=== PATIENT | male | born 1975 | race African-American/Black ===

== ENCOUNTER 2019-08-16 22:01 | Emergency (ER) | payer OTHER ==
[2019-08-16] MEDS ORDERED: LORazepam 2 MG/ML INJ IV STA (22:13)
[2019-08-16] MEDS ORDERED: MORPHINE SULFATE 4 MG/ML SYRINGE IV STA (22:13)
[2019-08-16] MEDS ORDERED: SODIUM CHLORIDE 0.9% 1,000 ML IV STA (22:13)
--- NOTE | 2019-08-16 22:17 | ED ---
Chest Pain HPI - General Chief Complaint: Chest Pain Stated Complaint: Chest pain/SOB Time Seen by Provider: 08/16/19 22:13 Source: patient, EMS, RN notes reviewed, old records reviewed Mode of arrival: EMS Limitations: no limitations - History of Present Illness Initial Comments: This is a 43-year-old male here for evaluation patient is today for evaluation regards to not feeling well chest pain cough shortness of breath. History of smoking. History of drug abuse cocaine. Patient states he feels like he had a prior history of pneumonia with the chest pain is just worse. Coughing makes it worse. Drug history secondary to alcohol abuse. No trauma. No fevers. MD Complaint: chest pain, other (Cough shortness of breath) -: days(s) Onset: during rest, during exertion (Worse with exertion severe shortness of breath) Pain Location: substernal, left chest Pain Radiation: LUE Severity: moderate Severity scale (1-10): 6 Quality: tightness, aching Consistency: constant Improves With: nothing Anginal Symptoms: nausea, diaphoresis, dyspnea Other Symptoms: cough, palpitations Treatments Prior to Arrival: none - Related Data Home Medications Medication Instructions Recorded Confirmed Albuterol Nebulized [Ventolin 2.5 mg INHALATION RT-Q6H PRN 08/16/19 08/16/19 Nebulized] Budesonide/Formoterol Fumarate 2 puff INHALATION RT-BID 08/16/19 08/16/19 [Symbicort 160-4.5 Mcg Inhaler] Cetirizine HCl 10 mg PO DAILY 08/16/19 08/16/19 Lipase/Protease/Amylase [William Armendariz 08/16/19 08/16/19 36,000 Units Capsule] Montelukast [Singulair] 10 mg PO DAILY 08/16/19 08/16/19 Nephro-Avn 0.8mg 0.8 mg PO DAILY 08/16/19 08/16/19 Omeprazole 40 mg PO DAILY 08/16/19 08/16/19 Promethazine HCl [Phenergan Syrup] 12.5 mg PO TID PRN 08/16/19 08/16/19 Umeclidinium [place] [Incruse 1 puff INHALATION RT-DAILY 08/16/19 08/16/19 Ellipta] amLODIPine [Norvasc] 10 mg PO DAILY 08/16/19 08/16/19 Allergies Allergy/AdvReac Type Severity Reaction Status Date / Time acetaminophen [From Tylenol] Allergy Swelling Verified 08/16/19 22:47 meperidine [From Demerol] Allergy Itching Verified 08/16/19 22:47 NSAIDS (Non-Steroidal Allergy Unknown Verified 08/16/19 22:47 Anti-Inflamma Review of Systems ROS Statement: Those systems with pertinent positive or pertinent negative responses have been documented in the HPI. ROS Other: All systems not noted in ROS Statement are negative. EKG Findings - EKG Comments: EKG Findings:: EKG shows sinus rhythm at 75, LA 1:30, QRS 86, QTc 413 Past Medical History Past Medical History: Asthma, COPD, Renal Disease Additional Past Medical History / Comment(s): stage 2 kidney disease, pancreatitis, hital hernia History of Any Multi-Drug Resistant Organisms: None Reported Additional Past Surgical History / Comment(s): kidney stone removal Past Psychological History: No Psychological Hx Reported Smoking Status: Never smoker Past Alcohol Use History: None Reported Past Drug Use History: Cocaine General Exam Limitations: no limitations General appearance: alert, in no apparent distress Head exam: Present: atraumatic, normocephalic, normal inspection Eye exam: Present: normal appearance, PERRL, EOMI. Absent: scleral icterus, conjunctival injection, periorbital swelling ENT exam: Present: normal exam, mucous membranes moist Neck exam: Present: normal inspection. Absent: tenderness, meningismus, lymphadenopathy Respiratory exam: Present: normal lung sounds bilaterally. Absent: respiratory distress, wheezes, rales, rhonchi, stridor Cardiovascular Exam: Present: regular rate, normal rhythm, normal heart sounds. Absent: systolic murmur, diastolic murmur, rubs, gallop, clicks GI/Abdominal exam: Present: soft, normal bowel sounds. Absent: distended, tenderness, guarding, rebound, rigid Extremities exam: Present: normal inspection, full ROM, normal capillary refill. Absent: tenderness, pedal edema, joint swelling, calf tenderness Back exam: Present: normal inspection Neurological exam: Present: alert, oriented X3, CN II-XII intact Psychiatric exam: Present: normal affect, normal mood Skin exam: Present: warm, dry, intact, normal color. Absent: rash Course Vital Signs 08/16/19 08/16/19 08/16/19 22:03 22:13 22:57 Temperature 98.6 F Pulse Rate 76 83 Respiratory 16 18 16 Rate Blood Pressure 128/79 117/76 O2 Sat by Pulse 96 97 Oximetry - Reevaluation(s) Reevaluation #1: 08/16/19 23:26 Medical record is reviewed Reevaluation #2: 08/16/19 23:56 Patient's symptoms improved here in the ER Chest Pain MDM - MDM 43-year-old male with nonspecific chest pain cough and congestion. At this point patient can be discharged home no significant distress chest pain is improving control. Disposition Clinical Impression: Atypical chest pain, Chest pain Disposition: HOME SELF-CARE Condition: Good Instructions (If sedation given, give patient instructions): Chest Pain (ED) Is patient prescribed a controlled substance at d/c from ED?: No Referrals: Nonstaff,Physician [Primary Care Provider] - 1-2 days
[2019-08-16 22:57] LABS: Albumin 3.3 g/dL (3.5-5.0); Magnesium 1.9 mg/dL (1.6-2.3); Potassium 4.2 mmol/L (3.5-5.1); Total Bilirubin 0.2 mg/dL (0.2-1.3); Total Protein 5.7 g/dL (6.3-8.2)
[2019-08-16 23:11] LABS: D-Dimer 0.26 mg/L FEU (<0.60); INR 0.9 (<1.2); Partial Thromboplastin Time 24.3 sec (22.0-30.0); Prothrombin Time 9.5 sec (9.0-12.0)
[2019-08-16 23:21] LABS: Basophils # (A) 0.1 k/uL (0-0.2); Basophils % (A) 2 %; Eosinophils % (A) 1 %; HCT 38.6 % (39.0-53.0); HGB 12.4 gm/dL (13.0-17.5); Lymphocytes # (A) 0.6 k/uL (1.0-4.8); Lymphocytes % (A) 10 %; MCH 27.5 pg (25.0-35.0); MCHC 32.1 g/dL (31.0-37.0); MCV 85.8 fL (80.0-100.0); Mean Platelet Volume 8.1; Monocytes % (A) 16 %; Neutrophils # (A) 4.1 k/uL (1.3-7.7); Neutrophils % (A) 70 %; Platelet Count 325 k/uL (150-450); RDW 14.3 % (11.5-15.5); WBC 5.9 k/uL (3.8-10.6)
--- NOTE | 2019-08-16 23:32 | CT ---
EXAMINATION TYPE: CT angio chest DATE OF EXAM: 08/16/2019 COMPARISON: None HISTORY: Patient presents with chest pain. CT DLP: 411.7 mGycm Automated exposure control for dose reduction was used. CONTRAST: Performed with IV Contrast, patient injected with 70mL mL of Isovue 370. There are 3-D post processed images. There is no mediastinal adenopathy. Thoracic aorta appears intact without evidence of aneurysm or dis section. Heart size is normal. There is no pericardial effusion. There are no hilar masses. There is patchy pulmonary infiltrates and atelectasis in the posterior lung perez bilaterally. I see no suspicious pulmonary mass. There is normal contrast opacification of the pulmonary arteries. There are no filling defects. The b casandra thorax is intact. Thoracic vertebra have normal spacing and alignment. I see no bony destructive process. IMPRESSION: No evidence of pulmonary embolism. Posterior bilateral pulmonary linear infiltrates and atelectasis probably related to inflammatory dis ease. Normal heart.
[2019-08-16] MEDS ORDERED: IPRATROPIUM-ALBUTEROL 3 ML NEB INHALATION STA (23:42)
[2019-08-16] MEDS ORDERED: KETOROLAC 30 MG/ML 1 ML VIAL IVP STA (23:42)
[2019-08-16] MEDS ORDERED: DEXAMETHASONE SOD PHOSPHATE 10 MG/ML 1 ML VIAL IV STA (23:42)
[2019-08-17 00:11] VITALS: RESP 18
[2019-08-17 01:07] VITALS: BP 134/91; PULSE 83; TEMP 97.3
== END 2019-08-17 01:05 | disposition home or self-care (01) ==
LOC: EC 22:01
DX: R07.89 Other chest pain (principal); R06.02 Shortness of breath; R05 Cough; R09.89 Other specified symptoms and signs involving the circulatory and respiratory systems; J44.9 Chronic obstructive pulmonary disease, unspecified; Z79.51 Long term (current) use of inhaled steroids; Z79.899 Other long term (current) drug therapy; Z88.5 Allergy status to narcotic agent; Z88.6 Allergy status to analgesic agent; Z87.891 Personal history of nicotine dependence
CPT/HCPCS: 36415; 94640; 93005; 85379; 83880; 80053; 83690; 83735; 84484; 85025; 85610; 85730; 71275; 99285; 96374; 96375 ×3; 96361 ×2; J2060; J2270; J1100; J1885; Q9967

== ENCOUNTER 2021-01-31 21:33 | Emergency (ER) | payer OTHER ==
[2021-01-31 21:53] VITALS: TEMP 98.2
[2021-01-31] MEDS ORDERED: IPRATROPIUM-ALBUTEROL 3 ML NEB INHALATION STA (23:41)
[2021-01-31] MEDS ORDERED: methylPREDNISolone SOD SUCCI 125 MG/2 ML VIAL IM ONE (23:42)
[2021-01-31] MEDS ORDERED: ALBUTEROL NEB (CONC) 2.5 MG/0.5 ML INHALATION STA (23:42)
[2021-01-31] MEDS ORDERED: MORPHINE SULFATE 4 MG/ML SYRINGE IM STA (23:43)
--- NOTE | 2021-02-01 00:03 | XR ---
EXAMINATION TYPE: XR chest 2V DATE OF EXAM: 01/31/2021 COMPARISON: NONE HISTORY: Cough TECHNIQUE: 2 views FINDINGS: There is some reticular patchy infiltrate in the mid lung perez bilaterally. Heart size is normal. There is no heart failure. There are no hilar masses. There is no pleural effusion. IMPRESSION: Bilateral perihilar pulmonary interstitial infiltrates and atelectasis. Normal heart.
[2021-02-01] MEDS ORDERED: AZITHROMYCIN 500 MG TAB PO STA (00:36)
[2021-02-01 01:00] VITALS: RESP 18
--- NOTE | 2021-02-01 01:08 | ED ---
URI HPI - General Chief Complaint: Upper Respiratory Infection Stated Complaint: Cough Time Seen by Provider: 01/31/21 22:26 Source: patient Mode of arrival: ambulatory Limitations: no limitations - History of Present Illness Initial Comments: 45 year-old male patient presents to the emergency department for evaluation of cough, congestion, and chest tightness. States symptoms have been present for the last week. States his sputum is now green. He feels a little more short of breath. Does have history of asthma. Does do symbicort and incruse inhalers. He does admit to smoking cigarettes. Denies any fever or chills. Denies any sore throat or nasal congestion. Patient denies any recent rash, abdominal pain, nausea, vomiting, diarrhea, constipation, back pain, numbness, tingling, dizziness, weakness, hematuria, dysuria, urinary urgency, urinary frequency, headache, visual changes, or any other complaints. - Related Data Home Medications Medication Instructions Recorded Confirmed Albuterol Nebulized [Ventolin 2.5 mg INHALATION RT-Q6H PRN 08/16/19 08/16/19 Nebulized] Budesonide/Formoterol Fumarate 2 puff INHALATION RT-BID 08/16/19 08/16/19 [Symbicort 160-4.5 Mcg Inhaler] Cetirizine HCl 10 mg PO DAILY 08/16/19 08/16/19 Lipase/Protease/Amylase [William Armendariz 08/16/19 08/16/19 36,000 Units Capsule] Montelukast [Singulair] 10 mg PO DAILY 08/16/19 08/16/19 Nephro-Van 0.8mg 0.8 mg PO DAILY 08/16/19 08/16/19 Omeprazole 40 mg PO DAILY 08/16/19 08/16/19 Promethazine HCl [Phenergan Syrup] 12.5 mg PO TID PRN 08/16/19 08/16/19 Umeclidinium [place] [Incruse 1 puff INHALATION RT-DAILY 08/16/19 08/16/19 Ellipta] amLODIPine [Norvasc] 10 mg PO DAILY 08/16/19 08/16/19 Previous Rx's Medication Instructions Recorded Albuterol Sulfate [Proair Hfa] 1 - 2 puff INHALATION Q6HR PRN #1 02/01/21 inhaler Azithromycin [Zithromax Z-pack (6 0 mg PO DIRECTED #6 tab 02/01/21 tabs)] predniSONE 50 mg PO DAILY #5 tablet 02/01/21 Allergies Allergy/AdvReac Type Severity Reaction Status Date / Time acetaminophen [From Tylenol] Allergy Swelling Verified 01/31/21 21:50 meperidine [From Demerol] Allergy Itching Verified 01/31/21 21:50 NSAIDS (Non-Steroidal Allergy Unknown Verified 01/31/21 21:50 Anti-Inflamma propoxyphene Allergy Unknown Verified 01/31/21 21:50 [From Darvocet-N] Review of Systems ROS Statement: Those systems with pertinent positive or pertinent negative responses have been documented in the HPI. ROS Other: All systems not noted in ROS Statement are negative. Past Medical History Past Medical History: Asthma, COPD, Renal Disease Additional Past Medical History / Comment(s): stage 2 kidney disease, pancreatitis, hital hernia History of Any Multi-Drug Resistant Organisms: None Reported Past Surgical History: No Surgical Hx Reported Additional Past Surgical History / Comment(s): kidney stone removal Past Psychological History: Anxiety, Depression Smoking Status: Never smoker Past Alcohol Use History: None Reported Past Drug Use History: None Reported, Cocaine General Exam Limitations: no limitations General appearance: alert, in no apparent distress, other (Physical well- developed, well-nourished adult male patient in no acute distress. Vital signs upon presentation temperature 98.2F, pulse 75, respirations 20, blood pressure 134/87, pulse ox 97% on room air.) Eye exam: Present: normal appearance, PERRL, EOMI. Absent: scleral icterus, conjunctival injection, periorbital swelling ENT exam: Present: normal exam, normal oropharynx, mucous membranes moist Respiratory exam: Present: wheezes (Expiratory wheezing noted in the posterior lung perez). Absent: normal lung sounds bilaterally, respiratory distress, rales, rhonchi, stridor Cardiovascular Exam: Present: regular rate, normal rhythm, normal heart sounds. Absent: systolic murmur, diastolic murmur, rubs, gallop, clicks GI/Abdominal exam: Present: soft, normal bowel sounds. Absent: distended, tenderness, guarding, rebound, rigid Neurological exam: Present: alert, oriented X3, CN II-XII intact Psychiatric exam: Present: normal affect, normal mood Skin exam: Present: warm, dry, intact, normal color. Absent: rash Course Vital Signs 01/31/21 01/31/21 02/01/21 21:50 23:37 00:39 Temperature 98.2 F Pulse Rate 75 65 79 Respiratory 20 22 Rate Blood Pressure 134/87 133/92 O2 Sat by Pulse 97 95 Oximetry 02/01/21 02/01/21 02/01/21 00:45 00:59 01:38 Temperature Pulse Rate 84 86 88 Respiratory 18 18 Rate Blood Pressure 137/78 132/75 O2 Sat by Pulse 97 98 Oximetry Medical Decision Making - Medical Decision Making 45-year-old male patient with past medical history significant for asthma presents to the emergency department today for evaluation of shortness of breath cough with green sputum production. Did have expiratory wheezing on exam. Oxygen saturation between 96 and 97% on room air. He is afebrile. Chest x-ray did show bilateral perihilar infiltrates. Tested negative for cough.. He'll be started on azithromycin given steroids and a Pro Air inhaler. He is instructed to follow-up with his primary care physician for recheck in 1-2 days. Return parameters were discussed in detail. He verbalizes understanding and agrees with this plan. My attending is Dr. Porras. - Lab Data Lab Results 02/01/21 Range/Units 00:02 Coronavirus (PCR) Not Detected (Not Detectd) - Radiology Data Radiology results: report reviewed, image reviewed Chest x-ray shows bilateral perihilar pulmonary interstitial infiltrates and atelectasis. Normal heart. Disposition Clinical Impression: Bronchopneumonia Disposition: HOME SELF-CARE Condition: Good Instructions (If sedation given, give patient instructions): Acute Bronchitis (ED), Pneumonia (ED) Additional Instructions: Take medications as directed. Follow-up with the primary care physician for recheck in 1-2 days. Return to the emergency department for any new, worsening, or concerning symptoms. You were given injections of Morphine and solu-medrol in the emergency department. Prescriptions: predniSONE 50 mg PO DAILY #5 tablet Albuterol Sulfate [Proair Hfa] 1 - 2 puff INHALATION Q6HR PRN #1 inhaler PRN Reason: Shortness Of Breath Azithromycin [Zithromax Z-pack (6 tabs)] 0 mg PO DIRECTED #6 tab Is patient prescribed a controlled substance at d/c from ED?: No Referrals: Nonstaff,Physician [Primary Care Provider] - 1-2 days Time of Disposition: 01:07
[2021-02-01 01:39] VITALS: BP 132/75; PULSE 88
== END 2021-02-01 01:39 | disposition home or self-care (01) ==
LOC: EC 21:33
DX: J18.0 Bronchopneumonia, unspecified organism (principal); F32.9 Major depressive disorder, single episode, unspecified; J44.9 Chronic obstructive pulmonary disease, unspecified; N18.2 Chronic kidney disease, stage 2 (mild)
CPT/HCPCS: 94640; 87635; 71046; 99285; 96372 ×2; J2270; J2930

== ENCOUNTER 2021-04-10 11:11 | Emergency (ER) | payer OTHER ==
[2021-04-10 11:17] VITALS: TEMP 98.3
[2021-04-10] MEDS ORDERED: SODIUM CHLORIDE 0.9% 1,000 ML IV STA (11:29)
[2021-04-10] MEDS ORDERED: MORPHINE SULFATE 4 MG/ML SYRINGE IV STA (11:29)
[2021-04-10] MEDS ORDERED: ONDANSETRON 4 MG/2 ML VIAL IVP STA (11:29)
--- NOTE | 2021-04-10 11:39 | ED ---
Abdominal Pain HPI - General Chief Complaint: Abdominal Pain Stated Complaint: lt sided abd pain Time Seen by Provider: 04/10/21 11:19 Source: patient Mode of arrival: EMS Limitations: no limitations - History of Present Illness Initial Comments: Patient is a 45-year-old male with history of asthma, kidney disease, presenting to emergency Department with complaints of left lower abdominal pain that started yesterday. He had a single episode of diarrhea yesterday as well. He denies any radiation of the pain, states the pain is 10/10 today. Does have some mild nausea but no vomiting. He denies a history of any abdominal surgeries except for surgery on his left kidney secondary to cancer. He has had kidney stones in the past over this feels different. He's had a colonoscopy in his past as well with no abnormal findings. He denies any fevers or chills, no cough, no chest pain or shortness of breath. He has no further complaints at this time. His vitals are stable upon arrival. - Related Data Home Medications Medication Instructions Recorded Confirmed Albuterol Nebulized [Ventolin 2.5 mg INHALATION RT-Q6H PRN 08/16/19 08/16/19 Nebulized] Budesonide/Formoterol Fumarate 2 puff INHALATION RT-BID 08/16/19 08/16/19 [Symbicort 160-4.5 Mcg Inhaler] Cetirizine HCl 10 mg PO DAILY 08/16/19 08/16/19 Lipase/Protease/Amylase [William Armendariz 08/16/19 08/16/19 36,000 Units Capsule] Montelukast [Singulair] 10 mg PO DAILY 08/16/19 08/16/19 Nephro-Van 0.8mg 0.8 mg PO DAILY 08/16/19 08/16/19 Omeprazole 40 mg PO DAILY 08/16/19 08/16/19 Promethazine HCl [Phenergan Syrup] 12.5 mg PO TID PRN 08/16/19 08/16/19 Umeclidinium [place] [Incruse 1 puff INHALATION RT-DAILY 08/16/19 08/16/19 Ellipta] amLODIPine [Norvasc] 10 mg PO DAILY 08/16/19 08/16/19 Previous Rx's Medication Instructions Recorded Albuterol Sulfate [Proair Hfa] 1 - 2 puff INHALATION Q6HR PRN #1 02/01/21 inhaler Azithromycin [Zithromax Z-pack (6 0 mg PO DIRECTED #6 tab 02/01/21 tabs)] predniSONE 50 mg PO DAILY #5 tablet 02/01/21 Tamsulosin [Flomax] 0.4 mg PO DAILY #7 cap 04/10/21 Allergies Allergy/AdvReac Type Severity Reaction Status Date / Time acetaminophen [From Tylenol] Allergy Swelling Verified 04/10/21 11:17 meperidine [From Demerol] Allergy Itching Verified 04/10/21 11:17 NSAIDS (Non-Steroidal Allergy Unknown Verified 04/10/21 11:17 Anti-Inflamma propoxyphene Allergy Unknown Verified 04/10/21 11:17 [From Darvocet-N] Review of Systems ROS Statement: Those systems with pertinent positive or pertinent negative responses have been documented in the HPI. ROS Other: All systems not noted in ROS Statement are negative. Past Medical History Past Medical History: Asthma, COPD, Renal Disease Additional Past Medical History / Comment(s): stage 2 kidney disease, pancreatitis, hital hernia History of Any Multi-Drug Resistant Organisms: None Reported Past Surgical History: No Surgical Hx Reported Additional Past Surgical History / Comment(s): kidney stone removal Past Psychological History: Anxiety, Depression Smoking Status: Never smoker Past Alcohol Use History: None Reported Past Drug Use History: None Reported, Cocaine General Exam - General Exam Comments Initial Comments: GENERAL: Patient is well-developed and well-nourished. Patient is nontoxic and in mild distress. HEAD: Atraumatic, normocephalic. EYES: Pupils equal round and reactive to light, extraocular movements intact, sclera anicteric, conjunctiva are normal. Eyelids were unremarkable. ENT: Nares patent, oropharynx clear without exudates. Moist mucous membranes. NECK: Normal range of motion, supple without lymphadenopathy or JVD. LUNGS: Unlabored respirations. Breath sounds clear to auscultation bilaterally and equal. No wheezes rales or rhonchi. HEART: Regular rate and rhythm without murmurs, rubs or gallops. ABDOMEN: Soft, tender to palpation left lower quadrant, normoactive bowel sounds. No guarding, no rebound. No masses appreciated. : Deferred MUSCULOSKELETAL: Normal extremities with adequate strength and normal range of motion, no pitting or edema. No clubbing or cyanosis. NEUROLOGICAL: Patient is alert and oriented x 3. Normal speech, normal gait. PSYCH: Normal mood, normal affect. SKIN: Warm, Dry, normal turgor, no rashes or lesions noted. Limitations: no limitations Course Vital Signs 04/10/21 04/10/21 04/10/21 11:13 12:17 13:19 Temperature 98.3 F Pulse Rate 87 72 Respiratory 18 18 18 Rate Blood Pressure 140/94 124/87 124/84 O2 Sat by Pulse 97 96 100 Oximetry Medical Decision Making - Medical Decision Making Patient is a 45-year-old male here with left lower quadrant pain yesterday yesterday. He has history of asthma, kidney disease, left kidney cancer removal. No fevers, vitals are stable upon arrival. Labs show a normal white count, potassium is slightly elevated at 2.2, symptoms most likely due to severe pain. Lipase is normal, urine shows no evidence of infection, no hematuria. CT shows no evidence for acute diverticulitis, no evidence of kidney stones in the read however upon evaluation of the CT itself, I do believe there is a left ureteral stone distally. Discussed these findings with the patient. I recommended following up with his urologist. I will give him tramadol to go home with for pain as well as Flomax. He is agreeable to this plan of care. He is stable for discharge. Return parameters were discussed with him and he verbalized understanding. Case discussed with Dr. Lomax. - Lab Data Result diagrams: 04/10/21 11:53 04/10/21 11:53 Lab Results 04/10/21 04/10/21 04/10/21 Range/Units 11:53 11:53 11:53 WBC 5.6 (3.8-10.6) k/uL RBC 5.36 (4.30-5.90) m/uL Hgb 15.3 (13.0-17.5) gm/dL Hct 46.8 (39.0-53.0) % MCV 87.2 (80.0-100.0) fL MCH 28.6 (25.0-35.0) pg MCHC 32.8 (31.0-37.0) g/dL RDW 15.0 (11.5-15.5) % Plt Count 226 (150-450) k/uL MPV 9.2 Neutrophils % 63 % Lymphocytes % 16 % Monocytes % 9 % Eosinophils % 10 % Basophils % 0 % Neutrophils # 3.5 (1.3-7.7) k/uL Lymphocytes # 0.9 L (1.0-4.8) k/uL Monocytes # 0.5 (0-1.0) k/uL Eosinophils # 0.5 (0-0.7) k/uL Basophils # 0.0 (0-0.2) k/uL Sodium 139 (137-145) mmol/L Potassium 3.9 (3.5-5.1) mmol/L Chloride 105 (98-107) mmol/L Carbon Dioxide 22 (22-30) mmol/L Anion Gap 12 mmol/L BUN 19 (9-20) mg/dL Creatinine 1.58 H (0.66-1.25) mg/dL Est GFR (CKD-EPI)AfAm 61 (>60 ml/min/1.73 sqM) Est GFR (CKD-EPI)NonAf 53 (>60 ml/min/1.73 sqM) Glucose 138 H (74-99) mg/dL Plasma Lactic Acid Matheus (0.7-2.0) mmol/L Calcium 9.8 (8.4-10.2) mg/dL Total Bilirubin 0.4 (0.2-1.3) mg/dL AST 36 (17-59) U/L ALT 27 (4-49) U/L Alkaline Phosphatase 95 (38-126) U/L Total Protein 7.7 (6.3-8.2) g/dL Albumin 4.7 (3.5-5.0) g/dL Amylase 103 (30-110) U/L Lipase 59 (23-300) U/L Urine Color Yellow Urine Appearance Clear (Clear) Urine pH 6.0 (5.0-8.0) Ur Specific [place] 1.015 (1.001-1.035) Urine Protein Trace H (Negative) Urine Glucose (UA) Negative (Negative) Urine Ketones Negative (Negative) Urine Blood Negative (Negative) Urine Nitrite Negative (Negative) Urine Bilirubin Negative (Negative) Urine Urobilinogen <2.0 (<2.0) mg/dL Ur Leukocyte Esterase Negative (Negative) 04/10/21 Range/Units 11:53 WBC (3.8-10.6) k/uL RBC (4.30-5.90) m/uL Hgb (13.0-17.5) gm/dL Hct (39.0-53.0) % MCV (80.0-100.0) fL MCH (25.0-35.0) pg MCHC (31.0-37.0) g/dL RDW (11.5-15.5) % Plt Count (150-450) k/uL MPV Neutrophils % % Lymphocytes % % Monocytes % % Eosinophils % % Basophils % % Neutrophils # (1.3-7.7) k/uL Lymphocytes # (1.0-4.8) k/uL Monocytes # (0-1.0) k/uL Eosinophils # (0-0.7) k/uL Basophils # (0-0.2) k/uL Sodium (137-145) mmol/L Potassium (3.5-5.1) mmol/L Chloride (98-107) mmol/L Carbon Dioxide (22-30) mmol/L Anion Gap mmol/L BUN (9-20) mg/dL Creatinine (0.66-1.25) mg/dL Est GFR (CKD-EPI)AfAm (>60 ml/min/1.73 sqM) Est GFR (CKD-EPI)NonAf (>60 ml/min/1.73 sqM) Glucose (74-99) mg/dL Plasma Lactic Acid Matheus 2.2 H* (0.7-2.0) mmol/L Calcium (8.4-10.2) mg/dL Total Bilirubin (0.2-1.3) mg/dL AST (17-59) U/L ALT (4-49) U/L Alkaline Phosphatase (38-126) U/L Total Protein (6.3-8.2) g/dL Albumin (3.5-5.0) g/dL Amylase (30-110) U/L Lipase (23-300) U/L Urine Color Urine Appearance (Clear) Urine pH (5.0-8.0) Ur Specific [place] (1.001-1.035) Urine Protein (Negative) Urine Glucose (UA) (Negative) Urine Ketones (Negative) Urine Blood (Negative) Urine Nitrite (Negative) Urine Bilirubin (Negative) Urine Urobilinogen (<2.0) mg/dL Ur Leukocyte Esterase (Negative) Disposition Clinical Impression: LLQ abdominal pain, Left ureteral calculus Disposition: HOME SELF-CARE Condition: Stable Instructions (If sedation given, give patient instructions): Kidney Stones (ED) Additional Instructions: Please return to the Emergency Department if symptoms worsen or any other concerns. Recommend Flomax daily, tramadol for discomfort. Please follow-up with your primary care physician. Prescriptions: Tamsulosin [Flomax] 0.4 mg PO DAILY #7 cap Is patient prescribed a controlled substance at d/c from ED?: No Referrals: Yany Mayroga [facility] [REFERRING] - 1-2 days Time of Disposition: 13:56
[2021-04-10 12:03] LABS: Basophils % (A) 0 %; Eosinophils # (A) 0.5 k/uL (0-0.7); Eosinophils % (A) 10 %; HCT 46.8 % (39.0-53.0); HGB 15.3 gm/dL (13.0-17.5); Lymphocytes # (A) 0.9 k/uL (1.0-4.8); Lymphocytes % (A) 16 %; MCH 28.6 pg (25.0-35.0); MCHC 32.8 g/dL (31.0-37.0); MCV 87.2 fL (80.0-100.0); Mean Platelet Volume 9.2; Monocytes # (A) 0.5 k/uL (0-1.0); Monocytes % (A) 9 %; Neutrophils # (A) 3.5 k/uL (1.3-7.7); Neutrophils % (A) 63 %; Platelet Count 226 k/uL (150-450); RBC 5.36 m/uL (4.30-5.90); WBC 5.6 k/uL (3.8-10.6)
[2021-04-10 12:18] LABS: Albumin 4.7 g/dL (3.5-5.0); Calcium 9.8 mg/dL (8.4-10.2); Potassium 3.9 mmol/L (3.5-5.1); Total Bilirubin 0.4 mg/dL (0.2-1.3); Total Protein 7.7 g/dL (6.3-8.2)
[2021-04-10 12:37] LABS: Appearance,Urine Clear (Clear); Bilirubin,Urine Negative (Negative); Blood,Urine Negative (Negative); Color,Urine Yellow; Glucose,Urine (UA) Negative (Negative); Ketones,Urine Negative (Negative); Leukocyte Esterase,Urine Negative (Negative); Nitrite,Urine Negative (Negative); Protein,Urine Trace (Negative); Specific Gravity,Urine 1.015 (1.001-1.035); Urobilinogen,Urine <2.0 mg/dL (<2.0)
[2021-04-10] MEDS ORDERED: MORPHINE SULFATE 4 MG/ML SYRINGE IVP STA (12:54)
--- NOTE | 2021-04-10 13:07 | CT ---
EXAMINATION TYPE: CT abdomen pelvis w con DATE OF EXAM: 04/10/2021 COMPARISON: None. HISTORY: LLQ abdominal pain CT DLP: 1537.8 mGycm, Automated Exposure Control for Dose Reduction was Utilized. CONTRAST: CT scan of the abdomen and pelvis is performed without oral and with IV Contrast, patient injected wi th 100 ml mL of Isovue 300. FINDINGS: LUNG BASES: Mild to moderate bibasilar posterior linear is slightly thickened scarring and/or atelect asis. LIVER/GB: No significant abnormality is appreciated. PANCREAS: No significant abnormality is seen. SPLEEN: No significant abnormality is seen. ADRENALS: No significant abnormality is seen. KIDNEYS: Focal low dense slightly irregular lesion periphery upper pole left kidney measures 2.5 x 1. 5 cm is nonspecific coronal image 77. Symmetrical uptake and excretion without hydronephrosis seen bi laterally. Mild wall thickening may be prior to poor distention. BOWEL: Slightly suboptimal evaluation of bowel without enteric contrast. No suspicious small or large bowel dilatation. Slightly redundant sigmoid colon without significant diverticulosis or CT evidence for acute diverticulitis. Normal-appearing appendix in the right lower quadrant noted. PROSTATE/SEMINAL VESICLES: Upper limits of normal in size bulging on bladder base LYMPH NODES: No greater than 1cm abdominal or pelvic lymph nodes are appreciated. OSSEOUS STRUCTURES: No significant abnormality is seen. OTHER: No significant additional abnormality is seen. IMPRESSION: No significant colonic diverticulosis or CT evidence for acute diverticulitis. Irregular near 2.0 cm infiltrative low density area upper pole left kidney could reflect acute infectious etio logy or focal pyelonephritis in appropriate clinical setting, correlate clinically. Short-term follow -up advised as infiltrative lesions such as lymphoma would be in differential if infection is thought not clinically likely. Possible mild acute cystitis versus poorly distended bladder or outlet obstru ction. Correlate clinically.
[2021-04-10] MEDS ORDERED: traMADol 50 MG STARTER PACK 3 TAB BTL PO STA (13:53)
[2021-04-10 14:10] VITALS: BP 120/80; PULSE 80; RESP 16
== END 2021-04-10 14:10 | disposition home or self-care (01) ==
LOC: EC 11:11
DX: N20.1 Calculus of ureter (principal); J45.909 Unspecified asthma, uncomplicated; N18.2 Chronic kidney disease, stage 2 (mild); F41.9 Anxiety disorder, unspecified; F32.9 Major depressive disorder, single episode, unspecified; Z88.6 Allergy status to analgesic agent; Z88.5 Allergy status to narcotic agent
CPT/HCPCS: 99284; 96374; 96375; 96376; 96361 ×2; 36415; 80053; 82150; 83605; 83690; 85025; 81003; 74177; J2270; J2405; Q9967

== ENCOUNTER 2021-04-18 15:07 | Emergency (ER) | payer OTHER ==
[2021-04-18 15:10] VITALS: TEMP 98.1
[2021-04-18] MEDS ORDERED: SODIUM CHLORIDE 0.9% 1,000 ML IV STA (15:32)
--- NOTE | 2021-04-18 15:37 | ED ---
General Adult HPI - General Chief complaint: Urogenital Stated complaint: Revisit Kidney Stone Time Seen by Provider: 04/18/21 15:18 Source: patient, RN notes reviewed, old records reviewed Mode of arrival: wheelchair Limitations: no limitations - History of Present Illness Initial comments: This is a well-appearing 45-year-old black male, presents to the emergency room with 1 week of abdominal fullness and bloating. Patient states that he was seen here last week and told he has a kidney stone on the left. He did have an appointment with his urologist today but he could not get transportation. States that the pain is worse. He denies any nausea or vomiting or fevers. He denies chest pain or shortness of breath. He states that he is having regular bowel movements and denies any hematuria or hematochezia. Patient does have a history of a cancerous lesion on the left kidney that was removed. He states that his urologist follows him and he is out of [place] because that's where he lived. He has recently moved down here. -: week(s) (1) Location: abdomen (Right and left lower quadrants) Radiation: non-radiation Severity scale (1-10): 10 Quality: other (Full and bloated) Consistency: constant Improves with: none Worsens with: movement Associated Symptoms: denies other symptoms Treatments Prior to Arrival: other (Flomax) - Related Data Home Medications Medication Instructions Recorded Confirmed Budesonide/Formoterol Fumarate 2 puff INHALATION RT-BID 08/16/19 04/10/21 [Symbicort 160-4.5 Mcg Inhaler] Cetirizine HCl 10 mg PO DAILY 08/16/19 04/10/21 Montelukast [Singulair] 10 mg PO DAILY 08/16/19 04/10/21 Nephro-Van 0.8mg 0.8 mg PO DAILY 08/16/19 04/10/21 Umeclidinium [place] [Incruse 1 puff INHALATION RT-DAILY 08/16/19 04/10/21 Ellipta] amLODIPine [Norvasc] 10 mg PO DAILY 08/16/19 04/10/21 Escitalopram [Lexapro] 20 mg PO DAILY 04/10/21 04/10/21 Famotidine 40 mg PO HS 04/10/21 04/10/21 Promethaz-Cod 6.25-10 mg/5 ml 5 ml PO BID PRN 04/10/21 04/10/21 [Phenergan with Codeine] busPIRone HCL [Buspar] 30 mg PO BID 04/10/21 04/10/21 hydrOXYzine pamoate [Vistaril] 50 mg PO BID 04/10/21 04/10/21 Previous Rx's Medication Instructions Recorded Tamsulosin [Flomax] 0.4 mg PO DAILY #7 cap 04/10/21 Allergies Allergy/AdvReac Type Severity Reaction Status Date / Time hydromorphone [From Dilaudid] Allergy Itching Verified 04/18/21 15:08 meperidine [From Demerol] Allergy Itching Verified 04/18/21 15:08 propoxyphene Allergy Unknown Verified 04/18/21 15:08 [From Darvocet-N] NSAIDS (Non-Steroidal AdvReac Kidneys Verified 04/18/21 15:08 Anti-Inflamma Review of Systems ROS Statement: Those systems with pertinent positive or pertinent negative responses have been documented in the HPI. ROS Other: All systems not noted in ROS Statement are negative. Past Medical History Past Medical History: Asthma, COPD, Renal Disease Additional Past Medical History / Comment(s): stage 2 kidney disease, pancreatitis, hital hernia History of Any Multi-Drug Resistant Organisms: None Reported Past Surgical History: No Surgical Hx Reported Additional Past Surgical History / Comment(s): kidney stone removal Past Psychological History: Anxiety, Depression Smoking Status: Never smoker Past Alcohol Use History: None Reported Past Drug Use History: None Reported, Marijuana General Exam Limitations: no limitations General appearance: alert, in no apparent distress Head exam: Present: atraumatic, normocephalic, normal inspection Eye exam: Present: normal appearance, PERRL, EOMI. Absent: scleral icterus, conjunctival injection, periorbital swelling ENT exam: Present: normal exam, normal oropharynx, mucous membranes moist Neck exam: Present: normal inspection, full ROM. Absent: tenderness, meningismus, lymphadenopathy Respiratory exam: Present: normal lung sounds bilaterally. Absent: respiratory distress, wheezes, rales, rhonchi, stridor, chest wall tenderness, accessory muscle use, decreased breath sounds Cardiovascular Exam: Present: regular rate, normal rhythm, normal heart sounds. Absent: systolic murmur, diastolic murmur, rubs, gallop, clicks, JVD GI/Abdominal exam: Present: distended, tenderness (Right and left lower quadrant). Absent: rigid, mass Back exam: Present: full ROM. Absent: tenderness, CVA tenderness (R), CVA tenderness (L), muscle spasm, paraspinal tenderness, vertebral tenderness Neurological exam: Present: alert, oriented X3, CN II-XII intact Psychiatric exam: Present: normal affect, normal mood Skin exam: Present: warm, dry, intact, normal color. Absent: rash, cyanosis, diaphoretic, erythema, pallor Course Vital Signs 04/18/21 04/18/21 15:08 16:21 Temperature 98.1 F Pulse Rate 89 84 Respiratory 20 16 Rate Blood Pressure 131/77 145/97 O2 Sat by Pulse 96 96 Oximetry Medical Decision Making - Medical Decision Making X-ray KUB shows gas seen in nondistended stomach bubble. There is nondistended small bowel and large bowel loops. There is no visceromegaly pneumoperitoneum or abnormal calcifications appreciated. CT of the abdomen and pelvis done on April 10 shows a focal low density slightly irregular lesion in the periphery of the upper pole of the left kidney. There was no hydronephrosis seen. There was no evidence of diverticulosis or acute diverticulitis and normal-appearing appendix. Liver, gallbladder, pancreas and spleen were without abnormality. UA is negative for blood or signs of infection. Hemoglobin and hematocrit are stable at 13.5 and 41.1. Patient states that the pain has improved after the morphine. He was directed to follow up with his urologist and given a CD of the CAT scan that was performed on 04/10/2021. He was directed to discuss the 2 cm dense area of the left kidney with his urologist. Case discussed with Dr. Pinzon. Patient is agreeable to this plan of care. - Lab Data Result diagrams: 04/18/21 15:53 04/18/21 15:53 Lab Results 04/18/21 04/18/21 04/18/21 Range/Units 15:53 15:53 15:53 WBC 5.3 (3.8-10.6) k/uL RBC 4.67 (4.30-5.90) m/uL Hgb 13.5 (13.0-17.5) gm/dL Hct 41.1 (39.0-53.0) % MCV 88.0 (80.0-100.0) fL MCH 28.8 (25.0-35.0) pg MCHC 32.7 (31.0-37.0) g/dL RDW 15.0 (11.5-15.5) % Plt Count 236 (150-450) k/uL MPV 8.6 Neutrophils % 57 % Lymphocytes % 19 % Monocytes % 12 % Eosinophils % 9 % Basophils % 0 % Neutrophils # 3.0 (1.3-7.7) k/uL Lymphocytes # 1.0 (1.0-4.8) k/uL Monocytes # 0.6 (0-1.0) k/uL Eosinophils # 0.5 (0-0.7) k/uL Basophils # 0.0 (0-0.2) k/uL Sodium 141 (137-145) mmol/L Potassium 4.0 (3.5-5.1) mmol/L Chloride 108 H (98-107) mmol/L Carbon Dioxide 24 (22-30) mmol/L Anion Gap 9 mmol/L BUN 15 (9-20) mg/dL Creatinine 1.53 H (0.66-1.25) mg/dL Est GFR (CKD-EPI)AfAm 63 (>60 ml/min/1.73 sqM) Est GFR (CKD-EPI)NonAf 55 (>60 ml/min/1.73 sqM) Glucose 125 H (74-99) mg/dL Plasma Lactic Acid [place] (0.7-2.0) mmol/L Calcium 9.6 (8.4-10.2) mg/dL Total Bilirubin 0.3 (0.2-1.3) mg/dL AST 23 (17-59) U/L ALT 19 (4-49) U/L Alkaline Phosphatase 121 (38-126) U/L Total Protein 6.9 (6.3-8.2) g/dL Albumin 4.1 (3.5-5.0) g/dL Amylase 124 H (30-110) U/L Lipase 93 (23-300) U/L Urine Color Yellow Urine Appearance Clear (Clear) Urine pH 6.5 (5.0-8.0) Ur Specific [place] 1.016 (1.001-1.035) Urine Protein Negative (Negative) Urine Glucose (UA) Negative (Negative) Urine Ketones Negative (Negative) Urine Blood Negative (Negative) Urine Nitrite Negative (Negative) Urine Bilirubin Negative (Negative) Urine Urobilinogen <2.0 (<2.0) mg/dL Ur Leukocyte Esterase Negative (Negative) 04/18/21 Range/Units 15:53 WBC (3.8-10.6) k/uL RBC (4.30-5.90) m/uL Hgb (13.0-17.5) gm/dL Hct (39.0-53.0) % MCV (80.0-100.0) fL MCH (25.0-35.0) pg MCHC (31.0-37.0) g/dL RDW (11.5-15.5) % Plt Count (150-450) k/uL MPV Neutrophils % % Lymphocytes % % Monocytes % % Eosinophils % % Basophils % % Neutrophils # (1.3-7.7) k/uL Lymphocytes # (1.0-4.8) k/uL Monocytes # (0-1.0) k/uL Eosinophils # (0-0.7) k/uL Basophils # (0-0.2) k/uL Sodium (137-145) mmol/L Potassium (3.5-5.1) mmol/L Chloride (98-107) mmol/L Carbon Dioxide (22-30) mmol/L Anion Gap mmol/L BUN (9-20) mg/dL Creatinine (0.66-1.25) mg/dL Est GFR (CKD-EPI)AfAm (>60 ml/min/1.73 sqM) Est GFR (CKD-EPI)NonAf (>60 ml/min/1.73 sqM) Glucose (74-99) mg/dL Plasma Lactic Acid [place] 1.3 (0.7-2.0) mmol/L Calcium (8.4-10.2) mg/dL Total Bilirubin (0.2-1.3) mg/dL AST (17-59) U/L ALT (4-49) U/L Alkaline Phosphatase (38-126) U/L Total Protein (6.3-8.2) g/dL Albumin (3.5-5.0) g/dL Amylase (30-110) U/L Lipase (23-300) U/L Urine Color Urine Appearance (Clear) Urine pH (5.0-8.0) Ur Specific [place] (1.001-1.035) Urine Protein (Negative) Urine Glucose (UA) (Negative) Urine Ketones (Negative) Urine Blood (Negative) Urine Nitrite (Negative) Urine Bilirubin (Negative) Urine Urobilinogen (<2.0) mg/dL Ur Leukocyte Esterase (Negative) Disposition Clinical Impression: Abdominal pain Disposition: HOME SELF-CARE Condition: Good Instructions (If sedation given, give patient instructions): Abdominal Pain (ED) Additional Instructions: Follow-up with your primary care doctor and urologist. Have them review your CAT scan report from April 10 of your left kidney. Return to the emergency room with any new or worsening symptoms. Is patient prescribed a controlled substance at d/c from ED?: No Referrals: Nonstaff,Physician [Primary Care Provider] - 1-2 days Atul Amin MD [STAFF PHYSICIAN] - 1-2 days Time of Disposition: 16:39
[2021-04-18 16:05] LABS: Basophils % (A) 0 %; Eosinophils # (A) 0.5 k/uL (0-0.7); Eosinophils % (A) 9 %; HCT 41.1 % (39.0-53.0); HGB 13.5 gm/dL (13.0-17.5); Lymphocytes % (A) 19 %; MCH 28.8 pg (25.0-35.0); MCHC 32.7 g/dL (31.0-37.0); Mean Platelet Volume 8.6; Monocytes # (A) 0.6 k/uL (0-1.0); Monocytes % (A) 12 %; Neutrophils % (A) 57 %; Platelet Count 236 k/uL (150-450); RBC 4.67 m/uL (4.30-5.90); WBC 5.3 k/uL (3.8-10.6)
[2021-04-18 16:08] LABS: Appearance,Urine Clear (Clear); Bilirubin,Urine Negative (Negative); Blood,Urine Negative (Negative); Color,Urine Yellow; Glucose,Urine (UA) Negative (Negative); Ketones,Urine Negative (Negative); Leukocyte Esterase,Urine Negative (Negative); Nitrite,Urine Negative (Negative); PH, Urine 6.5 (5.0-8.0); Protein,Urine Negative (Negative); Specific Gravity,Urine 1.016 (1.001-1.035); Urobilinogen,Urine <2.0 mg/dL (<2.0)
[2021-04-18] MEDS ORDERED: MORPHINE SULFATE 4 MG/ML SYRINGE IVP STA (16:16)
[2021-04-18 16:18] LABS: Albumin 4.1 g/dL (3.5-5.0); Calcium 9.6 mg/dL (8.4-10.2); Total Bilirubin 0.3 mg/dL (0.2-1.3); Total Protein 6.9 g/dL (6.3-8.2)
[2021-04-18 16:23] VITALS: BP 145/97; PULSE 84; RESP 16
--- NOTE | 2021-04-18 16:27 | XR ---
EXAMINATION TYPE: XR KUB DATE OF EXAM: 04/18/2021 4:06 PM CLINICAL HISTORY: Pain for a couple weeks. TECHNIQUE: Two Upright KUB images of the abdomen are obtained. COMPARISON: CT abdomen and pelvis 8 days ago. FINDINGS: Gas seen in nondistended stomach bubble. Scattered gas is seen in non-distended small and l arge bowel loops. There is no visceromegaly, pneumoperitoneum, or abnormal calcification appreciated. The lung bases are clear and the osseous structures are intact. IMPRESSION: Overall nonobstructive bowel gas pattern redemonstrated.
== END 2021-04-18 17:01 | disposition home or self-care (01) ==
LOC: EC 15:07
DX: R10.31 Right lower quadrant pain (principal); R10.32 Left lower quadrant pain; J44.9 Chronic obstructive pulmonary disease, unspecified; N18.2 Chronic kidney disease, stage 2 (mild); F41.9 Anxiety disorder, unspecified; F32.9 Major depressive disorder, single episode, unspecified; F12.90 Cannabis use, unspecified, uncomplicated; Z88.6 Allergy status to analgesic agent; Z87.442 Personal history of urinary calculi
CPT/HCPCS: 99284; 96374; 96361; 36415; 80053; 82150; 83605; 83690; 85025; 81003; 74018; J2270

== ENCOUNTER 2021-05-15 09:42 | Emergency (ER) | payer OTHER ==
[2021-05-15 09:52] VITALS: RESP 18
[2021-05-15] MEDS ORDERED: SODIUM CHLORIDE 0.9% 1,000 ML IV STA (10:33)
[2021-05-15] MEDS ORDERED: ONDANSETRON 4 MG/2 ML VIAL IVP STA (10:33)
[2021-05-15] MEDS ORDERED: MORPHINE SULFATE 4 MG/ML SYRINGE IV STA (10:33)
[2021-05-15 11:20] LABS: Basophils % (A) 1 %; Eosinophils # (A) 0.5 k/uL (0-0.7); Eosinophils % (A) 13 %; HCT 42.4 % (39.0-53.0); HGB 14.4 gm/dL (13.0-17.5); Lymphocytes # (A) 0.8 k/uL (1.0-4.8); Lymphocytes % (A) 20 %; MCH 29.2 pg (25.0-35.0); MCHC 33.9 g/dL (31.0-37.0); MCV 86.1 fL (80.0-100.0); Mean Platelet Volume 8.6; Monocytes # (A) 0.4 k/uL (0-1.0); Monocytes % (A) 10 %; Neutrophils # (A) 2.3 k/uL (1.3-7.7); Neutrophils % (A) 53 %; Platelet Count 221 k/uL (150-450); RBC 4.93 m/uL (4.30-5.90); RDW 14.8 % (11.5-15.5); WBC 4.3 k/uL (3.8-10.6)
[2021-05-15 11:26] LABS: Albumin 4.1 g/dL (3.5-5.0); Calcium 9.6 mg/dL (8.4-10.2); Potassium 4.3 mmol/L (3.5-5.1); Total Bilirubin 0.3 mg/dL (0.2-1.3); Total Protein 7.2 g/dL (6.3-8.2)
--- NOTE | 2021-05-15 11:29 | XR ---
EXAMINATION TYPE: XR chest 2V DATE OF EXAM: 05/15/2021 COMPARISON: Chest x-ray February 01, 2021 HISTORY: Left-sided rib pain and chronic cough. TECHNIQUE: Frontal and lateral views of the chest are obtained. FINDINGS: There are chronic parenchymal changes bilaterally without suspicious new focal air space o pacity, pleural effusion, or pneumothorax seen. The cardiac silhouette size is stable and within nor mal limits. Old fracture of the posterior lateral left 6th rib is redemonstrated. IMPRESSION: Chronic changes without acute pulmonary process.
[2021-05-15 12:18] LABS: Appearance,Urine Clear (Clear); Bilirubin,Urine Negative (Negative); Blood,Urine Negative (Negative); Color,Urine Light Yellow; Glucose,Urine (UA) Negative (Negative); Ketones,Urine Negative (Negative); Leukocyte Esterase,Urine Negative (Negative); Nitrite,Urine Negative (Negative); PH, Urine 5.5 (5.0-8.0); Protein,Urine Negative (Negative); Specific Gravity,Urine 1.013 (1.001-1.035); Urobilinogen,Urine <2.0 mg/dL (<2.0)
--- NOTE | 2021-05-15 13:00 | ED ---
General Adult HPI - General Chief complaint: Chest Pain Stated complaint: lt sided abd pain Time Seen by Provider: 05/15/21 10:25 Source: patient, RN notes reviewed Mode of arrival: wheelchair - History of Present Illness Initial comments: Patient's a 45-year-old male presented to the emergency room today with a chief complaint of some left-sided abdominal his comfort. Patient does admit that it started a few days ago. He does admit that it's worse with movements. Patient states that there is no injury or trauma. Does admit that he was seen recently. Was diagnosed with a kidney cancer has been following up with a urologist in [place] to do a procedure on this. Patient states is not able to take ibuprofen or Motrin. Patient states been trying Tylenol with little relief. Patient denies any recent fever, chills, shortness of breath, chest pain, back pain, numbness or tingling, headaches or visual changes, or any other complaints. - Related Data Home Medications Medication Instructions Recorded Confirmed Budesonide/Formoterol Fumarate 2 puff INHALATION RT-BID 08/16/19 05/15/21 [Symbicort 160-4.5 Mcg Inhaler] Cetirizine HCl 10 mg PO DAILY 08/16/19 05/15/21 Montelukast [Singulair] 10 mg PO DAILY 08/16/19 05/15/21 Nephro-Van 0.8mg 0.8 mg PO DAILY 08/16/19 05/15/21 Umeclidinium [place] [Incruse 1 puff INHALATION RT-DAILY 08/16/19 05/15/21 Ellipta] amLODIPine [Norvasc] 10 mg PO DAILY 08/16/19 05/15/21 Escitalopram [Lexapro] 20 mg PO DAILY 04/10/21 05/15/21 Famotidine 40 mg PO HS 04/10/21 05/15/21 Promethaz-Cod 6.25-10 mg/5 ml 5 ml PO BID PRN 04/10/21 05/15/21 [Phenergan with Codeine] busPIRone HCL [Buspar] 30 mg PO BID 04/10/21 05/15/21 hydrOXYzine pamoate [Vistaril] 50 mg PO DAILY PRN 04/10/21 05/15/21 QUEtiapine [SEROquel] 50 mg PO HS 05/15/21 05/15/21 Triamcinolone 0.1% Ointment 1 applic TOPICAL BID PRN 05/15/21 05/15/21 [Kenalog 0.1% Ointment] Previous Rx's Medication Instructions Recorded Tamsulosin [Flomax] 0.4 mg PO DAILY #7 cap 04/10/21 HYDROcodone/APAP 5-325MG [[place] 1 tab PO Q6HR PRN 3 Days #12 tab 05/15/21 5-325] methocarbamoL [Robaxin] 1,000 mg PO TID PRN 5 Days #30 tab 05/15/21 Allergies Allergy/AdvReac Type Severity Reaction Status Date / Time hydromorphone [From Dilaudid] Allergy Itching Verified 05/15/21 12:18 meperidine [From Demerol] Allergy Itching Verified 05/15/21 12:18 propoxyphene Allergy Unknown Verified 05/15/21 12:18 [From Darvocet-N] NSAIDS (Non-Steroidal AdvReac Kidneys Verified 05/15/21 12:18 Anti-Inflamma Review of Systems ROS Statement: Those systems with pertinent positive or pertinent negative responses have been documented in the HPI. ROS Other: All systems not noted in ROS Statement are negative. Past Medical History Past Medical History: Asthma, COPD, Renal Disease Additional Past Medical History / Comment(s): stage 2 kidney disease, pancreatitis, hital hernia History of Any Multi-Drug Resistant Organisms: None Reported Past Surgical History: No Surgical Hx Reported Additional Past Surgical History / Comment(s): kidney stone removal Past Psychological History: Anxiety, Depression Smoking Status: Former smoker Past Alcohol Use History: None Reported Past Drug Use History: Marijuana General Exam - General Exam Comments Initial Comments: General: The patient is awake and alert, in no distress, and does not appear acutely ill. Eye: Pupils are equal, round and reactive to light, extra-ocular movements are intact. There is normal conjunctiva bilaterally. No signs of icterus. Ears, nose, mouth and throat: There are moist mucous membranes and no oral les ions. Neck: The neck is supple, there is no tenderness or JVD. Cardiovascular: There is a regular rate and rhythm. No murmur, rub or gallop is appreciated. Respiratory: Lungs are clear to auscultation, respirations are non-labored, breath sounds are equal. No wheezes, stridor, rales, or rhonchi. Gastrointestinal: Admits soft on palpation. Does have tenderness in the left upper quadrant. No rebound, guarding or CVA tenderness. Patient's pain is reproduced with movement. Musculoskeletal: Normal ROM, no tenderness. Strength 5/5. Sensation intact. Pulses equal bilaterally 2+. Neurological: A&O x 3. CN II-XII intact, There are no obvious motor or sensory deficits. Coordination appears grossly intact. Speech is normal. Skin: Skin is warm and dry and no rashes or lesions are noted. Psychiatric: Cooperative, appropriate mood & affect, normal judgment. Course Vital Signs 05/15/21 09:46 Temperature 97.9 F Pulse Rate 87 Respiratory 18 Rate Blood Pressure 138/86 O2 Sat by Pulse 96 Oximetry Medical Decision Making - Medical Decision Making Patient's chest x-rays reviewed is unremarkable. His labs been reviewed and are similar to findings of previous. Patient does have tenderness in left upper quadrant. Have a CT approximate 5 weeks ago revealing of spots in the kidney. He states she's follow-up within there was a procedure that was done. Was discussed with patient about repeating CAT scan today. At this time he has declined. Patient's pain is worse with movements. Was discussed musculoskeletal. Patient will be given a short prescription of pain medication along with muscle relaxer. He is advised follow-up his urologist/family physician. Advised return if any symptoms increase or worsen or for any other concerns. Patient states understanding and is agreement. - Lab Data Result diagrams: 05/15/21 10:55 05/15/21 10:55 Lab Results 05/15/21 05/15/21 05/15/21 Range/Units 10:55 10:55 10:55 WBC 4.3 (3.8-10.6) k/uL RBC 4.93 (4.30-5.90) m/uL Hgb 14.4 (13.0-17.5) gm/dL Hct 42.4 (39.0-53.0) % MCV 86.1 (80.0-100.0) fL MCH 29.2 (25.0-35.0) pg MCHC 33.9 (31.0-37.0) g/dL RDW 14.8 (11.5-15.5) % Plt Count 221 (150-450) k/uL MPV 8.6 Neutrophils % 53 % Lymphocytes % 20 % Monocytes % 10 % Eosinophils % 13 % Basophils % 1 % Neutrophils # 2.3 (1.3-7.7) k/uL Lymphocytes # 0.8 L (1.0-4.8) k/uL Monocytes # 0.4 (0-1.0) k/uL Eosinophils # 0.5 (0-0.7) k/uL Basophils # 0.0 (0-0.2) k/uL Sodium 141 (137-145) mmol/L Potassium 4.3 (3.5-5.1) mmol/L Chloride 110 H (98-107) mmol/L Carbon Dioxide 24 (22-30) mmol/L Anion Gap 7 mmol/L BUN 18 (9-20) mg/dL Creatinine 1.47 H (0.66-1.25) mg/dL Est GFR (CKD-EPI)AfAm 67 (>60 ml/min/1.73 sqM) Est GFR (CKD-EPI)NonAf 58 (>60 ml/min/1.73 sqM) Glucose 109 H (74-99) mg/dL Calcium 9.6 (8.4-10.2) mg/dL Total Bilirubin 0.3 (0.2-1.3) mg/dL AST 22 (17-59) U/L ALT 20 (4-49) U/L Alkaline Phosphatase 104 (38-126) U/L Troponin I <0.012 (0.000-0.034) ng/mL Total Protein 7.2 (6.3-8.2) g/dL Albumin 4.1 (3.5-5.0) g/dL Amylase 138 H (30-110) U/L Lipase 92 (23-300) U/L Urine Color Urine Appearance (Clear) Urine pH (5.0-8.0) Ur Specific [place] (1.001-1.035) Urine Protein (Negative) Urine Glucose (UA) (Negative) Urine Ketones (Negative) Urine Blood (Negative) Urine Nitrite (Negative) Urine Bilirubin (Negative) Urine Urobilinogen (<2.0) mg/dL Ur Leukocyte Esterase (Negative) 05/15/21 Range/Units 12:00 WBC (3.8-10.6) k/uL RBC (4.30-5.90) m/uL Hgb (13.0-17.5) gm/dL Hct (39.0-53.0) % MCV (80.0-100.0) fL MCH (25.0-35.0) pg MCHC (31.0-37.0) g/dL RDW (11.5-15.5) % Plt Count (150-450) k/uL MPV Neutrophils % % Lymphocytes % % Monocytes % % Eosinophils % % Basophils % % Neutrophils # (1.3-7.7) k/uL Lymphocytes # (1.0-4.8) k/uL Monocytes # (0-1.0) k/uL Eosinophils # (0-0.7) k/uL Basophils # (0-0.2) k/uL Sodium (137-145) mmol/L Potassium (3.5-5.1) mmol/L Chloride (98-107) mmol/L Carbon Dioxide (22-30) mmol/L Anion Gap mmol/L BUN (9-20) mg/dL Creatinine (0.66-1.25) mg/dL Est GFR (CKD-EPI)AfAm (>60 ml/min/1.73 sqM) Est GFR (CKD-EPI)NonAf (>60 ml/min/1.73 sqM) Glucose (74-99) mg/dL Calcium (8.4-10.2) mg/dL Total Bilirubin (0.2-1.3) mg/dL AST (17-59) U/L ALT (4-49) U/L Alkaline Phosphatase (38-126) U/L Troponin I (0.000-0.034) ng/mL Total Protein (6.3-8.2) g/dL Albumin (3.5-5.0) g/dL Amylase (30-110) U/L Lipase (23-300) U/L Urine Color Light Yellow Urine Appearance Clear (Clear) Urine pH 5.5 (5.0-8.0) Ur Specific [place] 1.013 (1.001-1.035) Urine Protein Negative (Negative) Urine Glucose (UA) Negative (Negative) Urine Ketones Negative (Negative) Urine Blood Negative (Negative) Urine Nitrite Negative (Negative) Urine Bilirubin Negative (Negative) Urine Urobilinogen <2.0 (<2.0) mg/dL Ur Leukocyte Esterase Negative (Negative) Disposition Clinical Impression: Abdominal pain Disposition: HOME SELF-CARE Condition: Stable Instructions (If sedation given, give patient instructions): Abdominal Pain (ED) Additional Instructions: Please use medication as discussed. Please follow-up with family doctor/urology in the next 2 days of symptoms have not improved. Please return to emergency room if the symptoms increase or worsen or for any other concerns. Prescriptions: HYDROcodone/APAP 5-325MG [[place] 5-325] 1 tab PO Q6HR PRN 3 Days #12 tab PRN Reason: Pain methocarbamoL [Robaxin] 1,000 mg PO TID PRN 5 Days #30 tab PRN Reason: pain Is patient prescribed a controlled substance at d/c from ED?: Yes If prescribed controlled substance>3 days was MAPS reviewed?: Prescribed <3 Days Referrals: Yany Mayorga NPC [Primary Care Provider] - 1-2 days Time of Disposition: 12:59
[2021-05-15 13:06] VITALS: BP 140/87; PULSE 68; TEMP 97.6
== END 2021-05-15 13:05 | disposition home or self-care (01) ==
LOC: EC 09:42
DX: R10.12 Left upper quadrant pain (principal); N18.2 Chronic kidney disease, stage 2 (mild); J44.9 Chronic obstructive pulmonary disease, unspecified; F32.9 Major depressive disorder, single episode, unspecified; F41.9 Anxiety disorder, unspecified; F12.90 Cannabis use, unspecified, uncomplicated; Z87.891 Personal history of nicotine dependence; Z79.899 Other long term (current) drug therapy
CPT/HCPCS: 36415; 80053; 82150; 83690; 84484; 85025; 81003; 71046; 96374; 96375; 96361; 99284; J2270; J2405; 93005

== ENCOUNTER 2021-05-27 01:25 | Emergency (ER) | payer OTHER ==
[2021-05-27] MEDS ORDERED: ACETAMINOPHEN TAB 500 MG TAB PO STA (01:50)
--- NOTE | 2021-05-27 02:15 | XR ---
EXAMINATION TYPE: XR chest 2V DATE OF EXAM: 05/27/2021 COMPARISON: 05/15/2021 and 02/01/2021 HISTORY: Left upper quadrant pain. Chest pain. TECHNIQUE: 2 views FINDINGS: There is coarse reticular tracer in both lungs in the upper and lower lobes. Heart and medi astinum are normal. There are no hilar masses. There is no pleural effusion. IMPRESSION: Coarse pulmonary infiltrates consistent with scarring and not significantly different paula n 02/01/2021 exam. No heart failure.
--- NOTE | 2021-05-27 02:16 | XR ---
EXAMINATION TYPE: XR KUB DATE OF EXAM: 05/27/2021 COMPARISON: 04/18/2021 HISTORY: Left upper quadrant pain TECHNIQUE: 2 views upright FINDINGS: There is no sign of intestinal obstruction or pneumoperitoneum. Fecal pattern is normal. Th ere are no pathologic calcifications over the kidneys. I see no evidence of abdominal mass. Bony stru ctures are intact. IMPRESSION: Nonacute abdomen. No adverse change.
[2021-05-27] MEDS ORDERED: traMADol 50 MG STARTER PACK 3 TAB BTL PO STA (02:26)
--- NOTE | 2021-05-27 02:27 | ED ---
Abdominal Pain HPI - General Chief Complaint: Abdominal Pain Stated Complaint: LT flank pain Time Seen by Provider: 05/27/21 01:37 Source: patient, RN notes reviewed Mode of arrival: ambulatory Limitations: no limitations - History of Present Illness Initial Comments: Patient is a 45-year-old male that presents to the emergency department complaining of left rib and upper abdominal pain. Patient notes that he's been having this issue ongoing for the past several months. He notes that he has not followed up with his primary care or GI specialist. Patient notes that he does have point tenderness over his ribs and left upper quadrant. He notes that bending over causes the pain increased. He notes that that is the only aggravating factor. He denied any injury or trauma. He denied any pain anywhere else in his abdomen. He is otherwise well-appearing in no apparent distress. He denied chest pain shortness breath headache nausea vomiting d iarrhea constipation fever fatigue chills. - Related Data Home Medications Medication Instructions Recorded Confirmed Budesonide/Formoterol Fumarate 2 puff INHALATION RT-BID 08/16/19 05/15/21 [Symbicort 160-4.5 Mcg Inhaler] Cetirizine HCl 10 mg PO DAILY 08/16/19 05/15/21 Montelukast [Singulair] 10 mg PO DAILY 08/16/19 05/15/21 Nephro-Van 0.8mg 0.8 mg PO DAILY 08/16/19 05/15/21 Umeclidinium [place] [Incruse 1 puff INHALATION RT-DAILY 08/16/19 05/15/21 Ellipta] amLODIPine [Norvasc] 10 mg PO DAILY 08/16/19 05/15/21 Escitalopram [Lexapro] 20 mg PO DAILY 04/10/21 05/15/21 Famotidine 40 mg PO HS 04/10/21 05/15/21 Promethaz-Cod 6.25-10 mg/5 ml 5 ml PO BID PRN 04/10/21 05/15/21 [Phenergan with Codeine] busPIRone HCL [Buspar] 30 mg PO BID 04/10/21 05/15/21 hydrOXYzine pamoate [Vistaril] 50 mg PO DAILY PRN 04/10/21 05/15/21 QUEtiapine [SEROquel] 50 mg PO HS 05/15/21 05/15/21 Triamcinolone 0.1% Ointment 1 applic TOPICAL BID PRN 05/15/21 05/15/21 [Kenalog 0.1% Ointment] Previous Rx's Medication Instructions Recorded Tamsulosin [Flomax] 0.4 mg PO DAILY #7 cap 04/10/21 HYDROcodone/APAP 5-325MG [[place] 1 tab PO Q6HR PRN 3 Days #12 tab 05/15/21 5-325] methocarbamoL [Robaxin] 1,000 mg PO TID PRN 5 Days #30 tab 05/15/21 Allergies Allergy/AdvReac Type Severity Reaction Status Date / Time hydromorphone [From Dilaudid] Allergy Itching Verified 05/27/21 01:34 meperidine [From Demerol] Allergy Itching Verified 05/27/21 01:34 propoxyphene Allergy Unknown Verified 05/27/21 01:34 [From Darvocet-N] NSAIDS (Non-Steroidal AdvReac Kidneys Verified 05/27/21 01:34 Anti-Inflamma Review of Systems ROS Statement: Those systems with pertinent positive or pertinent negative responses have been documented in the HPI. ROS Other: All systems not noted in ROS Statement are negative. Past Medical History Past Medical History: Asthma, COPD, Renal Disease Additional Past Medical History / Comment(s): stage 2 kidney disease, pancreatitis, hital hernia History of Any Multi-Drug Resistant Organisms: None Reported Past Surgical History: No Surgical Hx Reported Additional Past Surgical History / Comment(s): kidney stone removal Past Psychological History: Anxiety, Depression Smoking Status: Current every day smoker Past Alcohol Use History: None Reported Past Drug Use History: Marijuana General Exam Limitations: no limitations General appearance: alert, in no apparent distress, obese, other (Tenderness in the left lower ribs.) Head exam: Present: atraumatic, normocephalic, normal inspection Eye exam: Present: normal appearance, PERRL, EOMI. Absent: scleral icterus, conjunctival injection, periorbital swelling ENT exam: Present: normal exam, mucous membranes moist Neck exam: Present: normal inspection Respiratory exam: Present: normal lung sounds bilaterally. Absent: respiratory distress, wheezes, rales, rhonchi, stridor Cardiovascular Exam: Present: regular rate, normal rhythm, normal heart sounds. Absent: systolic murmur, diastolic murmur, rubs, gallop, clicks GI/Abdominal exam: Present: soft, tenderness (Minimal lateral aspect of left upper quadrant), normal bowel sounds. Absent: distended, guarding, rebound, rigid Extremities exam: Present: normal inspection, full ROM, normal capillary refill. Absent: tenderness, pedal edema, joint swelling, calf tenderness Neurological exam: Present: alert, oriented X3 Psychiatric exam: Present: normal affect, normal mood Skin exam: Present: warm, dry, intact, normal color. Absent: rash Course Vital Signs 05/27/21 01:32 Temperature 98.1 F Pulse Rate 94 Respiratory 18 Rate Blood Pressure 164/73 O2 Sat by Pulse 96 Oximetry Medical Decision Making - Medical Decision Making 45-year-old male complaining of left rib and lateral left upper quadrant pain. X-ray of the chest, KUB, 15 mg of Toradol ordered. X-ray of the chest shows no change from previous studies. KUB nonacute abdomen. Patient most likely has musculoskeletal pain, costochondritis that is exaggerated with bending over Patient requesting tramadol at this time. Will be given starter pack. He was informed he does follow-up with his primary care in the next 1-2 days. Case discussed with Dr. Barnes, patient can discharge home with follow-up to primary care. - Radiology Data Radiology results: report reviewed, image reviewed Chest x-ray: Coarse pulmonary infiltrates consistent with scarring and not significantly different than 02/01/2021. No heart failure. KUB: Nonacute abdomen. No adverse change. Disposition Clinical Impression: Costochondritis, Left upper quadrant pain Disposition: HOME SELF-CARE Condition: Stable Instructions (If sedation given, give patient instructions): Costochondritis (ED) Additional Instructions: Please return to the Emergency Department if symptoms worsen or any other concerns. Follow-up with primary care 1-2 days. Follow-up with pain medicine doctor as needed for possible management of chronic pain. Take Tylenol as needed for pain. Avoid any strenuous activity or exercise. Is patient prescribed a controlled substance at d/c from ED?: No Referrals: Yany Mayorga, SANJAY [Primary Care Provider] - 1-2 days Time of Disposition: 02:30
[2021-05-27 02:35] VITALS: BP 128/88; PULSE 84; RESP 20; TEMP 97.7
== END 2021-05-27 02:36 | disposition home or self-care (01) ==
LOC: EC 01:25
DX: M94.0 Chondrocostal junction syndrome [Tietze] (principal); R10.12 Left upper quadrant pain; J44.9 Chronic obstructive pulmonary disease, unspecified; N18.2 Chronic kidney disease, stage 2 (mild); F41.9 Anxiety disorder, unspecified; F32.9 Major depressive disorder, single episode, unspecified; E66.9 Obesity, unspecified; F17.200 Nicotine dependence, unspecified, uncomplicated; Z79.51 Long term (current) use of inhaled steroids; Z79.899 Other long term (current) drug therapy; Z88.5 Allergy status to narcotic agent; Z88.6 Allergy status to analgesic agent; Z68.34 Body mass index [BMI] 34.0-34.9, adult
CPT/HCPCS: 71046; 74018; 99284

== ENCOUNTER 2021-06-16 22:30 | Emergency (ER) | payer OTHER ==
[2021-06-16] MEDS ORDERED: ASPIRIN 81 MG PO STA (22:59)
[2021-06-16] MEDS ORDERED: NITROGLYCERIN SL TABS 0.4 MG TAB SUBLINGUAL STA (22:59)
[2021-06-16 23:21] VITALS: TEMP 98.5
--- NOTE | 2021-06-16 23:34 | XR ---
EXAMINATION TYPE: XR chest 2V DATE OF EXAM: 06/16/2021 COMPARISON: 02/01/2021 HISTORY: Chest pain TECHNIQUE: 2 views FINDINGS: Heart and mediastinum are normal. There is coarse reticular density in the lungs. There is no pleural effusion. There are no hilar masses. The bony thorax is intact. IMPRESSION: Patchy bilateral pulmonary reticular nodular density consistent with scarring that is not significantly different than old exam. Normal heart.
[2021-06-16 23:57] LABS: INR 0.9 (<1.2); Partial Thromboplastin Time 24.9 sec (22.0-30.0); Prothrombin Time 10.1 sec (9.0-12.0)
[2021-06-17 00:01] LABS: Albumin 3.5 g/dL (3.5-5.0); Calcium 8.8 mg/dL (8.4-10.2); Magnesium 1.7 mg/dL (1.6-2.3); Potassium 4.5 mmol/L (3.5-5.1); Total Bilirubin 0.3 mg/dL (0.2-1.3); Total Protein 5.9 g/dL (6.3-8.2)
[2021-06-17] MEDS ORDERED: MORPHINE SULFATE 2 MG/ML SYRINGE IVP ONE (00:02)
[2021-06-17 00:08] LABS: Basophils % (A) 0 %; Eosinophils # (A) 0.3 k/uL (0-0.7); Eosinophils % (A) 6 %; HCT 45.2 % (39.0-53.0); HGB 14.3 gm/dL (13.0-17.5); Lymphocytes # (A) 1.1 k/uL (1.0-4.8); Lymphocytes % (A) 19 %; MCH 27.9 pg (25.0-35.0); MCHC 31.6 g/dL (31.0-37.0); MCV 88.3 fL (80.0-100.0); Mean Platelet Volume 8.6; Monocytes # (A) 0.8 k/uL (0-1.0); Monocytes % (A) 13 %; Neutrophils # (A) 3.4 k/uL (1.3-7.7); Neutrophils % (A) 59 %; Platelet Count 210 k/uL (150-450); RBC 5.12 m/uL (4.30-5.90); RDW 14.3 % (11.5-15.5); WBC 5.7 k/uL (3.8-10.6)
--- NOTE | 2021-06-17 00:15 | ED ---
General Adult HPI - General Chief complaint: Chest Pain Stated complaint: FORREST Time Seen by Provider: 06/16/21 22:54 Source: patient, EMS, RN notes reviewed, old records reviewed Mode of arrival: EMS Limitations: no limitations - History of Present Illness Initial comments: Patient is a 45-year-old male, with history of asthma, kidney disease, presenting to the emergency department via EMS with complaints of shortness of breath and chest pain that has been going on for about 4 days. Patient states his chest is hurting him when he moves around, when he pushes on it. He has been coughing a lot as well. He does admit to some mild shortness of breath. He denies abdominal pain, no nausea or vomiting, no diarrhea. Denies any fevers. He has been having chills. He denies history of heart disease. He is a nonsmoker. Patient has no further complaints at this time. Upon arrival to the ER, his vitals are stable. - Related Data Home Medications Medication Instructions Recorded Confirmed Budesonide/Formoterol Fumarate 2 puff INHALATION RT-BID 08/16/19 06/16/21 [Symbicort 160-4.5 Mcg Inhaler] Cetirizine HCl 10 mg PO DAILY 08/16/19 06/16/21 Montelukast [Singulair] 10 mg PO DAILY 08/16/19 06/16/21 Nephro-Van 0.8mg 0.8 mg PO DAILY 08/16/19 06/16/21 Umeclidinium [place] [Incruse 1 puff INHALATION RT-DAILY 08/16/19 06/16/21 Ellipta] amLODIPine [Norvasc] 10 mg PO DAILY 08/16/19 06/16/21 Escitalopram [Lexapro] 20 mg PO DAILY 04/10/21 06/16/21 Famotidine 40 mg PO HS 04/10/21 06/16/21 Promethaz-Cod 6.25-10 mg/5 ml 5 ml PO TID PRN 04/10/21 06/16/21 [Phenergan with Codeine] busPIRone HCL [Buspar] 30 mg PO BID 04/10/21 06/16/21 hydrOXYzine pamoate [Vistaril] 50 mg PO DAILY PRN 04/10/21 06/16/21 QUEtiapine [SEROquel] 50 mg PO HS 05/15/21 06/16/21 Triamcinolone 0.1% Ointment 1 applic TOPICAL BID PRN 05/15/21 06/16/21 [Kenalog 0.1% Ointment] Albuterol Inhaler [Ventolin Hfa 2 puff INHALATION RT-QID PRN 06/16/21 06/16/21 Inhaler] Albuterol Nebulized [Ventolin 2.5 mg INHALATION RT-TID PRN 06/16/21 06/16/21 Nebulized] Previous Rx's Medication Instructions Recorded Tamsulosin [Flomax] 0.4 mg PO DAILY #7 cap 04/10/21 HYDROcodone/APAP 5-325MG [[place] 1 tab PO Q6HR PRN 3 Days #12 tab 05/15/21 5-325] methocarbamoL [Robaxin] 1,000 mg PO TID PRN 5 Days #30 tab 05/15/21 Azithromycin [Zithromax Z-pack (6 0 mg PO DIRECTED #6 tab 06/17/21 tabs)] predniSONE [Deltasone] 20 mg PO BID 5 Days #10 tab 06/17/21 Allergies Allergy/AdvReac Type Severity Reaction Status Date / Time hydromorphone [From Dilaudid] Allergy Itching Verified 06/16/21 23:43 meperidine [From Demerol] Allergy Itching Verified 06/16/21 23:43 propoxyphene Allergy Unknown Verified 06/16/21 23:43 [From Darvocet-N] NSAIDS (Non-Steroidal AdvReac Kidneys Verified 06/16/21 23:43 Anti-Inflamma Review of Systems ROS Statement: Those systems with pertinent positive or pertinent negative responses have been documented in the HPI. ROS Other: All systems not noted in ROS Statement are negative. Past Medical History Past Medical History: Asthma, COPD, Renal Disease Additional Past Medical History / Comment(s): stage 2 kidney disease, pancreatitis, hital hernia History of Any Multi-Drug Resistant Organisms: None Reported Past Surgical History: No Surgical Hx Reported Additional Past Surgical History / Comment(s): kidney stone removal Past Psychological History: Anxiety, Depression Smoking Status: Current every day smoker Past Alcohol Use History: None Reported Past Drug Use History: Marijuana General Exam - General Exam Comments Initial Comments: GENERAL: Patient is well-developed and well-nourished. Patient is nontoxic and in mild distress. HEAD: Atraumatic, normocephalic. EYES: Pupils equal round and reactive to light, extraocular movements intact, sclera anicteric, conjunctiva are normal. Eyelids were unremarkable. ENT: Oropharynx clear without exudates. Moist mucous membranes. NECK: Normal range of motion, supple without lymphadenopathy or JVD. LUNGS: Unlabored respirations. Breath sounds clear to auscultation bilaterally and equal. No wheezes rales or rhonchi. HEART: Regular rate and rhythm without murmurs, rubs or gallops. ABDOMEN: Soft, nontender, normoactive bowel sounds. No guarding, no rebound. No masses appreciated. MUSCULOSKELETAL: Normal extremities with adequate strength and normal range of motion, no pitting or edema. No clubbing or cyanosis. Patient has pain with palpation of the anterior chest, costal cartilages, pain with movement of torso. NEUROLOGICAL: Patient is alert and oriented x 3. Motor and sensory are also intact. Cranial nerves II through XII grossly intact. Symmetrical smile. Normal speech, normal gait. PSYCH: Normal mood, normal affect. SKIN: Warm, Dry, normal turgor, no rashes or lesions noted. Course Vital Signs 06/16/21 06/17/21 06/17/21 23:00 00:30 01:26 Temperature 98.5 F Pulse Rate 82 77 80 Pulse Rate [ 70 Integration Engineer ] Respiratory 20 22 Rate Blood Pressure 144/95 115/59 O2 Sat by Pulse 99 97 Oximetry 06/17/21 06/17/21 01:34 02:07 Temperature Pulse Rate 82 84 Pulse Rate [ Integration Engineer ] Respiratory 22 Rate Blood Pressure 142/84 O2 Sat by Pulse 96 Oximetry EKG Findings - EKG Comments: EKG Findings:: Normal sinus rhythm, increased RS ratio in V1, consider early transition or posterior infarct, no signs of acute ST segment elevation. This is comparable to his previous EKG on 05/15/2021. Ventricular rate 84, [place] interval 146, QT 356. Medical Decision Making - Medical Decision Making Patient is a 45-year-old male with history of kidney disease, asthma presenting shortness of breath, chest pain over the past 4 days. Hes had cough as well, states he gets pneumonia a lot. His vitals are stable, EKG shows normal sinus rhythm. Labs are unremarkable including a normal troponin, rapid Covid is negative. Chest x-ray showing patchy bilateral pulmonary nodular density consistent with scarring that is not really different from his old exam. No other acute abnormalities. Patient was given pain medication, breathing treatment and dose of Toradol. He does report mild improvement of symptoms. I discussed with him this is most likely costochondritis related as he has pain with palpation, pain with movement, he is concerned for pneumonia. I will prescribe him azithromycin as well. He is agreeable as planned care and he is stable for discharge. Recommend following up with his primary care. Return parameters were discussed with him and he verbalized understanding. Case discussed with Dr. Barnes. - Lab Data Result diagrams: 06/16/21 23:00 06/16/21 23:00 Lab Results 06/16/21 06/16/21 06/16/21 Range/Units 23:00 23:00 23:00 WBC 5.7 (3.8-10.6) k/uL RBC 5.12 (4.30-5.90) m/uL Hgb 14.3 (13.0-17.5) gm/dL Hct 45.2 (39.0-53.0) % MCV 88.3 (80.0-100.0) fL MCH 27.9 (25.0-35.0) pg MCHC 31.6 (31.0-37.0) g/dL RDW 14.3 (11.5-15.5) % Plt Count 210 (150-450) k/uL MPV 8.6 Neutrophils % 59 % Lymphocytes % 19 % Monocytes % 13 % Eosinophils % 6 % Basophils % 0 % Neutrophils # 3.4 (1.3-7.7) k/uL Lymphocytes # 1.1 (1.0-4.8) k/uL Monocytes # 0.8 (0-1.0) k/uL Eosinophils # 0.3 (0-0.7) k/uL Basophils # 0.0 (0-0.2) k/uL PT 10.1 (9.0-12.0) sec INR 0.9 (<1.2) APTT 24.9 (22.0-30.0) sec Sodium 139 (137-145) mmol/L Potassium 4.5 (3.5-5.1) mmol/L Chloride 110 H (98-107) mmol/L Carbon Dioxide 23 (22-30) mmol/L Anion Gap 6 mmol/L BUN 18 (9-20) mg/dL Creatinine 1.52 H (0.66-1.25) mg/dL Est GFR (CKD-EPI)AfAm 64 (>60 ml/min/1.73 sqM) Est GFR (CKD-EPI)NonAf 56 (>60 ml/min/1.73 sqM) Glucose 106 H (74-99) mg/dL Calcium 8.8 (8.4-10.2) mg/dL Magnesium 1.7 (1.6-2.3) mg/dL Total Bilirubin 0.3 (0.2-1.3) mg/dL AST 28 (17-59) U/L ALT 22 (4-49) U/L Alkaline Phosphatase 66 (38-126) U/L Troponin I (0.000-0.034) ng/mL NT-Pro-B Natriuret Pep pg/mL Total Protein 5.9 L (6.3-8.2) g/dL Albumin 3.5 (3.5-5.0) g/dL Coronavirus (PCR) (Not Detectd) 06/16/21 06/16/21 06/16/21 Range/Units 23:00 23:00 23:35 WBC (3.8-10.6) k/uL RBC (4.30-5.90) m/uL Hgb (13.0-17.5) gm/dL Hct (39.0-53.0) % MCV (80.0-100.0) fL MCH (25.0-35.0) pg MCHC (31.0-37.0) g/dL RDW (11.5-15.5) % Plt Count (150-450) k/uL MPV Neutrophils % % Lymphocytes % % Monocytes % % Eosinophils % % Basophils % % Neutrophils # (1.3-7.7) k/uL Lymphocytes # (1.0-4.8) k/uL Monocytes # (0-1.0) k/uL Eosinophils # (0-0.7) k/uL Basophils # (0-0.2) k/uL PT (9.0-12.0) sec INR (<1.2) APTT (22.0-30.0) sec Sodium (137-145) mmol/L Potassium (3.5-5.1) mmol/L Chloride (98-107) mmol/L Carbon Dioxide (22-30) mmol/L Anion Gap mmol/L BUN (9-20) mg/dL Creatinine (0.66-1.25) mg/dL Est GFR (CKD-EPI)AfAm (>60 ml/min/1.73 sqM) Est GFR (CKD-EPI)NonAf (>60 ml/min/1.73 sqM) Glucose (74-99) mg/dL Calcium (8.4-10.2) mg/dL Magnesium (1.6-2.3) mg/dL Total Bilirubin (0.2-1.3) mg/dL AST (17-59) U/L ALT (4-49) U/L Alkaline Phosphatase (38-126) U/L Troponin I <0.012 (0.000-0.034) ng/mL NT-Pro-B Natriuret Pep 26 pg/mL Total Protein (6.3-8.2) g/dL Albumin (3.5-5.0) g/dL Coronavirus (PCR) Not Detected (Not Detectd) Disposition Clinical Impression: Costochondritis, Viral respiratory illness, Atypical chest pain Disposition: HOME SELF-CARE Condition: Stable Instructions (If sedation given, give patient instructions): Costochondritis (ED) Additional Instructions: Please return to the Emergency Department if symptoms worsen or any other concerns. Take antibiotic and steriod as prescribed. Recommended Tylenol for any discomfort. Follow-up with your primary care. Prescriptions: predniSONE [Deltasone] 20 mg PO BID 5 Days #10 tab Azithromycin [Zithromax Z-pack (6 tabs)] 0 mg PO DIRECTED #6 tab Is patient prescribed a controlled substance at d/c from ED?: No Referrals: Yany Mayorga NPC [Primary Care Provider] - 1-2 days Time of Disposition: 01:38
[2021-06-17 00:36] VITALS: RESP 22
[2021-06-17] MEDS ORDERED: IPRATROPIUM-ALBUTEROL 3 ML NEB INHALATION STA (01:00)
[2021-06-17] MEDS ORDERED: KETOROLAC 15 MG/ML 1 ML VIAL IVP STA (01:00)
[2021-06-17] MEDS ORDERED: KETOROLAC 30 MG/ML 1 ML VIAL IVP STA (01:03)
[2021-06-17 02:08] VITALS: BP 142/84; PULSE 84
== END 2021-06-17 02:09 | disposition home or self-care (01) ==
LOC: EC 22:30
DX: M94.0 Chondrocostal junction syndrome [Tietze] (principal); J98.9 Respiratory disorder, unspecified; Z20.822 Contact with and (suspected) exposure to COVID-19; J44.9 Chronic obstructive pulmonary disease, unspecified; F41.9 Anxiety disorder, unspecified; F32.9 Major depressive disorder, single episode, unspecified; F17.200 Nicotine dependence, unspecified, uncomplicated; F12.90 Cannabis use, unspecified, uncomplicated; Z79.51 Long term (current) use of inhaled steroids; Z79.52 Long term (current) use of systemic steroids; Z79.899 Other long term (current) drug therapy; Z88.5 Allergy status to narcotic agent; Z88.6 Allergy status to analgesic agent
CPT/HCPCS: 36415; 94640; 93005; 83880; 80053; 83735; 84484; 85025; 85610; 85730; 87635; 71046; 99285; 96374; 96375; J2270; J1885

== ENCOUNTER 2021-07-30 23:39 | Emergency (ER) | payer OTHER ==
[2021-07-30 23:56] VITALS: RESP 18
[2021-07-31] MEDS ORDERED: methylPREDNISolone SOD SUCCI 125 MG/2 ML VIAL IM ONE (01:27)
[2021-07-31] MEDS ORDERED: MORPHINE SULFATE 4 MG/ML SYRINGE IM STA (01:27)
[2021-07-31] MEDS ORDERED: diphenhydrAMINE 50 MG/ML 1 ML VIAL IM STA (01:28)
[2021-07-31] MEDS ORDERED: ORPHENADRINE 30 MG/ML 2 ML VIAL IM STA (02:16)
--- NOTE | 2021-07-31 02:19 | XR ---
EXAMINATION TYPE: XR lumbar spine 2 or 3V DATE OF EXAM: 07/31/2021 COMPARISON: NONE HISTORY: Fall. Back pain TECHNIQUE: 3 views FINDINGS: Lumbar vertebral abnormal alignment. Posterior elements are intact. There is no compression fracture. Sacroiliac joints are intact. IMPRESSION: Negative lumbar spine exam. No fracture.
--- NOTE | 2021-07-31 02:32 | ED ---
Back Pain HPI - General Chief Complaint: Back Pain/Injury Stated Complaint: Fall, Back Pain Time Seen by Provider: 07/31/21 01:22 Source: patient, family, RN notes reviewed Limitations: no limitations - History of Present Illness Initial Comments: Patient is a 45-year-old male is complaining of bilateral lower back pain after falling down 2-3 steps. Patient is ambulatory with no bladder or bowel incontinence/retention. Patient denied any saddle anesthesia. She notes that he is tender over both SI joints. Patient was otherwise well-appearing he did appear to be moderately uncomfortable secondary to pain. He notes his pain was puffy a 7-8 out of 10 with no relief. He denied any chest pain shortness of breath headache nausea vomiting diarrhea constipation fever fatigue chills. - Related Data Home Medications Medication Instructions Recorded Confirmed Budesonide/Formoterol Fumarate 2 puff INHALATION RT-BID 08/16/19 06/16/21 [Symbicort 160-4.5 Mcg Inhaler] Cetirizine HCl 10 mg PO DAILY 08/16/19 06/16/21 Montelukast [Singulair] 10 mg PO DAILY 08/16/19 06/16/21 Nephro-Van 0.8mg 0.8 mg PO DAILY 08/16/19 06/16/21 Umeclidinium [place] [Incruse 1 puff INHALATION RT-DAILY 08/16/19 06/16/21 Ellipta] amLODIPine [Norvasc] 10 mg PO DAILY 08/16/19 06/16/21 Escitalopram [Lexapro] 20 mg PO DAILY 04/10/21 06/16/21 Famotidine 40 mg PO HS 04/10/21 06/16/21 Promethaz-Cod 6.25-10 mg/5 ml 5 ml PO TID PRN 04/10/21 06/16/21 [Phenergan with Codeine] busPIRone HCL [Buspar] 30 mg PO BID 04/10/21 06/16/21 hydrOXYzine pamoate [Vistaril] 50 mg PO DAILY PRN 04/10/21 06/16/21 QUEtiapine [SEROquel] 50 mg PO HS 05/15/21 06/16/21 Triamcinolone 0.1% Ointment 1 applic TOPICAL BID PRN 05/15/21 06/16/21 [Kenalog 0.1% Ointment] Albuterol Inhaler [Ventolin Hfa 2 puff INHALATION RT-QID PRN 06/16/21 06/16/21 Inhaler] Albuterol Nebulized [Ventolin 2.5 mg INHALATION RT-TID PRN 06/16/21 06/16/21 Nebulized] Previous Rx's Medication Instructions Recorded Tamsulosin [Flomax] 0.4 mg PO DAILY #7 cap 04/10/21 HYDROcodone/APAP 5-325MG [[place] 1 tab PO Q6HR PRN 3 Days #12 tab 05/15/21 5-325] methocarbamoL [Robaxin] 1,000 mg PO TID PRN 5 Days #30 tab 05/15/21 Azithromycin [Zithromax Z-pack (6 0 mg PO DIRECTED #6 tab 06/17/21 tabs)] predniSONE [Deltasone] 20 mg PO BID 5 Days #10 tab 06/17/21 Cyclobenzaprine HCl 10 mg PO TID 7 Days #21 tab 07/31/21 Allergies Allergy/AdvReac Type Severity Reaction Status Date / Time hydromorphone [From Dilaudid] Allergy Itching Verified 07/30/21 23:55 meperidine [From Demerol] Allergy Itching Verified 07/30/21 23:55 propoxyphene Allergy Unknown Verified 07/30/21 23:55 [From Darvocet-N] NSAIDS (Non-Steroidal AdvReac Kidneys Verified 07/30/21 23:55 Anti-Inflamma Review of Systems ROS Statement: Those systems with pertinent positive or pertinent negative responses have been documented in the HPI. ROS Other: All systems not noted in ROS Statement are negative. Past Medical History Past Medical History: Asthma, COPD, Renal Disease Additional Past Medical History / Comment(s): stage 2 kidney disease, pancreatitis, hital hernia History of Any Multi-Drug Resistant Organisms: None Reported Past Surgical History: No Surgical Hx Reported Additional Past Surgical History / Comment(s): kidney stone removal Past Psychological History: Anxiety, Depression Smoking Status: Current every day smoker Past Alcohol Use History: None Reported Past Drug Use History: Marijuana General Exam Limitations: no limitations General appearance: alert, in no apparent distress, obese Head exam: Present: atraumatic, normocephalic, normal inspection Eye exam: Present: normal appearance, PERRL, EOMI. Absent: scleral icterus, conjunctival injection, periorbital swelling ENT exam: Present: normal exam, mucous membranes moist Neck exam: Present: normal inspection Respiratory exam: Present: normal lung sounds bilaterally. Absent: respiratory distress, wheezes, rales, rhonchi, stridor Cardiovascular Exam: Present: regular rate, normal rhythm, normal heart sounds. Absent: systolic murmur, diastolic murmur, rubs, gallop, clicks GI/Abdominal exam: Present: soft, normal bowel sounds. Absent: distended, tenderness, guarding, rebound, rigid Extremities exam: Present: normal inspection, full ROM, normal capillary refill. Absent: tenderness, pedal edema, joint swelling, calf tenderness Back exam: Present: normal inspection, tenderness (Bilaterally over the SI is), muscle spasm Neurological exam: Present: alert, oriented X3 Psychiatric exam: Present: normal affect, normal mood Skin exam: Present: warm, dry, intact, normal color. Absent: rash Course Vital Signs 07/30/21 23:54 Temperature 98.2 F Pulse Rate 86 Respiratory 18 Rate Blood Pressure 147/81 O2 Sat by Pulse 98 Oximetry Medical Decision Making - Medical Decision Making 45-year-old male complaining of low back pain after falling down several steps. Lumbar spine x-ray, 4 g of morphine, 50 mg of Benadryl, 125 mg of Solu-Medrol ordered. Lumbar x-ray data for any acute fractures dislocations. Patient still having pain upon reevaluation 60 mg of Norflex ordered. Patient will be sent muscle relaxers to pharmacy. Case discussed with Dr. Porras. Disposition Clinical Impression: Mechanical back pain, Strain of lumbar region Disposition: HOME SELF-CARE Condition: Stable Instructions (If sedation given, give patient instructions): Acute Low Back Pain (ED) Additional Instructions: Please return to the Emergency Department if symptoms worsen or any other concerns. Follow-up with primary care 1-2 days. Take Tylenol Motrin alternating every 3 hours as needed for pain control. Can use ice packs or heat packs. Take muscle relaxers as prescribed. Is patient prescribed a controlled substance at d/c from ED?: No Referrals: Francy Almeida MD [Primary Care Provider] - 1-2 days Time of Disposition: 02:32
[2021-07-31 02:57] VITALS: BP 137/86; PULSE 77; TEMP 98.6
== END 2021-07-31 02:56 | disposition home or self-care (01) ==
LOC: EC 23:39
DX: S39.012A Strain of muscle, fascia and tendon of lower back, initial encounter (principal); E66.9 Obesity, unspecified; J44.9 Chronic obstructive pulmonary disease, unspecified; N18.2 Chronic kidney disease, stage 2 (mild); F17.200 Nicotine dependence, unspecified, uncomplicated; F12.90 Cannabis use, unspecified, uncomplicated; F32.A Depression, unspecified; F41.9 Anxiety disorder, unspecified; Z79.52 Long term (current) use of systemic steroids; Z79.51 Long term (current) use of inhaled steroids; Z79.899 Other long term (current) drug therapy; Z68.33 Body mass index [BMI] 33.0-33.9, adult; W10.9XXA Fall (on) (from) unspecified stairs and steps, initial encounter
CPT/HCPCS: 72100; 99284; 96372 ×4; J2270; J1200; J2360; J2930

== ENCOUNTER 2021-08-04 20:47 | Emergency (ER) | payer OTHER ==
[2021-08-04 20:58] VITALS: BP 130/87; PULSE 102; RESP 18; TEMP 98
[2021-08-04] MEDS ORDERED: HYDROcodone/APAP 5-325MG 1 EACH TAB PO STA (21:21)
--- NOTE | 2021-08-04 21:25 | ED ---
Back Pain HPI - General Chief Complaint: Back Pain/Injury Stated Complaint: Low back pain, Revisit for fall Time Seen by Provider: 08/04/21 21:04 Source: patient Limitations: no limitations - History of Present Illness MD Complaint: back pain, fall Onset/Timin -: days(s) Similar Symptoms Previously: No Place: home Radiation: flank Severity: moderate Quality: aching Consistency: constant Improves With: immobilization Worsens With: movement Context: fall Associated Symptoms: denies other symptoms - Related Data Home Medications Medication Instructions Recorded Confirmed Budesonide/Formoterol Fumarate 2 puff INHALATION RT-BID 08/16/19 06/16/21 [Symbicort 160-4.5 Mcg Inhaler] Cetirizine HCl 10 mg PO DAILY 08/16/19 06/16/21 Montelukast [Singulair] 10 mg PO DAILY 08/16/19 06/16/21 Nephro-Van 0.8mg 0.8 mg PO DAILY 08/16/19 06/16/21 Umeclidinium [place] [Incruse 1 puff INHALATION RT-DAILY 08/16/19 06/16/21 Ellipta] amLODIPine [Norvasc] 10 mg PO DAILY 08/16/19 06/16/21 Escitalopram [Lexapro] 20 mg PO DAILY 04/10/21 06/16/21 Famotidine 40 mg PO HS 04/10/21 06/16/21 Promethaz-Cod 6.25-10 mg/5 ml 5 ml PO TID PRN 04/10/21 06/16/21 [Phenergan with Codeine] busPIRone HCL [Buspar] 30 mg PO BID 04/10/21 06/16/21 hydrOXYzine pamoate [Vistaril] 50 mg PO DAILY PRN 04/10/21 06/16/21 QUEtiapine [SEROquel] 50 mg PO HS 05/15/21 06/16/21 Triamcinolone 0.1% Ointment 1 applic TOPICAL BID PRN 05/15/21 06/16/21 [Kenalog 0.1% Ointment] Albuterol Inhaler [Ventolin Hfa 2 puff INHALATION RT-QID PRN 06/16/21 06/16/21 Inhaler] Albuterol Nebulized [Ventolin 2.5 mg INHALATION RT-TID PRN 06/16/21 06/16/21 Nebulized] Previous Rx's Medication Instructions Recorded Tamsulosin [Flomax] 0.4 mg PO DAILY #7 cap 04/10/21 HYDROcodone/APAP 5-325MG [[place] 1 tab PO Q6HR PRN 3 Days #12 tab 05/15/21 5-325] methocarbamoL [Robaxin] 1,000 mg PO TID PRN 5 Days #30 tab 05/15/21 Azithromycin [Zithromax Z-pack (6 0 mg PO DIRECTED #6 tab 06/17/21 tabs)] predniSONE [Deltasone] 20 mg PO BID 5 Days #10 tab 06/17/21 Cyclobenzaprine HCl 10 mg PO TID 7 Days #21 tab 07/31/21 HYDROcodone/APAP 5-325MG [[place] 1 tab PO Q4HR PRN 3 Days #18 tab 08/04/21 5-325] predniSONE [Deltasone] 20 mg PO BID #8 tab 08/04/21 Allergies Allergy/AdvReac Type Severity Reaction Status Date / Time hydromorphone [From Dilaudid] Allergy Itching Verified 08/04/21 22:25 meperidine [From Demerol] Allergy Itching Verified 08/04/21 22:25 propoxyphene Allergy Unknown Verified 08/04/21 22:25 [From Darvocet-N] NSAIDS (Non-Steroidal AdvReac Kidneys Verified 08/04/21 22:25 Anti-Inflamma Review of Systems ROS Statement: Those systems with pertinent positive or pertinent negative responses have been documented in the HPI. ROS Other: All systems not noted in ROS Statement are negative. Constitutional: Denies: fever, chills, weakness Respiratory: Denies: dyspnea Cardiovascular: Denies: chest pain, edema Gastrointestinal: Denies: abdominal pain, vomiting, diarrhea, constipation Genitourinary: Denies: dysuria, frequency, testicular pain Musculoskeletal: Reports: as per HPI, back pain Skin: Denies: rash Neurological: Denies: weakness, numbness, paresthesias Past Medical History Past Medical History: Asthma, COPD, Renal Disease Additional Past Medical History / Comment(s): stage 2 kidney disease, pancreatitis, hital hernia History of Any Multi-Drug Resistant Organisms: None Reported Past Surgical History: No Surgical Hx Reported Additional Past Surgical History / Comment(s): kidney stone removal Past Psychological History: Anxiety, Depression Smoking Status: Current every day smoker Past Alcohol Use History: None Reported Past Drug Use History: Marijuana General Exam Limitations: no limitations General appearance: alert, in no apparent distress Head exam: Present: atraumatic, normocephalic Eye exam: Present: normal appearance Respiratory exam: Present: normal lung sounds bilaterally. Absent: respiratory distress, wheezes, rales, rhonchi, stridor, chest wall tenderness Cardiovascular Exam: Present: regular rate, normal rhythm, normal heart sounds. Absent: systolic murmur, diastolic murmur, rubs, gallop GI/Abdominal exam: Present: soft. Absent: distended, tenderness, guarding, rebound, rigid, mass Back exam: Present: normal inspection, CVA tenderness (L), muscle spasm, paraspinal tenderness. Absent: tenderness, CVA tenderness (R), vertebral tenderness Neurological exam: Present: alert, reflexes normal. Absent: motor sensory deficit Skin exam: Present: warm, dry, intact, normal color. Absent: rash Course Vital Signs 08/04/21 20:53 Temperature 98.0 F Pulse Rate 102 H Respiratory 18 Rate Blood Pressure 130/87 O2 Sat by Pulse 98 Oximetry Medical Decision Making - Lab Data Lab Results 08/04/21 Range/Units 21:55 Urine Color Light Yellow Urine Appearance Clear (Clear) Urine pH 6.5 (5.0-8.0) Ur Specific [place] 1.014 (1.001-1.035) Urine Protein Negative (Negative) Urine Glucose (UA) Negative (Negative) Urine Ketones Negative (Negative) Urine Blood Negative (Negative) Urine Nitrite Negative (Negative) Urine Bilirubin Negative (Negative) Urine Urobilinogen <2.0 (<2.0) mg/dL Ur Leukocyte Esterase Negative (Negative) Disposition Clinical Impression: Mechanical back pain Disposition: HOME SELF-CARE Condition: Good Instructions (If sedation given, give patient instructions): Acute Low Back Pain (ED) Prescriptions: predniSONE [Deltasone] 20 mg PO BID #8 tab HYDROcodone/APAP 5-325MG [[place] 5-325] 1 tab PO Q4HR PRN 3 Days #18 tab PRN Reason: Pain Is patient prescribed a controlled substance at d/c from ED?: Yes When asked, does pt state using other controlled substances?: No If prescribed controlled substance>3 days was MAPS reviewed?: Prescribed <3 Days If opioid is for acute pain is fill amount 7 days or less?: Yes If Rx opioid, was Start Talking consent form obtained?: Yes Referrals: Francy Almeida MD [Primary Care Provider] - 1-2 days
--- NOTE | 2021-08-04 21:53 | CT ---
EXAMINATION TYPE: CT lumbar spine wo con DATE OF EXAM: 08/04/2021 COMPARISON: CT abdomen pelvis 04/10/2021 HISTORY: Low back pain after fall x12 days ago. CT DLP: 1619.6 mGycm Automated exposure control for dose reduction was used. Images obtained from the level of T12-S3 vertebra without contrast. Lumbar vertebrae are normal alignment. There is no compression fracture. Disc spaces are normal. Post erior elements are intact. There is no lumbar paraspinal mass. I see no focal bone destruction. The s acroiliac joints are intact. There is no evidence of spinal stenosis. No evidence of any significant posterior lumbar disc herniation. No adverse change compared to old exam. IMPRESSION: Lumbar spine appears fairly normal for age. No disc herniation or spinal stenosis. No fracture.
[2021-08-04 22:02] LABS: Appearance,Urine Clear (Clear); Bilirubin,Urine Negative (Negative); Blood,Urine Negative (Negative); Color,Urine Light Yellow; Glucose,Urine (UA) Negative (Negative); Ketones,Urine Negative (Negative); Leukocyte Esterase,Urine Negative (Negative); Nitrite,Urine Negative (Negative); PH, Urine 6.5 (5.0-8.0); Protein,Urine Negative (Negative); Specific Gravity,Urine 1.014 (1.001-1.035); Urobilinogen,Urine <2.0 mg/dL (<2.0)
[2021-08-04] MEDS ORDERED: predniSONE 20 MG TAB PO STA (22:28)
== END 2021-08-04 22:32 | disposition home or self-care (01) ==
LOC: EC 20:47
DX: M54.50 Low back pain, unspecified (principal); J44.9 Chronic obstructive pulmonary disease, unspecified; F17.200 Nicotine dependence, unspecified, uncomplicated; F12.90 Cannabis use, unspecified, uncomplicated; Z79.52 Long term (current) use of systemic steroids; Z79.51 Long term (current) use of inhaled steroids; Z79.899 Other long term (current) drug therapy
CPT/HCPCS: 72131; 81003; 99284

== ENCOUNTER → 2021-12-26 | Outpatient (CLI) | payer OTHER ==
[2021-12-26 18:34] LABS: African American GFR (CKD) 66.8 (60.0-200.0); Albumin 5.1 g/dL (3.8-4.9); Albumin/Globulin Ratio 1.94 (1.60-3.17); Anion Gap 11.3 mmol/L (10.00-18.00); BUN/Creat Ratio 8.9 Ratio (12.00-20.00); Calcium 10.1 mg/dL (8.7-10.3); Carbon Dioxide 24.7 mmol/L (20.0-27.5); Globulin 2.6 g/dL (1.6-3.3); Non-African American GFR(CKD) 57.7 (60.0-200.0); Potassium 4.3 mmol/L (3.5-5.5); Total Bilirubin 0.3 mg/dL (0.30-1.20); Total Protein 7.7 g/dL (6.2-8.2)
== END | disposition home or self-care (01) ==
LOC: LABWHC1 13:02
PROVIDERS: ATTEND Internal Medicine Pulmonary Disease
DX: D86.9 Sarcoidosis, unspecified (principal)
CPT/HCPCS: 36415; 80053

== ENCOUNTER 2022-01-07 17:56 | Emergency (ER) | payer OTHER ==
[2022-01-07] MEDS ORDERED: ALBUTEROL HFA INHALER INHALATION STA (20:41)
[2022-01-07] MEDS ORDERED: DEXAMETHASONE SOD PHOSPHATE 10 MG/ML 1 ML VIAL IM STA (20:42)
[2022-01-07] MEDS ORDERED: ACETAMINOPHEN TAB 500 MG TAB PO STA (20:42)
--- NOTE | 2022-01-07 20:45 | ED ---
General Adult HPI - General Chief complaint: Headache Stated complaint: Left side face burning Time Seen by Provider: 01/07/22 20:35 Source: patient, RN notes reviewed, old records reviewed Mode of arrival: ambulatory Limitations: no limitations - History of Present Illness Initial comments: 46-year-old male, alert and oriented 4, presents to the emergency room with complaints of left-sided headache behind his eye with left eye tearing. Patient states that his ALLERGIES have been bothering him for 5 days and his eyes have been itching. His nose has also been running and itching. He did take Zyrtec, Benadryl and singulair daily but it has not been helping. He denies any fevers, no nausea or vomiting or diarrhea. Denies any sick contacts. Does have a history of asthma, chronic kidney disease and hypertension. -: days(s) (5) Location: head (Left-sided head behind left eye with tearing) Radiation: non-radiation Quality: constant Consistency: constant - Related Data Home Medications Medication Instructions Recorded Confirmed Cetirizine HCl 10 mg PO DAILY 08/16/19 01/07/22 Montelukast [Singulair] 10 mg PO DAILY 08/16/19 01/07/22 Nephro-Van 0.8mg 0.8 mg PO DAILY 08/16/19 01/07/22 amLODIPine [Norvasc] 10 mg PO DAILY 08/16/19 01/07/22 Escitalopram [Lexapro] 20 mg PO DAILY 04/10/21 01/07/22 Famotidine 40 mg PO HS 04/10/21 01/07/22 Promethaz-Cod 6.25-10 mg/5 ml 5 ml PO TID PRN 04/10/21 01/07/22 [Phenergan with Codeine] QUEtiapine [SEROquel] 50 mg PO HS 05/15/21 01/07/22 Triamcinolone 0.1% Ointment 1 applic TOPICAL BID PRN 05/15/21 01/07/22 [Kenalog 0.1% Ointment] Albuterol Inhaler [Ventolin Hfa 2 puff INHALATION RT-QID PRN 06/16/21 01/07/22 Inhaler] Albuterol Nebulized [Ventolin 2.5 mg INHALATION RT-QID PRN 06/16/21 01/07/22 Nebulized] Benzonatate [Benzonatate Perle] 200 mg PO TID PRN 08/04/21 01/07/22 Fluticasone/Umeclidin/Vilanter 1 puff INHALATION RT-DAILY 08/04/21 01/07/22 [Trelegy Ellipta 100-62.5-25] Promethazine HCl [Phenergan Syrup] 12.5 mg PO Q6H PRN 08/04/21 01/07/22 traMADol HCL 50 mg PO TID PRN 08/12/21 01/07/22 Previous Rx's Medication Instructions Recorded Fluticasone Nasal [place] [Flonase 2 spr EA NOSTRIL DAILY #16 gm 01/07/22 Nasal Backus] Allergies Allergy/AdvReac Type Severity Reaction Status Date / Time hydromorphone [From Dilaudid] Allergy Itching Verified 01/07/22 22:27 meperidine [From Demerol] Allergy Itching Verified 01/07/22 22:27 propoxyphene Allergy Unknown Verified 01/07/22 22:27 [From Darvocet-N] NSAIDS (Non-Steroidal AdvReac Kidneys Verified 01/07/22 22:27 Anti-Inflamma Review of Systems ROS Statement: Those systems with pertinent positive or pertinent negative responses have been documented in the HPI. ROS Other: All systems not noted in ROS Statement are negative. Past Medical History Past Medical History: Asthma, COPD, Renal Disease Additional Past Medical History / Comment(s): stage 2 kidney disease, pancreatitis, hital hernia History of Any Multi-Drug Resistant Organisms: None Reported Past Surgical History: No Surgical Hx Reported Additional Past Surgical History / Comment(s): kidney stone removal Past Psychological History: Anxiety, Depression Smoking Status: Current every day smoker Past Alcohol Use History: None Reported Past Drug Use History: Marijuana General Exam Limitations: no limitations General appearance: alert, in no apparent distress Head exam: Present: atraumatic, normocephalic Eye exam: Present: PERRL, EOMI, conjunctival injection, other (Left eye tearing) ENT exam: Present: normal exam, normal oropharynx, mucous membranes moist Neck exam: Present: normal inspection, full ROM. Absent: tenderness, meningismus, lymphadenopathy Respiratory exam: Present: normal lung sounds bilaterally, wheezes (End expiratory wheeze). Absent: respiratory distress, accessory muscle use Cardiovascular Exam: Present: regular rate, normal rhythm Extremities exam: Present: normal capillary refill. Absent: pedal edema Neurological exam: Present: alert, oriented X3, CN II-XII intact Psychiatric exam: Present: normal affect, normal mood Skin exam: Present: warm, dry, normal color. Absent: cyanosis, diaphoretic Course Vital Signs 01/07/22 01/07/22 17:57 21:04 Temperature 98.2 F 98.1 F Pulse Rate 96 75 Respiratory 18 14 Rate Blood Pressure 136/90 138/99 O2 Sat by Pulse 95 97 Oximetry Medical Decision Making - Medical Decision Making Influenza A and coronavirus swabs are negative. Patient has no focal neurological deficits. Patient's symptoms are consistent with a cluster headache. He was given a shot of Decadron and high-dose oxygen therapy for 15 minutes with relief of headache. He was also given a breathing treatment for his wheezing. This is likely seasonal ALLERGIES as he has bilateral conjunctival irritation, itchy nose and sinus congestion. Patient was directed to continue his ALLERGY medication and try Flonase and saline nasal spray. Follow-up with his primary care doctor next week. Patient is agreeable to this plan of care. Case discussed with - Lab Data Lab Results 01/07/22 01/07/22 Range/Units 21:04 21:04 Coronavirus (PCR) Not Detected (Not Detectd) Influenza Type A RNA Not Detected (Not Detectd) Influenza Type B (PCR) Not Detected (Not Detectd) Disposition Clinical Impression: Cluster headaches, Seasonal allergic conjunctivitis Disposition: HOME SELF-CARE Condition: Good Instructions (If sedation given, give patient instructions): Acute Headache (ED), Allergies (ED) Additional Instructions: Continue taking your Zyrtec in addition to using Flonase nasal spray for seasonal ALLERGIES. Tylenol as needed for any headaches. Use nasal saline spray to help prevent nosebleeds. Continue your albuterol as needed for any wheezing. Your symptoms are likely related to your seasonal ALLERGIES. Your headache symptoms are consistent with cluster headaches. You can discuss treatment with the primary care doctor if you have frequent attacks. Follow-up with the primary care doctor this week. Prescriptions: Fluticasone Nasal Backus [Flonase Nasal Backus] 2 spr EA NOSTRIL DAILY #16 gm Is patient prescribed a controlled substance at d/c from ED?: No Referrals: Francy Almeida MD [Primary Care Provider] - 1-2 days Time of Disposition: 22:42
[2022-01-07] MEDS ORDERED: IPRATROPIUM-ALBUTEROL 3 ML NEB INHALATION STA (22:05)
[2022-01-07 23:32] VITALS: BP 146/98; PULSE 70; RESP 18; TEMP 97.6
== END 2022-01-07 23:27 | disposition home or self-care (01) ==
LOC: EC 17:56
DX: G44.009 Cluster headache syndrome, unspecified, not intractable (principal); H10.12 Acute atopic conjunctivitis, left eye; J44.9 Chronic obstructive pulmonary disease, unspecified; F17.200 Nicotine dependence, unspecified, uncomplicated; Z20.822 Contact with and (suspected) exposure to COVID-19; Z88.5 Allergy status to narcotic agent; Z88.8 Allergy status to other drugs, medicaments and biological substances; Z88.6 Allergy status to analgesic agent; Z79.51 Long term (current) use of inhaled steroids; Z79.899 Other long term (current) drug therapy
CPT/HCPCS: 87502; 87635; 99284; 96372; J1100

== ENCOUNTER 2022-01-12 18:11 | Emergency (ER) | payer OTHER ==
[2022-01-12 18:16] VITALS: PULSE 114; TEMP 97.9
[2022-01-12] MEDS ORDERED: SODIUM CHLORIDE 0.9% 1,000 ML IV STA (18:38)
--- NOTE | 2022-01-12 19:04 | ED ---
SOB HPI - General Chief Complaint: Shortness of Breath Stated Complaint: FORREST Time Seen by Provider: 01/12/22 18:38 Source: patient Mode of arrival: ambulatory Limitations: no limitations - History of Present Illness Initial Comments: Rico is a 46-year-old male with a history of sarcoidosis who presents to the emergency department today with complaint of 3 days of cough and body aches. Patient reports when he coughs his entire body gets sore. No chest pain. He feels short of breath when he is coughing. Patient states tonight at work had a coughing fit and was told to go home. Due to persistence of symptoms he came to the ER. - Related Data Home Medications Medication Instructions Recorded Confirmed Cetirizine HCl 10 mg PO DAILY 08/16/19 01/07/22 Montelukast [Singulair] 10 mg PO DAILY 08/16/19 01/07/22 Nephro-Van 0.8mg 0.8 mg PO DAILY 08/16/19 01/07/22 amLODIPine [Norvasc] 10 mg PO DAILY 08/16/19 01/07/22 Escitalopram [Lexapro] 20 mg PO DAILY 04/10/21 01/07/22 Famotidine 40 mg PO HS 04/10/21 01/07/22 Promethaz-Cod 6.25-10 mg/5 ml 5 ml PO TID PRN 04/10/21 01/07/22 [Phenergan with Codeine] QUEtiapine [SEROquel] 50 mg PO HS 05/15/21 01/07/22 Triamcinolone 0.1% Ointment 1 applic TOPICAL BID PRN 05/15/21 01/07/22 [Kenalog 0.1% Ointment] Albuterol Inhaler [Ventolin Hfa 2 puff INHALATION RT-QID PRN 06/16/21 01/07/22 Inhaler] Albuterol Nebulized [Ventolin 2.5 mg INHALATION RT-QID PRN 06/16/21 01/07/22 Nebulized] Benzonatate [Benzonatate Perle] 200 mg PO TID PRN 08/04/21 01/07/22 Fluticasone/Umeclidin/Vilanter 1 puff INHALATION RT-DAILY 08/04/21 01/07/22 [Trelegy Ellipta 100-62.5-25] Promethazine HCl [Phenergan Syrup] 12.5 mg PO Q6H PRN 08/04/21 01/07/22 traMADol HCL 50 mg PO TID PRN 08/12/21 01/07/22 Previous Rx's Medication Instructions Recorded Fluticasone Nasal [place] [Flonase 2 spr EA NOSTRIL DAILY #16 gm 01/07/22 Nasal [place]] predniSONE [Deltasone] 40 mg PO DAILY 5 Days #10 tab 01/12/22 predniSONE [Deltasone] 40 mg PO DAILY 5 Days #10 tab 01/12/22 Allergies Allergy/AdvReac Type Severity Reaction Status Date / Time hydromorphone [From Dilaudid] Allergy Itching Verified 01/12/22 18:16 meperidine [From Demerol] Allergy Itching Verified 01/12/22 18:16 propoxyphene Allergy Unknown Verified 01/12/22 18:16 [From Darvocet-N] NSAIDS (Non-Steroidal AdvReac Kidneys Verified 01/12/22 18:16 Anti-Inflamma Review of Systems ROS Statement: Those systems with pertinent positive or pertinent negative responses have been documented in the HPI. ROS Other: All systems not noted in ROS Statement are negative. Past Medical History Past Medical History: Asthma, COPD, Renal Disease Additional Past Medical History / Comment(s): stage 2 kidney disease, pancreatitis, hital hernia History of Any Multi-Drug Resistant Organisms: None Reported Past Surgical History: No Surgical Hx Reported Additional Past Surgical History / Comment(s): kidney stone removal Past Psychological History: Anxiety, Depression Smoking Status: Current every day smoker Past Alcohol Use History: None Reported Past Drug Use History: Marijuana General Exam - General Exam Comments Initial Comments: Physical Exam GENERAL: Patient is well-developed and well-nourished. Patient is nontoxic and well-hydrated and is in no distress. HENT: Normocephalic, Atraumatic. EYES: PERRL, EOMI PULMONARY: Unlabored respirations. Mild expiratory wheezes CARDIOVASCULAR: Tachycardic, regular rhythm without any murmurs gallops or rubs. ABDOMEN: Soft and nontender with normal bowel sounds. SKIN: Skin is clear with no lesions or rashes and otherwise unremarkable. : Deferred NEUROLOGIC: Patient is alert and oriented x3. Moving all extremities spontaneously MUSCULOSKELETAL: Normal extremities with adequate strength and full range of motion. No lower extremity swelling or edema. No calf tenderness. PSYCHIATRIC: Normal psychiatric evaluation. Limitations: no limitations Course Vital Signs 01/12/22 18:13 Temperature 97.9 F Pulse Rate 114 H Respiratory 20 Rate Blood Pressure 116/72 O2 Sat by Pulse 96 Oximetry Medical Decision Making - Medical Decision Making The patient was seen and evaluated History was obtained from the patient Patient was swabbed for COVID and influenza, labs were obtained, patient was treated with morphine for pain which she reports she is tolerated in the past despite his ALLERGY to Dilaudid. Patient received IV fluids Labs are relatively unremarkable his chronic kidney disease, patient is negative for influenza and COVID Throughout his stay in the ER patient could be heard speaking loudly on his cell phone, he was in no acute distress no dyspnea, his heart rate improved after Tylenol and IV fluids Discussed with the patient that I suspect he is suffering from a viral upper respiratory infection, recommended hydration, Tylenol for discomfort and follow- up with primary care or pharmacist helper, close return parameters were discussed patient was discharged home in stable condition - Lab Data Result diagrams: 01/12/22 18:50 01/12/22 18:50 Lab Results 01/12/22 01/12/22 01/12/22 Range/Units 18:18 18:18 18:50 WBC 6.2 (3.8-10.6) k/uL RBC 5.36 (4.30-5.90) m/uL Hgb 15.1 (13.0-17.5) gm/dL Hct 47.1 (39.0-53.0) % MCV 87.9 (80.0-100.0) fL MCH 28.1 (25.0-35.0) pg MCHC 32.0 (31.0-37.0) g/dL RDW 14.0 (11.5-15.5) % Plt Count 260 (150-450) k/uL MPV 8.5 Neutrophils % 72 % Lymphocytes % 16 % Monocytes % 8 % Eosinophils % 2 % Basophils % 0 % Neutrophils # 4.5 (1.3-7.7) k/uL Lymphocytes # 1.0 (1.0-4.8) k/uL Monocytes # 0.5 (0-1.0) k/uL Eosinophils # 0.1 (0-0.7) k/uL Basophils # 0.0 (0-0.2) k/uL PT (9.0-12.0) sec INR (<1.2) APTT (22.0-30.0) sec Sodium (137-145) mmol/L Potassium (3.5-5.1) mmol/L Chloride (98-107) mmol/L Carbon Dioxide (22-30) mmol/L Anion Gap mmol/L BUN (9-20) mg/dL Creatinine (0.66-1.25) mg/dL Est GFR (CKD-EPI)AfAm (>60 ml/min/1.73 sqM) Est GFR (CKD-EPI)NonAf (>60 ml/min/1.73 sqM) Glucose (74-99) mg/dL Plasma Lactic Acid Mathe[place] (0.7-2.0) mmol/L Calcium (8.4-10.2) mg/dL Total Bilirubin (0.2-1.3) mg/dL AST (17-59) U/L ALT (4-49) U/L Alkaline Phosphatase (38-126) U/L Troponin I (0.000-0.034) ng/mL NT-Pro-B Natriuret Pep pg/mL Total Protein (6.3-8.2) g/dL Albumin (3.5-5.0) g/dL Coronavirus (PCR) Not Detected (Not Detectd) Influenza Type A RNA Not Detected (Not Detectd) Influenza Type B (PCR) Not Detected (Not Detectd) 01/12/22 01/12/22 01/12/22 Range/Units 18:50 18:50 18:50 WBC (3.8-10.6) k/uL RBC (4.30-5.90) m/uL Hgb (13.0-17.5) gm/dL Hct (39.0-53.0) % MCV (80.0-100.0) fL MCH (25.0-35.0) pg MCHC (31.0-37.0) g/dL RDW (11.5-15.5) % Plt Count (150-450) k/uL MPV Neutrophils % % Lymphocytes % % Monocytes % % Eosinophils % % Basophils % % Neutrophils # (1.3-7.7) k/uL Lymphocytes # (1.0-4.8) k/uL Monocytes # (0-1.0) k/uL Eosinophils # (0-0.7) k/uL Basophils # (0-0.2) k/uL PT 10.1 (9.0-12.0) sec INR 0.9 (<1.2) APTT 25.8 (22.0-30.0) sec Sodium 143 (137-145) mmol/L Potassium 4.2 (3.5-5.1) mmol/L Chloride 110 H (98-107) mmol/L Carbon Dioxide 20 L (22-30) mmol/L Anion Gap 13 mmol/L BUN 18 (9-20) mg/dL Creatinine 1.60 H (0.66-1.25) mg/dL Est GFR (CKD-EPI)AfAm 60 (>60 ml/min/1.73 sqM) Est GFR (CKD-EPI)NonAf 52 (>60 ml/min/1.73 sqM) Glucose 101 H (74-99) mg/dL Plasma Lactic Acid Matheus 1.6 (0.7-2.0) mmol/L Calcium 9.6 (8.4-10.2) mg/dL Total Bilirubin 0.2 (0.2-1.3) mg/dL AST 24 (17-59) U/L ALT 29 (4-49) U/L Alkaline Phosphatase 74 (38-126) U/L Troponin I (0.000-0.034) ng/mL NT-Pro-B Natriuret Pep pg/mL Total Protein 7.5 (6.3-8.2) g/dL Albumin 4.8 (3.5-5.0) g/dL Coronavirus (PCR) (Not Detectd) Influenza Type A RNA (Not Detectd) Influenza Type B (PCR) (Not Detectd) 01/12/22 01/12/22 Range/Units 18:50 18:50 WBC (3.8-10.6) k/uL RBC (4.30-5.90) m/uL Hgb (13.0-17.5) gm/dL Hct (39.0-53.0) % MCV (80.0-100.0) fL MCH (25.0-35.0) pg MCHC (31.0-37.0) g/dL RDW (11.5-15.5) % Plt Count (150-450) k/uL MPV Neutrophils % % Lymphocytes % % Monocytes % % Eosinophils % % Basophils % % Neutrophils # (1.3-7.7) k/uL Lymphocytes # (1.0-4.8) k/uL Monocytes # (0-1.0) k/uL Eosinophils # (0-0.7) k/uL Basophils # (0-0.2) k/uL PT (9.0-12.0) sec INR (<1.2) APTT (22.0-30.0) sec Sodium (137-145) mmol/L Potassium (3.5-5.1) mmol/L Chloride (98-107) mmol/L Carbon Dioxide (22-30) mmol/L Anion Gap mmol/L BUN (9-20) mg/dL Creatinine (0.66-1.25) mg/dL Est GFR (CKD-EPI)AfAm (>60 ml/min/1.73 sqM) Est GFR (CKD-EPI)NonAf (>60 ml/min/1.73 sqM) Glucose (74-99) mg/dL Plasma Lactic Acid Mathe[place] (0.7-2.0) mmol/L Calcium (8.4-10.2) mg/dL Total Bilirubin (0.2-1.3) mg/dL AST (17-59) U/L ALT (4-49) U/L Alkaline Phosphatase (38-126) U/L Troponin I <0.012 (0.000-0.034) ng/mL NT-Pro-B Natriuret Pep <11 pg/mL Total Protein (6.3-8.2) g/dL Albumin (3.5-5.0) g/dL Coronavirus (PCR) (Not Detectd) Influenza Type A RNA (Not Detectd) Influenza Type B (PCR) (Not Detectd) Disposition Clinical Impression: Viral syndrome Disposition: HOME SELF-CARE Condition: Stable Additional Instructions: Follow up with your primary care doctor and pharmacist helper Prescriptions: predniSONE [Deltasone] 40 mg PO DAILY 5 Days #10 tab predniSONE [Deltasone] 40 mg PO DAILY 5 Days #10 tab Is patient prescribed a controlled substance at d/c from ED?: No Referrals: Francy Almeida MD [Primary Care Provider] - 1-2 days
--- NOTE | 2022-01-12 19:06 | XR ---
EXAMINATION TYPE: XR chest 2V DATE OF EXAM: 01/12/2022 COMPARISON: 08/12/2021 HISTORY: Difficulty breathing TECHNIQUE: 2 views FINDINGS: There is coarse interstitial linear density in both lungs. There are some emphysematous zenia nges right upper lobe. Heart size is normal. No pleural effusion. There are no hilar masses. Bony tho rax is intact. There are chest leads. IMPRESSION: Coarse pulmonary density consistent with fibrosis and not significantly different than ol d exam. Normal heart.
[2022-01-12] MEDS ORDERED: ACETAMINOPHEN TAB 325 MG TAB PO STA (19:13)
[2022-01-12] MEDS ORDERED: MORPHINE SULFATE 4 MG/ML SYRINGE IVP STA (19:13)
[2022-01-12 19:21] LABS: Basophils % (A) 0 %; Eosinophils # (A) 0.1 k/uL (0-0.7); Eosinophils % (A) 2 %; HCT 47.1 % (39.0-53.0); HGB 15.1 gm/dL (13.0-17.5); Lymphocytes % (A) 16 %; MCH 28.1 pg (25.0-35.0); MCV 87.9 fL (80.0-100.0); Mean Platelet Volume 8.5; Monocytes # (A) 0.5 k/uL (0-1.0); Monocytes % (A) 8 %; Neutrophils # (A) 4.5 k/uL (1.3-7.7); Neutrophils % (A) 72 %; Platelet Count 260 k/uL (150-450); RBC 5.36 m/uL (4.30-5.90); WBC 6.2 k/uL (3.8-10.6)
[2022-01-12 19:30] LABS: INR 0.9 (<1.2); Partial Thromboplastin Time 25.8 sec (22.0-30.0); Prothrombin Time 10.1 sec (9.0-12.0)
[2022-01-12 19:33] LABS: Albumin 4.8 g/dL (3.5-5.0); Calcium 9.6 mg/dL (8.4-10.2); Potassium 4.2 mmol/L (3.5-5.1); Total Bilirubin 0.2 mg/dL (0.2-1.3); Total Protein 7.5 g/dL (6.3-8.2)
[2022-01-12 20:20] VITALS: BP 129/80; RESP 16
== END 2022-01-12 20:21 | disposition home or self-care (01) ==
LOC: EC 18:11
DX: B34.9 Viral infection, unspecified (principal); J44.9 Chronic obstructive pulmonary disease, unspecified; N18.2 Chronic kidney disease, stage 2 (mild); F32.A Depression, unspecified; F41.9 Anxiety disorder, unspecified; F17.200 Nicotine dependence, unspecified, uncomplicated; Z79.51 Long term (current) use of inhaled steroids; Z79.899 Other long term (current) drug therapy; Z20.822 Contact with and (suspected) exposure to COVID-19; Z88.5 Allergy status to narcotic agent; Z88.6 Allergy status to analgesic agent
CPT/HCPCS: 36415; 83880; 80053; 83605; 84484; 85025; 85610; 85730; 87502; 87635; 71046; 99285; 96374; 96361; J2270; 93005

== ENCOUNTER 2022-01-17 13:13 | Observation (INO) | payer OTHER ==
[2022-01-17] MEDS ORDERED: MORPHINE SULFATE 2 MG/ML SYRINGE IVP STA (16:07)
[2022-01-17 16:34] LABS: Basophils % (A) 1 %; Eosinophils # (A) 0.1 k/uL (0-0.7); Eosinophils % (A) 1 %; HCT 44.4 % (39.0-53.0); Lymphocytes # (A) 0.7 k/uL (1.0-4.8); Lymphocytes % (A) 8 %; MCH 27.7 pg (25.0-35.0); MCHC 31.5 g/dL (31.0-37.0); Mean Platelet Volume 8.7; Monocytes # (A) 0.7 k/uL (0-1.0); Monocytes % (A) 8 %; Neutrophils # (A) 7.2 k/uL (1.3-7.7); Neutrophils % (A) 81 %; Platelet Count 239 k/uL (150-450); RBC 5.05 m/uL (4.30-5.90); RDW 13.6 % (11.5-15.5); WBC 8.8 k/uL (3.8-10.6)
--- NOTE | 2022-01-17 16:37 | ED ---
URI HPI - General Chief Complaint: Upper Respiratory Infection Stated Complaint: Here 01/12/Chest Congestion/SOB Time Seen by Provider: 01/17/22 15:54 Source: patient Mode of arrival: ambulatory Limitations: no limitations - History of Present Illness Initial Comments: Patient is a 46-year-old -[place] male who presents to the emergency room at the junction of his primary care provider after being seen in the office earlier in the week and in the emergency room a few weeks ago for an upper respiratory infection. He reports that he has had progressive increased shortness of breath especially with activity, increase cough along with pleuritic pain with his cough at times. He reports that most of his pleuritic pain is to his left lower lung region. He has a history significant for sarcoidosis, recurrent pneumonia and COPD. He also has a past medical history significant for chronic kidney Srinivas stage II and hypertension. He is complaining of generalized pain in addition to his pleuritic pain. He reports that he was placed on antibiotics previously and completed them but is not currently on any antibiotics. - Related Data Home Medications Medication Instructions Recorded Confirmed Cetirizine HCl 10 mg PO DAILY 08/16/19 01/17/22 Montelukast [Singulair] 10 mg PO DAILY 08/16/19 01/17/22 Nephro-Van 0.8mg 0.8 mg PO DAILY 08/16/19 01/17/22 amLODIPine [Norvasc] 10 mg PO DAILY 08/16/19 01/17/22 Escitalopram [Lexapro] 20 mg PO DAILY 04/10/21 01/17/22 Famotidine 40 mg PO HS 04/10/21 01/17/22 Promethaz-Cod 6.25-10 mg/5 ml 5 ml PO TID PRN 04/10/21 01/17/22 [Phenergan with Codeine] QUEtiapine [SEROquel] 50 mg PO HS 05/15/21 01/17/22 Triamcinolone 0.1% Ointment 1 applic TOPICAL BID PRN 05/15/21 01/17/22 [Kenalog 0.1% Ointment] Albuterol Inhaler [Ventolin Hfa 2 puff INHALATION RT-QID PRN 06/16/21 01/17/22 Inhaler] Albuterol Nebulized [Ventolin 2.5 mg INHALATION RT-QID PRN 06/16/21 01/17/22 Nebulized] Benzonatate [Benzonatate Perle] 200 mg PO TID PRN 08/04/21 01/17/22 Fluticasone/Umeclidin/Vilanter 1 puff INHALATION RT-DAILY 08/04/21 01/17/22 [Trelegy Ellipta 100-62.5-25] Promethazine HCl [Phenergan Syrup] 12.5 mg PO Q6H PRN 08/04/21 01/17/22 traMADol HCL 50 mg PO TID PRN 08/12/21 01/17/22 Previous Rx's Medication Instructions Recorded Fluticasone Nasal [place] [Flonase 2 spr EA NOSTRIL DAILY #16 gm 01/07/22 Nasal [place]] predniSONE [Deltasone] 40 mg PO DAILY 5 Days #10 tab 01/12/22 Allergies Allergy/AdvReac Type Severity Reaction Status Date / Time hydromorphone [From Dilaudid] Allergy Itching Verified 01/17/22 18:42 meperidine [From Demerol] Allergy Itching Verified 01/17/22 18:42 propoxyphene Allergy Unknown Verified 01/17/22 18:42 [From Darvocet-N] NSAIDS (Non-Steroidal AdvReac Kidneys Verified 01/17/22 18:42 Anti-Inflamma Review of Systems ROS Statement: Those systems with pertinent positive or pertinent negative responses have been documented in the HPI. ROS Other: All systems not noted in ROS Statement are negative. Past Medical History Past Medical History: Asthma, COPD, Renal Disease Additional Past Medical History / Comment(s): stage 2 kidney disease, pancreatitis, hital hernia History of Any Multi-Drug Resistant Organisms: None Reported Past Surgical History: No Surgical Hx Reported Additional Past Surgical History / Comment(s): kidney stone removal Past Psychological History: Anxiety, Depression Smoking Status: Current some day smoker Past Alcohol Use History: None Reported Past Drug Use History: Marijuana General Exam Limitations: no limitations General appearance: alert, in no apparent distress Head exam: Present: atraumatic, normocephalic, normal inspection Eye exam: Present: normal appearance, PERRL, EOMI. Absent: scleral icterus, conjunctival injection, periorbital swelling ENT exam: Present: normal exam, mucous membranes moist Neck exam: Present: normal inspection. Absent: tenderness, meningismus, lymphadenopathy Respiratory exam: Present: wheezes (expiratory throughout ), chest wall tenderness (left lower flank), decreased breath sounds (bibasilar). Absent: respiratory distress, rales, rhonchi, stridor Cardiovascular Exam: Present: regular rate, normal rhythm, normal heart sounds. Absent: systolic murmur, diastolic murmur, rubs, gallop, clicks GI/Abdominal exam: Present: soft, normal bowel sounds. Absent: distended, tenderness, guarding, rebound, rigid Extremities exam: Present: normal inspection, full ROM, normal capillary refill. Absent: tenderness, pedal edema, joint swelling, calf tenderness Back exam: Present: normal inspection Neurological exam: Present: alert, oriented X3, CN II-XII intact Psychiatric exam: Present: normal affect, normal mood Skin exam: Present: warm, dry, intact, normal color. Absent: rash Course Vital Signs 01/17/22 01/17/22 13:41 16:24 Temperature 98.0 F Pulse Rate 101 H Respiratory 20 22 Rate Blood Pressure 132/84 O2 Sat by Pulse 93 L Oximetry - Reevaluation(s) Reevaluation #1: CT chest without contrast shows chronic patchy interstitial obesity similar to p rior radiograph given differences in modality. Superimposed acute component cannot be entirely excluded correlate for pneumonia versus pneumonitis. Pain persists with stable vital signs with dose of morphine. In the setting of sarcoidosis history, worsening of symptoms shortness of breath with activity and hypoxia [facility] hospitalist called regarding patient for admission to treat pneumonia/pneumonitis with underlying sarcoidosis. Spoke with Eunice Britt who agrees for inpatient admission. Patient continues to have pain and shortness of breath. Will place on antibiotics along with IV steroids and nebulized treatments. 01/17/22 18:05 01/17/22 18:07 Time: 18:05 Medical Decision Making - Medical Decision Making Due to recent treatment for upper respiratory infection along with sarcoidosis pulmonary history will defer chest x-ray and order computed tomography scan. Wheeze and lower oxygen saturation levels noted. Will start on IV steroids after computed tomography scan. Due to renal impairment will treat pain with morphine and avoid NSAIDs. - Lab Data Result diagrams: 01/17/22 16:20 01/17/22 16:20 Lab Results 01/17/22 01/17/22 01/17/22 Range/Units 16:20 16:20 16:20 WBC 8.8 (3.8-10.6) k/uL RBC 5.05 (4.30-5.90) m/uL Hgb 14.0 (13.0-17.5) gm/dL Hct 44.4 (39.0-53.0) % MCV 88.0 (80.0-100.0) fL MCH 27.7 (25.0-35.0) pg MCHC 31.5 (31.0-37.0) g/dL RDW 13.6 (11.5-15.5) % Plt Count 239 (150-450) k/uL MPV 8.7 Neutrophils % 81 % Lymphocytes % 8 % Monocytes % 8 % Eosinophils % 1 % Basophils % 1 % Neutrophils # 7.2 (1.3-7.7) k/uL Lymphocytes # 0.7 L (1.0-4.8) k/uL Monocytes # 0.7 (0-1.0) k/uL Eosinophils # 0.1 (0-0.7) k/uL Basophils # 0.0 (0-0.2) k/uL Sodium 140 (137-145) mmol/L Potassium 4.1 (3.5-5.1) mmol/L Chloride 107 (98-107) mmol/L Carbon Dioxide 25 (22-30) mmol/L Anion Gap 8 mmol/L BUN 14 (9-20) mg/dL Creatinine 1.51 H (0.66-1.25) mg/dL Est GFR (CKD-EPI)AfAm 64 (>60 ml/min/1.73 sqM) Est GFR (CKD-EPI)NonAf 56 (>60 ml/min/1.73 sqM) Glucose 107 H (74-99) mg/dL Calcium 9.5 (8.4-10.2) mg/dL Coronavirus (PCR) (Not Detectd) Influenza Type A RNA Not Detected (Not Detectd) Influenza Type B (PCR) Not Detected (Not Detectd) 01/17/22 Range/Units 16:20 WBC (3.8-10.6) k/uL RBC (4.30-5.90) m/uL Hgb (13.0-17.5) gm/dL Hct (39.0-53.0) % MCV (80.0-100.0) fL MCH (25.0-35.0) pg MCHC (31.0-37.0) g/dL RDW (11.5-15.5) % Plt Count (150-450) k/uL MPV Neutrophils % % Lymphocytes % % Monocytes % % Eosinophils % % Basophils % % Neutrophils # (1.3-7.7) k/uL Lymphocytes # (1.0-4.8) k/uL Monocytes # (0-1.0) k/uL Eosinophils # (0-0.7) k/uL Basophils # (0-0.2) k/uL Sodium (137-145) mmol/L Potassium (3.5-5.1) mmol/L Chloride (98-107) mmol/L Carbon Dioxide (22-30) mmol/L Anion Gap mmol/L BUN (9-20) mg/dL Creatinine (0.66-1.25) mg/dL Est GFR (CKD-EPI)AfAm (>60 ml/min/1.73 sqM) Est GFR (CKD-EPI)NonAf (>60 ml/min/1.73 sqM) Glucose (74-99) mg/dL Calcium (8.4-10.2) mg/dL Coronavirus (PCR) Not Detected (Not Detectd) Influenza Type A RNA (Not Detectd) Influenza Type B (PCR) (Not Detectd) Disposition Clinical Impression: Sarcoidosis of lung Disposition: ADMITTED IP TO THIS HOSP Is patient prescribed a controlled substance at d/c from ED?: No Time of Disposition: 18:06
[2022-01-17 16:44] LABS: Calcium 9.5 mg/dL (8.4-10.2); Potassium 4.1 mmol/L (3.5-5.1)
--- NOTE | 2022-01-17 17:26 | CT ---
EXAMINATION TYPE: CT chest wo con DATE OF EXAM: 01/17/2022 COMPARISON: Radiographs 08/12/2021 HISTORY: Dyspnea with sarcoidosis CT DLP: 483.6 mGycm. Automated Exposure Control for Dose Reduction was Utilized. TECHNIQUE: CT scan of the thorax is performed without IV contrast. FINDINGS: LUNGS: There are chronic bilateral diffuse patchy interstitial opacities. There is no pleural effusio n or pneumothorax seen. The tracheobronchial tree is patent. MEDIASTINUM: Lack of IV contrast is noted to limit evaluation for mediastinal and especially hilar ad enopathy. There are no definitive greater than 1 cm hilar or mediastinal lymph nodes. No cardiomega ly or pericardial effusion is seen. OTHER: Chronic left sixth and seventh rib fractures seen. IMPRESSION: Chronic patchy interstitial opacities, similar to prior radiographs given differences in modality. Superimposed acute component cannot be entirely excluded. Correlate for pneumonia versus pn eumonitis.
[2022-01-17] MEDS ORDERED: NALOXONE 0.4 MG/ML 1 ML VIAL IV PRN (18:07)
[2022-01-17] MEDS ORDERED: cefTRIAXone IN SWFI 1,000 MG/10 ML SYRINGE IVP STA (18:18)
[2022-01-17] MEDS ORDERED: methylPREDNISolone SOD SUCCI 125 MG/2 ML VIAL IV STA (18:18)
[2022-01-17] MEDS: MORPHINE SULFATE 4 MG/ML SYRINGE IV PRN ×2 (18:43→22:22)
[2022-01-17] MEDS ORDERED: ONDANSETRON 4 MG/2 ML VIAL IVP PRN (22:13)
[2022-01-17] MEDS: BENZOCAINE/MENTHOL LOZENG 1 EACH LOZENGE MUCOUS MEM PRN (22:22)
[2022-01-17] MEDS: guaiFENesin SYRUP 100MG/5ML 200 MG/10 ML CUP PO PRN (22:22)
[2022-01-18] MEDS: MORPHINE SULFATE 4 MG/ML SYRINGE IV PRN ×3 (02:35→10:59)
[2022-01-18 04:51] VITALS: BP 129/72; PULSE 82; RESP 18; TEMP 98.2
[2022-01-18] MEDS: BENZOCAINE/MENTHOL LOZENG 1 EACH LOZENGE MUCOUS MEM PRN (06:31)
[2022-01-18] MEDS: guaiFENesin SYRUP 100MG/5ML 200 MG/10 ML CUP PO PRN (06:31)
[2022-01-18] MEDS ORDERED: ALBUTEROL HFA INHALER INHALATION PRN (09:47)
[2022-01-18] MEDS ORDERED: PROMETHAZINE HCL 6.25 MG/5 ML CUP PO PRN (09:47)
[2022-01-18] MEDS ORDERED: NON FORMULARY DRUG (Promethaz-Cod 6.25-10 Mg/5 Ml 5 ML Ml) PO PRN (09:47)
[2022-01-18] MEDS ORDERED: BENZONATATE 100 MG CAP PO PRN (09:47)
[2022-01-18] MEDS ORDERED: TRIAMCINOLONE ACET 0.1% OINTMENT 15 GM TUBE TOPICAL PRN (09:47)
[2022-01-18] MEDS ORDERED: ALBUTEROL NEBULIZED 2.5 MG/3 ML INHALATION PRN (09:47)
[2022-01-18] MEDS ORDERED: predniSONE 20 MG TAB PO SCH (10:30)
--- NOTE | 2022-01-18 12:01 | P.HPIM ---
History of Present Illness 46-year-old male came in with compensative shortness of breath. Patient is presently not requiring any oxygen patient does have a history of sarcoidosis. CT of the chest was done which showed pneumonitis. Patient is Fever patient doesn't have any leukocytosis patient does have a history of sarcoidosis patient has intractable cough. Patient is requesting something with codeine at nighttime so that he can sleep. The patient apparently was unable to feel the cough syrup prescription provided by his lung doctor. Patient follows with pulmonology in [place]. Neurologic gait evaluated the patient patient is comparing of cough with green sputum production patient doesn't have any wheezing on exam. Patient can use to smoke does have history of COPD. Doesn't wear oxygen at home. REVIEW OF SYSTEMS: CONSTITUTIONAL: No fever, no malaise, no fatigue. HEENT: No recent visual problems or hearing problems. Denied any sore throat. CARDIOVASCULAR: No chest pain, orthopnea, PND, no palpitations, no syncope. PULMONARY:no hemoptysis. GASTROINTESTINAL: No diarrhea, no nausea, no vomiting, no abdominal pain. NEUROLOGICAL: No headaches, no weakness, no numbness. HEMATOLOGICAL: Denies any bleeding or petechiae. GENITOURINARY: Denies any burning micturition, frequency, or urgency. MUSCULOSKELETAL/RHEUMATOLOGICAL: Denies any joint pain, swelling, or any muscle pain. ENDOCRINE: Denies any polyuria or polydipsia. The rest of the 14-point review of systems is negative. PHYSICAL EXAMINATION: GENERAL: The patient is alert and oriented x3, not in any acute distress. Obese HEENT: Pupils are round and equally reacting to light. EOMI. No scleral icterus. No conjunctival pallor. Normocephalic, atraumatic. No pharyngeal erythema. No thyromegaly. CARDIOVASCULAR: S1 and S2 present. No murmurs, rubs, or gallops. PULMONARY: Chest is clear to auscultation, no wheezing or crackles. ABDOMEN: Soft, nontender, nondistended, normoactive bowel sounds. No palpable organomegaly. MUSCULOSKELETAL: No joint swelling or deformity. EXTREMITIES: No cyanosis, clubbing, or pedal edema. NEUROLOGICAL: Gross neurological examination did not reveal any focal deficits. SKIN: No rashes. Assessment and plan -Shortness of breath: Probably secondary to sarcoidosis with a competent of COPD patient is not requiring any oxygen not wheezing at this time coronary valid the patient is recommending 30 mg of prednisone and cleared for discharge patient will taper this prednisone by 10 mg every 5 days. Interstitial infiltrate or pneumonitis secondary to probably sarcoidosis patient may have bronchitis bacterial considering his current sputum production because of which patient will be discharged on 100 mg twice a day of doxycycline for 3 days. -COPD without any acute exacerbation nicotine cessation counseling was provided hypertension continue with Norvasc -Chronic kidney disease stage II probably hepatocellular nephrosclerosis Patient will be discharged today Past Medical History Past Medical History: Asthma, COPD, Renal Disease Additional Past Medical History / Comment(s): stage 2 kidney disease, pancreatitis, hital hernia History of Any Multi-Drug Resistant Organisms: None Reported Past Surgical History: No Surgical Hx Reported Additional Past Surgical History / Comment(s): kidney stone removal Past Psychological History: Anxiety, Depression Smoking Status: Current some day smoker Past Alcohol Use History: None Reported Past Drug Use History: Marijuana Medications and Allergies Home Medications Medication Instructions Recorded Confirmed Type Cetirizine HCl 10 mg PO DAILY 08/16/19 01/17/22 History Montelukast [Singulair] 10 mg PO DAILY 08/16/19 01/17/22 History Nephro-Van 0.8mg 0.8 mg PO DAILY 08/16/19 01/17/22 History amLODIPine [Norvasc] 10 mg PO DAILY 08/16/19 01/17/22 History Promethaz-Cod 6.25-10 mg/5 ml 5 ml PO TID PRN 04/10/21 01/17/22 History [Phenergan with Codeine] Triamcinolone 0.1% Ointment 1 applic TOPICAL BID PRN 05/15/21 01/17/22 History [Kenalog 0.1% Ointment] Albuterol Inhaler [Ventolin Hfa 2 puff INHALATION RT-QID PRN 06/16/21 01/17/22 History Inhaler] Albuterol Nebulized [Ventolin 2.5 mg INHALATION RT-QID PRN 06/16/21 01/17/22 History Nebulized] Benzonatate [Benzonatate Perle] 200 mg PO TID PRN 08/04/21 01/17/22 History Fluticasone/Umeclidin/Vilanter 1 puff INHALATION RT-DAILY 08/04/21 01/17/22 History [Trelegy Ellipta 100-62.5-25] Fluticasone Nasal [place] [Flonase 2 spr EA NOSTRIL DAILY #16 gm 01/07/22 01/17/22 Rx Nasal [place]] Doxycycline [Vibramycin] 100 mg PO BID 1 Days #6 capsule 01/18/22 Rx Famotidine [Pepcid] 20 mg PO BID #30 tablet 01/18/22 Rx Promethaz-Cod 6.25-10 mg/5 ml 5 ml PO Q4HR PRN 3 Days #90 ml 01/18/22 Rx [Phenergan with Codeine] predniSONE 10 mg PO DAILY #30 tab 01/18/22 Rx Allergies Allergy/AdvReac Type Severity Reaction Status Date / Time hydromorphone [From Dilaudid] Allergy Itching Verified 01/17/22 18:42 meperidine [From Demerol] Allergy Itching Verified 01/17/22 18:42 propoxyphene Allergy Unknown Verified 01/17/22 18:42 [From Darvocet-N] NSAIDS (Non-Steroidal AdvReac Kidneys Verified 01/17/22 18:42 Anti-Inflamma Physical Exam Vitals: Vital Signs Temp Pulse Pulse Resp BP BP Pulse Ox 01/18/22 04:35 98.2 F 82 18 129/72 96 01/17/22 21:00 98.4 F 92 20 141/94 96 01/17/22 20:16 98.4 F 78 22 133/87 96 01/17/22 16:24 22 01/17/22 13:41 98.0 F 101 H 20 132/84 93 L Intake and Output 01/17/22 01/18/22 01/18/22 22:59 06:59 14:59 Intake Total 480 920 Balance 480 920 Intake: Oral 480 920 Other: # Voids 2 1 Weight 99.79 kg Results CBC & Chem 7: 01/17/22 16:20 01/17/22 16:20 Labs: Abnormal Lab Results - Last 24 Hours (Table) 01/17/22 01/17/22 Range/Units 16:20 16:20 Lymphocytes # 0.7 L (1.0-4.8) k/uL Creatinine 1.51 H (0.66-1.25) mg/dL Glucose 107 H (74-99) mg/dL Thrombosis Risk Factor Assmnt - Choose All That Apply Any of the Below Risk Factors Present?: Yes Each Factor Represents 1 point: Age 41-60 years, Obesity (BMI >25) Thrombosis Risk Factor Assessment Total Risk Factor Score: 2 Thrombosis Risk Factor Assessment Level: Low Risk
--- NOTE | 2022-01-18 12:02 | P.DS ---
Providers Date of admission: 01/17/22 18:00 Attending physician: Tessa Dennison Consults: 01/17/22 18:07 Consult Physician Routine Consulting Provider: Seble Jane Consult Reason/Comments: Sarcoidosis pneumonia versus pneumonitis Do you want consulting provider notified?: Yes Primary care physician: [facility] Course: Refer to my history of present illness for further details Plan - Discharge Summary New Discharge Prescriptions: New Doxycycline [Vibramycin] 100 mg PO BID 1 Days #6 capsule Famotidine [Pepcid] 20 mg PO BID #30 tablet Promethaz-Cod 6.25-10 mg/5 ml [Phenergan with Codeine] 5 ml PO Q4HR PRN 3 Days #90 ml PRN Reason: Cough predniSONE 10 mg PO DAILY #30 tab Discontinued Famotidine 40 mg PO HS Promethazine HCl [Phenergan Syrup] 12.5 mg PO Q6H PRN PRN Reason: Cough predniSONE [Deltasone] 40 mg PO DAILY 5 Days #10 tab No Action Nephro-Van 0.8mg 0.8 mg PO DAILY Montelukast [Singulair] 10 mg PO DAILY Cetirizine HCl 10 mg PO DAILY amLODIPine [Norvasc] 10 mg PO DAILY Promethaz-Cod 6.25-10 mg/5 ml [Phenergan with Codeine] 5 ml PO TID PRN PRN Reason: Cough Albuterol Nebulized [Ventolin Nebulized] 2.5 mg INHALATION RT-QID PRN PRN Reason: Shortness Of Breath Albuterol Inhaler [Ventolin Hfa Inhaler] 2 puff INHALATION RT-QID PRN PRN Reason: Shortness Of Breath Fluticasone/Umeclidin/Vilanter [Trelegy Ellipta 100-62.5-25] 1 puff INHALATION RT-DAILY Benzonatate [Benzonatate Perle] 200 mg PO TID PRN PRN Reason: Cough Triamcinolone 0.1% Ointment [Kenalog 0.1% Ointment] 1 applic TOPICAL BID PRN PRN Reason: Rash Fluticasone Nasal [place] [Flonase Nasal [place]] 2 spr EA NOSTRIL DAILY #16 gm Discharge Medication List Cetirizine HCl 10 mg PO DAILY 08/16/19 [History] Montelukast [Singulair] 10 mg PO DAILY 08/16/19 [History] Nephro-Van 0.8mg 0.8 mg PO DAILY 08/16/19 [History] amLODIPine [Norvasc] 10 mg PO DAILY 08/16/19 [History] Promethaz-Cod 6.25-10 mg/5 ml [Phenergan with Codeine] 5 ml PO TID PRN 04/10/21 [History] Triamcinolone 0.1% Ointment [Kenalog 0.1% Ointment] 1 applic TOPICAL BID PRN 05/15/21 [History] Albuterol Inhaler [Ventolin Hfa Inhaler] 2 puff INHALATION RT-QID PRN 06/16/21 [History] Albuterol Nebulized [Ventolin Nebulized] 2.5 mg INHALATION RT-QID PRN 06/16/21 [History] Benzonatate [Benzonatate Perle] 200 mg PO TID PRN 08/04/21 [History] Fluticasone/Umeclidin/Vilanter [Trelegy Ellipta 100-62.5-25] 1 puff INHALATION RT-DAILY 08/04/21 [History] Fluticasone Nasal [place] [Flonase Nasal [place]] 2 spr EA NOSTRIL DAILY #16 gm 01/07/22 [Rx] Doxycycline [Vibramycin] 100 mg PO BID 1 Days #6 capsule 01/18/22 [Rx] Famotidine [Pepcid] 20 mg PO BID #30 tablet 01/18/22 [Rx] Promethaz-Cod 6.25-10 mg/5 ml [Phenergan with Codeine] 5 ml PO Q4HR PRN 3 Days #90 ml 01/18/22 [Rx] predniSONE 10 mg PO DAILY #30 tab 01/18/22 [Rx] Follow up Appointment(s)/Referral(s): Francy Almeida MD [Primary Care Provider] - 01/29/22 10:45 am Discharge Disposition: HOME SELF-CARE
--- NOTE | 2022-01-18 13:01 | P.CNPUL ---
History of Present Illness Consult date: 01/18/22 Requesting physician: Nelida Rodrigues Reason for consult: dyspnea, abnormal CXR/CT Chief complaint: Shortness of breath, cough, pleuritic chest pain History of present illness: This is a very pleasant 46-year-old male patient with a known history of chronic kidney disease, hypertension, chronic and ongoing tobacco dependence, chronic obstructive pulmonary disease, marijuana use, anxiety/depression and sarcoidosis. The patient had previously resided in [place] and follows with a financial services representative there. He moved here about 1 year ago. He presented to the emergency room with complaints of increasing shortness of breath, cough or pleuritic-type chest pain. He had been previously treated for an upper respiratory infection with antibiotics a few weeks ago. CT of the chest revealed chronic patchy interstitial opacities similar compared to previous of August 2021. White count 8.8. He will 14.0. Platelets 239. BUN 14. Creatinine 1.51. Sodium 140. Potassium 4.1. Bicarb 25. Garcia virus by PCR not detected. Influenza screen negative. He was initiated on IV Solu-Medrol and Symbicort and albuterol, Tessalon Per[place]. He is seen today in consultation on the regular medical floor. He is up ambulating in his room and healing better today. Less cough and congestion. Maintaining O2 saturations in the 90s on room air. He's been afebrile. Hemodynamically stable. Review of Systems REVIEW OF SYSTEMS: CONSTITUTIONAL: Denies any recent significant weight loss or weight gain. EYES: Denies change in vision. EARS, NOSE, MOUTH, THROAT: Denies headaches, denies sore throat. CARDIOVASCULAR: Denies chest pain, palpitations or syncopal episodes. RESPIRATORY: Positive for shortness of breath, cough, congestion no hemoptysis. GASTROINTESTINAL: Denies change in appetite, denies abdominal pain GENITOURINARY: Denies hematuria, denies infections. MUSKULOSKELETAL: Denies pain, denies swelling. INTEGUMENTARY: Denies rash, denies eczema. NEUROLOGICAL: Denies recent memory loss, no recent seizure activity. PSYCHIATRIC: Denies anxiety, denies depression. HEMATOLOGIC/LYMPHATIC: Denies anemia, denies enlarged lymph nodes. Past Medical History Past Medical History: Asthma, COPD, Renal Disease Additional Past Medical History / Comment(s): stage 2 kidney disease, pancreatitis, hital hernia History of Any Multi-Drug Resistant Organisms: None Reported Past Surgical History: No Surgical Hx Reported Additional Past Surgical History / Comment(s): kidney stone removal Past Psychological History: Anxiety, Depression Smoking Status: Current some day smoker Past Alcohol Use History: None Reported Past Drug Use History: Marijuana Medications and Allergies Home Medications Medication Instructions Recorded Confirmed Type Cetirizine HCl 10 mg PO DAILY 08/16/19 01/17/22 History Montelukast [Singulair] 10 mg PO DAILY 08/16/19 01/17/22 History Nephro-Van 0.8mg 0.8 mg PO DAILY 08/16/19 01/17/22 History amLODIPine [Norvasc] 10 mg PO DAILY 08/16/19 01/17/22 History Promethaz-Cod 6.25-10 mg/5 ml 5 ml PO TID PRN 04/10/21 01/17/22 History [Phenergan with Codeine] Triamcinolone 0.1% Ointment 1 applic TOPICAL BID PRN 05/15/21 01/17/22 History [Kenalog 0.1% Ointment] Albuterol Inhaler [Ventolin Hfa 2 puff INHALATION RT-QID PRN 06/16/21 01/17/22 H istory Inhaler] Albuterol Nebulized [Ventolin 2.5 mg INHALATION RT-QID PRN 06/16/21 01/17/22 History Nebulized] Benzonatate [Benzonatate Perle] 200 mg PO TID PRN 08/04/21 01/17/22 History Fluticasone/Umeclidin/Vilanter 1 puff INHALATION RT-DAILY 08/04/21 01/17/22 History [Trelegy Ellipta 100-62.5-25] Fluticasone Nasal [place] [Flonase 2 spr EA NOSTRIL DAILY #16 gm 01/07/22 01/17/22 Rx Nasal [place]] Doxycycline [Vibramycin] 100 mg PO BID 1 Days #6 capsule 01/18/22 Rx Famotidine [Pepcid] 20 mg PO BID #30 tablet 01/18/22 Rx Promethaz-Cod 6.25-10 mg/5 ml 5 ml PO Q4HR PRN 3 Days #90 ml 01/18/22 Rx [Phenergan with Codeine] predniSONE 10 mg PO DAILY #30 tab 01/18/22 Rx Allergies Allergy/AdvReac Type Severity Reaction Status Date / Time hydromorphone [From Dilaudid] Allergy Itching Verified 01/17/22 18:42 meperidine [From Demerol] Allergy Itching Verified 01/17/22 18:42 propoxyphene Allergy Unknown Verified 01/17/22 18:42 [From Darvocet-N] NSAIDS (Non-Steroidal AdvReac Kidneys Verified 01/17/22 18:42 Anti-Inflamma Physical Exam Vitals: Vital Signs Temp Pulse Pulse Resp BP BP Pulse Ox 01/18/22 04:35 98.2 F 82 18 129/72 96 01/17/22 21:00 98.4 F 92 20 141/94 96 01/17/22 20:16 98.4 F 78 22 133/87 96 01/17/22 16:24 22 01/17/22 13:41 98.0 F 101 H 20 132/84 93 L Intake and Output 01/17/22 01/18/22 01/18/22 22:59 06:59 14:59 Intake Total 480 920 Balance 480 920 Intake: Oral 480 920 Other: # Voids 2 1 Weight 99.79 kg GENERAL EXAM: Alert, active, very pleasant 46-year-old male patient, on room air, comfortable in no apparent distress. HEAD: Normocephalic. EYES: Normal reaction of pupils, equal size. NOSE: Clear with pink turbinates. THROAT: No erythema or exudates. NECK: No masses, no JVD. CHEST: No chest wall deformity. LUNGS: Equal air entry with few scattered rhonchi CVS: S1 and S2 normal with no audible murmur, regular rhythm. ABDOMEN: No hepatosplenomegaly, normal bowel sounds, no guarding or rigidity. SPINE: No scoliosis or deformity SKIN: No rashes CENTRAL NERVOUS SYSTEM: No focal deficits, tone is normal in all 4 extremities. EXTREMITIES: There is no peripheral edema. No clubbing, no cyanosis. Peripheral pulses are intact. Results - Laboratory Findings CBC and BMP: 01/17/22 16:20 01/17/22 16:20 Abnormal lab findings: Abnormal Labs 01/17/22 01/17/22 16:20 16:20 Lymphocytes # 0.7 L Creatinine 1.51 H Glucose 107 H - Diagnostic Findings Chest x-ray: image reviewed Assessment and Plan Assessment: 1 Acute exacerbation of chronic obstructive pulmonary disease 2 Chronic and ongoing tobacco dependence 3 History of sarcoidosis 4 History of anxiety/depression 5 Marijuana use 6 Stage II kidney disease 7 History of pancreatitis Plan: The patient was seen and evaluated CAT scan, medications and labs reviewed He is cleared for discharge from the pulmonary standpoint Complete a prednisone taper Complete a course of empiric antibiotics Continue his home pulmonary medications Follow-up with his financial services representative in 1-2 weeks' I have personally seen and examined the patient, performed the documentation and the assessment and plan as written. Number of minutes spent on the visit: 20.
[2022-01-18] MEDS ORDERED: FAMOTIDINE 20 MG TAB PO SCH (21:00)
[2022-01-19] MEDS ORDERED: IPRATROPIUM 0.5 MG/2.5 ML NEBU INHALATION SCH (08:00)
[2022-01-19] MEDS ORDERED: SYMBICORT 80-4.5 MCG INHALER INHALATION SCH (08:00)
[2022-01-19] MEDS ORDERED: amLODIPine 10 MG TAB PO SCH (09:00)
[2022-01-19] MEDS ORDERED: FLUTICASONE 50MCG/SPRAY NASAL 16GM EA NOSTRIL SCH (09:00)
== END 2022-01-18 12:10 | disposition home or self-care (01) ==
LOC: EC 13:13 → 5NMEDONC 18:00 → INTOOBSV 18:00 → 5NMEDONC 20:05 → UNDODISIN 01-18 12:10
PROVIDERS: ADMIT Hospitalist; ATTEND Hospitalist
DX: D86.0 Sarcoidosis of lung (principal); J44.9 Chronic obstructive pulmonary disease, unspecified; R91.8 Other nonspecific abnormal finding of lung field; I12.9 Hypertensive chronic kidney disease with stage 1 through stage 4 chronic kidney disease, or unspecified chronic kidney disease; N18.2 Chronic kidney disease, stage 2 (mild); K44.9 Diaphragmatic hernia without obstruction or gangrene; F17.200 Nicotine dependence, unspecified, uncomplicated; F32.A Depression, unspecified; F41.9 Anxiety disorder, unspecified; E66.9 Obesity, unspecified; Z68.33 Body mass index [BMI] 33.0-33.9, adult; Z20.822 Contact with and (suspected) exposure to COVID-19; Z79.51 Long term (current) use of inhaled steroids; Z79.899 Other long term (current) drug therapy; Z88.5 Allergy status to narcotic agent; Z88.6 Allergy status to analgesic agent; Z87.442 Personal history of urinary calculi; Z87.01 Personal history of pneumonia (recurrent); Z87.19 Personal history of other diseases of the digestive system; Z98.890 Other specified postprocedural states; Z71.6 Tobacco abuse counseling
CPT/HCPCS: 96376 ×3; 96374; 96375; 99284; 36415; 80048; 85025; 87040; 87502; 87635; 71250; G0378 ×2; J2270 ×3; J2930; J0696; J7512; 99285

== ENCOUNTER 2022-02-15 21:24 | Observation (INO) | payer OTHER ==
[2022-02-15] MEDS ORDERED: methylPREDNISolone SOD SUCCI 125 MG/2 ML VIAL IV STA (23:23)
[2022-02-15] MEDS ORDERED: ACETAMINOPHEN TAB 500 MG TAB PO STA (23:23)
[2022-02-15] MEDS ORDERED: IPRATROPIUM-ALBUTEROL 3 ML NEB INHALATION STA ×2 (23:25→23:50)
[2022-02-15] MEDS ORDERED: BENZONATATE 100 MG CAP PO STA (23:25)
[2022-02-15] MEDS ORDERED: SODIUM CHLORIDE 0.9% 1,000 ML IV ONE (23:25)
--- NOTE | 2022-02-15 23:35 | ED ---
URI HPI - General Source: patient, RN notes reviewed Mode of arrival: ambulatory Limitations: no limitations - History of Present Illness MD Complaint: fever, cough <Loyd Fierro - Last Filed: 02/15/22 23:28> <Isra Barnes - Last Filed: 02/16/22 01:29> - General Chief Complaint: Upper Respiratory Infection Stated Complaint: SOB/Coughing up blood Time Seen by Provider: 02/15/22 23:23 - History of Present Illness Initial Comments: Patient presents with symptoms consistent with upper respiratory infection, stuffy nose, sore throat, headache, body aches, cough, wheezing. He [facility] this morning and diagnosed with influenza. Patient tested posi tive after having a nasal swab. Patient states he was sent home with no further testing. Patient did start on Tamiflu. Patient has been using acetaminophen at home. Patient has a history of sarcoidosis as well as previous kidney problems. Patient states he isn't not supposed to take NSAIDs. Patient has a history of COPD, denies any current cigarette smoking. Stage II kidney disease. Previous history of hiatal hernia, pancreatitis, renal disease. Patient is on methotrexate for sarcoidosis. SUBJECTIVE fever, no changes in vision or hearing, no difficulty with speech, no neck pain, no chest pain or shortness of breath, no abdominal pain, no nausea or vomiting, no changes in urination or bowel movements, no numbness or tingling, no extremity pain, no skin rashes or lesions. Past medical, surgical, family, and social history reviewed. (Loyd Fierro) - Related Data Home Medications Medication Instructions Recorded Confirmed Cetirizine HCl 10 mg PO DAILY 08/16/19 01/17/22 Montelukast [Singulair] 10 mg PO DAILY 08/16/19 01/17/22 Nephro-Van 0.8mg 0.8 mg PO DAILY 08/16/19 01/17/22 amLODIPine [Norvasc] 10 mg PO DAILY 08/16/19 01/17/22 Promethaz-Cod 6.25-10 mg/5 ml 5 ml PO TID PRN 04/10/21 01/17/22 [Phenergan with Codeine] Triamcinolone 0.1% Ointment 1 applic TOPICAL BID PRN 05/15/21 01/17/22 [Kenalog 0.1% Ointment] Albuterol Inhaler [Ventolin Hfa 2 puff INHALATION RT-QID PRN 06/16/21 01/17/22 Inhaler] Albuterol Nebulized [Ventolin 2.5 mg INHALATION RT-QID PRN 06/16/21 01/17/22 Nebulized] Benzonatate [Benzonatate Perle] 200 mg PO TID PRN 08/04/21 01/17/22 Fluticasone/Umeclidin/Vilanter 1 puff INHALATION RT-DAILY 08/04/21 01/17/22 [Trelegy Ellipta 100-62.5-25] Previous Rx's Medication Instructions Recorded Fluticasone Nasal [place] [Flonase 2 spr EA NOSTRIL DAILY #16 gm 01/07/22 Nasal [place]] Doxycycline [Vibramycin] 100 mg PO BID 1 Days #6 capsule 01/18/22 Famotidine [Pepcid] 20 mg PO BID #30 tablet 01/18/22 Promethaz-Cod 6.25-10 mg/5 ml 5 ml PO Q4HR PRN 3 Days #90 ml 01/18/22 [Phenergan with Codeine] predniSONE 10 mg PO DAILY #30 tab 01/18/22 Allergies Allergy/AdvReac Type Severity Reaction Status Date / Time hydromorphone [From Dilaudid] Allergy Itching Verified 02/15/22 21:30 meperidine [From Demerol] Allergy Itching Verified 02/15/22 21:30 propoxyphene Allergy Unknown Verified 02/15/22 21:30 [From Darvocet-N] NSAIDS (Non-Steroidal AdvReac Kidneys Verified 02/15/22 21:30 Anti-Inflamma Review of Systems ROS Other: All systems not noted in ROS Statement are negative. <Loyd Fierro - Last Filed: 02/15/22 23:28> ROS Other: All systems not noted in ROS Statement are negative. <Isra Banres - Last Filed: 02/16/22 01:29> ROS Statement: Those systems with pertinent positive or pertinent negative responses have been documented in the HPI. Past Medical History Past Medical History: Asthma, COPD, Renal Disease Additional Past Medical History / Comment(s): stage 2 kidney disease, pancreatitis, hital hernia History of Any Multi-Drug Resistant Organisms: None Reported Past Surgical History: No Surgical Hx Reported Additional Past Surgical History / Comment(s): kidney stone removal Past Psychological History: Anxiety, Depression Smoking Status: Former smoker Past Alcohol Use History: None Reported Past Drug Use History: Marijuana <Loyd Fierro - Last Filed: 02/15/22 23:28> General Exam Limitations: no limitations General appearance: alert, in no apparent distress, in distress Head exam: Present: atraumatic, normocephalic, normal inspection Eye exam: Present: normal appearance, PERRL, EOMI. Absent: scleral icterus, conjunctival injection, periorbital swelling ENT exam: Present: normal exam, normal oropharynx, mucous membranes moist, TM's normal bilaterally, normal external ear exam. Absent: mucous membranes dry Neck exam: Present: normal inspection, full ROM. Absent: tenderness, meningismus, lymphadenopathy Respiratory exam: Present: respiratory distress, wheezes (Bilateral expiratory wheezes noted), accessory muscle use, prolonged expiratory. Absent: normal lung sounds bilaterally, rales, rhonchi, stridor, chest wall tenderness Cardiovascular Exam: Present: normal rhythm, tachycardia, normal heart sounds. Absent: systolic murmur, diastolic murmur, rubs, gallop, clicks GI/Abdominal exam: Present: soft, normal bowel sounds. Absent: distended, tenderness, guarding, rebound, rigid Extremities exam: Present: normal inspection, full ROM, normal capillary refill. Absent: tenderness, pedal edema, joint swelling, calf tenderness Back exam: Present: normal inspection Neurological exam: Present: alert, oriented X3, CN II-XII intact Psychiatric exam: Present: normal affect, normal mood Skin exam: Present: warm, dry, intact, normal color. Absent: rash <Loyd Fierro - Last Filed: 02/15/22 23:28> - General Exam Comments Initial Comments: Vital signs reviewed. Patient noted to be tachycardic. Patient in moderate distress secondary to symptomology related to influenza. Appears to be adequately hydrated. Capillary refill less than 2 seconds. (Loyd Fierro) Course Vital Signs 02/15/22 02/15/22 02/15/22 21:28 23:42 23:46 Temperature 98 F Pulse Rate 120 H 104 H 105 H Respiratory 24 Rate Blood Pressure 174/90 O2 Sat by Pulse 96 Oximetry 02/16/22 02/16/22 02/16/22 00:14 00:28 00:34 Temperature Pulse Rate 94 99 Respiratory 20 Rate Blood Pressure O2 Sat by Pulse Oximetry 02/16/22 00:57 Temperature Pulse Rate 102 H Respiratory 22 Rate Blood Pressure O2 Sat by Pulse 97 Oximetry Medical Decision Making <Loyd Fierro - Last Filed: 02/15/22 23:28> - Lab Data Result diagrams: 02/16/22 23:59 02/16/22 23:59 <Isra Barnes - Last Filed: 02/16/22 01:29> - Medical Decision Making Patient in mild respiratory distress with expiratory wheezing. We'll order a DuoNeb treatment, Solu-Medrol, acetaminophen, and Tessalon. Patient diagnosed with influenza at [facility]. Patient has symptomology consistent with that. Noted to be tachycardic. Noted the patient does have a history of COPD as well as sarcoidosis. Patient has a history of stage II renal disease. We will order fluids as the patient is tachycardic. Patient did not have a chest x-ray earlier today at the previous facility. We'll order a 2 view chest you assess for possible secondary pneumonia. Patient has been ill for 2 days. Note that the patient does take methotrexate. Patient will be endorsed to Dr. Barnes, for further evaluation and disposition (Loyd Fierro) - Lab Data Lab Results 02/16/22 02/16/22 Range/Units 23:59 23:59 WBC 11.5 H (3.8-10.6) k/uL RBC 4.91 (4.30-5.90) m/uL Hgb 14.2 (13.0-17.5) gm/dL Hct 43.6 (39.0-53.0) % MCV 88.7 (80.0-100.0) fL MCH 28.9 (25.0-35.0) pg MCHC 32.6 (31.0-37.0) g/dL RDW 15.1 (11.5-15.5) % Plt Count 180 (150-450) k/uL MPV 7.7 Neutrophils % 93 % Lymphocytes % 3 % Monocytes % 2 % Eosinophils % 1 % Basophils % 0 % Neutrophils # 10.7 H (1.3-7.7) k/uL Lymphocytes # 0.4 L (1.0-4.8) k/uL Monocytes # 0.2 (0-1.0) k/uL Eosinophils # 0.1 (0-0.7) k/uL Basophils # 0.1 (0-0.2) k/uL Sodium 137 (137-145) mmol/L Potassium 4.5 (3.5-5.1) mmol/L Chloride 105 (98-107) mmol/L Carbon Dioxide 25 (22-30) mmol/L Anion Gap 7 mmol/L BUN 20 (9-20) mg/dL Creatinine 1.26 H (0.66-1.25) mg/dL Est GFR (CKD-EPI)AfAm 80 (>60 ml/min/1.73 sqM) Est GFR (CKD-EPI)NonAf 69 (>60 ml/min/1.73 sqM) Glucose 215 H (74-99) mg/dL Calcium 10.0 (8.4-10.2) mg/dL Phosphorus 3.4 (2.5-4.5) mg/dL Magnesium 2.1 (1.6-2.3) mg/dL Total Bilirubin 0.3 (0.2-1.3) mg/dL Conjugated Bilirubin 0.0 (0.0-0.3) mg/dL Unconjugated Bilirubin 0.1 (0.0-1.1) mg/dL Delta Bilirubin 0.2 (0.0-0.2) mg/dL AST 25 (17-59) U/L ALT 63 H (4-49) U/L Alkaline Phosphatase 91 (38-126) U/L Total Protein 6.5 (6.3-8.2) g/dL Albumin 4.2 (3.5-5.0) g/dL Lipase 82 (23-300) U/L Disposition <Loyd Fierro - Last Filed: 02/15/22 23:28> Is patient prescribed a controlled substance at d/c from ED?: No <Isra Barnes - Last Filed: 02/16/22 01:29> Clinical Impression: Viral infection, Influenza Disposition: ADMITTED IP TO THIS HOSP Condition: Fair Referrals: Francy Almeida MD [Primary Care Provider] - 1-2 days
[2022-02-15] MEDS ORDERED: DEXAMETHASONE SOD PHOSPHATE 10 MG/ML 1 ML VIAL IVP STA (23:50)
--- NOTE | 2022-02-15 23:51 | XR ---
EXAMINATION TYPE: XR chest 2V DATE OF EXAM: 02/15/2022 COMPARISON: 01/12/2022 HISTORY: Cough TECHNIQUE: FINDINGS: There is coarse reticular nodular density over both lung perez and consistent with pleural and pulmonary scarring. Heart size. No heart failure. There are no hilar masses. There is no pleural effusion. IMPRESSION: There is bilateral pleural and pulmonary scarring without change. Normal heart.
[2022-02-15] MEDS ORDERED: MORPHINE SULFATE 4 MG/ML SYRINGE IV STA (23:53)
[2022-02-16 00:16] LABS: Basophils # (A) 0.1 k/uL (0-0.2); Basophils % (A) 0 %; Eosinophils # (A) 0.1 k/uL (0-0.7); Eosinophils % (A) 1 %; HCT 43.6 % (39.0-53.0); HGB 14.2 gm/dL (13.0-17.5); Lymphocytes # (A) 0.4 k/uL (1.0-4.8); Lymphocytes % (A) 3 %; MCH 28.9 pg (25.0-35.0); MCHC 32.6 g/dL (31.0-37.0); MCV 88.7 fL (80.0-100.0); Mean Platelet Volume 7.7; Monocytes # (A) 0.2 k/uL (0-1.0); Monocytes % (A) 2 %; Neutrophils # (A) 10.7 k/uL (1.3-7.7); Neutrophils % (A) 93 %; Platelet Count 180 k/uL (150-450); RBC 4.91 m/uL (4.30-5.90); RDW 15.1 % (11.5-15.5); WBC 11.5 k/uL (3.8-10.6)
[2022-02-16] MEDS ORDERED: MORPHINE SULFATE 4 MG/ML SYRINGE IVP STA (00:27)
[2022-02-16 00:31] LABS: Albumin 4.2 g/dL (3.5-5.0); Bilirubin, Delta 0.2 mg/dL (0.0-0.2); Bilirubin,Unconjugated 0.1 mg/dL (0.0-1.1); Magnesium 2.1 mg/dL (1.6-2.3); Phosphorus 3.4 mg/dL (2.5-4.5); Potassium 4.5 mmol/L (3.5-5.1); Total Bilirubin 0.3 mg/dL (0.2-1.3); Total Protein 6.5 g/dL (6.3-8.2)
[2022-02-16] MEDS ORDERED: NALOXONE 0.4 MG/ML 1 ML VIAL IV PRN (01:28)
[2022-02-16] MEDS ORDERED: ONDANSETRON 4 MG/2 ML VIAL IVP PRN (01:28)
[2022-02-16] MEDS: OSELTAMIVIR 75 MG CAP PO SCH ×3 (03:04→21:00)
[2022-02-16] MEDS: SODIUM CHLORIDE 0.9% 1,000 ML IV SCH ×4 (03:05→23:58)
[2022-02-16] MEDS: MORPHINE SULFATE 4 MG/ML SYRINGE IV PRN ×2 (05:00→09:14)
[2022-02-16] MEDS ORDERED: IPRATROPIUM-ALBUTEROL 3 ML NEB INHALATION PRN (05:46)
--- NOTE | 2022-02-16 05:51 | P.HPIM ---
History of Present Illness H&P Date: 02/16/22 The patient is a 46-year-old male with a PMH of sarcoidosis, CKD, and HTN presents to the emergency room with complaints of fever, myalgia, and cough. The patient reports being seen at urgent care center this morning where he was diagnosed with influenza B. He was sent home on Tamiflu and Tylenol. Patient reports however that he continued to have worsening symptoms, which prompted him to come to the emergency room. Denies chest pain, nausea, vomiting, abdominal pain, diarrhea. The patient states that he was advised to not take NSAIDs due to hx of CKD and sarcoidosis. Review of systems: Pertinent positives and negatives as discussed in HPI, a complete review of systems was performed and all other systems are negative. Physical examination: General: Mildly ill-appearing male, no distress, appears at stated age, obese Derm: no unusual rashes/lesions, warm Head: atraumatic, normocephalic, symmetric Eyes: EOMI, no lid lag, anicteric sclera, pupils equal round reactive to light ENT: Nose and ears atraumatic Neck: No cervical lymphadenopathy, trachea midline, supple Mouth: no lip lesion, mucus membranes moist Cardiovascular: S1S2 reg, no murmur, positive dorsalis pedis pulse bilateral, no edema Lungs: Scattered rhonchi with expiratory wheezing, no accessory muscle use Abdominal: soft, nontender to palpation, no guarding Ext: muscle strength 5 out of 5 in all 4 extremities grossly, no gross muscle atrophy, no contractures, Neuro: CN II-XI grossly intact, no gross focal neuro deficits Psych: Alert, oriented, appropriate affect Assessment/plan Influenza B infection -Continue with Tamiflu -IV fluids -DuoNeb's Chronic conditions: Sarcoidosis, hypertension -Continue with home meds DVT prophylaxis -Heparin subq The patient is admitted with an anticipated less than 2 midnight stay for evaluation of influenza CODE STATUS: Full Code Discussed with: Patient Anticipated discharge date: in am Anticipated discharge place: Home Past Medical History Past Medical History: Asthma, COPD, Renal Disease Additional Past Medical History / Comment(s): stage 2 kidney disease, pancreatitis, hital hernia History of Any Multi-Drug Resistant Organisms: None Reported Past Surgical History: No Surgical Hx Reported Additional Past Surgical History / Comment(s): kidney stone removal Past Psychological History: Anxiety, Depression Smoking Status: Former smoker Past Alcohol Use History: None Reported Past Drug Use History: Marijuana - Past Family History Father Family Medical History: COPD Medications and Allergies Home Medications Medication Instructions Recorded Confirmed Type Cetirizine HCl 10 mg PO DAILY 08/16/19 01/17/22 History Montelukast [Singulair] 10 mg PO DAILY 08/16/19 01/17/22 History Nephro-Van 0.8mg 0.8 mg PO DAILY 08/16/19 01/17/22 History amLODIPine [Norvasc] 10 mg PO DAILY 08/16/19 01/17/22 History Promethaz-Cod 6.25-10 mg/5 ml 5 ml PO TID PRN 04/10/21 01/17/22 History [Phenergan with Codeine] Triamcinolone 0.1% Ointment 1 applic TOPICAL BID PRN 05/15/21 01/17/22 History [Kenalog 0.1% Ointment] Albuterol Inhaler [Ventolin Hfa 2 puff INHALATION RT-QID PRN 06/16/21 01/17/22 History Inhaler] Albuterol Nebulized [Ventolin 2.5 mg INHALATION RT-QID PRN 06/16/21 01/17/22 History Nebulized] Benzonatate [Benzonatate Perle] 200 mg PO TID PRN 08/04/21 01/17/22 History Fluticasone/Umeclidin/Vilanter 1 puff INHALATION RT-DAILY 08/04/21 01/17/22 History [Trelegy Ellipta 100-62.5-25] Fluticasone Nasal [place] [Flonase 2 spr EA NOSTRIL DAILY #16 gm 01/07/22 01/17/22 Rx Nasal [place]] Doxycycline [Vibramycin] 100 mg PO BID 1 Days #6 capsule 01/18/22 Rx Famotidine [Pepcid] 20 mg PO BID #30 tablet 01/18/22 Rx Promethaz-Cod 6.25-10 mg/5 ml 5 ml PO Q4HR PRN 3 Days #90 ml 01/18/22 Rx [Phenergan with Codeine] predniSONE 10 mg PO DAILY #30 tab 01/18/22 Rx Allergies Allergy/AdvReac Type Severity Reaction Status Date / Time hydromorphone [From Dilaudid] Allergy Itching Verified 02/15/22 21:30 meperidine [From Demerol] Allergy Itching Verified 02/15/22 21:30 propoxyphene Allergy Unknown Verified 02/15/22 21:30 [From Darvocet-N] NSAIDS (Non-Steroidal AdvReac Kidneys Verified 02/15/22 21:30 Anti-Inflamma Physical Exam Vitals: Vital Signs Temp Pulse Pulse Resp BP BP Pulse Ox 02/16/22 02:22 98.1 F 95 16 157/91 95 02/16/22 00:57 102 H 22 97 02/16/22 00:34 99 02/16/22 00:28 94 02/16/22 00:14 20 02/15/22 23:46 105 H 02/15/22 23:42 104 H 02/15/22 21:28 98 F 120 H 24 174/90 96 Intake and Output 02/15/22 02/15/22 02/16/22 14:59 22:59 06:59 Other: # Voids 1 Weight 93.894 kg 93.894 kg Results CBC & Chem 7: 02/16/22 23:59 02/16/22 23:59 Labs: Abnormal Lab Results - Last 24 Hours (Table) 02/16/22 02/16/22 Range/Units 23:59 23:59 WBC 11.5 H (3.8-10.6) k/uL Neutrophils # 10.7 H (1.3-7.7) k/uL Lymphocytes # 0.4 L (1.0-4.8) k/uL Creatinine 1.26 H (0.66-1.25) mg/dL Glucose 215 H (74-99) mg/dL ALT 63 H (4-49) U/L Thrombosis Risk Factor Assmnt - Choose All That Apply Each Factor Represents 1 point: Abnormal pulmonary function (COPD), Age 41-60 years, Obesity (BMI >25) Thrombosis Risk Factor Assessment Total Risk Factor Score: 3 Thrombosis Risk Factor Assessment Level: Moderate Risk
[2022-02-16] MEDS: IPRATROPIUM-ALBUTEROL 3 ML NEB INHALATION SCH ×4 (07:22→20:46)
[2022-02-16] MEDS: HEPARIN SODIUM,PORCINE/PF 5,000 UNIT/0.5 ML SYRINGE SQ SCH ×3 (08:30→20:59)
[2022-02-16] MEDS ORDERED: DEXAMETHASONE SOD PHOSPHATE 10 MG/ML 1 ML VIAL IVP SCH (09:00)
[2022-02-16] MEDS ORDERED: KETOROLAC 15 MG/ML 1 ML VIAL IVP PRN (09:34)
[2022-02-16] MEDS: HYDROcodone/APAP 5-325MG 1 EACH TAB PO PRN ×2 (13:44→23:56)
[2022-02-16] MEDS ORDERED: methylPREDNISolone SOD SUCCI 125 MG/2 ML VIAL IV SCH (14:00)
[2022-02-16] MEDS ORDERED: MORPHINE SULFATE 4 MG/ML SYRINGE IVP ONE (18:35)
[2022-02-17] MEDS: SODIUM CHLORIDE 0.9% 1,000 ML IV SCH (05:36)
[2022-02-17] MEDS: HYDROcodone/APAP 5-325MG 1 EACH TAB PO PRN ×2 (05:40→11:58)
[2022-02-17] MEDS: IPRATROPIUM-ALBUTEROL 3 ML NEB INHALATION SCH ×2 (07:04→10:55)
[2022-02-17] MEDS: OSELTAMIVIR 75 MG CAP PO SCH (07:48)
[2022-02-17] MEDS: HEPARIN SODIUM,PORCINE/PF 5,000 UNIT/0.5 ML SYRINGE SQ SCH ×2 (07:48)
[2022-02-17 08:23] VITALS: BP 161/93; PULSE 87; RESP 16; TEMP 97.7
[2022-02-17] MEDS ORDERED: ALBUTEROL NEBULIZED 2.5 MG/3 ML INHALATION PRN (12:47)
[2022-02-17] MEDS ORDERED: BENZONATATE 100 MG CAP PO PRN (12:47)
--- NOTE | 2022-02-17 12:51 | P.PN ---
Subjective Progress Note Date: 02/17/22 Hospital Course The patient is a 46-year-old male with a PMH of sarcoidosis, CKD, and HTN presents to the emergency room with complaints of fever, myalgia, and cough. The patient reports being seen at urgent care center this morning where he was diagnosed with influenza B. He was sent home on Tamiflu and Tylenol. Patient reports however that he continued to have worsening symptoms, which prompted him to come to the emergency room. Denies chest pain, nausea, vomiting, abdominal pain, diarrhea. The patient states that he was advised to not take NSAIDs due to hx of CKD and sarcoidosis. Subjective Patient seen at bedside Physical examination: General: Mildly ill-appearing male, no distress, appears at stated age, obese Head: atraumatic, normocephalic, symmetric Eyes: EOMI, no lid lag, anicteric sclera, pupils equal round reactive to light ENT: Nose and ears atraumatic Neck: No cervical lymphadenopathy, trachea midline, supple Cardiovascular: S1S2 reg, no murmur, positive dorsalis pedis pulse bilateral, no edema Lungs: Scattered rhonchi with expiratory wheezing, no accessory muscle use Abdominal: soft, nontender to palpation, no guarding Ext: muscle strength 5 out of 5 in all 4 extremities grossly, no gross muscle atrophy, no contractures, Neuro: AAOx 3 , no gross focal neuro deficits Assessment/plan Influenza B infection -Continue with Tamiflu -IV fluids -DuoNeb's Chronic conditions: Sarcoidosis, hypertension -Continue with home meds DVT prophylaxis -Heparin subq Objective - Vital Signs Vital signs: Vital Signs Temp 97.7 F 02/17/22 07:00 Pulse 87 02/17/22 08:00 Resp 16 02/17/22 08:00 BP 161/93 02/17/22 07:00 Pulse Ox 96 02/17/22 07:00 FiO2 Intake & Output 02/16/22 02/17/22 02/17/22 18:59 06:59 18:59 Intake Total 354 Balance 354 Intake: Oral 354 Other: # Voids 6 1 - Labs CBC & Chem 7: 02/16/22 23:59 02/16/22 23:59
[2022-02-17] MEDS ORDERED: ALBUTEROL HFA INHALER INHALATION PRN (14:45)
[2022-02-17] MEDS ORDERED: NON FORMULARY DRUG (Promethaz-Cod 6.25-10 Mg/5 Ml 5 ML Ml) PO PRN (14:45)
--- NOTE | 2022-02-17 14:46 | P.DS ---
Providers Date of admission: 02/16/22 01:28 Expected date of discharge: 02/17/22 Attending physician: Dean Tijerina MD Primary care physician: Scheurer Hospital Course: Hospital Course The patient is a 46-year-old male with a PMH of sarcoidosis, CKD, and HTN presents to the emergency room with complaints of fever, myalgia, and cough. The patient reports being seen at urgent care center this morning where he was diagnosed with influenza B. He was sent home on Tamiflu and Tylenol. Patient reports however that he continued to have worsening symptoms, which prompted him to come to the emergency room. Denies chest pain, nausea, vomiting, abdominal pain, diarrhea. The patient states that he was advised to not take NSAIDs due to hx of CKD and sarcoidosis. Subjective Patient seen at bedside Physical examination: General: Mildly ill-appearing male, no distress, appears at stated age, obese Head: atraumatic, normocephalic, symmetric Eyes: EOMI, no lid lag, anicteric sclera, pupils equal round reactive to light ENT: Nose and ears atraumatic Neck: No cervical lymphadenopathy, trachea midline, supple Cardiovascular: S1S2 reg, no murmur, positive dorsalis pedis pulse bilateral, no edema Lungs: Scattered rhonchi with expiratory wheezing, no accessory muscle use Abdominal: soft, nontender to palpation, no guarding Ext: muscle strength 5 out of 5 in all 4 extremities grossly, no gross muscle atrophy, no contractures, Neuro: AAOx 3 , no gross focal neuro deficits Assessment/plan Influenza B infection -Continue with Tamiflu -IV fluids -DuoNeb's Chronic conditions: Sarcoidosis, hypertension -Continue with home meds Finish course with Tamiflu, patient stable to be discharged back to home Patient Condition at Discharge: Fair Plan - Discharge Summary New Discharge Prescriptions: New Oseltamivir [Tamiflu] 75 mg PO Q12HR 5 Days #10 cap Continue Nephro-Van 0.8mg 0.8 mg PO DAILY Montelukast [Singulair] 10 mg PO DAILY Cetirizine HCl 10 mg PO DAILY amLODIPine [Norvasc] 10 mg PO DAILY Albuterol Nebulized [Ventolin Nebulized] 2.5 mg INHALATION RT-QID PRN PRN Reason: Shortness Of Breath Albuterol Inhaler [Ventolin Hfa Inhaler] 2 puff INHALATION RT-QID PRN PRN Reason: Shortness Of Breath Fluticasone/Umeclidin/Vilanter [Trelegy Ellipta 100-62.5-25] 1 puff INHALATION RT-DAILY Benzonatate [Tessalon Perle] 200 mg PO TID PRN PRN Reason: Cough Famotidine [Pepcid] 20 mg PO BID #30 tablet Promethaz-Cod 6.25-10 mg/5 ml [Phenergan with Codeine] 5 ml PO Q4HR PRN 3 Days #90 ml PRN Reason: Cough Triamcinolone 0.1% Ointment [Kenalog 0.1% Ointment] 1 applic TOPICAL BID PRN PRN Reason: Rash Fluticasone Nasal [place] [Flonase Nasal [place]] 2 spr EA NOSTRIL DAILY #16 gm Discontinued predniSONE See Taper PO DIRECTED Discharge Medication List Cetirizine HCl 10 mg PO DAILY 08/16/19 [History] Montelukast [Singulair] 10 mg PO DAILY 08/16/19 [History] Nephro-Van 0.8mg 0.8 mg PO DAILY 08/16/19 [History] amLODIPine [Norvasc] 10 mg PO DAILY 08/16/19 [History] Triamcinolone 0.1% Ointment [Kenalog 0.1% Ointment] 1 applic TOPICAL BID PRN 05/15/21 [History] Albuterol Inhaler [Ventolin Hfa Inhaler] 2 puff INHALATION RT-QID PRN 06/16/21 [History] Albuterol Nebulized [Ventolin Nebulized] 2.5 mg INHALATION RT-QID PRN 06/16/21 [History] Benzonatate [Tessalon Perle] 200 mg PO TID PRN 08/04/21 [History] Fluticasone/Umeclidin/Vilanter [Trelegy Ellipta 100-62.5-25] 1 puff INHALATION RT-DAILY 08/04/21 [History] Fluticasone Nasal [place] [Flonase Nasal [place]] 2 spr EA NOSTRIL DAILY #16 gm 01/07/22 [Rx] Famotidine [Pepcid] 20 mg PO BID #30 tablet 01/18/22 [Rx] Promethaz-Cod 6.25-10 mg/5 ml [Phenergan with Codeine] 5 ml PO Q4HR PRN 3 Days #90 ml 01/18/22 [Rx] Oseltamivir [Tamiflu] 75 mg PO Q12HR 5 Days #10 cap 02/17/22 [Rx] Follow up Appointment(s)/Referral(s): Francy Almeida MD [Primary Care Provider] - 1-2 days Patient Instructions/Handouts: Influenza (DC) Discharge Disposition: HOME SELF-CARE
[2022-02-17] MEDS ORDERED: SYMBICORT 80-4.5 MCG INHALER INHALATION SCH (20:00)
[2022-02-17] MEDS ORDERED: FAMOTIDINE 20 MG TAB PO SCH (21:00)
[2022-02-18] MEDS ORDERED: IPRATROPIUM 0.5 MG/2.5 ML NEBU INHALATION SCH (08:00)
[2022-02-18] MEDS ORDERED: LORATADINE 10 MG TAB PO SCH (09:00)
[2022-02-18] MEDS ORDERED: MONTELUKAST 10 MG TAB PO SCH (09:00)
[2022-02-18] MEDS ORDERED: FOLIC ACID-VIT B COMPLEX-VIT C 1 CAP PO SCH (09:00)
[2022-02-18] MEDS ORDERED: FLUTICASONE 50MCG/SPRAY NASAL 16GM EA NOSTRIL SCH (09:00)
[2022-02-18] MEDS ORDERED: amLODIPine 10 MG TAB PO SCH (09:00)
== END 2022-02-17 14:55 | disposition home or self-care (01) ==
LOC: EC 21:24 → 6NMEDSUR 02-16 01:28
PROVIDERS: ADMIT Internal Medicine; ATTEND Internal Medicine
DX: J10.1 Influenza due to other identified influenza virus with other respiratory manifestations (principal); D86.9 Sarcoidosis, unspecified; I12.9 Hypertensive chronic kidney disease with stage 1 through stage 4 chronic kidney disease, or unspecified chronic kidney disease; N18.2 Chronic kidney disease, stage 2 (mild); J44.9 Chronic obstructive pulmonary disease, unspecified; F32.A Depression, unspecified; F41.9 Anxiety disorder, unspecified; F12.90 Cannabis use, unspecified, uncomplicated; E66.9 Obesity, unspecified; Z79.899 Other long term (current) drug therapy; Z87.891 Personal history of nicotine dependence; Z82.5 Family history of asthma and other chronic lower respiratory diseases
CPT/HCPCS: 96375 ×2; 96376 ×2; 96374; 99284; 36415; 94640 ×4; 80048; 80076; 83690; 83735; 84100; 85025; 71046; G0378 ×2; J2270; J1100; J2930; J2405

== ENCOUNTER 2022-04-22 21:04 | Inpatient (IN) | payer OTHER ==
[2022-04-22 21:18] LABS: Glucose,Whole Blood 152 mg/dL (70-110)
[2022-04-22] MEDS: NOREPINEPHRINE 4 MG in SODIUM CHLORIDE 0.9% 250 ML IV SCH ×2 (21:20→23:04)
[2022-04-22] MEDS ORDERED: SODIUM CHLORIDE 0.9% 1,000 ML IV STA (21:22)
[2022-04-22] MEDS ORDERED: ASPIRIN 300 MG SUPP RECTAL STA (21:27)
[2022-04-22] MEDS ORDERED: HEPARIN SODIUM 1,000 UN/ML (10ML VL) MISCELLANE ONE (21:28)
[2022-04-22] MEDS ORDERED: HEPARIN SODIUM 1,000 UN/ML (10ML VL) ONE (21:28)
[2022-04-22 21:31] LABS: Anisocytosis Slight; HCT 45.8 % (39.0-53.0); HGB 12.5 gm/dL (13.0-17.5); Hypochromasia Marked; MCH 28.8 pg (25.0-35.0); MCHC 27.2 g/dL (31.0-37.0); Macrocytosis Marked; RBC 4.34 m/uL (4.30-5.90); RDW 17.1 % (11.5-15.5)
[2022-04-22 21:43] LABS: Albumin 4.4 g/dL (3.5-5.0); Calcium 8.4 mg/dL (8.4-10.2); Magnesium 3.5 mg/dL (1.6-2.3); Total Bilirubin 0.7 mg/dL (0.2-1.3); Total Protein 6.4 g/dL (6.3-8.2)
[2022-04-22] MEDS ORDERED: SODIUM BICARB 8.4% 50 ML SYR (1 MEQ/ML) IV ONE (21:44)
[2022-04-22] MEDS ORDERED: EPINEPHrine 10 ML SYRINGE (0.1 MG/ML) IV ONE ×2 (21:44→21:49)
[2022-04-22 21:52] LABS: Potassium 7.9 mmol/L (3.5-5.1)
[2022-04-22] MEDS ORDERED: CALCIUM GLUCONATE 1 GM/10 ML VIAL IV ONE (21:54)
[2022-04-22] MEDS ORDERED: CALCIUM CHLORIDE 100 MG/ML 10 ML SYRINGE IV ONE ×2 (21:54→22:01)
--- NOTE | 2022-04-22 21:57 | ED ---
General Adult HPI - General Chief complaint: Cardiac Arrest/CPR Stated complaint: Cardiac Arrest Source: EMS Mode of arrival: EMS - History of Present Illness Initial comments: Patient presents to the emerge department after cardiac arrest. He received IV epinephrine prior to arrival. There is no one else in attendance provide further admission besides EMS. They report that the patient was found down. On arrival they found him to be without a pulse. They initiated CPR. Ultimately got return of spontaneous circulation. - Related Data Home Medications Medication Instructions Recorded Confirmed Cetirizine HCl 10 mg PO DAILY 08/16/19 02/16/22 Montelukast [Singulair] 10 mg PO DAILY 08/16/19 02/16/22 Nephro-Van 0.8mg 0.8 mg PO DAILY 08/16/19 02/16/22 amLODIPine [Norvasc] 10 mg PO DAILY 08/16/19 02/16/22 Triamcinolone 0.1% Ointment 1 applic TOPICAL BID PRN 05/15/21 02/16/22 [Kenalog 0.1% Ointment] Albuterol Inhaler [Ventolin Hfa 2 puff INHALATION RT-QID PRN 06/16/21 02/16/22 Inhaler] Albuterol Nebulized [Ventolin 2.5 mg INHALATION RT-QID PRN 06/16/21 02/16/22 Nebulized] Benzonatate [Tessalon Perle] 200 mg PO TID PRN 08/04/21 02/16/22 Fluticasone/Umeclidin/Vilanter 1 puff INHALATION RT-DAILY 08/04/21 02/16/22 [Cj [place] 100-62.5-25] Previous Rx's Medication Instructions Recorded Fluticasone Nasal [place] [Flonase 2 spr EA NOSTRIL DAILY #16 gm 01/07/22 Nasal [place]] Famotidine [Pepcid] 20 mg PO BID #30 tablet 01/18/22 Promethaz-Cod 6.25-10 mg/5 ml 5 ml PO Q4HR PRN 3 Days #90 ml 01/18/22 [Phenergan with Codeine] Oseltamivir [Tamiflu] 75 mg PO Q12HR 5 Days #10 cap 02/17/22 Allergies Allergy/AdvReac Type Severity Reaction Status Date / Time hydromorphone [From Dilaudid] Allergy Itching Verified 02/16/22 12:11 meperidine [From Demerol] Allergy Itching Verified 02/16/22 12:11 propoxyphene Allergy Unknown Verified 02/16/22 12:11 [From Darvocet-N] NSAIDS (Non-Steroidal AdvReac Kidneys Verified 02/16/22 12:11 Anti-Inflamma Review of Systems ROS Statement: Those systems with pertinent positive or pertinent negative responses have been documented in the HPI. ROS Other: All systems not noted in ROS Statement are negative. Past Medical History Past Medical History: Asthma, COPD, Renal Disease Additional Past Medical History / Comment(s): stage 2 kidney disease, pancrea titis, hital hernia History of Any Multi-Drug Resistant Organisms: None Reported Past Surgical History: No Surgical Hx Reported Additional Past Surgical History / Comment(s): kidney stone removal Past Psychological History: Anxiety, Depression Smoking Status: Former smoker Past Alcohol Use History: None Reported Past Drug Use History: Marijuana - Past Family History Father Family Medical History: COPD General Exam Limitations: altered mental status General appearance: obtunded Head exam: Present: atraumatic Eye exam: Absent: PERRL ENT exam: Present: normal exam Neck exam: Present: normal inspection Respiratory exam: Present: respiratory distress Cardiovascular Exam: Present: regular rate GI/Abdominal exam: Present: soft. Absent: distended Extremities exam: Absent: tenderness Back exam: Present: normal inspection Neurological exam: Present: motor sensory deficit Skin exam: Present: warm, dry Course Vital Signs 04/22/22 04/22/22 04/22/22 21:13 21:19 21:21 Pulse Rate 72 72 Respiratory 12 Rate Blood Pressure 61/26 117/79 O2 Sat by Pulse 97 97 Oximetry Fraction of 100 Inspired Oxygen (FIO2) 04/22/22 04/22/22 21:25 21:30 Pulse Rate 72 88 Respiratory Rate Blood Pressure 80/34 43/33 O2 Sat by Pulse 98 97 Oximetry Fraction of Inspired Oxygen (FIO2) EKG Findings - EKG Comments: EKG Findings:: Twelve-lead EKG shows ventricular rate 83 bpm, slightly long VA, the QRS is shows normal duration, there is ST elevation in leads V1, V2, V3 with reciprocal changes. Interpreted by me as STEMI. Procedures - Central Line Placement Right IJ Patient Placed on Monitor/Pulse Ox: Yes MD Prep: mask, gown Central Line Prep: Chlorhexidine scrub Ultrasound Used for Placement: Yes Central Line Lumen Inserted: triple Bloods Obtained for Lab: No Central Line Position: good blood return, all ports aspirated, flushed, capped, sutured in place with 2-0 silk Dressing Applied: Tegaderm Post Procedure X-Ray: tip of catheter in good position Patient Tolerated Procedure: well, no complications Complications: none - Intubation Size: 4 ET Tube Size: 8 Tube Secured Location: lips Tube Placement Confirmation: visualized tube passing through cords, equal breath sounds bilaterally Patient Tolerated Procedure: well Intubation Complications: none Medical Decision Making - Medical Decision Making Patient presented with prehospital cardiac arrest. He is obtunded. I endotracheally intubated the patient without complication. I placed a right side ultrasound guided triple lumen central venous catheter without complication. Postprocedure x-ray confirms tubes and lines in good position. Cardiology was consult at. The physician scientist saw the patient the bedside and agreed that the EKG represented a STEMI and took the patient to the Public Health Dietitian. I discussed the case with the security systems sales representative and the admitting team as well. - Lab Data Lab Results 04/22/22 04/22/22 Range/Units 21:16 21:27 POC Glucose (mg/dL) 152 H (70-110) mg/dL POC Glu All Around Patternmaker ID Howard Leyva Serum Alcohol 17 mg/dL Critical Care Time Critical Care Time: Yes Total Critical Care Time: 15 Disposition Clinical Impression: Cardiac arrest Disposition: ADMITTED IP TO THIS [facility] Condition: Critical Is patient prescribed a controlled substance at d/c from ED?: No Referrals: Francy Almeida MD [Primary Care Provider] - 1-2 days
[2022-04-22 22:00] LABS: INR 1.3 (<1.2); Partial Thromboplastin Time 28.5 sec (22.0-30.0); Prothrombin Time 13.7 sec (9.0-12.0)
[2022-04-22] MEDS ORDERED: ARTIFICIAL TEARS-HYPROMELLOSE DROPS 15 ML BTL BOTH EYES PRN (22:04)
[2022-04-22] MEDS ORDERED: NALOXONE 0.4 MG/ML 1 ML VIAL IV PRN (22:04)
--- NOTE | 2022-04-22 22:07 | XR ---
EXAMINATION TYPE: XR chest 1V portable DATE OF EXAM: 04/22/2022 COMPARISON: 02/15/2022 HISTORY: Chest pain TECHNIQUE: FINDINGS: There is coarse interstitial infiltrates in the midlung perez bilaterally. There is probab ly some calcified pleural plaque on the left side. The endotracheal tube is 2.5 cm from the carol. T here is right jugular catheter with tip in the superior vena cava. There is nasogastric tube in the s tomach. No pneumothorax. Heart size is normal. No heart failure. IMPRESSION: Extensive coarse infiltrates in the lungs which is slightly worse on the right side and i mproved slightly on the left side compared to old exam. No heart failure.
[2022-04-22 22:12] LABS: ABG Base Excess -24.9 mmol/L; ABG Hematocrit 33 % (34.0-46.0); ABG Oxygen Saturation 99.1 % (94-97); ABG PCO2 58 mmHg (35-45); ABG PO2 259 mmHg (83-108); ABG TCO2 11 mmol/L (19-24); Allen Test Performed? Yes
[2022-04-22] MEDS ORDERED: SODIUM BICARB SYR (1 MEQ/ML) 10 ML SYRINGE IV ONE (22:12)
[2022-04-22 22:19] LABS: MCV 105.6 fL (80.0-100.0)
--- NOTE | 2022-04-22 22:20 | P.CRDCN ---
History of Present Illness History of present illness: HISTORY OF PRESENTING ILLNESS This is a pleasant 46-year-old with past medical history significant for chronic kidney disease, hypertension, sarcoidosis, COPD. Patient currently intubated a nd unresponsive and therefore history is supplied by chart. He had recent admission in February with shortness breath and was diagnosed with influenza. Per EMS patient had been found unresponsive and on arrival patient was asystole and underwent CPR for approximately 10-15 minutes. Initial EKG showed sinus rhythm with ST elevations before through V6 as well as 1 and aVL without reciprocal changes. Patient had been seen by neighbor a few hours earlier and without any complaints. Discussed with mother who had talked the patient yesterday without any complaints. Patient was unresponsive to any stimuli and did not receive any sedating medications. He was intubated and brought to emergency department. Patient again lost pulses briefly and underwent additional rounds of epinephrine and brief CPR. A right IJ triple-lumen was placed. Repeat EKG showed more diffuse right bundle branch-type morphology with widening QRS. Given concern of ST elevation Stallion Keeper was activated. Patient currently unresponsive and pupils are dilated. REVIEW OF SYSTEMS At the time of my exam: Unable to obtain secondary to altered mental status PHYSICAL EXAMINATION Vital signs reviewed. CONSTITUTIONAL: No apparent distress, ill-appearing, intubated and sedated HEENT: Head is normocephalic. Pupils are equal, round. Sclerae anicteric. Mucous membranes of the mouth are moist. No JVD. +ETT CHEST EXAMINATION: Lungs are clear to auscultation, mild wheeze HEART EXAMINATION: Regular rate and rhythm. S1, S2 heard. No murmurs, gallops or rub. ABDOMEN: Soft, nontender. Positive bowel sounds. EXTREMITIES: 2+ peripheral pulses, no lower extremity edema and no calf tenderness. NEUROLOGIC EXAMINATION: Patient is unresponsive on ventilator ASSESSMENT 1. Cardiac arrest, unclear etiology 2. ST elevation noted per EMS EKG, more widening QRS currently 3. History of chronic kidney disease 4. History of sarcoidosis 5. History of COPD 6. Shock PLAN Patient without clear history of events however concern of prolonged downtime with continued altered mental status. Concern of anoxic brain injury. Recent trials showing improved outcomes with ST elevation TN undergoing intervention despite duration of downtime and therefore discussed with mother recommendation for heart catheterization and others agreeable. Check 2-D echo. Further recommendations to follow. Past Medical History Past Medical History: Asthma, COPD, Renal Disease Additional Past Medical History / Comment(s): stage 2 kidney disease, pancreatitis, hital hernia History of Any Multi-Drug Resistant Organisms: None Reported Past Surgical History: No Surgical Hx Reported Additional Past Surgical History / Comment(s): kidney stone removal Past Psychological History: Anxiety, Depression Smoking Status: Former smoker Past Alcohol Use History: None Reported Past Drug Use History: Marijuana - Past Family History Father Family Medical History: COPD Medications and Allergies Home Medications Medication Instructions Recorded Confirmed Type Cetirizine HCl 10 mg PO DAILY 08/16/19 02/16/22 History Montelukast [Singulair] 10 mg PO DAILY 08/16/19 02/16/22 History Nephro-Van 0.8mg 0.8 mg PO DAILY 08/16/19 02/16/22 History amLODIPine [Norvasc] 10 mg PO DAILY 08/16/19 02/16/22 History Triamcinolone 0.1% Ointment 1 applic TOPICAL BID PRN 05/15/21 02/16/22 History [Kenalog 0.1% Ointment] Albuterol Inhaler [Ventolin Hfa 2 puff INHALATION RT-QID PRN 06/16/21 02/16/22 History Inhaler] Albuterol Nebulized [Ventolin 2.5 mg INHALATION RT-QID PRN 06/16/21 02/16/22 History Nebulized] Benzonatate [Tessalon Perle] 200 mg PO TID PRN 08/04/21 02/16/22 History Fluticasone/Umeclidin/Vilanter 1 puff INHALATION RT-DAILY 08/04/21 02/16/22 History [Trelegy Ellipta 100-62.5-25] Fluticasone Nasal [place] [Flonase 2 spr EA NOSTRIL DAILY #16 gm 01/07/22 02/16/22 Rx Nasal [place]] Famotidine [Pepcid] 20 mg PO BID #30 tablet 01/18/22 02/16/22 Rx Promethaz-Cod 6.25-10 mg/5 ml 5 ml PO Q4HR PRN 3 Days #90 ml 01/18/22 02/16/22 Rx [Phenergan with Codeine] Oseltamivir [Tamiflu] 75 mg PO Q12HR 5 Days #10 cap 02/17/22 Rx Allergies Allergy/AdvReac Type Severity Reaction Status Date / Time hydromorphone [From Dilaudid] Allergy Itching Verified 02/16/22 12:11 meperidine [From Demerol] Allergy Itching Verified 02/16/22 12:11 propoxyphene Allergy Unknown Verified 02/16/22 12:11 [From Darvocet-N] NSAIDS (Non-Steroidal AdvReac Kidneys Verified 02/16/22 12:11 Anti-Inflamma Physical Exam Vitals: Vital Signs FiO2 04/22/22 21:13 100 Results 04/22/22 21:25 Current Medications Generic Name Dose Route Start Last Admin Trade Name Freq PRN Reason Stop Dose Admin Sodium Chloride 1,000 mls @ 999 mls/hr 04/22/22 21:22 04/22/22 21:30 Saline 0.9% IV 04/22/22 22:22 999 mls/hr .Q1H1M STA Administration
--- NOTE | 2022-04-22 22:23 | P.CARDCATH ---
Description of Procedure: PROCEDURES PERFORMED: Left heart catheterization, bilateral coronary angiography INDICATION: ST elevation CO, cardiac arrest CONSENT:I have discussed the risks, benefits and alternative therapies for the above-mentioned procedure and for both sedation/analgesia as well as necessary blood product administration, if indicated, as they pertain to this patient. The patient has indicated understanding and acceptance of the risks and procedures discussed. PROCEDURE: After the risks, benefits and alternatives of the above mentioned procedure explained in detail with the patient, informed consent was obtained. Patient was taken to the catheterization lab and prepped and draped in usual fashion. 1% lidocaine was used to anesthetize the right radial artery. A 6- [place] sheath was placed in the right radial artery using modified Seldinger technique. Left coronary angiography was performed with a 5-[place] JL 3.5 catheter and right coronary angiography was performed with a 5-[place] JR5 catheter in various views. A 5-[place] FR5 catheter was inserted into the left ventricle and pressure measurements were obtained. The right radial sheath was left in place for arterial line. Patient was transported back to the ICU on pressors. He was noted to be hyperkalemic and therefore given Calcium with improvement in widened QRS. Conscious Sedation: Patient was monitored under the direct supervision of vision of myself for conscious sedation using Versed and fentanyl for a total duration of 14 minutes HEMODYNAMICS: Aortic: 62/45, improved to 80/60's with calcium and pressors LV: 62/11, LVEDP 15 SELECTIVE CORONARY ARTERIOGRAPHY: LEFT MAIN: The left main is a large caliber vessel which bifurcates into the LAD and circumflex. There is no significant stenosis. LEFT ANTERIOR DESCENDING CORONARY ARTERY: LAD is a large caliber vessel which wraps around to the apex. There is no significant stenosis. LEFT CIRCUMFLEX CORONARY ARTERY: Left circumflex is a moderate caliber vessel without significant stenosis. RIGHT CORONARY ARTERY: The right coronary artery is a large caliber vessel which gives off a PDA and PLV branch and is the dominant vessel. There is no significant stenosis. FINAL IMPRESSION: 1. Normal coronary arteries as described above. 2. Normal left sided filling pressures PLAN: 1. Aggressive risk factor modification per most recent ACC/AHA guidelines. 2. Monitor neurologic status
[2022-04-22] MEDS ORDERED: IOPAMIDOL-370 125ML BTL INJ ONE (22:24)
[2022-04-22] MEDS ORDERED: IV FLUID CONTINUATION 1,000 ML IV ONE (22:25)
[2022-04-22] MEDS ORDERED: SODIUM BICARB 8.4% 50 ML SYR (1 MEQ/ML) ONE (22:35)
[2022-04-22] MEDS ORDERED: DEXTROSE 50% SYRINGE 50 ML IVP ONE (22:35)
[2022-04-22] MEDS ORDERED: EPINEPHrine 10 ML SYRINGE (0.1 MG/ML) ONE (22:35)
[2022-04-22 22:36] LABS: Band Neutrophils % 7 %; Metamyelocytes % 1 %; Myelocytes % 1 %; Neutrophils % (M) 47 %; Nucleated Red Blood Cells 3 /100 WBC (0-0); Total Cells Counted 200
[2022-04-22 22:37] LABS: Eosinophils # (M) 0.09 k/uL (0-0.7); Lymphocytes # (M) 3.48 k/uL (1.0-4.8); Metamyelocytes # (M) 0.09 k/uL (0); Monocytes # (M) 0.66 k/uL (0-1.0); Myelocytes # (M) 0.09 k/uL (0); WBC 9.4 k/uL (3.8-10.6)
[2022-04-22 22:38] LABS: Crenated RBC Present; Polychromasia Present
[2022-04-22 22:39] LABS: Poikilocytosis (M) Present; RBC Fragments Present
[2022-04-22 22:41] LABS: Platelet Count 74 k/uL (150-450)
[2022-04-22 22:42] LABS: Glucose,Whole Blood 368 mg/dL (70-110)
[2022-04-22] MEDS ORDERED: NOREPINEPHRIN 4 MG-0.9% NS PMX 4 MG/250 ML ML IV ONE (22:42)
[2022-04-22] MEDS ORDERED: INSULIN REGULAR 100 UNIT/ML VIAL (IV) IV ONE (22:42)
[2022-04-22] MEDS ORDERED: PANTOPRAZOLE 40 MG/10 ML VIAL IVP ONE (22:45)
[2022-04-22 22:49] LABS: ABG HCO3 9 mmol/L (21-25); ABG PH 6.82 (7.35-7.45)
[2022-04-22] MEDS ORDERED: SODIUM BICARB 8.4% 50 ML SYR (1 MEQ/ML) IV STA (22:59)
[2022-04-22] MEDS ORDERED: SODIUM CHLORIDE 0.9% 3,000 ML IV ONE (23:00)
[2022-04-22] MEDS ORDERED: SODIUM CHLORIDE 0.9% 150 ML with VASOPRESSIN 60 UNIT IV SCH ×2 (23:00)
[2022-04-22 23:13] LABS: ABG Base Excess -7.9 mmol/L; ABG HCO3 21 mmol/L (21-25); ABG Hematocrit 29 % (34.0-46.0); ABG PCO2 66 mmHg (35-45); ABG PO2 345 mmHg (83-108); ABG TCO2 24 mmol/L (19-24); Allen Test Performed? Yes
--- NOTE | 2022-04-22 23:14 | XR ---
EXAMINATION TYPE: XR chest 1V portable DATE OF EXAM: 04/22/2022 COMPARISON: Today HISTORY: Cardiac arrest tube placement TECHNIQUE: Single view FINDINGS: There is endotracheal tube 4 cm from the carol. There is right jugular catheter with tip i n the superior vena cava. There is nasogastric tube likely in the stomach. There is coarse predominan tly interstitial density in both lungs. Heart size is normal. No heart failure. Trachea is midline. IMPRESSION: Bilateral coarse pulmonary infiltrates could relate to pulmonary fibrosis and subsegmenta l atelectasis. No heart failure seen. No significant change.
[2022-04-22 23:15] LABS: ABG PH 7.12 (7.35-7.45)
[2022-04-22] MEDS: DEXTROSE 5% IN WATER 1,000 ML with SODIUM BICARB (1 MEQ/ML) 150 ML IV SCH (23:18)
[2022-04-22 23:23] LABS: Anisocytosis Slight; HCT 31.8 % (39.0-53.0); Hypochromasia Marked; MCH 29.9 pg (25.0-35.0); MCHC 30.3 g/dL (31.0-37.0); Macrocytosis Slight; Mean Platelet Volume 10.5; RBC 3.23 m/uL (4.30-5.90); RDW 17.3 % (11.5-15.5)
[2022-04-22 23:24] LABS: Glucose,Whole Blood 144 mg/dL (70-110)
[2022-04-22 23:27] LABS: HGB 9.6 gm/dL (13.0-17.5); MCV 98.6 fL (80.0-100.0); Platelet Count 41 k/uL (150-450)
[2022-04-22] MEDS: NOREPINEPHRINE 32 MG in SODIUM CHLORIDE 0.9% 218 ML IV SCH (23:36)
[2022-04-22 23:50] LABS: Calcium 8.2 mg/dL (8.4-10.2); Magnesium 3.2 mg/dL (1.6-2.3)
[2022-04-22 23:54] LABS: Potassium 8.5 mmol/L (3.5-5.1)
[2022-04-23] MEDS ORDERED: CALCIUM GLUCONATE IN NACL 2 GM in SALINE 1 100ML.BAG IVPB ONE ×2 (00:13→05:19)
[2022-04-23] MEDS ORDERED: INSULIN REGULAR 100 UNIT/ML VIAL (IV) IV ONE ×2 (00:13→05:19)
[2022-04-23] MEDS ORDERED: DEXTROSE 50% SYRINGE 50 ML IVP ONE ×2 (00:13→05:19)
[2022-04-23] MEDS ORDERED: SODIUM BICARB 8.4% 50 ML SYR (1 MEQ/ML) IV ONE ×2 (00:13→05:19)
[2022-04-23] MEDS ORDERED: ALBUTEROL NEB (CONC) 2.5 MG/0.5 ML INHALATION ONE ×2 (00:15→05:19)
[2022-04-23 00:21] LABS: Band Neutrophils % 14 %; Eosinophils # (M) 0.06 k/uL (0-0.7); Lymphocytes # (M) 1.77 k/uL (1.0-4.8); Metamyelocytes # (M) 0.06 k/uL (0); Metamyelocytes % 1 %; Monocytes # (M) 0.06 k/uL (0-1.0); Myelocytes # (M) 0.06 k/uL (0); Myelocytes % 1 %; Neutrophils % (M) 54 %; Nucleated Red Blood Cells 5 /100 WBC (0-0); Polychromasia Present; Total Cells Counted 200; WBC 5.9 k/uL (3.8-10.6)
[2022-04-23 00:25] LABS: Toxic Vacuolation Present
[2022-04-23 00:39] LABS: ABG Base Excess -15.6 mmol/L; ABG HCO3 15 mmol/L (21-25); ABG Hematocrit 29 % (34.0-46.0); ABG Oxygen Saturation 99.5 % (94-97); ABG PCO2 54 mmHg (35-45); ABG PO2 214 mmHg (83-108); ABG TCO2 17 mmol/L (19-24); Allen Test Performed? Yes
[2022-04-23 00:42] LABS: ABG PH 7.05 (7.35-7.45)
[2022-04-23] MEDS ORDERED: LIDOCAINE 2% INJ 20 MG/ML (20 ML MDV) ONE (00:58)
--- NOTE | 2022-04-23 01:26 | XR ---
EXAMINATION TYPE: XR chest 1V portable DATE OF EXAM: 04/23/2022 COMPARISON: Yesterday HISTORY: Respiratory failure TECHNIQUE: Single view FINDINGS: Endotracheal tube is 4 cm from the carol. There is right jugular catheter with tip in the superior vena cava. There are some coarse interstitial infiltrates in the midlung perez bilaterally. No pleural effusion or pneumothorax. Trachea is midline. Heart size is normal. No pleural effusion. No definite rib fracture. There is irregular appearance of the posterior left sixth rib and nondispla alexys fracture not entirely excluded. There is nasogastric tube in the stomach. There is some tubing ov er the lateral right lung apex in uncertain location. IMPRESSION: Coarse pulmonary infiltrates without change. Tubing in good position.
[2022-04-23 03:28] LABS: Anisocytosis Slight; HCT 33.4 % (39.0-53.0); HGB 9.7 gm/dL (13.0-17.5); Hypochromasia Marked; MCH 29.5 pg (25.0-35.0); MCHC 29.2 g/dL (31.0-37.0); MCV 100.9 fL (80.0-100.0); Macrocytosis Moderate; Mean Platelet Volume 9.6; RBC 3.31 m/uL (4.30-5.90); RDW 17.4 % (11.5-15.5); WBC 10.3 k/uL (3.8-10.6)
[2022-04-23 03:29] LABS: Platelet Count 131 k/uL (150-450)
[2022-04-23 03:35] LABS: Appearance,Urine Cloudy (Clear); Bacteria,Urine Rare /hpf; Bilirubin,Urine Negative (Negative); Blood,Urine Large (Negative); Color,Urine Yellow; Glucose,Urine (UA) 1+ (Negative); Hyaline Casts,Urine 1 /lpf (0-2); Ketones,Urine Negative (Negative); Leukocyte Esterase,Urine Trace (Negative); Mucus,Urine Rare /hpf; Nitrite,Urine Negative (Negative); Protein,Urine 4+ (Negative); RBC,Urine 85 /hpf (0-5); Specific Gravity,Urine 1.016 (1.001-1.035); Squamous Epithelial Cell,Urine 1 /hpf (0-4); Urobilinogen,Urine <2.0 mg/dL (<2.0); WBC,Urine 29 /hpf (0-5)
--- NOTE | 2022-04-23 03:36 | P.EN ---
CODE BLUE note , please refer to paper chart for exact events of his cardiac arrest Patient has experienced multiple episodes of PDA arrest usually ROSC is achieved after a short course of CPR following ACLS protocol. Patient is To IV Pressors for Cardiovascular Support. He Was Given Multiple Doses of Bicarb, Calcium Gluconate, and Potassium Lowering Cocktails (dextrose 50% and IV insulin) in order to treat his hyperkalemia. And severe acidosis. Patient also noted to have upper GI bleeding through his NG tube hemoglobin is being monitored closely blood what type and screen and 2 units is crossmatched on hold. Surgery was contacted we have no GI coverage. General surgery team recommended transferring the patient to address his GI bleed. Abdomen charge was notified to assist with the transfer process. Patient continues to be unresponsive on vent support, and to IV pressors for cardiovascular support. Along with aggressive IV fluid hydration and bicarb drip. Patient initially was brought into the hospital as he was found down, suspected to have cardiac arrest with underlying STEMI patient was rushed to the cardiac cath lab technologist his left heart cath was deemed to be normal with no blockages requiring PCI. Patient then returns to the ICU for further care. I did speak and interview with the family who confirmed that the patient has history of polysubstance abuse and probably he has OD on crack cocaine. Currently patient is being treated for cardiogenic shock with multiorgan failure. Prognosis is poor. Total amount of critical care time spent was 65 minutes not counting procedures performed.
--- NOTE | 2022-04-23 03:40 | PCN ---
PROCEDURE NOTE PREOPERATIVE DIAGNOSIS: Acute on chronic renal failure with cardiac arrest. PROCEDURE PERFORMED: Ultrasound-guided dialysis catheter placed, right femoral approach. DESCRIPTION OF PROCEDURE: Right groin was prepped and draped in appropriate sterile manner, 1% lidocaine plain infiltrated. Ultrasound-guided micropuncture introduced into the right femoral vein. Micropuncture guidewire was passed. A 4-Scottish dilator was advanced on top of the guidewire. Then, we passed a regular guidewire and dilator was advanced on the top of the guidewire. Then, we placed a dialysis catheter, flushed with heparin saline and hep-locked, secured with 3-0 nylon. Dressing applied. The patient tolerated the procedure well. MMODL / IJN: [id number] /
[2022-04-23] MEDS: NOREPINEPHRINE 32 MG in SODIUM CHLORIDE 0.9% 218 ML IV SCH (04:02)
--- NOTE | 2022-04-23 04:19 | CONS ---
DATE OF CONSULTATION: 04/23/2022 HISTORY OF PRESENT ILLNESS: This is a 46-year-old male, who was brought in to the emergency room with history of cardiac arrest. The patient had a CPR and was intubated. There is a history of using overdose cocaine. The patient is on Levophed and vaso. The potassium is 8.5. I was consulted for placement of urgent dialysis catheter. No history of diabetes or hypertension. PHYSICAL EXAMINATION: GENERAL: On examination, the patient was seen in the room. The patient has been intubated. NECK: Supple. HEART: First and second sounds present. ABDOMEN: Soft, nontender. VASCULAR: Femorals are 1+ bilaterally. PLAN: Placement of urgent dialysis catheter. The patient will have a stat chest x-ray to rule out pneumo from CPR. Risks and complications discussed. CRISPIN / HÉCTORN: [id number] / MTDD
[2022-04-23 05:19] LABS: ABG HCO3 19 mmol/L (21-25); ABG Hematocrit 30 % (34.0-46.0); ABG PO2 397 mmHg (83-108); ABG TCO2 22 mmol/L (19-24); Allen Test Performed? Yes
[2022-04-23 05:20] LABS: ABG PH 6.99 (7.35-7.45)
[2022-04-23 05:21] LABS: ABG PCO2 81 mmHg (35-45)
[2022-04-23] MEDS ORDERED: SODIUM BICARB 8.4% 50 ML SYR (1 MEQ/ML) IV STA (05:40)
[2022-04-23] MEDS ORDERED: CISATRACURIUM 2 MG/ML 5 ML VIAL IV ONE (06:06)
[2022-04-23 06:08] LABS: Albumin 2.7 g/dL (3.5-5.0); Total Bilirubin 0.9 mg/dL (0.2-1.3); Total Protein 4.8 g/dL (6.3-8.2)
[2022-04-23] MEDS: NOREPINEPHRINE 4 MG in SODIUM CHLORIDE 0.9% 250 ML IV SCH (06:17)
[2022-04-23 06:37] LABS: INR >10.0 (<1.2)
[2022-04-23 06:38] LABS: Partial Thromboplastin Time 105.3 sec (22.0-30.0); Prothrombin Time >130.0 sec (9.0-12.0)
[2022-04-23 06:49] LABS: Anisocytosis Slight; HCT 34.2 % (39.0-53.0); HGB 9.9 gm/dL (13.0-17.5); Hypochromasia Marked; MCH 28.8 pg (25.0-35.0); MCHC 28.9 g/dL (31.0-37.0); MCV 99.5 fL (80.0-100.0); Macrocytosis Slight; Mean Platelet Volume 9.3; Platelet Count 194 k/uL (150-450); RBC 3.44 m/uL (4.30-5.90); RDW 16.9 % (11.5-15.5)
[2022-04-23] MEDS: IPRATROPIUM 0.5 MG/2.5 ML NEBU INHALATION SCH ×2 (07:10→11:23)
--- NOTE | 2022-04-23 07:16 | P.HPIM ---
History of Present Illness This is a pleasant 46 years o -[place] ld male with past medical history of Asthma, COPD, stage 2 kidney disease, pancreatitis, hital hernia. Patient presents with cardiac arrest, unknown how long patient was unconscious on the ground, patient received epinephrine prior to arrival to emergency room, CPR was initiated followed by the return of spontaneous respiration. Patient also got intubated and sedated and placed on mechanical ventilation and the emergency room Because there was concern for ST elevation myocardial infarction with elevated troponin, patient underwent emergent cardiac cath with results shown unremarkable coronary artery disease Patient also presents on shock state, could be vascular versus cardiogenic shock Labs showed WBC of 9.4, 6.2, hemoglobin 12.5 and 9.6, platelet count 74. Elevated d-dimer 27.8. INR 1.3. PH is low at 7.1, pCO2 is elevated 66, pO2 is 21 Sodium was normal, potassium elevated 7.9, creatinine high at 2.8, glucose 153, plasma lactic acid elevated 18.6. AST 01/05/2004, ALT 4624, bilirubin is normal 0.7. Troponin 0.129 Chest x-ray: Bilateral coarse pulmonary infiltrates could relate to pulmonary fibrosis and subsegmental atelectasis. No heart failure seen. No significant change This morning his INR is or than 10, d-dimer more than 34, WBCs 13.3, hemoglobin 9.9, platelet count 131. PH 7.9 which is low, high pCO2 81, sodium 147, potassium 6, creatinine 3.0, AST 32905, ALT 8867, bilirubin normal 0.9 Urine drug screen showing 1+ glucose, large blood and 4+ protein Review of Systems ROS unobtainable: due to endotracheal tube, due to mental status Past Medical History Past Medical History: Asthma, COPD, Renal Disease Additional Past Medical History / Comment(s): stage 2 kidney disease, pancreatitis, hital hernia History of Any Multi-Drug Resistant Organisms: None Reported Past Surgical History: No Surgical Hx Reported Additional Past Surgical History / Comment(s): kidney stone removal Past Anesthesia/Blood Transfusion Reactions: Unable to Obtain Past Psychological History: Anxiety, Depression Smoking Status: Former smoker Past Alcohol Use History: None Reported Past Drug Use History: Marijuana - Past Family History Father Family Medical History: COPD Medications and Allergies Home Medications Medication Instructions Recorded Confirmed Type Cetirizine HCl 10 mg PO DAILY 08/16/19 02/16/22 History Montelukast [Singulair] 10 mg PO DAILY 08/16/19 02/16/22 History Nephro-Van 0.8mg 0.8 mg PO DAILY 08/16/19 02/16/22 History amLODIPine [Norvasc] 10 mg PO DAILY 08/16/19 02/16/22 History Triamcinolone 0.1% Ointment 1 applic TOPICAL BID PRN 05/15/21 02/16/22 History [Kenalog 0.1% Ointment] Albuterol Inhaler [Ventolin Hfa 2 puff INHALATION RT-QID PRN 06/16/21 02/16/22 History Inhaler] Albuterol Nebulized [Ventolin 2.5 mg INHALATION RT-QID PRN 06/16/21 02/16/22 History Nebulized] Benzonatate [Tessalon Perle] 200 mg PO TID PRN 08/04/21 02/16/22 History Fluticasone/Umeclidin/Vilanter 1 puff INHALATION RT-DAILY 08/04/21 02/16/22 History [Trelegy Ellipta 100-62.5-25] Fluticasone Nasal [place] [Flonase 2 spr EA NOSTRIL DAILY #16 gm 01/07/22 02/16/22 Rx Nasal [place]] Famotidine [Pepcid] 20 mg PO BID #30 tablet 01/18/22 02/16/22 Rx Promethaz-Cod 6.25-10 mg/5 ml 5 ml PO Q4HR PRN 3 Days #90 ml 01/18/22 02/16/22 Rx [Phenergan with Codeine] Oseltamivir [Tamiflu] 75 mg PO Q12HR 5 Days #10 cap 02/17/22 Rx Allergies Allergy/AdvReac Type Severity Reaction Status Date / Time hydromorphone [From Dilaudid] Allergy Itching Verified 02/16/22 12:11 meperidine [From Demerol] Allergy Itching Verified 02/16/22 12:11 propoxyphene Allergy Unknown Verified 02/16/22 12:11 [From Darvocet-N] NSAIDS (Non-Steroidal AdvReac Kidneys Verified 02/16/22 12:11 Anti-Inflamma Physical Exam Vitals: Vital Signs Temp Pulse Pulse Resp BP BP Pulse Ox 04/23/22 06:05 79 32 H 100 04/23/22 06:00 80 32 H 100 04/23/22 05:55 80 32 H 100 04/23/22 05:50 82 32 H 100 04/23/22 05:48 04/23/22 05:45 78 32 H 100 04/23/22 05:40 74 32 H 100 04/23/22 05:36 72 04/23/22 05:35 71 32 H 100 04/23/22 05:30 76 32 H 100 04/23/22 05:28 77 04/23/22 05:25 77 32 H 100 04/23/22 05:20 77 32 H 100 04/23/22 05:15 77 32 H 100 04/23/22 05:10 75 32 H 100 04/23/22 05:05 76 32 H 100 04/23/22 05:00 77 32 H 100 04/23/22 04:55 78 32 H 100 04/23/22 04:50 79 32 H 100 04/23/22 04:45 79 32 H 100 04/23/22 04:40 79 32 H 100 04/23/22 04:35 80 32 H 100 04/23/22 04:30 79 32 H 100 04/23/22 04:25 79 32 H 100 04/23/22 04:20 80 32 H 100 04/23/22 04:15 83 32 H 100 04/23/22 04:10 82 32 H 100 04/23/22 04:05 84 32 H 100 04/23/22 04:00 85 32 H 100 04/23/22 03:55 85 32 H 98 04/23/22 03:51 04/23/22 03:50 85 32 H 85 L 04/23/22 03:45 85 32 H 84 L 04/23/22 03:40 85 32 H 87 L 04/23/22 03:35 85 32 H 91 L 04/23/22 03:30 82 32 H 91 L 04/23/22 03:25 82 32 H 95 04/23/22 03:20 84 32 H 99 04/23/22 03:15 85 32 H 95 04/23/22 03:10 85 32 H 100 04/23/22 03:09 04/23/22 03:05 85 32 H 100 04/23/22 03:00 84 32 H 100 04/23/22 02:55 85 32 H 100 04/23/22 02:50 85 32 H 100 04/23/22 02:45 85 32 H 100 04/23/22 02:40 84 32 H 100 04/23/22 02:35 84 32 H 100 04/23/22 02:30 84 32 H 100 04/23/22 02:25 84 32 H 100 04/23/22 02:20 84 32 H 97 04/23/22 02:15 85 32 H 100 04/23/22 02:10 85 32 H 100 04/23/22 02:05 85 32 H 100 04/23/22 02:00 85 32 H 100 04/23/22 01:55 84 32 H 100 04/23/22 01:50 84 32 H 100 04/23/22 01:45 84 32 H 100 04/23/22 01:40 83 32 H 100 04/23/22 01:35 82 32 H 100 04/23/22 01:30 82 32 H 100 04/23/22 01:25 82 32 H 100 04/23/22 01:20 82 32 H 100 04/23/22 01:15 82 32 H 100 04/23/22 01:10 82 32 H 100 04/23/22 01:05 82 32 H 100 04/23/22 01:00 82 32 H 100 04/23/22 00:55 82 32 H 100 04/23/22 00:50 82 32 H 100 04/23/22 00:45 82 32 H 100 04/23/22 00:40 82 32 H 100 04/23/22 00:35 82 32 H 100 04/23/22 00:30 84 32 H 100 04/23/22 00:25 85 32 H 100 04/23/22 00:20 86 32 H 100 04/23/22 00:15 86 32 H 100 04/23/22 00:10 85 32 H 100 04/23/22 00:05 85 32 H 100 04/23/22 00:00 85 32 H 100 04/22/22 23:55 85 32 H 100 04/22/22 23:50 84 32 H 100 04/22/22 23:45 83 32 H 100 04/22/22 23:43 91.7 F L 81 32 H 100 04/22/22 23:40 83 32 H 100 04/22/22 23:35 91.7 F L 83 32 H 100 04/22/22 22:53 04/22/22 22:24 04/22/22 22:17 91.7 F L 30 L 22 40/20 100 04/22/22 21:30 88 43/33 97 04/22/22 21:25 72 80/34 98 04/22/22 21:21 72 12 117/79 97 04/22/22 21:19 72 61/26 97 04/22/22 21:13 FiO2 04/23/22 06:05 04/23/22 06:00 04/23/22 05:55 04/23/22 05:50 04/23/22 05:48 100 04/23/22 05:45 04/23/22 05:40 04/23/22 05:36 04/23/22 05:35 04/23/22 05:30 04/23/22 05:28 04/23/22 05:25 04/23/22 05:20 04/23/22 05:15 04/23/22 05:10 04/23/22 05:05 04/23/22 05:00 04/23/22 04:55 04/23/22 04:50 04/23/22 04:45 04/23/22 04:40 04/23/22 04:35 04/23/22 04:30 04/23/22 04:25 04/23/22 04:20 04/23/22 04:15 04/23/22 04:10 04/23/22 04:05 04/23/22 04:00 50 04/23/22 03:55 04/23/22 03:51 100 04/23/22 03:50 04/23/22 03:45 04/23/22 03:40 04/23/22 03:35 04/23/22 03:30 04/23/22 03:25 04/23/22 03:20 04/23/22 03:15 04/23/22 03:10 04/23/22 03:09 50 04/23/22 03:05 04/23/22 03:00 04/23/22 02:55 04/23/22 02:50 04/23/22 02:45 04/23/22 02:40 04/23/22 02:35 04/23/22 02:30 04/23/22 02:25 04/23/22 02:20 04/23/22 02:15 04/23/22 02:10 04/23/22 02:05 04/23/22 02:00 04/23/22 01:55 04/23/22 01:50 04/23/22 01:45 04/23/22 01:40 04/23/22 01:35 04/23/22 01:30 04/23/22 01:25 04/23/22 01:20 04/23/22 01:15 04/23/22 01:10 04/23/22 01:05 04/23/22 01:00 04/23/22 00:55 04/23/22 00:50 04/23/22 00:45 04/23/22 00:40 04/23/22 00:35 04/23/22 00:30 04/23/22 00:25 04/23/22 00:20 04/23/22 00:15 04/23/22 00:10 04/23/22 00:05 04/23/22 00:00 70 04/22/22 23:55 04/22/22 23:50 04/22/22 23:45 04/22/22 23:43 04/22/22 23:40 04/22/22 23:35 04/22/22 22:53 70 04/22/22 22:24 70 04/22/22 22:17 70 04/22/22 21:30 04/22/22 21:25 04/22/22 21:21 04/22/22 21:19 04/22/22 21:13 100 Intake and Output 04/22/22 04/22/22 04/23/22 14:59 22:59 06:59 Intake Total 4098.279 Output Total 320 Balance 3778.279 Intake: IV 3825 Dextrose 5% in Water 1, 825 000 ml @ 150 mls/hr IV . Q7H40M ADIN with Sodium Bicarb (1 Meq/ml) 150 ml Rx#:[id number] Sodium Chloride 0.9% 1, 3000 000 ml @ 999 mls/hr IV . Q1H1M STA Rx#:[id number] Intake, IV Titration 273.279 Amount Norepinephrine 32 mg In 207.378 Sodium Chloride 0.9% 218 ml @ 0.9 MCG/KG/MIN 42. 099 mls/hr IV .Q5H57M [facility] Rx#:[id number] Norepinephrine 4 mg In 65.901 Sodium Chloride 0.9% 250 ml @ 0.1 MCG/KG/MIN 38.02 mls/hr IV .Q6H41M [facility] Rx #:[id number] Output: Gastric Drainage 300 Urine 20 Other: Voiding Method Indwelling Catheter Weight 99.79 kg ABP, PAP, CO, CI - Last 8 Hours Arterial Blood Pressure 60/43 Arterial Blood Pressure 62/44 Arterial Blood Pressure 73/50 Arterial Blood Pressure 63/49 Arterial Blood Pressure 53/42 Arterial Blood Pressure 59/45 Arterial Blood Pressure 54/43 Arterial Blood Pressure 57/44 Arterial Blood Pressure 62/47 Arterial Blood Pressure 61/47 Arterial Blood Pressure 60/46 Arterial Blood Pressure 60/46 Arterial Blood Pressure 60/45 Arterial Blood Pressure 59/45 Arterial Blood Pressure 57/45 Arterial Blood Pressure 59/46 Arterial Blood Pressure 56/45 Arterial Blood Pressure 58/46 Arterial Blood Pressure 57/44 Arterial Blood Pressure 57/45 Arterial Blood Pressure 57/45 Arterial Blood Pressure 58/45 Arterial Blood Pressure 58/45 Arterial Blood Pressure 57/44 Arterial Blood Pressure 57/44 Arterial Blood Pressure 59/45 Arterial Blood Pressure 54/42 Arterial Blood Pressure 62/47 Arterial Blood Pressure 61/47 Arterial Blood Pressure 62/48 Arterial Blood Pressure 63/48 Arterial Blood Pressure 65/50 Arterial Blood Pressure 67/51 Arterial Blood Pressure 70/53 Arterial Blood Pressure 71/53 Arterial Blood Pressure 70/54 Arterial Blood Pressure 76/57 Arterial Blood Pressure 76/56 Arterial Blood Pressure 77/57 Arterial Blood Pressure 78/59 Arterial Blood Pressure 79/60 Arterial Blood Pressure 79/60 Arterial Blood Pressure 83/61 Arterial Blood Pressure 82/61 Arterial Blood Pressure 85/61 Arterial Blood Pressure 85/63 Arterial Blood Pressure 85/63 Arterial Blood Pressure 87/64 Arterial Blood Pressure 89/65 Arterial Blood Pressure 90/66 Arterial Blood Pressure 90/66 Arterial Blood Pressure 91/67 Arterial Blood Pressure 91/67 Arterial Blood Pressure 92/68 Arterial Blood Pressure 92/68 Arterial Blood Pressure 94/68 Arterial Blood Pressure 94/68 Arterial Blood Pressure 95/69 Arterial Blood Pressure 99/72 Arterial Blood Pressure 103/73 Arterial Blood Pressure 103/74 Arterial Blood Pressure 101/73 Arterial Blood Pressure 98/71 Arterial Blood Pressure 87/63 Arterial Blood Pressure 86/59 Arterial Blood Pressure 87/57 Arterial Blood Pressure 80/57 Arterial Blood Pressure 82/56 Arterial Blood Pressure 81/57 Arterial Blood Pressure 83/58 Arterial Blood Pressure 81/57 Arterial Blood Pressure 82/57 Arterial Blood Pressure 81/56 Arterial Blood Pressure 81/56 Arterial Blood Pressure 82/55 Arterial Blood Pressure 81/56 Arterial Blood Pressure 76/52 Arterial Blood Pressure 63/46 Arterial Blood Pressure 78/53 Arterial Blood Pressure 79/54 -GENERAL: The patient is intubated and sedated -HEENT: Pupils are dilated, nonreactive to light. EOMI. No scleral icterus. No conjunctival pallor. Normocephalic, atraumatic. No pharyngeal erythema. No thyromegaly. CARDIOVASCULAR: S1 and S2 present. No murmurs, rubs, or gallops. PULMONARY: Chest is clear to auscultation, no wheezing or crackles. -ABDOMEN: Soft, nontender, nondistended, normoactive bowel sounds. No palpable organomegaly. Shell catheter with no urine in the bag MUSCULOSKELETAL: No joint swelling or deformity. EXTREMITIES: No cyanosis, clubbing, or pedal edema. NEUROLOGICAL: Gross neurological examination did not reveal any focal deficits. SKIN: No rashes. no petechiae. Results CBC & Chem 7: 04/23/22 05:00 04/23/22 05:00 Labs: Abnormal Lab Results - Last 24 Hours (Table) 04/22/22 04/22/22 04/22/22 Range/Units 21:16 21:20 21:25 RBC (4.30-5.90) m/uL Hgb 12.5 L (13.0-17.5) gm/dL Hct (39.0-53.0) % MCV 105.6 H D (80.0-100.0) fL MCHC 27.2 L (31.0-37.0) g/dL RDW 17.1 H (11.5-15.5) % Plt Count 74 L D (150-450) k/uL Metamyelocytes # (Man) 0.09 H (0) k/uL Myelocytes # (Manual) 0.09 H (0) k/uL Nucleated RBCs 3 H (0-0) /100 WBC Macrocytosis Marked A PT 13.7 H (9.0-12.0) sec INR 1.3 H (<1.2) D-Dimer 27.85 H (<0.60) mg/L FEU ABG pH (7.35-7.45) ABG pCO2 (35-45) mmHg ABG pO2 (83-108) mmHg ABG HCO3 (21-25) mmol/L ABG Total CO2 (19-24) mmol/L ABG O2 Saturation (94-97) % ABG Hematocrit (34.0-46.0) % Hemoglobin (13.0-17.5) gm/dL Sodium (137-145) mmol/L Potassium (3.5-5.1) mmol/L Chloride (98-107) mmol/L Carbon Dioxide (22-30) mmol/L Creatinine (0.66-1.25) mg/dL Glucose (74-99) mg/dL POC Glucose (mg/dL) 152 H (70-110) mg/dL Plasma Lactic Acid Matheus (0.7-2.0) mmol/L Calcium (8.4-10.2) mg/dL Magnesium (1.6-2.3) mg/dL AST (17-59) U/L ALT (4-49) U/L Troponin I (0.000-0.034) ng/mL Urine Protein (Negative) Urine Glucose (UA) (Negative) Urine Blood (Negative) Ur Leukocyte Esterase (Negative) Urine RBC (0-5) /hpf Urine WBC (0-5) /hpf Urine Bacteria (None) /hpf Urine Mucus (None) /hpf Crossmatch 04/22/22 04/22/22 04/22/22 Range/Units 21:25 21:25 21:25 RBC (4.30-5.90) m/uL Hgb (13.0-17.5) gm/dL Hct (39.0-53.0) % MCV (80.0-100.0) fL MCHC (31.0-37.0) g/dL RDW (11.5-15.5) % Plt Count (150-450) k/uL Metamyelocytes # (Man) (0) k/uL Myelocytes # (Manual) (0) k/uL Nucleated RBCs (0-0) /100 WBC Macrocytosis PT (9.0-12.0) sec INR (<1.2) D-Dimer (<0.60) mg/L FEU ABG pH (7.35-7.45) ABG pCO2 (35-45) mmHg ABG pO2 (83-108) mmHg ABG HCO3 (21-25) mmol/L ABG Total CO2 (19-24) mmol/L ABG O2 Saturation (94-97) % ABG Hematocrit (34.0-46.0) % Hemoglobin (13.0-17.5) gm/dL Sodium (137-145) mmol/L Potassium 7.9 H* (3.5-5.1) mmol/L Chloride (98-107) mmol/L Carbon Dioxide 11 L (22-30) mmol/L Creatinine 2.87 H (0.66-1.25) mg/dL Glucose 153 H (74-99) mg/dL POC Glucose (mg/dL) (70-110) mg/dL Plasma Lactic Acid Matheus 18.6 H* (0.7-2.0) mmol/L Calcium (8.4-10.2) mg/dL Magnesium 3.5 H (1.6-2.3) mg/dL AST 6304 H (17-59) U/L ALT 4624 H (4-49) U/L Troponin I 0.129 H* (0.000-0.034) ng/mL Urine Protein (Negative) Urine Glucose (UA) (Negative) Urine Blood (Negative) Ur Leukocyte Esterase (Negative) Urine RBC (0-5) /hpf Urine WBC (0-5) /hpf Urine Bacteria (None) /hpf Urine Mucus (None) /hpf Crossmatch 04/22/22 04/22/22 04/22/22 Range/Units 22:10 22:39 22:51 RBC (4.30-5.90) m/uL Hgb (13.0-17.5) gm/dL Hct (39.0-53.0) % MCV (80.0-100.0) fL MCHC (31.0-37.0) g/dL RDW (11.5-15.5) % Plt Count (150-450) k/uL Metamyelocytes # (Man) (0) k/uL Myelocytes # (Manual) (0) k/uL Nucleated RBCs (0-0) /100 WBC Macrocytosis PT (9.0-12.0) sec INR (<1.2) D-Dimer (<0.60) mg/L FEU ABG pH 6.82 L* (7.35-7.45) ABG pCO2 58 H (35-45) mmHg ABG pO2 259 H (83-108) mmHg ABG HCO3 9 L* (21-25) mmol/L ABG Total CO2 11 L (19-24) mmol/L ABG O2 Saturation 99.1 H (94-97) % ABG Hematocrit 33 L (34.0-46.0) % Hemoglobin 10.7 L (13.0-17.5) gm/dL Sodium (137-145) mmol/L Potassium 8.5 H* (3.5-5.1) mmol/L Chloride (98-107) mmol/L Carbon Dioxide 14 L (22-30) mmol/L Creatinine 2.65 H (0.66-1.25) mg/dL Glucose 180 H (74-99) mg/dL POC Glucose (mg/dL) 368 H (70-110) mg/dL Plasma Lactic Acid Matheus (0.7-2.0) mmol/L Calcium 8.2 L (8.4-10.2) mg/dL Magnesium 3.2 H (1.6-2.3) mg/dL AST (17-59) U/L ALT (4-49) U/L Troponin I (0.000-0.034) ng/mL Urine Protein (Negative) Urine Glucose (UA) (Negative) Urine Blood (Negative) Ur Leukocyte Esterase (Negative) Urine RBC (0-5) /hpf Urine WBC (0-5) /hpf Urine Bacteria (None) /hpf Urine Mucus (None) /hpf Crossmatch 04/22/22 04/22/22 04/22/22 Range/Units 23:01 23:09 23:10 RBC 3.23 L (4.30-5.90) m/uL Hgb 9.6 L D (13.0-17.5) gm/dL Hct 31.8 L (39.0-53.0) % MCV (80.0-100.0) fL MCHC 30.3 L (31.0-37.0) g/dL RDW 17.3 H (11.5-15.5) % Plt Count 41 L (150-450) k/uL Metamyelocytes # (Man) 0.06 H (0) k/uL Myelocytes # (Manual) 0.06 H (0) k/uL Nucleated RBCs 5 H (0-0) /100 WBC Macrocytosis PT (9.0-12.0) sec INR (<1.2) D-Dimer (<0.60) mg/L FEU ABG pH 7.12 L* (7.35-7.45) ABG pCO2 66 H (35-45) mmHg ABG pO2 345 H (83-108) mmHg ABG HCO3 (21-25) mmol/L ABG Total CO2 (19-24) mmol/L ABG O2 Saturation 100.0 H (94-97) % ABG Hematocrit 29 L (34.0-46.0) % Hemoglobin 9.5 L (13.0-17.5) gm/dL Sodium (137-145) mmol/L Potassium (3.5-5.1) mmol/L Chloride (98-107) mmol/L Carbon Dioxide (22-30) mmol/L Creatinine (0.66-1.25) mg/dL Glucose (74-99) mg/dL POC Glucose (mg/dL) (70-110) mg/dL Plasma Lactic Acid Matheus (0.7-2.0) mmol/L Calcium (8.4-10.2) mg/dL Magnesium (1.6-2.3) mg/dL AST (17-59) U/L ALT (4-49) U/L Troponin I (0.000-0.034) ng/mL Urine Protein (Negative) Urine Glucose (UA) (Negative) Urine Blood (Negative) Ur Leukocyte Esterase (Negative) Urine RBC (0-5) /hpf Urine WBC (0-5) /hpf Urine Bacteria (None) /hpf Urine Mucus (None) /hpf Crossmatch See Detail 04/22/22 04/23/22 04/23/22 Range/Units 23:23 00:35 01:45 RBC (4.30-5.90) m/uL Hgb (13.0-17.5) gm/dL Hct (39.0-53.0) % MCV (80.0-100.0) fL MCHC (31.0-37.0) g/dL RDW (11.5-15.5) % Plt Count (150-450) k/uL Metamyelocytes # (Man) (0) k/uL Myelocytes # (Manual) (0) k/uL Nucleated RBCs (0-0) /100 WBC Macrocytosis PT (9.0-12.0) sec INR (<1.2) D-Dimer (<0.60) mg/L FEU ABG pH 7.05 L* (7.35-7.45) ABG pCO2 54 H (35-45) mmHg ABG pO2 214 H (83-108) mmHg ABG HCO3 15 L (21-25) mmol/L ABG Total CO2 17 L (19-24) mmol/L ABG O2 Saturation 99.5 H (94-97) % ABG Hematocrit 29 L (34.0-46.0) % Hemoglobin 9.6 L (13.0-17.5) gm/dL Sodium (137-145) mmol/L Potassium (3.5-5.1) mmol/L Chloride (98-107) mmol/L Carbon Dioxide (22-30) mmol/L Creatinine (0.66-1.25) mg/dL Glucose (74-99) mg/dL POC Glucose (mg/dL) 144 H (70-110) mg/dL Plasma Lactic Acid Matheus 14.1 H* (0.7-2.0) mmol/L Calcium (8.4-10.2) mg/dL Magnesium (1.6-2.3) mg/dL AST (17-59) U/L ALT (4-49) U/L Troponin I (0.000-0.034) ng/mL Urine Protein (Negative) Urine Glucose (UA) (Negative) Urine Blood (Negative) Ur Leukocyte Esterase (Negative) Urine RBC (0-5) /hpf Urine WBC (0-5) /hpf Urine Bacteria (None) /hpf Urine Mucus (None) /hpf Crossmatch 04/23/22 04/23/22 04/23/22 Range/Units 02:20 02:45 02:53 RBC 3.31 L (4.30-5.90) m/uL Hgb 9.7 L (13.0-17.5) gm/dL Hct 33.4 L (39.0-53.0) % MCV 100.9 H (80.0-100.0) fL MCHC 29.2 L (31.0-37.0) g/dL RDW 17.4 H (11.5-15.5) % Plt Count 131 L D (150-450) k/uL Metamyelocytes # (Man) (0) k/uL Myelocytes # (Manual) (0) k/uL Nucleated RBCs (0-0) /100 WBC Macrocytosis PT (9.0-12.0) sec INR (<1.2) D-Dimer (<0.60) mg/L FEU ABG pH (7.35-7.45) ABG pCO2 (35-45) mmHg ABG pO2 (83-108) mmHg ABG HCO3 (21-25) mmol/L ABG Total CO2 (19-24) mmol/L ABG O2 Saturation (94-97) % ABG Hematocrit (34.0-46.0) % Hemoglobin (13.0-17.5) gm/dL Sodium 146 H (137-145) mmol/L Potassium 6.0 H (3.5-5.1) mmol/L Chloride 108 H (98-107) mmol/L Carbon Dioxide 16 L (22-30) mmol/L Creatinine 2.79 H (0.66-1.25) mg/dL Glucose 110 H (74-99) mg/dL POC Glucose (mg/dL) (70-110) mg/dL Plasma Lactic Acid Matheus (0.7-2.0) mmol/L Calcium 7.0 L (8.4-10.2) mg/dL Magnesium (1.6-2.3) mg/dL AST (17-59) U/L ALT (4-49) U/L Troponin I (0.000-0.034) ng/mL Urine Protein 4+ H (Negative) Urine Glucose (UA) 1+ H (Negative) Urine Blood Large H (Negative) Ur Leukocyte Esterase Trace H (Negative) Urine RBC 85 H (0-5) /hpf Urine WBC 29 H (0-5) /hpf Urine Bacteria Rare H (None) /hpf Urine Mucus Rare H (None) /hpf Crossmatch 04/23/22 Range/Units 05:15 RBC (4.30-5.90) m/uL Hgb (13.0-17.5) gm/dL Hct (39.0-53.0) % MCV (80.0-100.0) fL MCHC (31.0-37.0) g/dL RDW (11.5-15.5) % Plt Count (150-450) k/uL Metamyelocytes # (Man) (0) k/uL Myelocytes # (Manual) (0) k/uL Nucleated RBCs (0-0) /100 WBC Macrocytosis PT (9.0-12.0) sec INR (<1.2) D-Dimer (<0.60) mg/L FEU ABG pH 6.99 L* (7.35-7.45) ABG pCO2 81 H* (35-45) mmHg ABG pO2 397 H (83-108) mmHg ABG HCO3 19 L (21-25) mmol/L ABG Total CO2 (19-24) mmol/L ABG O2 Saturation 100.0 H (94-97) % ABG Hematocrit 30 L (34.0-46.0) % Hemoglobin 9.9 L (13.0-17.5) gm/dL Sodium (137-145) mmol/L Potassium (3.5-5.1) mmol/L Chloride (98-107) mmol/L Carbon Dioxide (22-30) mmol/L Creatinine (0.66-1.25) mg/dL Glucose (74-99) mg/dL POC Glucose (mg/dL) (70-110) mg/dL Plasma Lactic Acid Matheus (0.7-2.0) mmol/L Calcium (8.4-10.2) mg/dL Magnesium (1.6-2.3) mg/dL AST (17-59) U/L ALT (4-49) U/L Troponin I (0.000-0.034) ng/mL Urine Protein (Negative) Urine Glucose (UA) (Negative) Urine Blood (Negative) Ur Leukocyte Esterase (Negative) Urine RBC (0-5) /hpf Urine WBC (0-5) /hpf Urine Bacteria (None) /hpf Urine Mucus (None) /hpf Crossmatch Thrombosis Risk Factor Assmnt - Choose All That Apply Each Factor Represents 1 point: Age 41-60 years Other Risk Factors: No Thrombosis Risk Factor Assessment Total Risk Factor Score: 1 Thrombosis Risk Factor Assessment Level: Low Risk Assessment and Plan Assessment: Cardiac arrest, unknown downtime, status post CPR and return of spontaneous circulation, rule out anoxic brain injury Elevated troponin, with ST elevation on EKG status post cardiac cath which was unremarkable acute hypoxic respiratory failure status post intubation acute cardiopulmonary collapse with shock state, with multiorgan failure Acute kidney injury on CKD, with anuria and hyperkalemia Possible disseminated intravascular coagulation with coagulopathy Severe metabolic acidosis, With lactic acidosis and renal failure Shock liver metabolic/toxic encephalopathy Anemia and Thrombocytopenia Known history of substance abuse, possible cocaine. Urine drug screen is pending Chronic kidney disease, stage II History of pancreatitis History of hiatal hernia Lactic acidosis Obesity with BMI of 51.6 History of sarcoidosis Plan: This is a pleasant 46 years old male who presents with cardiac arrest continue with mechanical ventilation with pulmonary/critical care team consult Continue with pressors Continue with every Protonix and monitor hemoglobin with surgery team consult Cardiology team consult Check echocardiogram Nephrology consult Neurology consult Labs and medication were reviewed.. Continue same treatment. Continue with symptomatic treatment. Resume home medication. Monitor lytes and vitals. DVT and GI prophylaxis. Further recommendations as per clinical course of the patient DVT prophylaxis: no Subcutaneous heparin because of the drop in hemoglobin GI Prophylaxis: Ppi Prognosis is guarded and poor
--- NOTE | 2022-04-23 07:37 | P.CNPUL ---
History of Present Illness Consult date: 04/23/22 Chief complaint: Cardiac arrest History of present illness: 46-year-old male patient with known history of advanced COPD and pulmonary sarcoidosis along with various other comorbidities including hypertension and chronic kidney disease. The patient was brought into the emergency department following a cardiac arrest. The patient was found to be down by a neighbor who activated EMS. The patient was found to be in asystole. CPR was initiated and EMS was called to the scene. The patient received epinephrine and CPR for asystole. He was brought into the emergency department where he was further resuscitated. He was intubated. There was a term's circulation and the first EKG showed ST segment elevations in the anterior leads with reciprocal changes. Based on that, the patient was suspected to have an acute ST segment elevation myocardial infarction the patient was taken to the sodium level after being intubated. The patient was taken to [facility]. During the process, he had another cardiac arrest when he was resuscitated. Cardiac catheterization was completed and the patient was found to have normal coronaries and normal filling pressures. 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 As such, the patient had at least 4 episodes of cardiac arrest and the last 2 were consistent of PEA rhythm and there was return of sponges supination following resuscitation. At this point in time, the patient intub ated on a mechanical ventilator. Is completely unresponsive. The exact downtime is not well established yet based on my understanding from the various causes the patient had, the patient had prolonged downtime ESTIMATED to be at least 1 hour. There is also history provided by the significant other that the patient was using crack cocaine and his friends with the family left the scene. In summary, the patient was found to have significant abnormalities in the blood work. Initial potassium level with known recurrent is trying to figure was 7.9 and subsequent potassium level came back at 8.5. The patient was found to be in acute kidney injury. Urine output was absent. The patient was started on fluids and high-dose pressors. Immediately, it is acute hyperkalemia was treated with potassium cocktail and he was given calcium gluconate, bicarb, multiple doses including a bicarb infusion and he was also given dextrose with insulin. During the resuscitation process in the ICU, dialysis catheter was inserted and we are the process of preparing this patient to undergo hemodialysis based on his recurrent cardiac arrest. Nevertheless, he was found to be too hemodynamically unstable to undergo dialysis and this was not performed. Currently he does admit that his catheter in place. At the same time, the patient was kept on mechanical ventilator necessity ventilator changes were done throughout the night. The most recent ventilator settings include an assist-control mode at the rate of 34 with a tidal volume of 500 and FiO2 of 70% with a PEEP of 5. I reviewed the series of blood gases throughout the night. Most recent blood gas shows a pH of 6.99 with a pCO2 of 81 and pO2 of 397 this was on FiO2 of 100%. Most recent blood work showed a sodium level of 147 with a potassium level of 6.0. His serum bicarbonate fluids up to 20 with a BUN of 17 and a creatinine of 3.02. His lactic acid level was as high as 18.6 and dropped down to 14.1 and will continue to monitor. He is a shock liver. ALT and AST were significantly elevated and the patient was also found to be in DIC with elevated PT/PTT and INR. D-dimer was above 34. Most recent hemoglobin is at 9.9 with a white cell count of 13.3 and a platelet count of 131. Note that the patient is having blood oozing from his puncture sites including the IJ that since and is right neck, the hemodialysis catheter in his right femoral vein and he is also having right his blood from the orogastric tube and all the total amount is in order of 300 mL. At this point in time, the patient is profoundly hypotensive and his systolic blood pressures running at 60 or mid 60s. He is on maximal dose of norepinephrine which is running at 1 mcg/kg per minute. He is also on vasopressin physiologic dose of 0.03 units an hour. Urine output is only 20 mL the whole shift. 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 ET tube is in a good location. The patient also has an NG tube in a good location. Triple-lumen catheter is in a good location. No evidence of any pneumothorax. His current temperature is 90.4. His current cardiac rhythm is sinus rhythm. He is completely unresponsive. No sedation was provided. Pupils are fixed and dilated. No corneal. No gag. No cough reflex. He is riding the mechanical ventilator and he does not initiate any breaths. He does not respond to any sensory or motor stimuli. His Review of Systems ROS unobtainable: due to endotracheal tube Past Medical History Past Medical History: Asthma, COPD, Renal Disease Additional Past Medical History / Comment(s): stage 2 kidney disease, pancreatitis, hital hernia , sarcoidosis, COPD History of Any Multi-Drug Resistant Organisms: None Reported Past Surgical History: No Surgical Hx Reported Additional Past Surgical History / Comment(s): kidney stone removal Past Anesthesia/Blood Transfusion Reactions: Unable to Obtain Past Psychological History: Anxiety, Depression Smoking Status: Former smoker Past Alcohol Use History: None Reported Past Drug Use History: Marijuana - Past Family History Father Family Medical History: COPD Medications and Allergies Home Medications Medication Instructions Recorded Confirmed Type Cetirizine HCl 10 mg PO DAILY 08/16/19 02/16/22 History Montelukast [Singulair] 10 mg PO DAILY 08/16/19 02/16/22 History Nephro-Van 0.8mg 0.8 mg PO DAILY 08/16/19 02/16/22 History amLODIPine [Norvasc] 10 mg PO DAILY 08/16/19 02/16/22 History Triamcinolone 0.1% Ointment 1 applic TOPICAL BID PRN 05/15/21 02/16/22 History [Kenalog 0.1% Ointment] Albuterol Inhaler [Ventolin Hfa 2 puff INHALATION RT-QID PRN 06/16/21 02/16/22 History Inhaler] Albuterol Nebulized [Ventolin 2.5 mg INHALATION RT-QID PRN 06/16/21 02/16/22 History Nebulized] Benzonatate [Tessalon Perle] 200 mg PO TID PRN 08/04/21 02/16/22 History Fluticasone/Umeclidin/Vilanter 1 puff INHALATION RT-DAILY 08/04/21 02/16/22 History [Trelecharla Ellipta 100-62.5-25] Fluticasone Nasal [place] [Flonase 2 spr EA NOSTRIL DAILY #16 gm 01/07/22 02/16/22 Rx Nasal [place]] Famotidine [Pepcid] 20 mg PO BID #30 tablet 01/18/22 02/16/22 Rx Promethaz-Cod 6.25-10 mg/5 ml 5 ml PO Q4HR PRN 3 Days #90 ml 01/18/22 02/16/22 Rx [Phenergan with Codeine] Oseltamivir [Tamiflu] 75 mg PO Q12HR 5 Days #10 cap 02/17/22 Rx Allergies Allergy/AdvReac Type Severity Reaction Status Date / Time hydromorphone [From Dilaudid] Allergy Itching Verified 02/16/22 12:11 meperidine [From Demerol] Allergy Itching Verified 02/16/22 12:11 propoxyphene Allergy Unknown Verified 02/16/22 12:11 [From Darvocet-N] NSAIDS (Non-Steroidal AdvReac Kidneys Verified 02/16/22 12:11 Anti-Inflamma Physical Exam Vitals: Vital Signs Temp Pulse Pulse Resp BP BP Pulse Ox 04/23/22 06:05 79 32 H 100 04/23/22 06:00 80 32 H 100 04/23/22 05:55 80 32 H 100 04/23/22 05:50 82 32 H 100 04/23/22 05:48 04/23/22 05:45 78 32 H 100 04/23/22 05:40 74 32 H 100 04/23/22 05:36 72 04/23/22 05:35 71 32 H 100 04/23/22 05:30 76 32 H 100 04/23/22 05:28 77 04/23/22 05:25 77 32 H 100 04/23/22 05:20 77 32 H 100 04/23/22 05:15 77 32 H 100 04/23/22 05:10 75 32 H 100 04/23/22 05:05 76 32 H 100 04/23/22 05:00 77 32 H 100 04/23/22 04:55 78 32 H 100 04/23/22 04:50 79 32 H 100 04/23/22 04:45 79 32 H 100 04/23/22 04:40 79 32 H 100 04/23/22 04:35 80 32 H 100 04/23/22 04:30 79 32 H 100 04/23/22 04:25 79 32 H 100 04/23/22 04:20 80 32 H 100 04/23/22 04:15 83 32 H 100 04/23/22 04:10 82 32 H 100 04/23/22 04:05 84 32 H 100 04/23/22 04:00 85 32 H 100 04/23/22 03:55 85 32 H 98 04/23/22 03:51 04/23/22 03:50 85 32 H 85 L 04/23/22 03:45 85 32 H 84 L 04/23/22 03:40 85 32 H 87 L 04/23/22 03:35 85 32 H 91 L 04/23/22 03:30 82 32 H 91 L 04/23/22 03:25 82 32 H 95 04/23/22 03:20 84 32 H 99 04/23/22 03:15 85 32 H 95 04/23/22 03:10 85 32 H 100 04/23/22 03:09 04/23/22 03:05 85 32 H 100 04/23/22 03:00 84 32 H 100 04/23/22 02:55 85 32 H 100 04/23/22 02:50 85 32 H 100 04/23/22 02:45 85 32 H 100 04/23/22 02:40 84 32 H 100 04/23/22 02:35 84 32 H 100 04/23/22 02:30 84 32 H 100 04/23/22 02:25 84 32 H 100 04/23/22 02:20 84 32 H 97 04/23/22 02:15 85 32 H 100 04/23/22 02:10 85 32 H 100 04/23/22 02:05 85 32 H 100 04/23/22 02:00 85 32 H 100 04/23/22 01:55 84 32 H 100 04/23/22 01:50 84 32 H 100 04/23/22 01:45 84 32 H 100 04/23/22 01:40 83 32 H 100 04/23/22 01:35 82 32 H 100 04/23/22 01:30 82 32 H 100 04/23/22 01:25 82 32 H 100 04/23/22 01:20 82 32 H 100 04/23/22 01:15 82 32 H 100 04/23/22 01:10 82 32 H 100 04/23/22 01:05 82 32 H 100 04/23/22 01:00 82 32 H 100 04/23/22 00:55 82 32 H 100 04/23/22 00:50 82 32 H 100 04/23/22 00:45 82 32 H 100 04/23/22 00:40 82 32 H 100 04/23/22 00:35 82 32 H 100 04/23/22 00:30 84 32 H 100 04/23/22 00:25 85 32 H 100 04/23/22 00:20 86 32 H 100 04/23/22 00:15 86 32 H 100 04/23/22 00:10 85 32 H 100 04/23/22 00:05 85 32 H 100 04/23/22 00:00 85 32 H 100 04/22/22 23:55 85 32 H 100 04/22/22 23:50 84 32 H 100 04/22/22 23:45 83 32 H 100 04/22/22 23:43 91.7 F L 81 32 H 100 04/22/22 23:40 83 32 H 100 04/22/22 23:35 91.7 F L 83 32 H 100 04/22/22 22:53 04/22/22 22:24 04/22/22 22:17 91.7 F L 30 L 22 40/20 100 04/22/22 21:30 88 43/33 97 04/22/22 21:25 72 80/34 98 04/22/22 21:21 72 12 117/79 97 04/22/22 21:19 72 61/26 97 04/22/22 21:13 FiO2 04/23/22 06:05 04/23/22 06:00 04/23/22 05:55 04/23/22 05:50 04/23/22 05:48 100 04/23/22 05:45 04/23/22 05:40 04/23/22 05:36 04/23/22 05:35 04/23/22 05:30 04/23/22 05:28 04/23/22 05:25 04/23/22 05:20 04/23/22 05:15 04/23/22 05:10 04/23/22 05:05 04/23/22 05:00 04/23/22 04:55 04/23/22 04:50 04/23/22 04:45 04/23/22 04:40 04/23/22 04:35 04/23/22 04:30 04/23/22 04:25 04/23/22 04:20 04/23/22 04:15 04/23/22 04:10 04/23/22 04:05 04/23/22 04:00 50 04/23/22 03:55 04/23/22 03:51 100 04/23/22 03:50 04/23/22 03:45 04/23/22 03:40 04/23/22 03:35 04/23/22 03:30 04/23/22 03:25 04/23/22 03:20 04/23/22 03:15 04/23/22 03:10 04/23/22 03:09 50 04/23/22 03:05 04/23/22 03:00 04/23/22 02:55 04/23/22 02:50 04/23/22 02:45 04/23/22 02:40 04/23/22 02:35 04/23/22 02:30 04/23/22 02:25 04/23/22 02:20 04/23/22 02:15 04/23/22 02:10 04/23/22 02:05 04/23/22 02:00 04/23/22 01:55 04/23/22 01:50 04/23/22 01:45 04/23/22 01:40 04/23/22 01:35 04/23/22 01:30 04/23/22 01:25 04/23/22 01:20 04/23/22 01:15 04/23/22 01:10 04/23/22 01:05 04/23/22 01:00 04/23/22 00:55 04/23/22 00:50 04/23/22 00:45 04/23/22 00:40 04/23/22 00:35 04/23/22 00:30 04/23/22 00:25 04/23/22 00:20 04/23/22 00:15 04/23/22 00:10 04/23/22 00:05 04/23/22 00:00 70 04/22/22 23:55 04/22/22 23:50 04/22/22 23:45 04/22/22 23:43 04/22/22 23:40 04/22/22 23:35 04/22/22 22:53 70 04/22/22 22:24 70 04/22/22 22:17 70 04/22/22 21:30 04/22/22 21:25 04/22/22 21:21 04/22/22 21:19 04/22/22 21:13 100 Intake and Output 04/22/22 04/23/22 04/23/22 22:59 06:59 14:59 Intake Total 4248.279 Output Total 320 Balance 3928.279 Intake: IV 3975 Dextrose 5% in Water 1, 975 000 ml @ 150 mls/hr IV . Q7H40M ADIN with Sodium Bicarb (1 Meq/ml) 150 ml Rx#:[id number] Sodium Chloride 0.9% 1, 3000 000 ml @ 999 mls/hr IV . Q1H1M [facility] Rx#:[id number] Intake, IV Titration 273.279 Amount Norepinephrine 32 mg In 207.378 Sodium Chloride 0.9% 218 ml @ 0.9 MCG/KG/MIN 42. 099 mls/hr IV .Q5H57M [facility] Rx#:[id number] Norepinephrine 4 mg In 65.901 Sodium Chloride 0.9% 250 ml @ 0.1 MCG/KG/MIN 38.02 mls/hr IV .Q6H41M [facility] Rx #:[id number] Output: Gastric Drainage 300 Urine 20 Other: Voiding Method Indwelling Catheter Weight 99.79 kg 107.5 kg ABP, PAP, CO, CI - Last 8 Hours Arterial Blood Pressure 60/43 Arterial Blood Pressure 62/44 Arterial Blood Pressure 73/50 Arterial Blood Pressure 63/49 Arterial Blood Pressure 53/42 Arterial Blood Pressure 59/45 Arterial Blood Pressure 54/43 Arterial Blood Pressure 57/44 Arterial Blood Pressure 62/47 Arterial Blood Pressure 61/47 Arterial Blood Pressure 60/46 Arterial Blood Pressure 60/46 Arterial Blood Pressure 60/45 Arterial Blood Pressure 59/45 Arterial Blood Pressure 57/45 Arterial Blood Pressure 59/46 Arterial Blood Pressure 56/45 Arterial Blood Pressure 58/46 Arterial Blood Pressure 57/44 Arterial Blood Pressure 57/45 Arterial Blood Pressure 57/45 Arterial Blood Pressure 58/45 Arterial Blood Pressure 58/45 Arterial Blood Pressure 57/44 Arterial Blood Pressure 57/44 Arterial Blood Pressure 59/45 Arterial Blood Pressure 54/42 Arterial Blood Pressure 62/47 Arterial Blood Pressure 61/47 Arterial Blood Pressure 62/48 Arterial Blood Pressure 63/48 Arterial Blood Pressure 65/50 Arterial Blood Pressure 67/51 Arterial Blood Pressure 70/53 Arterial Blood Pressure 71/53 Arterial Blood Pressure 70/54 Arterial Blood Pressure 76/57 Arterial Blood Pressure 76/56 Arterial Blood Pressure 77/57 Arterial Blood Pressure 78/59 Arterial Blood Pressure 79/60 Arterial Blood Pressure 79/60 Arterial Blood Pressure 83/61 Arterial Blood Pressure 82/61 Arterial Blood Pressure 85/61 Arterial Blood Pressure 85/63 Arterial Blood Pressure 85/63 Arterial Blood Pressure 87/64 Arterial Blood Pressure 89/65 Arterial Blood Pressure 90/66 Arterial Blood Pressure 90/66 Arterial Blood Pressure 91/67 Arterial Blood Pressure 91/67 Arterial Blood Pressure 92/68 Arterial Blood Pressure 92/68 Arterial Blood Pressure 94/68 Arterial Blood Pressure 94/68 Arterial Blood Pressure 95/69 Arterial Blood Pressure 99/72 Arterial Blood Pressure 103/73 Arterial Blood Pressure 103/74 Arterial Blood Pressure 101/73 Arterial Blood Pressure 98/71 Arterial Blood Pressure 87/63 Arterial Blood Pressure 86/59 Arterial Blood Pressure 87/57 Arterial Blood Pressure 80/57 Arterial Blood Pressure 82/56 Arterial Blood Pressure 81/57 Arterial Blood Pressure 83/58 Arterial Blood Pressure 81/57 Arterial Blood Pressure 82/57 Arterial Blood Pressure 81/56 Arterial Blood Pressure 81/56 Arterial Blood Pressure 82/55 Arterial Blood Pressure 81/56 Arterial Blood Pressure 76/52 Arterial Blood Pressure 63/46 Arterial Blood Pressure 78/53 Arterial Blood Pressure 79/54 Comatose, unresponsive, intubated on mechanical ventilator, synchronous a mechanical ventilator, no respiratory efforts noted. Head exam was generally normal. There was no scleral icterus or corneal arcus. Mucous membranes were moist. Neck was supple and without jugular venous distension, thyromegaly, or carotid bruits. Carotids were easily palpable bilaterally. There was no adenopathy. The patient has a triple-lumen catheter in his right IJ. The patient also has an OG tube in place with bloody output. Lungs sounds are equal and symmetrical bilaterally. No wheezes. No rhonchi. Cardiac exam revealed the PMI to be normally situated and sized. The rhythm was regular and no extrasystoles were noted during several minutes of auscultation. The first and second heart sounds were normal and physiologic splitting of the second heart sound was noted. There were no murmurs, rubs, clicks, or gallops. Abdominal exam revealed normal bowel sounds. The abdomen was soft, non-tender, and without masses, organomegaly, or appreciable enlargement of the abdominal aorta. Extremities are cold and clammy and there is diminished pulses in all 4 extremities. No cyanosis or clubbing. Neurologically, unresponsive, pupils are fixed dilated. No corneals in no gag. No cough. No breathing efforts. No response to any painful stimulation. Reflexes are diminished all 4 extremities. Negative Babinski. Negative clonus. No seizure activity has been noted. No jerky body movements. No facial asymmetry. Results - Laboratory Findings CBC and BMP: 04/23/22 05:00 04/23/22 05:00 ABG ABG pH 6.99 (7.35-7.45) L* 04/23/22 05:15 ABG pCO2 81 mmHg (35-45) H* 04/23/22 05:15 ABG pO2 397 mmHg (83-108) H 04/23/22 05:15 ABG O2 Saturation 100.0 % (94-97) H 04/23/22 05:15 PT/INR, D-dimer PT >130.0 sec (9.0-12.0) H 04/23/22 05:00 INR >10.0 (<1.2) H* 04/23/22 05:00 D-Dimer >34.10 mg/L FEU (<0.60) H 04/23/22 05:00 Abnormal lab findings: Abnormal Labs 04/22/22 04/22/22 04/22/22 21:16 21:20 21:25 WBC RBC Hgb 12.5 L Hct MCV 105.6 H D MCHC 27.2 L RDW 17.1 H Plt Count 74 L D Metamyelocytes # (Man) 0.09 H Myelocytes # (Manual) 0.09 H Nucleated RBCs 3 H Macrocytosis Marked A PT 13.7 H INR 1.3 H APTT D-Dimer 27.85 H ABG pH ABG pCO2 ABG pO2 ABG HCO3 ABG Total CO2 ABG O2 Saturation ABG Hematocrit Hemoglobin Sodium Potassium Chloride Carbon Dioxide Creatinine Glucose POC Glucose (mg/dL) 152 H Plasma Lactic Acid Matheus Calcium Magnesium AST ALT Alkaline Phosphatase Troponin I Total Protein Albumin Urine Protein Urine Glucose (UA) Urine Blood Ur Leukocyte Esterase Urine RBC Urine WBC Urine Bacteria Urine Mucus Crossmatch 04/22/22 04/22/22 04/22/22 21:25 21:25 21:25 WBC RBC Hgb Hct MCV MCHC RDW Plt Count Metamyelocytes # (Man) Myelocytes # (Manual) Nucleated RBCs Macrocytosis PT INR APTT D-Dimer ABG pH ABG pCO2 ABG pO2 ABG HCO3 ABG Total CO2 ABG O2 Saturation ABG Hematocrit Hemoglobin Sodium Potassium 7.9 H* Chloride Carbon Dioxide 11 L Creatinine 2.87 H Glucose 153 H POC Glucose (mg/dL) Plasma Lactic Acid Matheus 18.6 H* Calcium Magnesium 3.5 H AST 6304 H ALT 4624 H Alkaline Phosphatase Troponin I 0.129 H* Total Protein Albumin Urine Protein Urine Glucose (UA) Urine Blood Ur Leukocyte Esterase Urine RBC Urine WBC Urine Bacteria Urine Mucus Crossmatch 04/22/22 04/22/22 04/22/22 22:10 22:39 22:51 WBC RBC Hgb Hct MCV MCHC RDW Plt Count Metamyelocytes # (Man) Myelocytes # (Manual) Nucleated RBCs Macrocytosis PT INR APTT D-Dimer ABG pH 6.82 L* ABG pCO2 58 H ABG pO2 259 H ABG HCO3 9 L* ABG Total CO2 11 L ABG O2 Saturation 99.1 H ABG Hematocrit 33 L Hemoglobin 10.7 L Sodium Potassium 8.5 H* Chloride Carbon Dioxide 14 L Creatinine 2.65 H Glucose 180 H POC Glucose (mg/dL) 368 H Plasma Lactic Acid Matheus Calcium 8.2 L Magnesium 3.2 H AST ALT Alkaline Phosphatase Troponin I Total Protein Albumin Urine Protein Urine Glucose (UA) Urine Blood Ur Leukocyte Esterase Urine RBC Urine WBC Urine Bacteria Urine Mucus Crossmatch 04/22/22 04/22/22 04/22/22 23:01 23:09 23:10 WBC RBC 3.23 L Hgb 9.6 L D Hct 31.8 L MCV MCHC 30.3 L RDW 17.3 H Plt Count 41 L Metamyelocytes # (Man) 0.06 H Myelocytes # (Manual) 0.06 H Nucleated RBCs 5 H Macrocytosis PT INR APTT D-Dimer ABG pH 7.12 L* ABG pCO2 66 H ABG pO2 345 H ABG HCO3 ABG Total CO2 ABG O2 Saturation 100.0 H ABG Hematocrit 29 L Hemoglobin 9.5 L Sodium Potassium Chloride Carbon Dioxide Creatinine Glucose POC Glucose (mg/dL) Plasma Lactic Acid Matheus Calcium Magnesium AST ALT Alkaline Phosphatase Troponin I Total Protein Albumin Urine Protein Urine Glucose (UA) Urine Blood Ur Leukocyte Esterase Urine RBC Urine WBC Urine Bacteria Urine Mucus Crossmatch See Detail 04/22/22 04/23/22 04/23/22 23:23 00:35 01:45 WBC RBC Hgb Hct MCV MCHC RDW Plt Count Metamyelocytes # (Man) Myelocytes # (Manual) Nucleated RBCs Macrocytosis PT INR APTT D-Dimer ABG pH 7.05 L* ABG pCO2 54 H ABG pO2 214 H ABG HCO3 15 L ABG Total CO2 17 L ABG O2 Saturation 99.5 H ABG Hematocrit 29 L Hemoglobin 9.6 L Sodium Potassium Chloride Carbon Dioxide Creatinine Glucose POC Glucose (mg/dL) 144 H Plasma Lactic Acid Matheus 14.1 H* Calcium Magnesium AST ALT Alkaline Phosphatase Troponin I Total Protein Albumin Urine Protein Urine Glucose (UA) Urine Blood Ur Leukocyte Esterase Urine RBC Urine WBC Urine Bacteria Urine Mucus Crossmatch 04/23/22 04/23/22 04/23/22 02:20 02:45 02:53 WBC RBC 3.31 L Hgb 9.7 L Hct 33.4 L MCV 100.9 H MCHC 29.2 L RDW 17.4 H Plt Count 131 L D Metamyelocytes # (Man) Myelocytes # (Manual) Nucleated RBCs Macrocytosis PT INR APTT D-Dimer ABG pH ABG pCO2 ABG pO2 ABG HCO3 ABG Total CO2 ABG O2 Saturation ABG Hematocrit Hemoglobin Sodium 146 H Potassium 6.0 H Chloride 108 H Carbon Dioxide 16 L Creatinine 2.79 H Glucose 110 H POC Glucose (mg/dL) Plasma Lactic Acid Matheus Calcium 7.0 L Magnesium AST ALT Alkaline Phosphatase Troponin I Total Protein Albumin Urine Protein 4+ H Urine Glucose (UA) 1+ H Urine Blood Large H Ur Leukocyte Esterase Trace H Urine RBC 85 H Urine WBC 29 H Urine Bacteria Rare H Urine Mucus Rare H Crossmatch 04/23/22 04/23/22 04/23/22 05:00 05:00 05:00 WBC 13.3 H RBC 3.44 L Hgb 9.9 L Hct 34.2 L MCV MCHC 28.9 L RDW 16.9 H Plt Count Metamyelocytes # (Man) Myelocytes # (Manual) Nucleated RBCs Macrocytosis PT >130.0 H INR >10.0 H* APTT 105.3 H* D-Dimer >34.10 H ABG pH ABG pCO2 ABG pO2 ABG HCO3 ABG Total CO2 ABG O2 Saturation ABG Hematocrit Hemoglobin Sodium 147 H Potassium 6.0 H Chloride Carbon Dioxide 20 L Creatinine 3.02 H Glucose 106 H POC Glucose (mg/dL) Plasma Lactic Acid Matheus Calcium 7.0 L Magnesium AST 74296 H ALT 8867 H Alkaline Phosphatase 133 H Troponin I Total Protein 4.8 L Albumin 2.7 L Urine Protein Urine Glucose (UA) Urine Blood Ur Leukocyte Esterase Urine RBC Urine WBC Urine Bacteria Urine Mucus Crossmatch 04/23/22 05:15 WBC RBC Hgb Hct MCV MCHC RDW Plt Count Metamyelocytes # (Man) Myelocytes # (Manual) Nucleated RBCs Macrocytosis PT INR APTT D-Dimer ABG pH 6.99 L* ABG pCO2 81 H* ABG pO2 397 H ABG HCO3 19 L ABG Total CO2 ABG O2 Saturation 100.0 H ABG Hematocrit 30 L Hemoglobin 9.9 L Sodium Potassium Chloride Carbon Dioxide Creatinine Glucose POC Glucose (mg/dL) Plasma Lactic Acid Matheus Calcium Magnesium AST ALT Alkaline Phosphatase Troponin I Total Protein Albumin Urine Protein Urine Glucose (UA) Urine Blood Ur Leukocyte Esterase Urine RBC Urine WBC Urine Bacteria Urine Mucus Crossmatch - Diagnostic Findings Chest x-ray: image reviewed Assessment and Plan Plan: Cardiac arrest. The patient suffered from multiple cardiac arrest. Initial cardiac rhythm was asystole and the patient had a prolonged downtime prior to coming to the emergency. The patient had several other causes including a call that occurred in cardiac catheterization in to the patient because of the current in the intensive care unit. The cardiac catheterization was completed and the patient was found to have normal coronaries. Nevertheless, there is suspicion of the patient could've arrested because of drugs and the patient was apparently doing crack cocaine and symptoms the patient suffered an acute on top of chronic kidney injury and the potassium level initially was elevated at 7.8 and it peaked at 8.5. At the same time, the patient was profoundly acidotic with a lactic acid level of 18.6. Current cardiac rhythm is sinus. Nevertheless, the patient remains in shock on max doses of norepinephrine and vasopressin. The exact downtime cannot be reestablished. Nevertheless, the patient a prolonged downtime and based on the nursing staff evaluation, the current cause that the patient had what that meant at least a downtime of 1 hour. Use Shock, post cardiac arrest, likely cardiogenic, remains on high-dose pressors, and the patient was given a total of 4 L of IV fluid and the patient is curren tly on a bicarb infusion running at the rate of 150 mL an hour. Give additional 2 L of normal saline Unresponsive with signs of severe anoxic encephalopathy. Based on my initial neurologic exam, the patient does not have any brainstem reflexes and the patient may be essentially brain at this point in time. Acute hypothermia and the current temperature is at 94F Acute hyperkalemia. The potassium level was treated aggressively and the patient was given several doses of bicarb, calcium gluconate and D50 insulin in the most recent potassium level is down to 6.0. No acute EKG changes related to hyperkalemia. Acute on chronic kidney injury. Creatinine peaked at 3.0 to from this morning and the repeat potassium level is down to 6.TBilaterally, and discussed this patient, he patient currently is oliguric Acute hypoxic/hypercapnic respiratory failure post cardiac arrest Suspected drug overdose with crack cocaine. Awaiting urine drug screen Acute DIC with thrombocytopenia and coagulopathy Acute upper GI bleeding probably related to underlying DIC Acute thrombocytopenia secondary DIC History of sarcoidosis History of advanced COPD History of chronic kidney disease Hypertension History of smoking History of chronic anxiety/depression Previous history of pancreatitis History of alcohol abuse, the patient a positive alcohol level at the time of admission at 17. History of marijuana use Recent admission for influenza infection. Plan Continue ventilator support and drop the FiO2 down to 50% Give additional 2 L of normal saline Obtain a stat echocardiogram Continue with the present and the patient is currently on a combination of norepinephrine and vasopressin. May need to add epinephrine infusion also to support his blood pressure. Cardiac catheterization was completed and the patient had normal cardiac cath and normal coronaries Close monitoring of the potassium level and repeat the level within next few hours. Continue bicarb infusion May need to transfer this patient with 2 units of fresh frozen plasma regarding his underlying DIC and coagulopathy and bleed. For now, hemoglobin is down to 9.9. We'll obtain a cardiology consultation, nephrology consultation, and neurology consultation Too unstable for hemodialysis or to be taken for a CAT scan of the brain at this point in time. Start the patient on empiric antibiotic coverage with IV Zosyn Check urine drug screen IV Protonix Compression devices his lower extremities Very poor prognosis based on the above. We'll continue to follow. Time with Patient: Greater than 30
[2022-04-23] MEDS ORDERED: SODIUM CHLORIDE 0.9% 2,000 ML IV ONE (07:39)
[2022-04-23 07:48] LABS: ABG Base Excess -8.5 mmol/L; ABG HCO3 20 mmol/L (21-25); ABG Hematocrit 28 % (34.0-46.0); ABG PCO2 51 mmHg (35-45); ABG PO2 >400 mmHg (83-108); ABG TCO2 21 mmol/L (19-24); Allen Test Performed? Yes
[2022-04-23 07:53] LABS: ABG PH 7.19 (7.35-7.45)
[2022-04-23] MEDS: DEXTROSE 5% IN WATER 1,000 ML with SODIUM BICARB (1 MEQ/ML) 150 ML IV SCH (08:05)
[2022-04-23 08:15] LABS: Band Neutrophils % 4 %; Eosinophils # (M) 0.12 k/uL (0-0.7); Large Platelets Present; Lymphocytes # (M) 1.36 k/uL (1.0-4.8); Monocytes # (M) 1.24 k/uL (0-1.0); Neutrophils % (M) 75 %; Nucleated Red Blood Cells 7 /100 WBC (0-0); Poikilocytosis (M) Present; Polychromasia Present; Total Cells Counted 200; Toxic Granulation Present; WBC 12.4 k/uL (3.8-10.6)
[2022-04-23] MEDS ORDERED: PIPERACILLIN-TAZOBACTAM 3.375 GM in SODIUM CHLORIDE 0.9% 100 ML IVPB SCH (08:15)
[2022-04-23] MEDS: EPINEPHrine 4 MG in DEXTROSE 5% IN WATER 250 ML IV SCH ×4 (08:22→10:33)
--- NOTE | 2022-04-23 08:28 | P.PN ---
Subjective Progress Note Date: 04/23/22 PROGRESS NOTE The patient is a 46-year-old male with known history of sarcoidosis, COPD and prior history of multi-substance abuse who presented with cardiac arrest and was found to have wide complex rhythm with ST segment elevation, underwent cardiac catheterization by Dr. Gonsaels and had no obstructive coronary artery disease with normal filling pressure. He was found to have severe hyperkalemia in addition to abnormal renal functions. He remains intubated, in sinus mechanism. He is on high-dose vasopressor with low blood pressure and no urinary output. A dialysis catheter was placed yesterday, he was severely acidotic. He had a prolonged CPR. The down time. It is unclear year he apparently the patient was using crack cocaine. Medications: Norepinephrine, vasopressin, sodium bicarb, Zosyn PHYSICAL EXAMINATION: Blood pressure 60/40 heart rate 70s, intubated, pupils dilated and fixed. LUNGS: Clear to auscultation HEART: Regular rate and rhythm, S1, S2. No S3. No systolic murmur ABDOMEN: Soft, distended, no organomegaly EXTREMETIES: No edema, decreased pulse distally, right radial catheter noted LAB: PH 7.19, pCO2 51, pO2 over 400. Potassium 6, creatinine 3.02, AST 13,791, ALT 8867, hemoglobin 9.9 IMPRESSION: 1. Cardiac arrest, probably drug overdose, down time unclear his severe acidosis, hyperkalemia and anuria 2. History of sarcoidosis 3. History of COPD 4. Probable drug overdose as the cause of the cardiac arrest 5. Severe hypokalemia 6. Acute renal injury 7. Prior history of alcohol intake 8. History of chronic tobacco use PLAN: 1. Obtain an echocardiogram with Doppler 2. Continue supportive care 3. Prognosis is very poor because of multiorgan failure and persistent hypotension and probable severe anoxic encephalopathy 4. Depending on his progress further recommendations will be made Objective - Vital Signs Vital signs: Vital Signs Temp 91.7 F L 04/22/22 23:43 Pulse 85 04/23/22 07:28 Resp 32 H 04/23/22 06:05 BP 40/04/22/22 22:17 Pulse Ox 100 04/23/22 06:05 FiO2 50 04/23/22 07:49 Intake & Output 04/22/22 04/23/22 04/23/22 18:59 06:59 18:59 Intake Total 4248.279 150 Output Total 320 0 Balance 3928.279 150 Weight 107.5 kg Intake: IV 3975 150 Dextrose 5% in Water 1, 975 150 000 ml @ 150 mls/hr IV . Q7H40M ADIN with Sodium Bicarb (1 Meq/ml) 150 ml Rx#:[id number] Sodium Chloride 0.9% 1, 3000 000 ml @ 999 mls/hr IV . Q1H1M STA Rx#:[id number] Intake, IV Titration 273.279 Amount Norepinephrine 32 mg In 207.378 Sodium Chloride 0.9% 218 ml @ 0.9 MCG/KG/MIN 42. 099 mls/hr IV .Q5H57M ADIN Rx#:[id number] Norepinephrine 4 mg In 65.901 Sodium Chloride 0.9% 250 ml @ 0.1 MCG/KG/MIN 38.02 mls/hr IV .Q6H41M ADIN Rx #:[id number] Output: Gastric Drainage 300 Urine 20 0 Other: Voiding Method Indwelling Catheter ABP, PAP, CO, CI - Last Documented Arterial Blood Pressure 60/43 - Labs CBC & Chem 7: 04/23/22 05:00 04/23/22 05:00 Labs: Abnormal Lab Results - Last 24 Hours (Table) 04/22/22 04/22/22 04/22/22 Range/Units 21:16 21:20 21:25 WBC (3.8-10.6) k/uL RBC (4.30-5.90) m/uL Hgb 12.5 L (13.0-17.5) gm/dL Hct (39.0-53.0) % MCV 105.6 H D (80.0-100.0) fL MCHC 27.2 L (31.0-37.0) g/dL RDW 17.1 H (11.5-15.5) % Plt Count 74 L D (150-450) k/uL Neutrophils # (Manual) (1.3-7.7) k/uL Monocytes # (Manual) (0-1.0) k/uL Metamyelocytes # (Man) 0.09 H (0) k/uL Myelocytes # (Manual) 0.09 H (0) k/uL Nucleated RBCs 3 H (0-0) /100 WBC Macrocytosis Marked A PT 13.7 H (9.0-12.0) sec INR 1.3 H (<1.2) APTT (22.0-30.0) sec D-Dimer 27.85 H (<0.60) mg/L FEU ABG pH (7.35-7.45) ABG pCO2 (35-45) mmHg ABG pO2 (83-108) mmHg ABG HCO3 (21-25) mmol/L ABG Total CO2 (19-24) mmol/L ABG O2 Saturation (94-97) % ABG Hematocrit (34.0-46.0) % Hemoglobin (13.0-17.5) gm/dL Sodium (137-145) mmol/L Potassium (3.5-5.1) mmol/L Chloride (98-107) mmol/L Carbon Dioxide (22-30) mmol/L Creatinine (0.66-1.25) mg/dL Glucose (74-99) mg/dL POC Glucose (mg/dL) 152 H (70-110) mg/dL Plasma Lactic Acid Matheus (0.7-2.0) mmol/L Calcium (8.4-10.2) mg/dL Magnesium (1.6-2.3) mg/dL AST (17-59) U/L ALT (4-49) U/L Alkaline Phosphatase (38-126) U/L Troponin I (0.000-0.034) ng/mL Total Protein (6.3-8.2) g/dL Albumin (3.5-5.0) g/dL Urine Protein (Negative) Urine Glucose (UA) (Negative) Urine Blood (Negative) Ur Leukocyte Esterase (Negative) Urine RBC (0-5) /hpf Urine WBC (0-5) /hpf Urine Bacteria (None) /hpf Urine Mucus (None) /hpf Crossmatch 04/22/22 04/22/22 04/22/22 Range/Units 21:25 21:25 21:25 WBC (3.8-10.6) k/uL RBC (4.30-5.90) m/uL Hgb (13.0-17.5) gm/dL Hct (39.0-53.0) % MCV (80.0-100.0) fL MCHC (31.0-37.0) g/dL RDW (11.5-15.5) % Plt Count (150-450) k/uL Neutrophils # (Manual) (1.3-7.7) k/uL Monocytes # (Manual) (0-1.0) k/uL Metamyelocytes # (Man) (0) k/uL Myelocytes # (Manual) (0) k/uL Nucleated RBCs (0-0) /100 WBC Macrocytosis PT (9.0-12.0) sec INR (<1.2) APTT (22.0-30.0) sec D-Dimer (<0.60) mg/L FEU ABG pH (7.35-7.45) ABG pCO2 (35-45) mmHg ABG pO2 (83-108) mmHg ABG HCO3 (21-25) mmol/L ABG Total CO2 (19-24) mmol/L ABG O2 Saturation (94-97) % ABG Hematocrit (34.0-46.0) % Hemoglobin (13.0-17.5) gm/dL Sodium (137-145) mmol/L Potassium 7.9 H* (3.5-5.1) mmol/L Chloride (98-107) mmol/L Carbon Dioxide 11 L (22-30) mmol/L Creatinine 2.87 H (0.66-1.25) mg/dL Glucose 153 H (74-99) mg/dL POC Glucose (mg/dL) (70-110) mg/dL Plasma Lactic Acid Matheus 18.6 H* (0.7-2.0) mmol/L Calcium (8.4-10.2) mg/dL Magnesium 3.5 H (1.6-2.3) mg/dL AST 6304 H (17-59) U/L ALT 4624 H (4-49) U/L Alkaline Phosphatase (38-126) U/L Troponin I 0.129 H* (0.000-0.034) ng/mL Total Protein (6.3-8.2) g/dL Albumin (3.5-5.0) g/dL Urine Protein (Negative) Urine Glucose (UA) (Negative) Urine Blood (Negative) Ur Leukocyte Esterase (Negative) Urine RBC (0-5) /hpf Urine WBC (0-5) /hpf Urine Bacteria (None) /hpf Urine Mucus (None) /hpf Crossmatch 04/22/22 04/22/22 04/22/22 Range/Units 22:10 22:39 22:51 WBC (3.8-10.6) k/uL RBC (4.30-5.90) m/uL Hgb (13.0-17.5) gm/dL Hct (39.0-53.0) % MCV (80.0-100.0) fL MCHC (31.0-37.0) g/dL RDW (11.5-15.5) % Plt Count (150-450) k/uL Neutrophils # (Manual) (1.3-7.7) k/uL Monocytes # (Manual) (0-1.0) k/uL Metamyelocytes # (Man) (0) k/uL Myelocytes # (Manual) (0) k/uL Nucleated RBCs (0-0) /100 WBC Macrocytosis PT (9.0-12.0) sec INR (<1.2) APTT (22.0-30.0) sec D-Dimer (<0.60) mg/L FEU ABG pH 6.82 L* (7.35-7.45) ABG pCO2 58 H (35-45) mmHg ABG pO2 259 H (83-108) mmHg ABG HCO3 9 L* (21-25) mmol/L ABG Total CO2 11 L (19-24) mmol/L ABG O2 Saturation 99.1 H (94-97) % ABG Hematocrit 33 L (34.0-46.0) % Hemoglobin 10.7 L (13.0-17.5) gm/dL Sodium (137-145) mmol/L Potassium 8.5 H* (3.5-5.1) mmol/L Chloride (98-107) mmol/L Carbon Dioxide 14 L (22-30) mmol/L Creatinine 2.65 H (0.66-1.25) mg/dL Glucose 180 H (74-99) mg/dL POC Glucose (mg/dL) 368 H (70-110) mg/dL Plasma Lactic Acid Matheus (0.7-2.0) mmol/L Calcium 8.2 L (8.4-10.2) mg/dL Magnesium 3.2 H (1.6-2.3) mg/dL AST (17-59) U/L ALT (4-49) U/L Alkaline Phosphatase (38-126) U/L Troponin I (0.000-0.034) ng/mL Total Protein (6.3-8.2) g/dL Albumin (3.5-5.0) g/dL Urine Protein (Negative) Urine Glucose (UA) (Negative) Urine Blood (Negative) Ur Leukocyte Esterase (Negative) Urine RBC (0-5) /hpf Urine WBC (0-5) /hpf Urine Bacteria (None) /hpf Urine Mucus (None) /hpf Crossmatch 04/22/22 04/22/22 04/22/22 Range/Units 23:01 23:09 23:10 WBC (3.8-10.6) k/uL RBC 3.23 L (4.30-5.90) m/uL Hgb 9.6 L D (13.0-17.5) gm/dL Hct 31.8 L (39.0-53.0) % MCV (80.0-100.0) fL MCHC 30.3 L (31.0-37.0) g/dL RDW 17.3 H (11.5-15.5) % Plt Count 41 L (150-450) k/uL Neutrophils # (Manual) (1.3-7.7) k/uL Monocytes # (Manual) (0-1.0) k/uL Metamyelocytes # (Man) 0.06 H (0) k/uL Myelocytes # (Manual) 0.06 H (0) k/uL Nucleated RBCs 5 H (0-0) /100 WBC Macrocytosis PT (9.0-12.0) sec INR (<1.2) APTT (22.0-30.0) sec D-Dimer (<0.60) mg/L FEU ABG pH 7.12 L* (7.35-7.45) ABG pCO2 66 H (35-45) mmHg ABG pO2 345 H (83-108) mmHg ABG HCO3 (21-25) mmol/L ABG Total CO2 (19-24) mmol/L ABG O2 Saturation 100.0 H (94-97) % ABG Hematocrit 29 L (34.0-46.0) % Hemoglobin 9.5 L (13.0-17.5) gm/dL Sodium (137-145) mmol/L Potassium (3.5-5.1) mmol/L Chloride (98-107) mmol/L Carbon Dioxide (22-30) mmol/L Creatinine (0.66-1.25) mg/dL Glucose (74-99) mg/dL POC Glucose (mg/dL) (70-110) mg/dL Plasma Lactic Acid Matheus (0.7-2.0) mmol/L Calcium (8.4-10.2) mg/dL Magnesium (1.6-2.3) mg/dL AST (17-59) U/L ALT (4-49) U/L Alkaline Phosphatase (38-126) U/L Troponin I (0.000-0.034) ng/mL Total Protein (6.3-8.2) g/dL Albumin (3.5-5.0) g/dL Urine Protein (Negative) Urine Glucose (UA) (Negative) Urine Blood (Negative) Ur Leukocyte Esterase (Negative) Urine RBC (0-5) /hpf Urine WBC (0-5) /hpf Urine Bacteria (None) /hpf Urine Mucus (None) /hpf Crossmatch See Detail 04/22/22 04/23/22 04/23/22 Range/Units 23:23 00:35 01:45 WBC (3.8-10.6) k/uL RBC (4.30-5.90) m/uL Hgb (13.0-17.5) gm/dL Hct (39.0-53.0) % MCV (80.0-100.0) fL MCHC (31.0-37.0) g/dL RDW (11.5-15.5) % Plt Count (150-450) k/uL Neutrophils # (Manual) (1.3-7.7) k/uL Monocytes # (Manual) (0-1.0) k/uL Metamyelocytes # (Man) (0) k/uL Myelocytes # (Manual) (0) k/uL Nucleated RBCs (0-0) /100 WBC Macrocytosis PT (9.0-12.0) sec INR (<1.2) APTT (22.0-30.0) sec D-Dimer (<0.60) mg/L FEU ABG pH 7.05 L* (7.35-7.45) ABG pCO2 54 H (35-45) mmHg ABG pO2 214 H (83-108) mmHg ABG HCO3 15 L (21-25) mmol/L ABG Total CO2 17 L (19-24) mmol/L ABG O2 Saturation 99.5 H (94-97) % ABG Hematocrit 29 L (34.0-46.0) % Hemoglobin 9.6 L (13.0-17.5) gm/dL Sodium (137-145) mmol/L Potassium (3.5-5.1) mmol/L Chloride (98-107) mmol/L Carbon Dioxide (22-30) mmol/L Creatinine (0.66-1.25) mg/dL Glucose (74-99) mg/dL POC Glucose (mg/dL) 144 H (70-110) mg/dL Plasma Lactic Acid Matheus 14.1 H* (0.7-2.0) mmol/L Calcium (8.4-10.2) mg/dL Magnesium (1.6-2.3) mg/dL AST (17-59) U/L ALT (4-49) U/L Alkaline Phosphatase (38-126) U/L Troponin I (0.000-0.034) ng/mL Total Protein (6.3-8.2) g/dL Albumin (3.5-5.0) g/dL Urine Protein (Negative) Urine Glucose (UA) (Negative) Urine Blood (Negative) Ur Leukocyte Esterase (Negative) Urine RBC (0-5) /hpf Urine WBC (0-5) /hpf Urine Bacteria (None) /hpf Urine Mucus (None) /hpf Crossmatch 04/23/22 04/23/22 04/23/22 Range/Units 02:20 02:45 02:53 WBC (3.8-10.6) k/uL RBC 3.31 L (4.30-5.90) m/uL Hgb 9.7 L (13.0-17.5) gm/dL Hct 33.4 L (39.0-53.0) % MCV 100.9 H (80.0-100.0) fL MCHC 29.2 L (31.0-37.0) g/dL RDW 17.4 H (11.5-15.5) % Plt Count 131 L D (150-450) k/uL Neutrophils # (Manual) (1.3-7.7) k/uL Monocytes # (Manual) (0-1.0) k/uL Metamyelocytes # (Man) (0) k/uL Myelocytes # (Manual) (0) k/uL Nucleated RBCs (0-0) /100 WBC Macrocytosis PT (9.0-12.0) sec INR (<1.2) APTT (22.0-30.0) sec D-Dimer (<0.60) mg/L FEU ABG pH (7.35-7.45) ABG pCO2 (35-45) mmHg ABG pO2 (83-108) mmHg ABG HCO3 (21-25) mmol/L ABG Total CO2 (19-24) mmol/L ABG O2 Saturation (94-97) % ABG Hematocrit (34.0-46.0) % Hemoglobin (13.0-17.5) gm/dL Sodium 146 H (137-145) mmol/L Potassium 6.0 H (3.5-5.1) mmol/L Chloride 108 H (98-107) mmol/L Carbon Dioxide 16 L (22-30) mmol/L Creatinine 2.79 H (0.66-1.25) mg/dL Glucose 110 H (74-99) mg/dL POC Glucose (mg/dL) (70-110) mg/dL Plasma Lactic Acid Matheus (0.7-2.0) mmol/L Calcium 7.0 L (8.4-10.2) mg/dL Magnesium (1.6-2.3) mg/dL AST (17-59) U/L ALT (4-49) U/L Alkaline Phosphatase (38-126) U/L Troponin I (0.000-0.034) ng/mL Total Protein (6.3-8.2) g/dL Albumin (3.5-5.0) g/dL Urine Protein 4+ H (Negative) Urine Glucose (UA) 1+ H (Negative) Urine Blood Large H (Negative) Ur Leukocyte Esterase Trace H (Negative) Urine RBC 85 H (0-5) /hpf Urine WBC 29 H (0-5) /hpf Urine Bacteria Rare H (None) /hpf Urine Mucus Rare H (None) /hpf Crossmatch 04/23/22 04/23/22 04/23/22 Range/Units 05:00 05:00 05:00 WBC 12.4 H (3.8-10.6) k/uL RBC 3.44 L (4.30-5.90) m/uL Hgb 9.9 L (13.0-17.5) gm/dL Hct 34.2 L (39.0-53.0) % MCV (80.0-100.0) fL MCHC 28.9 L (31.0-37.0) g/dL RDW 16.9 H (11.5-15.5) % Plt Count (150-450) k/uL Neutrophils # (Manual) 9.70 H (1.3-7.7) k/uL Monocytes # (Manual) 1.24 H (0-1.0) k/uL Metamyelocytes # (Man) (0) k/uL Myelocytes # (Manual) (0) k/uL Nucleated RBCs 7 H (0-0) /100 WBC Macrocytosis PT >130.0 H (9.0-12.0) sec INR >10.0 H* (<1.2) APTT 105.3 H* (22.0-30.0) sec D-Dimer >34.10 H (<0.60) mg/L FEU ABG pH (7.35-7.45) ABG pCO2 (35-45) mmHg ABG pO2 (83-108) mmHg ABG HCO3 (21-25) mmol/L ABG Total CO2 (19-24) mmol/L ABG O2 Saturation (94-97) % ABG Hematocrit (34.0-46.0) % Hemoglobin (13.0-17.5) gm/dL Sodium 147 H (137-145) mmol/L Potassium 6.0 H (3.5-5.1) mmol/L Chloride (98-107) mmol/L Carbon Dioxide 20 L (22-30) mmol/L Creatinine 3.02 H (0.66-1.25) mg/dL Glucose 106 H (74-99) mg/dL POC Glucose (mg/dL) (70-110) mg/dL Plasma Lactic Acid Matheus (0.7-2.0) mmol/L Calcium 7.0 L (8.4-10.2) mg/dL Magnesium (1.6-2.3) mg/dL AST 49728 H (17-59) U/L ALT 8867 H (4-49) U/L Alkaline Phosphatase 133 H (38-126) U/L Troponin I (0.000-0.034) ng/mL Total Protein 4.8 L (6.3-8.2) g/dL Albumin 2.7 L (3.5-5.0) g/dL Urine Protein (Negative) Urine Glucose (UA) (Negative) Urine Blood (Negative) Ur Leukocyte Esterase (Negative) Urine RBC (0-5) /hpf Urine WBC (0-5) /hpf Urine Bacteria (None) /hpf Urine Mucus (None) /hpf Crossmatch 04/23/22 04/23/22 Range/Units 05:15 07:46 WBC (3.8-10.6) k/uL RBC (4.30-5.90) m/uL Hgb (13.0-17.5) gm/dL Hct (39.0-53.0) % MCV (80.0-100.0) fL MCHC (31.0-37.0) g/dL RDW (11.5-15.5) % Plt Count (150-450) k/uL Neutrophils # (Manual) (1.3-7.7) k/uL Monocytes # (Manual) (0-1.0) k/uL Metamyelocytes # (Man) (0) k/uL Myelocytes # (Manual) (0) k/uL Nucleated RBCs (0-0) /100 WBC Macrocytosis PT (9.0-12.0) sec INR (<1.2) APTT (22.0-30.0) sec D-Dimer (<0.60) mg/L FEU ABG pH 6.99 L* 7.19 L* (7.35-7.45) ABG pCO2 81 H* 51 H (35-45) mmHg ABG pO2 397 H >400 H (83-108) mmHg ABG HCO3 19 L 20 L (21-25) mmol/L ABG Total CO2 (19-24) mmol/L ABG O2 Saturation 100.0 H 100.0 H (94-97) % ABG Hematocrit 30 L 28 L (34.0-46.0) % Hemoglobin 9.9 L 9.1 L (13.0-17.5) gm/dL Sodium (137-145) mmol/L Potassium (3.5-5.1) mmol/L Chloride (98-107) mmol/L Carbon Dioxide (22-30) mmol/L Creatinine (0.66-1.25) mg/dL Glucose (74-99) mg/dL POC Glucose (mg/dL) (70-110) mg/dL Plasma Lactic Acid Matheus (0.7-2.0) mmol/L Calcium (8.4-10.2) mg/dL Magnesium (1.6-2.3) mg/dL AST (17-59) U/L ALT (4-49) U/L Alkaline Phosphatase (38-126) U/L Troponin I (0.000-0.034) ng/mL Total Protein (6.3-8.2) g/dL Albumin (3.5-5.0) g/dL Urine Protein (Negative) Urine Glucose (UA) (Negative) Urine Blood (Negative) Ur Leukocyte Esterase (Negative) Urine RBC (0-5) /hpf Urine WBC (0-5) /hpf Urine Bacteria (None) /hpf Urine Mucus (None) /hpf Crossmatch
[2022-04-23 08:40] LABS: Glucose,Whole Blood 170 mg/dL (70-110)
[2022-04-23] MEDS ORDERED: CHLORHEXIDINE GLUCONATE 15 ML CUP MUCOUS MEM SCH (09:00)
[2022-04-23] MEDS ORDERED: MONTELUKAST 10 MG TAB PO SCH (09:00)
[2022-04-23] MEDS ORDERED: PANTOPRAZOLE 40 MG/10 ML VIAL IV SCH (09:00)
[2022-04-23] MEDS ORDERED: levETIRAcetam IV 500 MG in SODIUM CHLORIDE 0.9% 100 ML IVPB STA (09:42)
--- NOTE | 2022-04-23 10:11 | P.CNNES ---
History of Present Illness Consult date: 04/23/22 Requesting physician: Roger Pineda Reason for Consult: Anoxic brain injury History of Present Illness: Patient is a 46-year-old male who was brought to the hospital by ambulance yesterday at 9:04 PM after he was found pulseless and apneic on the floor on the upstairs living room. When EMS arrived, 5 department were on the scene performing CPR. Patient last seen was 1 hour prior to their arrival and appeared to be snoring. Neighbor stated that he only drinks alcohol. Patient was recently in the hospital as well but was feeling okay per neighbors report. No apparent trauma was present. Pupils were dilated. Patient has very poor vascular access therefore IO placed. Patient presented with asystole on bus driver/monitor. Patient was hypoglycemic with blood glucose of 51, dextrose was administered during CPR. Patient's pulse appeared at 95 with blood pressure 88/48. Patient had recurrence of cardiac arrest in the ambulance and CPR was restarted along with ACLS protocol. Patient once again had a pulse upon arrival to the ER. According to the nursing report, patient received 7 rounds of appendectomy by the EMS. He coded in the ER and required more epinephrine. He was taken to cardiac cath which was negative. He coded twice in the Support Analyst for which he was given appendectomy. Patient was hyperkalemic. He has received 2 L of fluid. Patient is also in DIC. Patient currently not on any sedation. His pupils are dilated and fixed per nursing report. Patient's blood test shows normal WBC hemoglobin 12.5, platelets 74. PT is 13.7 INR 1.3, PTT 28.5. D-dimer is elevated 27.85. Initial pH was 6.82 with pCO2 58 and saturation 99%. Sodium 144 potassium 7.9. BUN 15, creatinine 2.87. AST 6304 and ALT 4624. Reported in 0.129. Blood alcohol level was borderline 17. Urine drug screen is pending. Patient's most recent INR is > 10.0. PTT 15.3. D-dimer > 34.10. Creatinine has got worse 3.02. Potassium is 6.0. His ALT is further gone up to 8867. AST has got further worse up to 13,791. Patient at present is comatose with GCS of 3. Patient is exhibiting some tremulousness of his torso and abdominal muscles, unclear cause, rule out seizure. No facial twitching noted. He has some nasal mucus test with blood seeping through his nostrils. Review of Systems Patient's nurse for certain about any review of systems. Family members were not present at this time. ROS unobtainable: due to endotracheal tube, due to mental status Past Medical History Past Medical History: Asthma, COPD, Renal Disease Additional Past Medical History / Comment(s): stage 2 kidney disease, pancreatitis, hital hernia , sarcoidosis, COPD History of Any Multi-Drug Resistant Organisms: None Reported Past Surgical History: No Surgical Hx Reported Additional Past Surgical History / Comment(s): kidney stone removal Past Anesthesia/Blood Transfusion Reactions: Unable to Obtain Past Psychological History: Anxiety, Depression Smoking Status: Former smoker Past Alcohol Use History: None Reported Past Drug Use History: Marijuana - Past Family History Father Family Medical History: COPD Medications and Allergies Home Medications Medication Instructions Recorded Confirmed Type Cetirizine HCl 10 mg PO DAILY 08/16/19 04/23/22 History Montelukast [Singulair] 10 mg PO DAILY 08/16/19 04/23/22 History Nephro-Van 0.8mg 0.8 mg PO DAILY 08/16/19 04/23/22 History amLODIPine [Norvasc] 10 mg PO DAILY 08/16/19 04/23/22 History Triamcinolone 0.1% Ointment 1 applic TOPICAL BID PRN 05/15/21 04/23/22 History [Kenalog 0.1% Ointment] Albuterol Inhaler [Ventolin Hfa 2 puff INHALATION RT-QID PRN 06/16/21 04/23/22 History Inhaler] Albuterol Nebulized [Ventolin 2.5 mg INHALATION RT-QID PRN 06/16/21 04/23/22 History Nebulized] Benzonatate [Tessalon Perle] 200 mg PO TID PRN 08/04/21 04/23/22 History Fluticasone/Umeclidin/Vilanter 1 puff INHALATION RT-DAILY 08/04/21 04/23/22 History [Trelegy Ellipta 100-62.5-25] Fluticasone Nasal [place] [Flonase 2 spr EA NOSTRIL DAILY #16 gm 01/07/22 04/23/22 Rx Nasal [place]] Famotidine [Pepcid] 20 mg PO BID #30 tablet 01/18/22 04/23/22 Rx Promethaz-Cod 6.25-10 mg/5 ml 5 ml PO Q4HR PRN 3 Days #90 ml 01/18/22 04/23/22 Rx [Phenergan with Codeine] Oseltamivir [Tamiflu] 75 mg PO Q12HR 5 Days #10 cap 02/17/22 04/23/22 Rx Ergocalciferol [Vitamin D2 (1250 1,250 mcg PO TUTH 04/23/22 04/23/22 History Mcg = 04320 Iu)] Gabapentin [Neurontin] 100 mg PO TID 04/23/22 04/23/22 History glipiZIDE [Glucotrol] 5 mg PO AC-BID 04/23/22 04/23/22 History predniSONE See Taper PO TID 04/23/22 04/23/22 History sitaGLIPtin [Januvia] 50 mg PO DAILY 04/23/22 04/23/22 History Allergies Allergy/AdvReac Type Severity Reaction Status Date / Time hydromorphone [From Dilaudid] Allergy Itching Verified 04/23/22 09:45 meperidine [From Demerol] Allergy Itching Verified 04/23/22 09:45 propoxyphene Allergy Unknown Verified 04/23/22 09:45 [From Darvocet-N] NSAIDS (Non-Steroidal AdvReac Kidneys Verified 04/23/22 09:45 Anti-Inflamma Physical Examination - Vital Signs Vital Signs: Vital Signs Temp Pulse Pulse Resp BP BP Pulse Ox 04/23/22 08:30 87 34 H 04/23/22 08:00 83 34 H 04/23/22 07:49 04/23/22 07:30 84 34 H 04/23/22 07:28 85 04/23/22 07:18 82 04/23/22 07:11 04/23/22 07:00 90 34 H 04/23/22 06:30 91 34 H 100 04/23/22 06:05 79 32 H 100 04/23/22 06:00 80 32 H 100 04/23/22 05:55 80 32 H 100 04/23/22 05:50 82 32 H 100 04/23/22 05:48 04/23/22 05:45 78 32 H 100 04/23/22 05:40 74 32 H 100 04/23/22 05:36 72 04/23/22 05:35 71 32 H 100 04/23/22 05:30 76 32 H 100 04/23/22 05:28 77 04/23/22 05:25 77 32 H 100 04/23/22 05:20 77 32 H 100 04/23/22 05:15 77 32 H 100 04/23/22 05:10 75 32 H 100 04/23/22 05:05 76 32 H 100 04/23/22 05:00 77 32 H 100 04/23/22 04:55 78 32 H 100 04/23/22 04:50 79 32 H 100 04/23/22 04:45 79 32 H 100 04/23/22 04:40 79 32 H 100 04/23/22 04:35 80 32 H 100 04/23/22 04:30 79 32 H 100 04/23/22 04:25 79 32 H 100 04/23/22 04:20 80 32 H 100 04/23/22 04:15 83 32 H 100 04/23/22 04:10 82 32 H 100 04/23/22 04:05 84 32 H 100 04/23/22 04:00 85 32 H 100 04/23/22 03:55 85 32 H 98 04/23/22 03:51 04/23/22 03:50 85 32 H 85 L 04/23/22 03:45 85 32 H 84 L 04/23/22 03:40 85 32 H 87 L 04/23/22 03:35 85 32 H 91 L 04/23/22 03:30 82 32 H 91 L 04/23/22 03:25 82 32 H 95 04/23/22 03:20 84 32 H 99 04/23/22 03:15 85 32 H 95 04/23/22 03:10 85 32 H 100 04/23/22 03:09 04/23/22 03:05 85 32 H 100 04/23/22 03:00 84 32 H 100 04/23/22 02:55 85 32 H 100 04/23/22 02:50 85 32 H 100 04/23/22 02:45 85 32 H 100 04/23/22 02:40 84 32 H 100 04/23/22 02:35 84 32 H 100 04/23/22 02:30 84 32 H 100 04/23/22 02:25 84 32 H 100 04/23/22 02:20 84 32 H 97 04/23/22 02:15 85 32 H 100 04/23/22 02:10 85 32 H 100 04/23/22 02:05 85 32 H 100 04/23/22 02:00 85 32 H 100 04/23/22 01:55 84 32 H 100 04/23/22 01:50 84 32 H 100 04/23/22 01:45 84 32 H 100 04/23/22 01:40 83 32 H 100 04/23/22 01:35 82 32 H 100 04/23/22 01:30 82 32 H 100 04/23/22 01:25 82 32 H 100 04/23/22 01:20 82 32 H 100 04/23/22 01:15 82 32 H 100 04/23/22 01:10 82 32 H 100 04/23/22 01:05 82 32 H 100 04/23/22 01:00 82 32 H 100 04/23/22 00:55 82 32 H 100 04/23/22 00:50 82 32 H 100 04/23/22 00:45 82 32 H 100 04/23/22 00:40 82 32 H 100 04/23/22 00:35 82 32 H 100 04/23/22 00:30 84 32 H 100 04/23/22 00:25 85 32 H 100 04/23/22 00:20 86 32 H 100 04/23/22 00:15 86 32 H 100 04/23/22 00:10 85 32 H 100 04/23/22 00:05 85 32 H 100 04/23/22 00:00 85 32 H 100 04/22/22 23:55 85 32 H 100 04/22/22 23:50 84 32 H 100 04/22/22 23:45 83 32 H 100 04/22/22 23:43 91.7 F L 81 32 H 100 04/22/22 23:40 83 32 H 100 04/22/22 23:35 91.7 F L 83 32 H 100 04/22/22 22:53 04/22/22 22:24 04/22/22 22:17 91.7 F L 30 L 22 40/20 100 04/22/22 21:30 88 43/33 97 04/22/22 21:25 72 80/34 98 04/22/22 21:21 72 12 117/79 97 04/22/22 21:19 72 61/26 97 04/22/22 21:13 FiO2 04/23/22 08:30 04/23/22 08:00 04/23/22 07:49 50 04/23/22 07:30 04/23/22 07:28 04/23/22 07:18 04/23/22 07:11 100 04/23/22 07:00 04/23/22 06:30 04/23/22 06:05 04/23/22 06:00 04/23/22 05:55 04/23/22 05:50 04/23/22 05:48 100 04/23/22 05:45 04/23/22 05:40 04/23/22 05:36 04/23/22 05:35 04/23/22 05:30 04/23/22 05:28 04/23/22 05:25 04/23/22 05:20 04/23/22 05:15 04/23/22 05:10 04/23/22 05:05 04/23/22 05:00 04/23/22 04:55 04/23/22 04:50 04/23/22 04:45 04/23/22 04:40 04/23/22 04:35 04/23/22 04:30 04/23/22 04:25 04/23/22 04:20 04/23/22 04:15 04/23/22 04:10 04/23/22 04:05 04/23/22 04:00 04/23/22 03:55 04/23/22 03:51 100 04/23/22 03:50 04/23/22 03:45 04/23/22 03:40 04/23/22 03:35 04/23/22 03:30 04/23/22 03:25 04/23/22 03:20 04/23/22 03:15 04/23/22 03:10 04/23/22 03:09 50 04/23/22 03:05 04/23/22 03:00 04/23/22 02:55 04/23/22 02:50 04/23/22 02:45 04/23/22 02:40 04/23/22 02:35 04/23/22 02:30 04/23/22 02:25 04/23/22 02:20 04/23/22 02:15 04/23/22 02:10 04/23/22 02:05 04/23/22 02:00 04/23/22 01:55 04/23/22 01:50 04/23/22 01:45 04/23/22 01:40 04/23/22 01:35 04/23/22 01:30 04/23/22 01:25 04/23/22 01:20 04/23/22 01:15 04/23/22 01:10 04/23/22 01:05 04/23/22 01:00 04/23/22 00:55 04/23/22 00:50 04/23/22 00:45 04/23/22 00:40 04/23/22 00:35 04/23/22 00:30 04/23/22 00:25 04/23/22 00:20 04/23/22 00:15 04/23/22 00:10 04/23/22 00:05 04/23/22 00:00 70 04/22/22 23:55 04/22/22 23:50 04/22/22 23:45 04/22/22 23:43 04/22/22 23:40 04/22/22 23:35 04/22/22 22:53 70 04/22/22 22:24 70 04/22/22 22:17 70 04/22/22 21:30 04/22/22 21:25 04/22/22 21:21 04/22/22 21:19 04/22/22 21:13 100 Intake and Output 04/22/22 04/23/22 04/23/22 22:59 06:59 14:59 Intake Total 4248.279 150 Output Total 320 0 Balance 3928.279 150 Intake: IV 3975 150 Dextrose 5% in Water 1, 975 150 000 ml @ 150 mls/hr IV . Q7H40M ADIN with Sodium Bicarb (1 Meq/ml) 150 ml Rx#:[id number] Sodium Chloride 0.9% 1, 3000 000 ml @ 999 mls/hr IV . Q1H1M [facility] Rx#:[id number] Intake, IV Titration 273.279 Amount Norepinephrine 32 mg In 207.378 Sodium Chloride 0.9% 218 ml @ 0.9 MCG/KG/MIN 42. 099 mls/hr IV .Q5H57M [facility] Rx#:[id number] Norepinephrine 4 mg In 65.901 Sodium Chloride 0.9% 250 ml @ 0.1 MCG/KG/MIN 38.02 mls/hr IV .Q6H41M [facility] Rx #:[id number] Output: Gastric Drainage 300 Urine 20 0 Other: Voiding Method Indwelling Catheter Weight 99.79 kg 107.5 kg ABP, PAP, CO, CI - Last 8 Hours Arterial Blood Pressure 60/41 Arterial Blood Pressure 57/41 Arterial Blood Pressure 65/46 Arterial Blood Pressure 75/51 Arterial Blood Pressure 73/51 Arterial Blood Pressure 60/43 Arterial Blood Pressure 62/44 Arterial Blood Pressure 73/50 Arterial Blood Pressure 63/49 Arterial Blood Pressure 53/42 Arterial Blood Pressure 59/45 Arterial Blood Pressure 54/43 Arterial Blood Pressure 57/44 Arterial Blood Pressure 62/47 Arterial Blood Pressure 61/47 Arterial Blood Pressure 60/46 Arterial Blood Pressure 60/46 Arterial Blood Pressure 60/45 Arterial Blood Pressure 59/45 Arterial Blood Pressure 57/45 Arterial Blood Pressure 59/46 Arterial Blood Pressure 56/45 Arterial Blood Pressure 58/46 Arterial Blood Pressure 57/44 Arterial Blood Pressure 57/45 Arterial Blood Pressure 57/45 Arterial Blood Pressure 58/45 Arterial Blood Pressure 58/45 Arterial Blood Pressure 57/44 Arterial Blood Pressure 57/44 Arterial Blood Pressure 59/45 Arterial Blood Pressure 54/42 Arterial Blood Pressure 62/47 Arterial Blood Pressure 61/47 Arterial Blood Pressure 62/48 Arterial Blood Pressure 63/48 Arterial Blood Pressure 65/50 Arterial Blood Pressure 67/51 Arterial Blood Pressure 70/53 Arterial Blood Pressure 71/53 Arterial Blood Pressure 70/54 Arterial Blood Pressure 76/57 Arterial Blood Pressure 76/56 Arterial Blood Pressure 77/57 Arterial Blood Pressure 78/59 Arterial Blood Pressure 79/60 Arterial Blood Pressure 79/60 Arterial Blood Pressure 83/61 Arterial Blood Pressure 82/61 Arterial Blood Pressure 85/61 Arterial Blood Pressure 85/63 Arterial Blood Pressure 85/63 Arterial Blood Pressure 87/64 Arterial Blood Pressure 89/65 Arterial Blood Pressure 90/66 Arterial Blood Pressure 90/66 Arterial Blood Pressure 91/67 Arterial Blood Pressure 91/67 Arterial Blood Pressure 92/68 Arterial Blood Pressure 92/68 Arterial Blood Pressure 94/68 Arterial Blood Pressure 94/68 Arterial Blood Pressure 95/69 Patient is a middle aged Afro-[place] male, moderately obese, who is intubated on mechanical ventilator. Patient is not on any sedation. Patient is deeply comatose with GCS of 3. On cranial nerve examination, pupils are dilated about 6-7 mm, nonreactive, gaze is midline, oculocephalics absent, corneals absent. Patient is not breathing over the ventilator. No gag or cough per nursing report. On muscle strength testing, there is no response to deep painful stimuli. No grimacing or withdrawal. Deep tendon reflexes are symmetric absent, plantars are flat. Sensory cerebellar functions and gait cannot be assessed. Patient is having some tremulousness of his torso and abdominal muscles. On general examination, there is no carotid bruit or murmur, S1-S2 audible. Chest with no wheezes or rhonchi on auscultation. Abdomen is soft, protuberant, nontender. No organomegaly, bowel sounds present. No clubbing. No edema. Results - Laboratory Findings CBC and BMP: 04/23/22 05:00 04/23/22 05:00 Abnormal Lab Findings: Abnormal Labs 04/22/22 04/22/22 04/22/22 21:16 21:20 21:25 WBC RBC Hgb 12.5 L Hct MCV 105.6 H D MCHC 27.2 L RDW 17.1 H Plt Count 74 L D Neutrophils # (Manual) Monocytes # (Manual) Metamyelocytes # (Man) 0.09 H Myelocytes # (Manual) 0.09 H Nucleated RBCs 3 H Macrocytosis Marked A PT 13.7 H INR 1.3 H APTT D-Dimer 27.85 H ABG pH ABG pCO2 ABG pO2 ABG HCO3 ABG Total CO2 ABG O2 Saturation ABG Hematocrit Hemoglobin Sodium Potassium Chloride Carbon Dioxide Creatinine Glucose POC Glucose (mg/dL) 152 H Plasma Lactic Acid Matheus Calcium Magnesium AST ALT Alkaline Phosphatase Troponin I Total Protein Albumin Urine Protein Urine Glucose (UA) Urine Blood Ur Leukocyte Esterase Urine RBC Urine WBC Urine Bacteria Urine Mucus Crossmatch 04/22/22 04/22/22 04/22/22 21:25 21:25 21:25 WBC RBC Hgb Hct MCV MCHC RDW Plt Count Neutrophils # (Manual) Monocytes # (Manual) Metamyelocytes # (Man) Myelocytes # (Manual) Nucleated RBCs Macrocytosis PT INR APTT D-Dimer ABG pH ABG pCO2 ABG pO2 ABG HCO3 ABG Total CO2 ABG O2 Saturation ABG Hematocrit Hemoglobin Sodium Potassium 7.9 H* Chloride Carbon Dioxide 11 L Creatinine 2.87 H Glucose 153 H POC Glucose (mg/dL) Plasma Lactic Acid Matheus 18.6 H* Calcium Magnesium 3.5 H AST 6304 H ALT 4624 H Alkaline Phosphatase Troponin I 0.129 H* Total Protein Albumin Urine Protein Urine Glucose (UA) Urine Blood Ur Leukocyte Esterase Urine RBC Urine WBC Urine Bacteria Urine Mucus Crossmatch 04/22/22 04/22/22 04/22/22 22:10 22:39 22:51 WBC RBC Hgb Hct MCV MCHC RDW Plt Count Neutrophils # (Manual) Monocytes # (Manual) Metamyelocytes # (Man) Myelocytes # (Manual) Nucleated RBCs Macrocytosis PT INR APTT D-Dimer ABG pH 6.82 L* ABG pCO2 58 H ABG pO2 259 H ABG HCO3 9 L* ABG Total CO2 11 L ABG O2 Saturation 99.1 H ABG Hematocrit 33 L Hemoglobin 10.7 L Sodium Potassium 8.5 H* Chloride Carbon Dioxide 14 L Creatinine 2.65 H Glucose 180 H POC Glucose (mg/dL) 368 H Plasma Lactic Acid Matheus Calcium 8.2 L Magnesium 3.2 H AST ALT Alkaline Phosphatase Troponin I Total Protein Albumin Urine Protein Urine Glucose (UA) Urine Blood Ur Leukocyte Esterase Urine RBC Urine WBC Urine Bacteria Urine Mucus Crossmatch 04/22/22 04/22/22 04/22/22 23:01 23:09 23:10 WBC RBC 3.23 L Hgb 9.6 L D Hct 31.8 L MCV MCHC 30.3 L RDW 17.3 H Plt Count 41 L Neutrophils # (Manual) Monocytes # (Manual) Metamyelocytes # (Man) 0.06 H Myelocytes # (Manual) 0.06 H Nucleated RBCs 5 H Macrocytosis PT INR APTT D-Dimer ABG pH 7.12 L* ABG pCO2 66 H ABG pO2 345 H ABG HCO3 ABG Total CO2 ABG O2 Saturation 100.0 H ABG Hematocrit 29 L Hemoglobin 9.5 L Sodium Potassium Chloride Carbon Dioxide Creatinine Glucose POC Glucose (mg/dL) Plasma Lactic Acid Matheus Calcium Magnesium AST ALT Alkaline Phosphatase Troponin I Total Protein Albumin Urine Protein Urine Glucose (UA) Urine Blood Ur Leukocyte Esterase Urine RBC Urine WBC Urine Bacteria Urine Mucus Crossmatch See Detail 04/22/22 04/23/22 04/23/22 23:23 00:35 01:45 WBC RBC Hgb Hct MCV MCHC RDW Plt Count Neutrophils # (Manual) Monocytes # (Manual) Metamyelocytes # (Man) Myelocytes # (Manual) Nucleated RBCs Macrocytosis PT INR APTT D-Dimer ABG pH 7.05 L* ABG pCO2 54 H ABG pO2 214 H ABG HCO3 15 L ABG Total CO2 17 L ABG O2 Saturation 99.5 H ABG Hematocrit 29 L Hemoglobin 9.6 L Sodium Potassium Chloride Carbon Dioxide Creatinine Glucose POC Glucose (mg/dL) 144 H Plasma Lactic Acid Matheus 14.1 H* Calcium Magnesium AST ALT Alkaline Phosphatase Troponin I Total Protein Albumin Urine Protein Urine Glucose (UA) Urine Blood Ur Leukocyte Esterase Urine RBC Urine WBC Urine Bacteria Urine Mucus Crossmatch 04/23/22 04/23/22 04/23/22 02:20 02:45 02:53 WBC RBC 3.31 L Hgb 9.7 L Hct 33.4 L MCV 100.9 H MCHC 29.2 L RDW 17.4 H Plt Count 131 L D Neutrophils # (Manual) Monocytes # (Manual) Metamyelocytes # (Man) Myelocytes # (Manual) Nucleated RBCs Macrocytosis PT INR APTT D-Dimer ABG pH ABG pCO2 ABG pO2 ABG HCO3 ABG Total CO2 ABG O2 Saturation ABG Hematocrit Hemoglobin Sodium 146 H Potassium 6.0 H Chloride 108 H Carbon Dioxide 16 L Creatinine 2.79 H Glucose 110 H POC Glucose (mg/dL) Plasma Lactic Acid Matheus Calcium 7.0 L Magnesium AST ALT Alkaline Phosphatase Troponin I Total Protein Albumin Urine Protein 4+ H Urine Glucose (UA) 1+ H Urine Blood Large H Ur Leukocyte Esterase Trace H Urine RBC 85 H Urine WBC 29 H Urine Bacteria Rare H Urine Mucus Rare H Crossmatch 04/23/22 04/23/22 04/23/22 05:00 05:00 05:00 WBC 12.4 H RBC 3.44 L Hgb 9.9 L Hct 34.2 L MCV MCHC 28.9 L RDW 16.9 H Plt Count Neutrophils # (Manual) 9.70 H Monocytes # (Manual) 1.24 H Metamyelocytes # (Man) Myelocytes # (Manual) Nucleated RBCs 7 H Macrocytosis PT >130.0 H INR >10.0 H* APTT 105.3 H* D-Dimer >34.10 H ABG pH ABG pCO2 ABG pO2 ABG HCO3 ABG Total CO2 ABG O2 Saturation ABG Hematocrit Hemoglobin Sodium 147 H Potassium 6.0 H Chloride Carbon Dioxide 20 L Creatinine 3.02 H Glucose 106 H POC Glucose (mg/dL) Plasma Lactic Acid Matheus Calcium 7.0 L Magnesium AST 40056 H ALT 8867 H Alkaline Phosphatase 133 H Troponin I Total Protein 4.8 L Albumin 2.7 L Urine Protein Urine Glucose (UA) Urine Blood Ur Leukocyte Esterase Urine RBC Urine WBC Urine Bacteria Urine Mucus Crossmatch 04/23/22 04/23/22 04/23/22 05:15 07:46 08:32 WBC RBC Hgb Hct MCV MCHC RDW Plt Count Neutrophils # (Manual) Monocytes # (Manual) Metamyelocytes # (Man) Myelocytes # (Manual) Nucleated RBCs Macrocytosis PT INR APTT D-Dimer ABG pH 6.99 L* 7.19 L* ABG pCO2 81 H* 51 H ABG pO2 397 H >400 H ABG HCO3 19 L 20 L ABG Total CO2 ABG O2 Saturation 100.0 H 100.0 H ABG Hematocrit 30 L 28 L Hemoglobin 9.9 L 9.1 L Sodium Potassium Chloride Carbon Dioxide Creatinine Glucose POC Glucose (mg/dL) 170 H Plasma Lactic Acid Matheus Calcium Magnesium AST ALT Alkaline Phosphatase Troponin I Total Protein Albumin Urine Protein Urine Glucose (UA) Urine Blood Ur Leukocyte Esterase Urine RBC Urine WBC Urine Bacteria Urine Mucus Crossmatch 04/23/22 08:41 WBC RBC Hgb Hct MCV MCHC RDW Plt Count Neutrophils # (Manual) Monocytes # (Manual) Metamyelocytes # (Man) Myelocytes # (Manual) Nucleated RBCs Macrocytosis PT INR APTT D-Dimer ABG pH ABG pCO2 ABG pO2 ABG HCO3 ABG Total CO2 ABG O2 Saturation ABG Hematocrit Hemoglobin Sodium Potassium Chloride Carbon Dioxide Creatinine Glucose POC Glucose (mg/dL) Plasma Lactic Acid Matheus Calcium Magnesium 2.4 H AST ALT Alkaline Phosphatase Troponin I Total Protein Albumin Urine Protein Urine Glucose (UA) Urine Blood Ur Leukocyte Esterase Urine RBC Urine WBC Urine Bacteria Urine Mucus Crossmatch Assessment and Plan Assessment: * Cardiac arrest (recurrent, multiple) with prolonged downtime. Exact downtime uncertain. * Anoxic encephalopathy, severe based upon clinical examination * New-onset tremulousness of her torso and abdominal region, rule out status. * DIC with coagulopathy * Acute hepatic injury * Acute on chronic renal insufficiency * Hyperkalemia * Lactic Acidosis * Anemia Plan: * Stat EEG to rule out status. * Keppra 500 mg IV PB daily for now (adjusted for hepatic and liver dysfunction) * CT head when possible to evaluate for anoxic encephalopathy. * Patient has multiorgan dysfunction. Medical management as per IM, critical care and other specialties. * Patient's clinical condition is very critical. * Neurology will follow. Discussed with nursing staff in detail. Thank you for the consult.
--- NOTE | 2022-04-23 10:11 | CA ---
Transthoracic Echo Report Name: Rico Chandra Age: 46 Gender: M : 1975 Exam Date: 04/23/2022 08:35 Exam Location: [facility] Ht (in): 60 Wt (lb): 236 Ordering Physician: Roger Pineda MD Attending/Referring Phys: [id number], Edwin Associate Professor Computer Science Saira Fisher RDCS Procedure CPT: Indications: Rule out heart disease Cardiac Hx: Technical Quality: Very technically difficult study Contrast 1: Lumason Total Dose (mL): 5 Contrast 2: Total Dose (mL): MEASUREMENTS (Male / Female) Normal Values 2D ECHO RV Internal Dim ED PLAX 3.7 cm FINDINGS Left Ventricle Normal left ventricular systolic function with no obvious regional wall motion abnormalities. Right Ventricle Moderate right ventricular dilatation. Right Atrium Right atrium not well visualized. Left Atrium Left atrium not well visualized. Mitral Valve Mitral valve not well visualized. Aortic Valve Aortic valve not well visualized. Tricuspid Valve Tricuspid valve not well visualized. Pulmonic Valve Pulmonic valve not well visualized. Pericardium Aorta CONCLUSIONS Technically suboptimal and incomplete study secondary to poor echo windows echo contrast was used to enhance endocardial visualization LV systolic function appears normal Previewed by: Dr. Curtis Wakefield MD (Electronically Signed) Final Date: 23 April 2022 10:10
[2022-04-23] MEDS ORDERED: DESMOPRESSIN ACETATE 32 MCG in SODIUM CHLORIDE 0.9% 50 ML IVPB ONE (11:00)
[2022-04-23 11:09] LABS: Urine Alcohol Negative (Negative); Urine Barbiturate Negative (Negative); Urine Cocaine Positive (Negative); Urine Methadone Negative (Negative); Urine Opiates Negative (Negative); Urine Phencyclidine Negative (Negative)
[2022-04-23 11:34] VITALS: BP 83/59
--- NOTE | 2022-04-23 11:39 | P.NPCON ---
History of Present Illness - Reason for Consult hyperkalemia - History of Present Illness Patient is a 46-year-old male who was brought in by EMS with a cardiac arrest. 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 Patient coded about 4 times since admission. He was found to have a serum potassium of 7.9 which increased to 8.5 mg/L last night. Patient was treated with IV medications. A dialysis catheter was placed in anticipation for need for renal replacement therapy however patient became significantly hypotensive requiring max dose of pressors including levo fed and epinephrine. Systolic blood pressure is currently in the 50s and 60s. Repeat potassium was 6 early this morning and now it is down to 4.5. Patient has had significant GI bleed and oozing of blood from all sites including the femoral line ET tube and the IJ. His INR was more than 10 and there is suspicion for underlying DIC with elevated PT and PTT History of forearm use of crack cocaine Exact downtime not known but definitely prolonged, possibly an hour Currently on the vent with FiO2 at 40% No cough reflex and no gag reflex or corneal reflex. Pupils are fixed and dilated. Review of Systems Assessment HPI Past Medical History Past Medical History: Asthma, COPD, Renal Disease Additional Past Medical History / Comment(s): stage 2 kidney disease, pancreatitis, hital hernia , sarcoidosis, COPD History of Any Multi-Drug Resistant Organisms: None Reported Past Surgical History: No Surgical Hx Reported Additional Past Surgical History / Comment(s): kidney stone removal Past Anesthesia/Blood Transfusion Reactions: Unable to Obtain Past Psychological History: Anxiety, Depression Smoking Status: Former smoker Past Alcohol Use History: None Reported Past Drug Use History: Marijuana - Past Family History Father Family Medical History: COPD Medications and Allergies Home Medications Medication Instructions Recorded Confirmed Type Cetirizine HCl 10 mg PO DAILY 08/16/19 04/23/22 History Montelukast [Singulair] 10 mg PO DAILY 08/16/19 04/23/22 History Nephro-Van 0.8mg 0.8 mg PO DAILY 08/16/19 04/23/22 History amLODIPine [Norvasc] 10 mg PO DAILY 08/16/19 04/23/22 History Triamcinolone 0.1% Ointment 1 applic TOPICAL BID PRN 05/15/21 04/23/22 History [Kenalog 0.1% Ointment] Albuterol Inhaler [Ventolin Hfa 2 puff INHALATION RT-QID PRN 06/16/21 04/23/22 History Inhaler] Albuterol Nebulized [Ventolin 2.5 mg INHALATION RT-QID PRN 06/16/21 04/23/22 History Nebulized] Benzonatate [Tessalon Perle] 200 mg PO TID PRN 08/04/21 04/23/22 History Fluticasone/Umeclidin/Vilanter 1 puff INHALATION RT-DAILY 08/04/21 04/23/22 History [Trelegy Ellipta 100-62.5-25] Fluticasone Nasal [place] [Flonase 2 spr EA NOSTRIL DAILY #16 gm 01/07/22 04/23/22 Rx Nasal [place]] Famotidine [Pepcid] 20 mg PO BID #30 tablet 01/18/22 04/23/22 Rx Promethaz-Cod 6.25-10 mg/5 ml 5 ml PO Q4HR PRN 3 Days #90 ml 01/18/22 04/23/22 Rx [Phenergan with Codeine] Oseltamivir [Tamiflu] 75 mg PO Q12HR 5 Days #10 cap 02/17/22 04/23/22 Rx Ergocalciferol [Vitamin D2 (1250 1,250 mcg PO TUTH 04/23/22 04/23/22 History Mcg = 21130 Iu)] Gabapentin [Neurontin] 100 mg PO TID 04/23/22 04/23/22 History glipiZIDE [Glucotrol] 5 mg PO AC-BID 04/23/22 04/23/22 History predniSONE See Taper PO TID 04/23/22 04/23/22 History sitaGLIPtin [Januvia] 50 mg PO DAILY 04/23/22 04/23/22 History Allergies Allergy/AdvReac Type Severity Reaction Status Date / Time hydromorphone [From Dilaudid] Allergy Itching Verified 04/23/22 09:45 meperidine [From Demerol] Allergy Itching Verified 04/23/22 09:45 propoxyphene Allergy Unknown Verified 04/23/22 09:45 [From Darvocet-N] NSAIDS (Non-Steroidal AdvReac Kidneys Verified 04/23/22 09:45 Anti-Inflamma Physical Exam Vitals: Vital Signs Temp Pulse Pulse Resp BP BP Pulse Ox 04/23/22 11:24 83 04/23/22 11:09 04/23/22 10:52 92.1 F L 82 32 H 88/59 100 04/23/22 10:36 92.1 F L 34 L 34 H 84/57 100 04/23/22 10:26 92.1 F L 82 34 H 93/61 100 04/23/22 10:19 92.1 F L 82 34 H 93/59 100 04/23/22 10:00 92.1 F L 82 34 H 100 04/23/22 09:38 92.1 F L 80 34 H 102/60 99 04/23/22 09:30 82 34 H 100 04/23/22 09:28 91.8 F L 82 34 H 98/58 100 04/23/22 09:00 84 34 H 04/23/22 08:30 90.9 F L 87 34 H 04/23/22 08:00 83 34 H 04/23/22 07:49 04/23/22 07:30 84 34 H 04/23/22 07:28 85 04/23/22 07:18 82 04/23/22 07:11 04/23/22 07:00 90 34 H 04/23/22 06:30 91 34 H 100 04/23/22 06:05 79 32 H 100 04/23/22 06:00 80 32 H 100 04/23/22 05:55 80 32 H 100 04/23/22 05:50 82 32 H 100 04/23/22 05:48 04/23/22 05:45 78 32 H 100 04/23/22 05:40 74 32 H 100 04/23/22 05:36 72 04/23/22 05:35 71 32 H 100 04/23/22 05:30 76 32 H 100 04/23/22 05:28 77 04/23/22 05:25 77 32 H 100 04/23/22 05:20 77 32 H 100 04/23/22 05:15 77 32 H 100 04/23/22 05:10 75 32 H 100 04/23/22 05:05 76 32 H 100 04/23/22 05:00 77 32 H 100 04/23/22 04:55 78 32 H 100 04/23/22 04:50 79 32 H 100 04/23/22 04:45 79 32 H 100 04/23/22 04:40 79 32 H 100 04/23/22 04:35 80 32 H 100 04/23/22 04:30 79 32 H 100 04/23/22 04:25 79 32 H 100 04/23/22 04:20 80 32 H 100 04/23/22 04:15 83 32 H 100 04/23/22 04:10 82 32 H 100 04/23/22 04:05 84 32 H 100 04/23/22 04:00 85 32 H 100 04/23/22 03:55 85 32 H 98 04/23/22 03:51 04/23/22 03:50 85 32 H 85 L 04/23/22 03:45 85 32 H 84 L 04/23/22 03:40 85 32 H 87 L 04/23/22 03:35 85 32 H 91 L 04/23/22 03:30 82 32 H 91 L 04/23/22 03:25 82 32 H 95 04/23/22 03:20 84 32 H 99 04/23/22 03:15 85 32 H 95 04/23/22 03:10 85 32 H 100 04/23/22 03:09 04/23/22 03:05 85 32 H 100 04/23/22 03:00 84 32 H 100 04/23/22 02:55 85 32 H 100 04/23/22 02:50 85 32 H 100 04/23/22 02:45 85 32 H 100 04/23/22 02:40 84 32 H 100 04/23/22 02:35 84 32 H 100 04/23/22 02:30 84 32 H 100 04/23/22 02:25 84 32 H 100 04/23/22 02:20 84 32 H 97 04/23/22 02:15 85 32 H 100 04/23/22 02:10 85 32 H 100 04/23/22 02:05 85 32 H 100 04/23/22 02:00 85 32 H 100 04/23/22 01:55 84 32 H 100 04/23/22 01:50 84 32 H 100 04/23/22 01:45 84 32 H 100 04/23/22 01:40 83 32 H 100 04/23/22 01:35 82 32 H 100 04/23/22 01:30 82 32 H 100 04/23/22 01:25 82 32 H 100 04/23/22 01:20 82 32 H 100 04/23/22 01:15 82 32 H 100 04/23/22 01:10 82 32 H 100 04/23/22 01:05 82 32 H 100 04/23/22 01:00 82 32 H 100 04/23/22 00:55 82 32 H 100 04/23/22 00:50 82 32 H 100 04/23/22 00:45 82 32 H 100 04/23/22 00:40 82 32 H 100 04/23/22 00:35 82 32 H 100 04/23/22 00:30 84 32 H 100 04/23/22 00:25 85 32 H 100 04/23/22 00:20 86 32 H 100 04/23/22 00:15 86 32 H 100 04/23/22 00:10 85 32 H 100 04/23/22 00:05 85 32 H 100 04/23/22 00:00 85 32 H 100 04/22/22 23:55 85 32 H 100 04/22/22 23:50 84 32 H 100 04/22/22 23:45 83 32 H 100 04/22/22 23:43 91.7 F L 81 32 H 100 04/22/22 23:40 83 32 H 100 04/22/22 23:35 91.7 F L 83 32 H 100 04/22/22 22:53 04/22/22 22:24 04/22/22 22:17 91.7 F L 30 L 22 40/20 100 04/22/22 21:30 88 43/33 97 04/22/22 21:25 72 80/34 98 04/22/22 21:21 72 12 117/79 97 04/22/22 21:19 72 61/26 97 04/22/22 21:13 FiO2 04/23/22 11:24 04/23/22 11:09 50 04/23/22 10:52 04/23/22 10:36 04/23/22 10:26 04/23/22 10:19 04/23/22 10:00 04/23/22 09:38 04/23/22 09:30 50 04/23/22 09:28 04/23/22 09:00 04/23/22 08:30 04/23/22 08:00 50 04/23/22 07:49 50 04/23/22 07:30 04/23/22 07:28 04/23/22 07:18 04/23/22 07:11 100 04/23/22 07:00 04/23/22 06:30 04/23/22 06:05 04/23/22 06:00 04/23/22 05:55 04/23/22 05:50 04/23/22 05:48 100 04/23/22 05:45 04/23/22 05:40 04/23/22 05:36 04/23/22 05:35 04/23/22 05:30 04/23/22 05:28 04/23/22 05:25 04/23/22 05:20 04/23/22 05:15 04/23/22 05:10 04/23/22 05:05 04/23/22 05:00 04/23/22 04:55 04/23/22 04:50 04/23/22 04:45 04/23/22 04:40 04/23/22 04:35 04/23/22 04:30 04/23/22 04:25 04/23/22 04:20 04/23/22 04:15 04/23/22 04:10 04/23/22 04:05 04/23/22 04:00 50 04/23/22 03:55 04/23/22 03:51 100 04/23/22 03:50 04/23/22 03:45 04/23/22 03:40 04/23/22 03:35 04/23/22 03:30 04/23/22 03:25 04/23/22 03:20 04/23/22 03:15 04/23/22 03:10 04/23/22 03:09 50 04/23/22 03:05 04/23/22 03:00 04/23/22 02:55 04/23/22 02:50 04/23/22 02:45 04/23/22 02:40 04/23/22 02:35 04/23/22 02:30 04/23/22 02:25 04/23/22 02:20 04/23/22 02:15 04/23/22 02:10 04/23/22 02:05 04/23/22 02:00 04/23/22 01:55 04/23/22 01:50 04/23/22 01:45 04/23/22 01:40 04/23/22 01:35 04/23/22 01:30 04/23/22 01:25 04/23/22 01:20 04/23/22 01:15 04/23/22 01:10 04/23/22 01:05 04/23/22 01:00 04/23/22 00:55 04/23/22 00:50 04/23/22 00:45 04/23/22 00:40 04/23/22 00:35 04/23/22 00:30 04/23/22 00:25 04/23/22 00:20 04/23/22 00:15 04/23/22 00:10 04/23/22 00:05 04/23/22 00:00 70 04/22/22 23:55 04/22/22 23:50 04/22/22 23:45 04/22/22 23:43 04/22/22 23:40 04/22/22 23:35 04/22/22 22:53 70 04/22/22 22:24 70 04/22/22 22:17 70 04/22/22 21:30 04/22/22 21:25 04/22/22 21:21 04/22/22 21:19 04/22/22 21:13 100 Intake and Output 04/22/22 04/23/22 04/23/22 22:59 06:59 14:59 Intake Total 4248.279 3062.420 Output Total 320 0 Balance 3928.279 3062.420 Intake: IV 3975 2600 Dextrose 5% in Water 1, 975 600 000 ml @ 150 mls/hr IV . Q7H40M ADIN with Sodium Bicarb (1 Meq/ml) 150 ml Rx#:[id number] Sodium Chloride 0.9% 1, 3000 2000 000 ml @ 999 mls/hr IV . Q1H1M STA Rx#:[id number] Intake, IV Titration 273.279 243.420 Amount EPINEPHrine 4 mg In 243.420 Dextrose 5% in Water 250 ml @ 0.01 MCG/KG/MIN 4. 031 mls/hr IV .Q24H ADIN Rx#:[id number] Norepinephrine 32 mg In 207.378 Sodium Chloride 0.9% 218 ml @ 0.9 MCG/KG/MIN 42. 099 mls/hr IV .Q5H57M ADIN Rx#:[id number] Norepinephrine 4 mg In 65.901 Sodium Chloride 0.9% 250 ml @ 0.1 MCG/KG/MIN 38.02 mls/hr IV .Q6H41M ADIN Rx #:[id number] Blood Product 219 Ffp 24 Pher Acda Unit 0 [id number] Ffp 24 Pher Acda Cnt2 219 Unit [id number] Output: Gastric Drainage 300 Urine 20 0 Other: Voiding Method Indwelling Catheter Weight 99.79 kg 107.5 kg ABP, PAP, CO, CI - Last 8 Hours Arterial Blood Pressure 95/60 Arterial Blood Pressure 89/59 Arterial Blood Pressure 78/49 Arterial Blood Pressure 60/41 Arterial Blood Pressure 57/41 Arterial Blood Pressure 65/46 Arterial Blood Pressure 75/51 Arterial Blood Pressure 73/51 Arterial Blood Pressure 60/43 Arterial Blood Pressure 62/44 Arterial Blood Pressure 73/50 Arterial Blood Pressure 63/49 Arterial Blood Pressure 53/42 Arterial Blood Pressure 59/45 Arterial Blood Pressure 54/43 Arterial Blood Pressure 57/44 Arterial Blood Pressure 62/47 Arterial Blood Pressure 61/47 Arterial Blood Pressure 60/46 Arterial Blood Pressure 60/46 Arterial Blood Pressure 60/45 Arterial Blood Pressure 59/45 Arterial Blood Pressure 57/45 Arterial Blood Pressure 59/46 Arterial Blood Pressure 56/45 Arterial Blood Pressure 58/46 Arterial Blood Pressure 57/44 Arterial Blood Pressure 57/45 Arterial Blood Pressure 57/45 Arterial Blood Pressure 58/45 Arterial Blood Pressure 58/45 Arterial Blood Pressure 57/44 Arterial Blood Pressure 57/44 Arterial Blood Pressure 59/45 Arterial Blood Pressure 54/42 Arterial Blood Pressure 62/47 Arterial Blood Pressure 61/47 Arterial Blood Pressure 62/48 Arterial Blood Pressure 63/48 Arterial Blood Pressure 65/50 Patient is currently on the vent FiO2 is at 40%. He has bleeding noted from the ET tube and OG tube. No urine output No significant edema noted Abdomen is distended for Patient is intubated He is currently in sinus rhythm No corneal, gag or cough reflex. Pupils are dilated Results - Lab Results Most recent lab results ABG pH 7.19 (7.35-7.45) L* 04/23/22 07:46 ABG pCO2 51 mmHg (35-45) H 04/23/22 07:46 ABG pO2 >400 mmHg (83-108) H 04/23/22 07:46 ABG HCO3 20 mmol/L (21-25) L 04/23/22 07:46 ABG O2 Saturation 100.0 % (94-97) H 04/23/22 07:46 Calcium 7.0 mg/dL (8.4-10.2) L 04/23/22 05:00 Magnesium 2.4 mg/dL (1.6-2.3) H 04/23/22 08:41 04/23/22 05:00 04/23/22 08:41 Assessment and Plan Assessment: 1. Acute kidney injury secondary to shock and cardiac arrest ATN currently oliguric 2. Severe hyperkalemia associated with acute kidney injury severe metabolic acidosis and GI bleed 3. Status post cardiac arrest 4 with clean coronaries on cardiac catheterization. History of use of crack cocaine 4. Severe metabolic acidosis secondary to lactic acidosis and shock and acute kidney injury 5. DIC 6. Shock liver 7. Anoxic brain injury Plan: Patient is not hemodynamically stable to initiate renal replacement therapy. Serum potassium has decreased to 4.5. DDAVP 1 for ongoing bleeding Poor prognosis Consider comfort care measures
[2022-04-23] MEDS ORDERED: EPINEPHrine 16 MG in DEXTROSE 5% IN WATER 250 ML IV SCH ×2 (12:00)
--- NOTE | 2022-04-23 12:17 | XR ---
EXAMINATION TYPE: XR chest 1V portable DATE OF EXAM: 04/23/2022 11:52 AM COMPARISON: Chest radiographs from 04/23/2022 TECHNIQUE: XR chest 1V portable Frontal view of the chest. CLINICAL INDICATION:Male, 46 years old with history of assess lungs; FINDINGS: Lungs/Pleura: Similar subtle hazy opacities throughout the lungs when comparing to multiple prior michelle e back to at least 01/12/2022. There is no evidence of pleural effusion, focal consolidation, or pneum othorax. Pulmonary vascularity: Unremarkable. Heart/mediastinum: Cardiomediastinal silhouette is unremarkable. Musculoskeletal: No acute osseous pathology. Lines/Tubes: Nasogastric tube with side-port projecting over the distal esophagus. Endotracheal tube with distal tip above the carol 5.4 cm. Right IJ central venous catheter with tip in appropriate position. IMPRESSION: 1. Similar appearance of the lungs with subtle haziness bilaterally which is not significantly diffe rent given differences in technique from 01/12/2022. Findings on prior CT on 01/17/2022 demonstrate sca ttered opacities throughout the lungs. Findings on today's exam may represent atelectasis and/or scar ring from prior acute pneumonia. 2. Nasogastric tube with distal tip and side-port at the distal esophagus. Consider advancement of 9 cm for optimal placement.
[2022-04-23] MEDS ORDERED: MORPHINE SULFATE 2 MG/ML SYRINGE IV PRN (12:18)
[2022-04-23] MEDS ORDERED: ATROPINE OPHTH SOLN 1% 5ML BTL SUBLINGUAL PRN (12:18)
[2022-04-23 12:21] VITALS: TEMP 92.7
[2022-04-23] MEDS ORDERED: SCOPOLAMINE 1 MG/72 HR PATCH TRANSDERM SCH (12:30)
[2022-04-23 13:04] VITALS: PULSE 0; RESP 0
--- NOTE | 2022-04-23 17:08 | P.GSCN ---
History of Present Illness Consult date: 04/23/22 History of present illness: CHIEF COMPLAINT: Cardiac arrest HISTORY OF PRESENT ILLNESS: This is a 46-year-old male who is brought into the hospital with cardiac arrest. He was unconscious found on the ground. Patient was intubated in the ER. ELLIOTT FABIAN was called this morning. Patient has had multiple episodes of cardiac arrest. Remains in the ICU intubated. He is not requiring any sedation. He is on Levophed vasopressin and epinephrine. He was noted to have an upper GI bleed with blood noted in his NG tube. Surgical service was consulted in regards to patient's GI bleed. On his admission patient was taken to the [facility] and was found have normal coronary arteries. Patient has multi-organ failure with acute kidney injury and liver failure. He had a drug screen positive for cocaine. And the cardiac arrest was likely due to cocaine overdose. Patient has DIC. He's received fresh frozen plasma. He had multiple sites of bleeding from the IV ET tube line and hydrate him. INR was elevated at 10 with elevated PT and APTT. He was hypothermic and hypotensive. Patient seen and examined with Dr. perdue around 11:00 this morning PAST MEDICAL HISTORY: See list. PAST SURGICAL HISTORY: See list. MEDICATIONS: See list. ALLERGIES: See list. SOCIAL HISTORY: No illicit drug use. REVIEW OF SYSTEMS: Unable to obtain PHYSICAL EXAM: VITAL SIGNS: Reviewed GENERAL: Patient is intubated. ABDOMEN: Soft. Nondistended. Nontender. Blood noted NG tube. NEUROLOGIC: Unresponsive LABORATORY DATA: WBC 12.4 hemoglobin 9.9 platelets 74-194 INR greater than 10 PT greater than 1:30 APTT 105.3 d-dimer greater than 34 ABGs with a pH is 7.19 Sodium 147 potassium 8.5 down to 4.5 creatinine 3.0 to Lactic acid 16 AST 13,791 ALT 8867 Troponin elevated 0.129 Drug screen positive for cocaine Alcohol level XVII IMAGING: ASSESSMENT: 1. Cardiac arrest possibly due cocaine overdose 2. Acute DIC with thrombocytopenia and coagulopathy likely contributing to patient's upper GI bleed PLAN: -Patient overall prognosis poor and guarded -No surgical intervention planned -Initially proceed with supportive care -Family wish to make patient no code and to withdrawal care. Patient this afternoon. Please refer to chart for any further details. Physician Client Delivery Manager note has been reviewed by physician. Signing provider agrees with the documented findings, assessment, and plan of care. Past Medical History Past Medical History: Asthma, COPD, Renal Disease Additional Past Medical History / Comment(s): stage 2 kidney disease, pancreatitis, hital hernia , sarcoidosis, COPD History of Any Multi-Drug Resistant Organisms: None Reported Past Surgical History: No Surgical Hx Reported Additional Past Surgical History / Comment(s): kidney stone removal Past Anesthesia/Blood Transfusion Reactions: Unable to Obtain Past Psychological History: Anxiety, Depression Smoking Status: Former smoker Past Alcohol Use History: None Reported Past Drug Use History: Marijuana - Past Family History Father Family Medical History: COPD Medications and Allergies Home Medications Medication Instructions Recorded Confirmed Type Cetirizine HCl 10 mg PO DAILY 08/16/19 04/23/22 History Montelukast [Singulair] 10 mg PO DAILY 08/16/19 04/23/22 History Nephro-Van 0.8mg 0.8 mg PO DAILY 08/16/19 04/23/22 History amLODIPine [Norvasc] 10 mg PO DAILY 08/16/19 04/23/22 History Triamcinolone 0.1% Ointment 1 applic TOPICAL BID PRN 05/15/21 04/23/22 History [Kenalog 0.1% Ointment] Albuterol Inhaler [Ventolin Hfa 2 puff INHALATION RT-QID PRN 06/16/21 04/23/22 History Inhaler] Albuterol Nebulized [Ventolin 2.5 mg INHALATION RT-QID PRN 06/16/21 04/23/22 History Nebulized] Benzonatate [Tessalon Perle] 200 mg PO TID PRN 08/04/21 04/23/22 History Fluticasone/Umeclidin/Vilanter 1 puff INHALATION RT-DAILY 08/04/21 04/23/22 History [Trelegy Ellipta 100-62.5-25] Fluticasone Nasal [place] [Flonase 2 spr EA NOSTRIL DAILY #16 gm 01/07/22 04/23/22 Rx Nasal [place]] Famotidine [Pepcid] 20 mg PO BID #30 tablet 01/18/22 04/23/22 Rx Promethaz-Cod 6.25-10 mg/5 ml 5 ml PO Q4HR PRN 3 Days #90 ml 01/18/22 04/23/22 Rx [Phenergan with Codeine] Oseltamivir [Tamiflu] 75 mg PO Q12HR 5 Days #10 cap 02/17/22 04/23/22 Rx Ergocalciferol [Vitamin D2 (1250 1,250 mcg PO TUTH 04/23/22 04/23/22 History Mcg = 86934 Iu)] Gabapentin [Neurontin] 100 mg PO TID 04/23/22 04/23/22 History glipiZIDE [Glucotrol] 5 mg PO AC-BID 04/23/22 04/23/22 History predniSONE See Taper PO TID 04/23/22 04/23/22 History sitaGLIPtin [Januvia] 50 mg PO DAILY 04/23/22 04/23/22 History Allergies Allergy/AdvReac Type Severity Reaction Status Date / Time hydromorphone [From Dilaudid] Allergy Itching Verified 04/23/22 09:45 meperidine [From Demerol] Allergy Itching Verified 04/23/22 09:45 propoxyphene Allergy Unknown Verified 04/23/22 09:45 [From Darvocet-N] NSAIDS (Non-Steroidal AdvReac Kidneys Verified 04/23/22 09:45 Anti-Inflamma Surgical - Exam Vital Signs FiO2 100 04/22/22 21:13 Results - Labs 04/23/22 05:00 04/23/22 08:41 Abnormal Lab Results - Last 24 Hours (Table) 04/22/22 04/22/22 04/22/22 Range/Units 21:16 21:20 21:25 WBC (3.8-10.6) k/uL RBC (4.30-5.90) m/uL Hgb 12.5 L (13.0-17.5) gm/dL Hct (39.0-53.0) % MCV 105.6 H D (80.0-100.0) fL MCHC 27.2 L (31.0-37.0) g/dL RDW 17.1 H (11.5-15.5) % Plt Count 74 L D (150-450) k/uL Neutrophils # (Manual) (1.3-7.7) k/uL Monocytes # (Manual) (0-1.0) k/uL Metamyelocytes # (Man) 0.09 H (0) k/uL Myelocytes # (Manual) 0.09 H (0) k/uL Nucleated RBCs 3 H (0-0) /100 WBC Macrocytosis Marked A PT 13.7 H (9.0-12.0) sec INR 1.3 H (<1.2) APTT (22.0-30.0) sec D-Dimer 27.85 H (<0.60) mg/L FEU ABG pH (7.35-7.45) ABG pCO2 (35-45) mmHg ABG pO2 (83-108) mmHg ABG HCO3 (21-25) mmol/L ABG Total CO2 (19-24) mmol/L ABG O2 Saturation (94-97) % ABG Hematocrit (34.0-46.0) % Hemoglobin (13.0-17.5) gm/dL Sodium (137-145) mmol/L Potassium (3.5-5.1) mmol/L Chloride (98-107) mmol/L Carbon Dioxide (22-30) mmol/L Creatinine (0.66-1.25) mg/dL Glucose (74-99) mg/dL POC Glucose (mg/dL) 152 H (70-110) mg/dL Plasma Lactic Acid Matheus (0.7-2.0) mmol/L Calcium (8.4-10.2) mg/dL Magnesium (1.6-2.3) mg/dL AST (17-59) U/L ALT (4-49) U/L Alkaline Phosphatase (38-126) U/L CK-MB (CK-2) (0.0-2.4) ng/mL Troponin I (0.000-0.034) ng/mL Total Protein (6.3-8.2) g/dL Albumin (3.5-5.0) g/dL Urine Protein (Negative) Urine Glucose (UA) (Negative) Urine Blood (Negative) Ur Leukocyte Esterase (Negative) Urine RBC (0-5) /hpf Urine WBC (0-5) /hpf Urine Bacteria (None) /hpf Urine Mucus (None) /hpf Urine Cocaine Screen (Negative) Crossmatch 04/22/22 04/22/22 04/22/22 Range/Units 21:25 21:25 21:25 WBC (3.8-10.6) k/uL RBC (4.30-5.90) m/uL Hgb (13.0-17.5) gm/dL Hct (39.0-53.0) % MCV (80.0-100.0) fL MCHC (31.0-37.0) g/dL RDW (11.5-15.5) % Plt Count (150-450) k/uL Neutrophils # (Manual) (1.3-7.7) k/uL Monocytes # (Manual) (0-1.0) k/uL Metamyelocytes # (Man) (0) k/uL Myelocytes # (Manual) (0) k/uL Nucleated RBCs (0-0) /100 WBC Macrocytosis PT (9.0-12.0) sec INR (<1.2) APTT (22.0-30.0) sec D-Dimer (<0.60) mg/L FEU ABG pH (7.35-7.45) ABG pCO2 (35-45) mmHg ABG pO2 (83-108) mmHg ABG HCO3 (21-25) mmol/L ABG Total CO2 (19-24) mmol/L ABG O2 Saturation (94-97) % ABG Hematocrit (34.0-46.0) % Hemoglobin (13.0-17.5) gm/dL Sodium (137-145) mmol/L Potassium 7.9 H* (3.5-5.1) mmol/L Chloride (98-107) mmol/L Carbon Dioxide 11 L (22-30) mmol/L Creatinine 2.87 H (0.66-1.25) mg/dL Glucose 153 H (74-99) mg/dL POC Glucose (mg/dL) (70-110) mg/dL Plasma Lactic Acid Matheus 18.6 H* (0.7-2.0) mmol/L Calcium (8.4-10.2) mg/dL Magnesium 3.5 H (1.6-2.3) mg/dL AST 6304 H (17-59) U/L ALT 4624 H (4-49) U/L Alkaline Phosphatase (38-126) U/L CK-MB (CK-2) (0.0-2.4) ng/mL Troponin I 0.129 H* (0.000-0.034) ng/mL Total Protein (6.3-8.2) g/dL Albumin (3.5-5.0) g/dL Urine Protein (Negative) Urine Glucose (UA) (Negative) Urine Blood (Negative) Ur Leukocyte Esterase (Negative) Urine RBC (0-5) /hpf Urine WBC (0-5) /hpf Urine Bacteria (None) /hpf Urine Mucus (None) /hpf Urine Cocaine Screen (Negative) Crossmatch 04/22/22 04/22/22 04/22/22 Range/Units 22:10 22:39 22:51 WBC (3.8-10.6) k/uL RBC (4.30-5.90) m/uL Hgb (13.0-17.5) gm/dL Hct (39.0-53.0) % MCV (80.0-100.0) fL MCHC (31.0-37.0) g/dL RDW (11.5-15.5) % Plt Count (150-450) k/uL Neutrophils # (Manual) (1.3-7.7) k/uL Monocytes # (Manual) (0-1.0) k/uL Metamyelocytes # (Man) (0) k/uL Myelocytes # (Manual) (0) k/uL Nucleated RBCs (0-0) /100 WBC Macrocytosis PT (9.0-12.0) sec INR (<1.2) APTT (22.0-30.0) sec D-Dimer (<0.60) mg/L FEU ABG pH 6.82 L* (7.35-7.45) ABG pCO2 58 H (35-45) mmHg ABG pO2 259 H (83-108) mmHg ABG HCO3 9 L* (21-25) mmol/L ABG Total CO2 11 L (19-24) mmol/L ABG O2 Saturation 99.1 H (94-97) % ABG Hematocrit 33 L (34.0-46.0) % Hemoglobin 10.7 L (13.0-17.5) gm/dL Sodium (137-145) mmol/L Potassium 8.5 H* (3.5-5.1) mmol/L Chloride (98-107) mmol/L Carbon Dioxide 14 L (22-30) mmol/L Creatinine 2.65 H (0.66-1.25) mg/dL Glucose 180 H (74-99) mg/dL POC Glucose (mg/dL) 368 H (70-110) mg/dL Plasma Lactic Acid Matheus (0.7-2.0) mmol/L Calcium 8.2 L (8.4-10.2) mg/dL Magnesium 3.2 H (1.6-2.3) mg/dL AST (17-59) U/L ALT (4-49) U/L Alkaline Phosphatase (38-126) U/L CK-MB (CK-2) (0.0-2.4) ng/mL Troponin I (0.000-0.034) ng/mL Total Protein (6.3-8.2) g/dL Albumin (3.5-5.0) g/dL Urine Protein (Negative) Urine Glucose (UA) (Negative) Urine Blood (Negative) Ur Leukocyte Esterase (Negative) Urine RBC (0-5) /hpf Urine WBC (0-5) /hpf Urine Bacteria (None) /hpf Urine Mucus (None) /hpf Urine Cocaine Screen (Negative) Crossmatch 04/22/22 04/22/22 04/22/22 Range/Units 23:01 23:09 23:10 WBC (3.8-10.6) k/uL RBC 3.23 L (4.30-5.90) m/uL Hgb 9.6 L D (13.0-17.5) gm/dL Hct 31.8 L (39.0-53.0) % MCV (80.0-100.0) fL MCHC 30.3 L (31.0-37.0) g/dL RDW 17.3 H (11.5-15.5) % Plt Count 41 L (150-450) k/uL Neutrophils # (Manual) (1.3-7.7) k/uL Monocytes # (Manual) (0-1.0) k/uL Metamyelocytes # (Man) 0.06 H (0) k/uL Myelocytes # (Manual) 0.06 H (0) k/uL Nucleated RBCs 5 H (0-0) /100 WBC Macrocytosis PT (9.0-12.0) sec INR (<1.2) APTT (22.0-30.0) sec D-Dimer (<0.60) mg/L FEU ABG pH 7.12 L* (7.35-7.45) ABG pCO2 66 H (35-45) mmHg ABG pO2 345 H (83-108) mmHg ABG HCO3 (21-25) mmol/L ABG Total CO2 (19-24) mmol/L ABG O2 Saturation 100.0 H (94-97) % ABG Hematocrit 29 L (34.0-46.0) % Hemoglobin 9.5 L (13.0-17.5) gm/dL Sodium (137-145) mmol/L Potassium (3.5-5.1) mmol/L Chloride (98-107) mmol/L Carbon Dioxide (22-30) mmol/L Creatinine (0.66-1.25) mg/dL Glucose (74-99) mg/dL POC Glucose (mg/dL) (70-110) mg/dL Plasma Lactic Acid Matheus (0.7-2.0) mmol/L Calcium (8.4-10.2) mg/dL Magnesium (1.6-2.3) mg/dL AST (17-59) U/L ALT (4-49) U/L Alkaline Phosphatase (38-126) U/L CK-MB (CK-2) (0.0-2.4) ng/mL Troponin I (0.000-0.034) ng/mL Total Protein (6.3-8.2) g/dL Albumin (3.5-5.0) g/dL Urine Protein (Negative) Urine Glucose (UA) (Negative) Urine Blood (Negative) Ur Leukocyte Esterase (Negative) Urine RBC (0-5) /hpf Urine WBC (0-5) /hpf Urine Bacteria (None) /hpf Urine Mucus (None) /hpf Urine Cocaine Screen (Negative) Crossmatch See Detail 04/22/22 04/23/22 04/23/22 Range/Units 23:23 00:35 01:45 WBC (3.8-10.6) k/uL RBC (4.30-5.90) m/uL Hgb (13.0-17.5) gm/dL Hct (39.0-53.0) % MCV (80.0-100.0) fL MCHC (31.0-37.0) g/dL RDW (11.5-15.5) % Plt Count (150-450) k/uL Neutrophils # (Manual) (1.3-7.7) k/uL Monocytes # (Manual) (0-1.0) k/uL Metamyelocytes # (Man) (0) k/uL Myelocytes # (Manual) (0) k/uL Nucleated RBCs (0-0) /100 WBC Macrocytosis PT (9.0-12.0) sec INR (<1.2) APTT (22.0-30.0) sec D-Dimer (<0.60) mg/L FEU ABG pH 7.05 L* (7.35-7.45) ABG pCO2 54 H (35-45) mmHg ABG pO2 214 H (83-108) mmHg ABG HCO3 15 L (21-25) mmol/L ABG Total CO2 17 L (19-24) mmol/L ABG O2 Saturation 99.5 H (94-97) % ABG Hematocrit 29 L (34.0-46.0) % Hemoglobin 9.6 L (13.0-17.5) gm/dL Sodium (137-145) mmol/L Potassium (3.5-5.1) mmol/L Chloride (98-107) mmol/L Carbon Dioxide (22-30) mmol/L Creatinine (0.66-1.25) mg/dL Glucose (74-99) mg/dL POC Glucose (mg/dL) 144 H (70-110) mg/dL Plasma Lactic Acid Matheus 14.1 H* (0.7-2.0) mmol/L Calcium (8.4-10.2) mg/dL Magnesium (1.6-2.3) mg/dL AST (17-59) U/L ALT (4-49) U/L Alkaline Phosphatase (38-126) U/L CK-MB (CK-2) (0.0-2.4) ng/mL Troponin I (0.000-0.034) ng/mL Total Protein (6.3-8.2) g/dL Albumin (3.5-5.0) g/dL Urine Protein (Negative) Urine Glucose (UA) (Negative) Urine Blood (Negative) Ur Leukocyte Esterase (Negative) Urine RBC (0-5) /hpf Urine WBC (0-5) /hpf Urine Bacteria (None) /hpf Urine Mucus (None) /hpf Urine Cocaine Screen (Negative) Crossmatch 04/23/22 04/23/22 04/23/22 Range/Units 02:20 02:45 02:45 WBC (3.8-10.6) k/uL RBC 3.31 L (4.30-5.90) m/uL Hgb 9.7 L (13.0-17.5) gm/dL Hct 33.4 L (39.0-53.0) % MCV 100.9 H (80.0-100.0) fL MCHC 29.2 L (31.0-37.0) g/dL RDW 17.4 H (11.5-15.5) % Plt Count 131 L D (150-450) k/uL Neutrophils # (Manual) (1.3-7.7) k/uL Monocytes # (Manual) (0-1.0) k/uL Metamyelocytes # (Man) (0) k/uL Myelocytes # (Manual) (0) k/uL Nucleated RBCs (0-0) /100 WBC Macrocytosis PT (9.0-12.0) sec INR (<1.2) APTT (22.0-30.0) sec D-Dimer (<0.60) mg/L FEU ABG pH (7.35-7.45) ABG pCO2 (35-45) mmHg ABG pO2 (83-108) mmHg ABG HCO3 (21-25) mmol/L ABG Total CO2 (19-24) mmol/L ABG O2 Saturation (94-97) % ABG Hematocrit (34.0-46.0) % Hemoglobin (13.0-17.5) gm/dL Sodium (137-145) mmol/L Potassium (3.5-5.1) mmol/L Chloride (98-107) mmol/L Carbon Dioxide (22-30) mmol/L Creatinine (0.66-1.25) mg/dL Glucose (74-99) mg/dL POC Glucose (mg/dL) (70-110) mg/dL Plasma Lactic Acid Matheus (0.7-2.0) mmol/L Calcium (8.4-10.2) mg/dL Magnesium (1.6-2.3) mg/dL AST (17-59) U/L ALT (4-49) U/L Alkaline Phosphatase (38-126) U/L CK-MB (CK-2) (0.0-2.4) ng/mL Troponin I (0.000-0.034) ng/mL Total Protein (6.3-8.2) g/dL Albumin (3.5-5.0) g/dL Urine Protein 4+ H (Negative) Urine Glucose (UA) 1+ H (Negative) Urine Blood Large H (Negative) Ur Leukocyte Esterase Trace H (Negative) Urine RBC 85 H (0-5) /hpf Urine WBC 29 H (0-5) /hpf Urine Bacteria Rare H (None) /hpf Urine Mucus Rare H (None) /hpf Urine Cocaine Screen Positive A (Negative) Crossmatch 04/23/22 04/23/22 04/23/22 Range/Units 02:53 05:00 05:00 WBC 12.4 H (3.8-10.6) k/uL RBC 3.44 L (4.30-5.90) m/uL Hgb 9.9 L (13.0-17.5) gm/dL Hct 34.2 L (39.0-53.0) % MCV (80.0-100.0) fL MCHC 28.9 L (31.0-37.0) g/dL RDW 16.9 H (11.5-15.5) % Plt Count (150-450) k/uL Neutrophils # (Manual) 9.70 H (1.3-7.7) k/uL Monocytes # (Manual) 1.24 H (0-1.0) k/uL Metamyelocytes # (Man) (0) k/uL Myelocytes # (Manual) (0) k/uL Nucleated RBCs 7 H (0-0) /100 WBC Macrocytosis PT >130.0 H (9.0-12.0) sec INR >10.0 H* (<1.2) APTT 105.3 H* (22.0-30.0) sec D-Dimer >34.10 H (<0.60) mg/L FEU ABG pH (7.35-7.45) ABG pCO2 (35-45) mmHg ABG pO2 (83-108) mmHg ABG HCO3 (21-25) mmol/L ABG Total CO2 (19-24) mmol/L ABG O2 Saturation (94-97) % ABG Hematocrit (34.0-46.0) % Hemoglobin (13.0-17.5) gm/dL Sodium 146 H (137-145) mmol/L Potassium 6.0 H (3.5-5.1) mmol/L Chloride 108 H (98-107) mmol/L Carbon Dioxide 16 L (22-30) mmol/L Creatinine 2.79 H (0.66-1.25) mg/dL Glucose 110 H (74-99) mg/dL POC Glucose (mg/dL) (70-110) mg/dL Plasma Lactic Acid Matheus (0.7-2.0) mmol/L Calcium 7.0 L (8.4-10.2) mg/dL Magnesium (1.6-2.3) mg/dL AST (17-59) U/L ALT (4-49) U/L Alkaline Phosphatase (38-126) U/L CK-MB (CK-2) (0.0-2.4) ng/mL Troponin I (0.000-0.034) ng/mL Total Protein (6.3-8.2) g/dL Albumin (3.5-5.0) g/dL Urine Protein (Negative) Urine Glucose (UA) (Negative) Urine Blood (Negative) Ur Leukocyte Esterase (Negative) Urine RBC (0-5) /hpf Urine WBC (0-5) /hpf Urine Bacteria (None) /hpf Urine Mucus (None) /hpf Urine Cocaine Screen (Negative) Crossmatch 04/23/22 04/23/22 04/23/22 Range/Units 05:00 05:15 07:46 WBC (3.8-10.6) k/uL RBC (4.30-5.90) m/uL Hgb (13.0-17.5) gm/dL Hct (39.0-53.0) % MCV (80.0-100.0) fL MCHC (31.0-37.0) g/dL RDW (11.5-15.5) % Plt Count (150-450) k/uL Neutrophils # (Manual) (1.3-7.7) k/uL Monocytes # (Manual) (0-1.0) k/uL Metamyelocytes # (Man) (0) k/uL Myelocytes # (Manual) (0) k/uL Nucleated RBCs (0-0) /100 WBC Macrocytosis PT (9.0-12.0) sec INR (<1.2) APTT (22.0-30.0) sec D-Dimer (<0.60) mg/L FEU ABG pH 6.99 L* 7.19 L* (7.35-7.45) ABG pCO2 81 H* 51 H (35-45) mmHg ABG pO2 397 H >400 H (83-108) mmHg ABG HCO3 19 L 20 L (21-25) mmol/L ABG Total CO2 (19-24) mmol/L ABG O2 Saturation 100.0 H 100.0 H (94-97) % ABG Hematocrit 30 L 28 L (34.0-46.0) % Hemoglobin 9.9 L 9.1 L (13.0-17.5) gm/dL Sodium 147 H (137-145) mmol/L Potassium 6.0 H (3.5-5.1) mmol/L Chloride (98-107) mmol/L Carbon Dioxide 20 L (22-30) mmol/L Creatinine 3.02 H (0.66-1.25) mg/dL Glucose 106 H (74-99) mg/dL POC Glucose (mg/dL) (70-110) mg/dL Plasma Lactic Acid Matheus (0.7-2.0) mmol/L Calcium 7.0 L (8.4-10.2) mg/dL Magnesium (1.6-2.3) mg/dL AST 42094 H (17-59) U/L ALT 8867 H (4-49) U/L Alkaline Phosphatase 133 H (38-126) U/L CK-MB (CK-2) (0.0-2.4) ng/mL Troponin I (0.000-0.034) ng/mL Total Protein 4.8 L (6.3-8.2) g/dL Albumin 2.7 L (3.5-5.0) g/dL Urine Protein (Negative) Urine Glucose (UA) (Negative) Urine Blood (Negative) Ur Leukocyte Esterase (Negative) Urine RBC (0-5) /hpf Urine WBC (0-5) /hpf Urine Bacteria (None) /hpf Urine Mucus (None) /hpf Urine Cocaine Screen (Negative) Crossmatch 04/23/22 04/23/22 04/23/22 Range/Units 08:30 08:32 08:41 WBC (3.8-10.6) k/uL RBC (4.30-5.90) m/uL Hgb (13.0-17.5) gm/dL Hct (39.0-53.0) % MCV (80.0-100.0) fL MCHC (31.0-37.0) g/dL RDW (11.5-15.5) % Plt Count (150-450) k/uL Neutrophils # (Manual) (1.3-7.7) k/uL Monocytes # (Manual) (0-1.0) k/uL Metamyelocytes # (Man) (0) k/uL Myelocytes # (Manual) (0) k/uL Nucleated RBCs (0-0) /100 WBC Macrocytosis PT (9.0-12.0) sec INR (<1.2) APTT (22.0-30.0) sec D-Dimer (<0.60) mg/L FEU ABG pH (7.35-7.45) ABG pCO2 (35-45) mmHg ABG pO2 (83-108) mmHg ABG HCO3 (21-25) mmol/L ABG Total CO2 (19-24) mmol/L ABG O2 Saturation (94-97) % ABG Hematocrit (34.0-46.0) % Hemoglobin (13.0-17.5) gm/dL Sodium (137-145) mmol/L Potassium (3.5-5.1) mmol/L Chloride (98-107) mmol/L Carbon Dioxide (22-30) mmol/L Creatinine (0.66-1.25) mg/dL Glucose (74-99) mg/dL POC Glucose (mg/dL) 170 H (70-110) mg/dL Plasma Lactic Acid Matheus 16.0 H* (0.7-2.0) mmol/L Calcium (8.4-10.2) mg/dL Magnesium (1.6-2.3) mg/dL AST (17-59) U/L ALT (4-49) U/L Alkaline Phosphatase (38-126) U/L CK-MB (CK-2) 76.2 H (0.0-2.4) ng/mL Troponin I (0.000-0.034) ng/mL Total Protein (6.3-8.2) g/dL Albumin (3.5-5.0) g/dL Urine Protein (Negative) Urine Glucose (UA) (Negative) Urine Blood (Negative) Ur Leukocyte Esterase (Negative) Urine RBC (0-5) /hpf Urine WBC (0-5) /hpf Urine Bacteria (None) /hpf Urine Mucus (None) /hpf Urine Cocaine Screen (Negative) Crossmatch 04/23/22 Range/Units 08:41 WBC (3.8-10.6) k/uL RBC (4.30-5.90) m/uL Hgb (13.0-17.5) gm/dL Hct (39.0-53.0) % MCV (80.0-100.0) fL MCHC (31.0-37.0) g/dL RDW (11.5-15.5) % Plt Count (150-450) k/uL Neutrophils # (Manual) (1.3-7.7) k/uL Monocytes # (Manual) (0-1.0) k/uL Metamyelocytes # (Man) (0) k/uL Myelocytes # (Manual) (0) k/uL Nucleated RBCs (0-0) /100 WBC Macrocytosis PT (9.0-12.0) sec INR (<1.2) APTT (22.0-30.0) sec D-Dimer (<0.60) mg/L FEU ABG pH (7.35-7.45) ABG pCO2 (35-45) mmHg ABG pO2 (83-108) mmHg ABG HCO3 (21-25) mmol/L ABG Total CO2 (19-24) mmol/L ABG O2 Saturation (94-97) % ABG Hematocrit (34.0-46.0) % Hemoglobin (13.0-17.5) gm/dL Sodium (137-145) mmol/L Potassium (3.5-5.1) mmol/L Chloride (98-107) mmol/L Carbon Dioxide (22-30) mmol/L Creatinine (0.66-1.25) mg/dL Glucose (74-99) mg/dL POC Glucose (mg/dL) (70-110) mg/dL Plasma Lactic Acid Matheus (0.7-2.0) mmol/L Calcium (8.4-10.2) mg/dL Magnesium 2.4 H (1.6-2.3) mg/dL AST (17-59) U/L ALT (4-49) U/L Alkaline Phosphatase (38-126) U/L CK-MB (CK-2) (0.0-2.4) ng/mL Troponin I (0.000-0.034) ng/mL Total Protein (6.3-8.2) g/dL Albumin (3.5-5.0) g/dL Urine Protein (Negative) Urine Glucose (UA) (Negative) Urine Blood (Negative) Ur Leukocyte Esterase (Negative) Urine RBC (0-5) /hpf Urine WBC (0-5) /hpf Urine Bacteria (None) /hpf Urine Mucus (None) /hpf Urine Cocaine Screen (Negative) Crossmatch Microbiology - Last 24 Hours (Table) 04/23/22 03:45 Sputum Culture - Preliminary Sputum Diabetes panel 04/22/22 04/22/22 04/23/22 Range/Units 21:25 22:51 02:53 Sodium 144 142 146 H (137-145) mmol/L Potassium 7.9 H* 8.5 H* 6.0 H (3.5-5.1) mmol/L Chloride 102 103 108 H (98-107) mmol/L Carbon Dioxide 11 L 14 L 16 L (22-30) mmol/L BUN 15 16 16 (9-20) mg/dL Creatinine 2.87 H 2.65 H 2.79 H (0.66-1.25) mg/dL Glucose 153 H 180 H 110 H (74-99) mg/dL Calcium 8.4 8.2 L 7.0 L (8.4-10.2) mg/dL AST 6304 H (17-59) U/L ALT 4624 H (4-49) U/L Alkaline Phosphatase 60 (38-126) U/L Total Protein 6.4 (6.3-8.2) g/dL Albumin 4.4 (3.5-5.0) g/dL 04/23/22 04/23/22 Range/Units 05:00 08:41 Sodium 147 H (137-145) mmol/L Potassium 6.0 H 4.5 (3.5-5.1) mmol/L Chloride 106 (98-107) mmol/L Carbon Dioxide 20 L (22-30) mmol/L BUN 17 (9-20) mg/dL Creatinine 3.02 H (0.66-1.25) mg/dL Glucose 106 H (74-99) mg/dL Calcium 7.0 L (8.4-10.2) mg/dL AST 25418 H (17-59) U/L ALT 8867 H (4-49) U/L Alkaline Phosphatase 133 H (38-126) U/L Total Protein 4.8 L (6.3-8.2) g/dL Albumin 2.7 L (3.5-5.0) g/dL Calcium panel 04/22/22 04/22/22 04/23/22 Range/Units 21:25 22:51 02:53 Calcium 8.4 8.2 L 7.0 L (8.4-10.2) mg/dL Albumin 4.4 (3.5-5.0) g/dL 04/23/22 Range/Units 05:00 Calcium 7.0 L (8.4-10.2) mg/dL Albumin 2.7 L (3.5-5.0) g/dL Pituitary panel 04/22/22 04/22/22 04/23/22 Range/Units 21:25 22:51 02:53 Sodium 144 142 146 H (137-145) mmol/L Potassium 7.9 H* 8.5 H* 6.0 H (3.5-5.1) mmol/L Chloride 102 103 108 H (98-107) mmol/L Carbon Dioxide 11 L 14 L 16 L (22-30) mmol/L BUN 15 16 16 (9-20) mg/dL Creatinine 2.87 H 2.65 H 2.79 H (0.66-1.25) mg/dL Glucose 153 H 180 H 110 H (74-99) mg/dL Calcium 8.4 8.2 L 7.0 L (8.4-10.2) mg/dL 04/23/22 04/23/22 Range/Units 05:00 08:41 Sodium 147 H (137-145) mmol/L Potassium 6.0 H 4.5 (3.5-5.1) mmol/L Chloride 106 (98-107) mmol/L Carbon Dioxide 20 L (22-30) mmol/L BUN 17 (9-20) mg/dL Creatinine 3.02 H (0.66-1.25) mg/dL Glucose 106 H (74-99) mg/dL Calcium 7.0 L (8.4-10.2) mg/dL Adrenal panel 04/22/22 04/22/22 04/23/22 Range/Units 21:25 22:51 02:53 Sodium 144 142 146 H (137-145) mmol/L Potassium 7.9 H* 8.5 H* 6.0 H (3.5-5.1) mmol/L Chloride 102 103 108 H (98-107) mmol/L Carbon Dioxide 11 L 14 L 16 L (22-30) mmol/L BUN 15 16 16 (9-20) mg/dL Creatinine 2.87 H 2.65 H 2.79 H (0.66-1.25) mg/dL Glucose 153 H 180 H 110 H (74-99) mg/dL Calcium 8.4 8.2 L 7.0 L (8.4-10.2) mg/dL Total Bilirubin 0.7 (0.2-1.3) mg/dL AST 6304 H (17-59) U/L ALT 4624 H (4-49) U/L Alkaline Phosphatase 60 (38-126) U/L Total Protein 6.4 (6.3-8.2) g/dL Albumin 4.4 (3.5-5.0) g/dL 04/23/22 04/23/22 Range/Units 05:00 08:41 Sodium 147 H (137-145) mmol/L Potassium 6.0 H 4.5 (3.5-5.1) mmol/L Chloride 106 (98-107) mmol/L Carbon Dioxide 20 L (22-30) mmol/L BUN 17 (9-20) mg/dL Creatinine 3.02 H (0.66-1.25) mg/dL Glucose 106 H (74-99) mg/dL Calcium 7.0 L (8.4-10.2) mg/dL Total Bilirubin 0.9 (0.2-1.3) mg/dL AST 18545 H (17-59) U/L ALT 8867 H (4-49) U/L Alkaline Phosphatase 133 H (38-126) U/L Total Protein 4.8 L (6.3-8.2) g/dL Albumin 2.7 L (3.5-5.0) g/dL
--- NOTE | 2022-04-24 06:51 | P.DS ---
Providers Date of admission: 04/22/22 22:04 Attending physician: Nelida Rodrigues Consults: 04/22/22 22:04 Consult Physician Stat Consulting Provider: Maciel Almodovar Consult Reason/Comments: icu care Do you want consulting provider notified?: Already Contacted 04/22/22 23:25 Consult Physician Stat Consulting Provider: Michael Nevarez Consult Reason/Comments: GI bleed Do you want consulting provider notified?: Already Contacted 04/22/22 23:50 Consult Physician Stat Consulting Provider: Ashlee Arambula Consult Reason/Comments: [place], hyperkalemia Do you want consulting provider notified?: Already Contacted 04/23/22 00:16 Consult Physician Stat Consulting Provider: Carlos Alberto Leon Consult Reason/Comments: HD cath Do you want consulting provider notified?: Already Contacted 04/23/22 07:24 Consult Physician Stat Consulting Provider: Shar Henderson Consult Reason/Comments: Anoxic brain injury Do you want consulting provider notified?: Yes 04/23/22 08:19 Consult Physician Stat Consulting Provider: Eh Cota Consult Reason/Comments: cardiac arrest Do you want consulting provider notified?: Already Contacted Primary care physician: [facility] Course: Family decided to withdraw care per staff Patient eventually, please refer to nursing note for more detail Of note urine drug screen came back positive for cocaine, which makes cocaine overdose is suspicious cause for patient's presentation Refer to the previous records for more details information Patient Condition at Discharge: Critical Plan - Discharge Summary Discharge Rx Participant: Yes New Discharge Prescriptions: No Action Nephro-Van 0.8mg 0.8 mg PO DAILY Montelukast [Singulair] 10 mg PO DAILY Cetirizine HCl 10 mg PO DAILY amLODIPine [Norvasc] 10 mg PO DAILY Albuterol Nebulized [Ventolin Nebulized] 2.5 mg INHALATION RT-QID PRN PRN Reason: Shortness Of Breath Albuterol Inhaler [Ventolin Hfa Inhaler] 2 puff INHALATION RT-QID PRN PRN Reason: Shortness Of Breath Fluticasone/Umeclidin/Vilanter [Trelegy Ellipta 100-62.5-25] 1 puff INHALATION RT-DAILY Benzonatate [Tessalon Perle] 200 mg PO TID PRN PRN Reason: Cough Famotidine [Pepcid] 20 mg PO BID #30 tablet Promethaz-Cod 6.25-10 mg/5 ml [Phenergan with Codeine] 5 ml PO Q4HR PRN 3 Days #90 ml PRN Reason: Cough predniSONE See Taper PO TID sitaGLIPtin [Januvia] 50 mg PO DAILY Ergocalciferol [Vitamin D2 (1250 Mcg = 74049 Iu)] 1,250 mcg PO TUTH Triamcinolone 0.1% Ointment [Kenalog 0.1% Ointment] 1 applic TOPICAL BID PRN PRN Reason: Rash Fluticasone Nasal [place] [Flonase Nasal [place]] 2 spr EA NOSTRIL DAILY #16 gm Oseltamivir [Tamiflu] 75 mg PO Q12HR 5 Days #10 cap glipiZIDE [Glucotrol] 5 mg PO AC-BID Gabapentin [Neurontin] 100 mg PO TID Discharge Medication List Cetirizine HCl 10 mg PO DAILY 08/16/19 [History] Montelukast [Singulair] 10 mg PO DAILY 08/16/19 [History] Nephro-Van 0.8mg 0.8 mg PO DAILY 08/16/19 [History] amLODIPine [Norvasc] 10 mg PO DAILY 08/16/19 [History] Triamcinolone 0.1% Ointment [Kenalog 0.1% Ointment] 1 applic TOPICAL BID PRN 05/15/21 [History] Albuterol Inhaler [Ventolin Hfa Inhaler] 2 puff INHALATION RT-QID PRN 06/16/21 [History] Albuterol Nebulized [Ventolin Nebulized] 2.5 mg INHALATION RT-QID PRN 06/16/21 [History] Benzonatate [Tessalon Perle] 200 mg PO TID PRN 08/04/21 [History] Fluticasone/Umeclidin/Vilanter [Trelegy Ellipta 100-62.5-25] 1 puff INHALATION RT-DAILY 08/04/21 [History] Fluticasone Nasal [place] [Flonase Nasal [place]] 2 spr EA NOSTRIL DAILY #16 gm 01/07/22 [Rx] Famotidine [Pepcid] 20 mg PO BID #30 tablet 01/18/22 [Rx] Promethaz-Cod 6.25-10 mg/5 ml [Phenergan with Codeine] 5 ml PO Q4HR PRN 3 Days #90 ml 01/18/22 [Rx] Oseltamivir [Tamiflu] 75 mg PO Q12HR 5 Days #10 cap 02/17/22 [Rx] Ergocalciferol [Vitamin D2 (1250 Mcg = 00631 Iu)] 1,250 mcg PO TUTH 04/23/22 [History] Gabapentin [Neurontin] 100 mg PO TID 04/23/22 [History] glipiZIDE [Glucotrol] 5 mg PO AC-BID 04/23/22 [History] predniSONE See Taper PO TID 04/23/22 [History] sitaGLIPtin [Januvia] 50 mg PO DAILY 04/23/22 [History] Follow up Appointment(s)/Referral(s): Francy Almeida MD [Primary Care Provider] - 1-2 days Discharge Disposition: - Preliminary Cause of Preliminary Cause of : cardiogenic arres with multiorgan failure
== END 2022-04-23 14:55 | disposition expired | DRG 917 ==
LOC: EC 21:04 → 2SICU 22:04
PROVIDERS: ADMIT Internal Medicine; ATTEND Internal Medicine
PROC: B2111ZZ Fluoroscopy of Multiple Coronary Arteries using Low Osmolar Contrast (ICD-10-PCS; 2022-04-22)
PROC: 4A023N7 Measurement of Cardiac Sampling and Pressure, Left Heart, Percutaneous Approach (ICD-10-PCS; 2022-04-22)
PROC: 02HV33Z Insertion of Infusion Device into Superior Vena Cava, Percutaneous Approach (ICD-10-PCS; 2022-04-22)
PROC: 3E043XZ Introduction of Vasopressor into Central Vein, Percutaneous Approach (ICD-10-PCS; 2022-04-22)
PROC: 0D9670Z Drainage of Stomach with Drainage Device, Via Natural or Artificial Opening (ICD-10-PCS; 2022-04-22)
PROC: 0BH17EZ Insertion of Endotracheal Airway into Trachea, Via Natural or Artificial Opening (ICD-10-PCS; principal; 2022-04-22 21:22)
PROC: 5A1945Z Respiratory Ventilation, 24-96 Consecutive Hours (ICD-10-PCS; principal; 2022-04-22 21:22)
PROC: 5A12012 Performance of Cardiac Output, Single, Manual (ICD-10-PCS; 2022-04-23)
PROC: 06HY33Z Insertion of Infusion Device into Lower Vein, Percutaneous Approach (ICD-10-PCS; 2022-04-23)
PROC: 30233K1 Transfusion of Nonautologous Frozen Plasma into Peripheral Vein, Percutaneous Approach (ICD-10-PCS; 2022-04-23)
DX: T40.5X1A Poisoning by cocaine, accidental (unintentional), initial encounter (principal); D65 Disseminated intravascular coagulation [defibrination syndrome]; J96.01 Acute respiratory failure with hypoxia; K72.00 Acute and subacute hepatic failure without coma; J96.02 Acute respiratory failure with hypercapnia; N17.0 Acute kidney failure with tubular necrosis; I21.3 ST elevation (STEMI) myocardial infarction of unspecified site; G93.1 Anoxic brain damage, not elsewhere classified; E87.2 Acidosis; K92.2 Gastrointestinal hemorrhage, unspecified; J98.11 Atelectasis; I46.8 Cardiac arrest due to other underlying condition; J84.10 Pulmonary fibrosis, unspecified; J44.9 Chronic obstructive pulmonary disease, unspecified; F14.10 Cocaine abuse, uncomplicated; D86.0 Sarcoidosis of lung; Z20.822 Contact with and (suspected) exposure to COVID-19; Z51.5 Encounter for palliative care; Z66 Do not resuscitate; I12.9 Hypertensive chronic kidney disease with stage 1 through stage 4 chronic kidney disease, or unspecified chronic kidney disease; N18.2 Chronic kidney disease, stage 2 (mild); E87.5 Hyperkalemia; E16.2 Hypoglycemia, unspecified; I49.8 Other specified cardiac arrhythmias; F10.10 Alcohol abuse, uncomplicated; Y90.0 Blood alcohol level of less than 20 mg/100 ml; D64.9 Anemia, unspecified; K44.9 Diaphragmatic hernia without obstruction or gangrene; E66.9 Obesity, unspecified; Z68.34 Body mass index [BMI] 34.0-34.9, adult; Z79.84 Long term (current) use of oral hypoglycemic drugs; Z79.51 Long term (current) use of inhaled steroids; Z79.899 Other long term (current) drug therapy; Z86.59 Personal history of other mental and behavioral disorders; Z87.442 Personal history of urinary calculi; Z87.891 Personal history of nicotine dependence; Z88.6 Allergy status to analgesic agent; Z88.5 Allergy status to narcotic agent; Y92.038 Other place in apartment as the place of occurrence of the external cause
CPT/HCPCS: 31500; 36415; 71045; 80048; 80053; 80306; 80320; 81001; 82553; 82805; 83605; 83735; 84132; 84484; 85025; 85027; 85379; 85610; 85730; 86850; 86900; 86901; 86920; 87070; 87077; 87186; 87205; 87635; 92950; 93005; 93306; 93458; 94002; 94003; 94640; 99285